=== PATIENT | female | born 1935 | race Caucasian/White ===

== ENCOUNTER 2019-09-08 23:49 | Emergency (ER) | payer MEDICARE, BC ==
[2019-09-09] MEDS ORDERED: cloNIDine HCL 0.1 MG TAB PO STA (00:16)
--- NOTE | 2019-09-09 00:46 | ED ---
Recheck HPI - General Chief Complaint: Recheck/Abnormal Lab/Rx Stated Complaint: HTN Time Seen by Provider: 09/09/19 00:01 Source: patient, family Mode of arrival: ambulatory Limitations: no limitations - History of Present Illness Initial Comments: Kamille is a pleasant 84-year-old female is brought to the emergency department today by her children for evaluation of hypertension. Patient reports she checks her blood pressure regularly and for the past 2 days it's been elevated. Patient reports that yesterday she did have mild headache but it completely resolved. This evening despite taking her home medication which is metoprolol 25 mg nightly in her low certain in the morning she continued to have high blood pressure and at her children's urging decided to come the ER for evaluation. Patient denies any chest pain palpitation shortness of breath. She reported a mild headache that was yesterday but is resolved. She denies any vision changes or focal neurologic weakness. - Related Data Allergies Allergy/AdvReac Type Severity Reaction Status Date / Time Sulfa (Sulfonamide Allergy Rash/Hives Verified 09/08/19 23:58 Antibiotics) Review of Systems ROS Statement: Those systems with pertinent positive or pertinent negative responses have been documented in the HPI. ROS Other: All systems not noted in ROS Statement are negative. Past Medical History Past Medical History: COPD, Hypertension, Pneumonia History of Any Multi-Drug Resistant Organisms: None Reported Past Surgical History: No Surgical Hx Reported Past Psychological History: No Psychological Hx Reported Smoking Status: Current every day smoker Past Alcohol Use History: None Reported Past Drug Use History: None Reported General Exam - General Exam Comments Initial Comments: Physical Exam GENERAL: Patient is well-developed and well-nourished. Patient is nontoxic and well-hydrated and is in no distress. HENT: Normocephalic, Atraumatic. EYES: PERRL, EOMI PULMONARY: Unlabored respirations. CARDIOVASCULAR: RRR Warm and well perfused extremities ABDOMEN: Non-distended SKIN: No rashes or bruising : Deferred NEUROLOGIC: Alert and oriented Normal speech Normal gait MUSCULOSKELETAL: Moving all extremities with no apparent injury PSYCHIATRIC: No SI/HI Limitations: no limitations Course Vital Signs 09/08/19 09/09/19 09/09/19 23:52 00:53 02:37 Temperature 97.8 F 97.9 F Pulse Rate 89 74 75 Respiratory 16 18 18 Rate Blood Pressure 206/104 181/94 161/69 O2 Sat by Pulse 96 97 95 Oximetry Medical Decision Making - Medical Decision Making The patient was seen and evaluated history is obtained from patient Patient presented with asymptomatic hypertension. Patient was treated with by mouth clonidine Patient's blood pressure improved she remained asymptomatic throughout her stay in the emergency department and was comfortable with plan for discharge home and outpatient follow-up with her primary care. Disposition Clinical Impression: Hypertension Disposition: HOME SELF-CARE Condition: Stable Additional Instructions: Continue taking your blood pressure medication as prescribed, contact your primary care physician Dr. Leblanc tomorrow to discuss blood pressure management Return to the ER if you have any headache, vision changes, weakness, chest pain palpitations or shortness of breath with high blood pressure Is patient prescribed a controlled substance at d/c from ED?: No Referrals: Chris Leblanc DO [Primary Care Provider] - 1-2 days
[2019-09-09 00:56] VITALS: RESP 18
[2019-09-09 02:38] VITALS: BP 161/69; PULSE 75; TEMP 97.9
== END 2019-09-09 03:09 | disposition home or self-care (01) ==
LOC: EC 23:49
DX: I10 Essential (primary) hypertension (principal); J44.9 Chronic obstructive pulmonary disease, unspecified; F17.200 Nicotine dependence, unspecified, uncomplicated; Z88.2 Allergy status to sulfonamides
CPT/HCPCS: 93005; 99283

== ENCOUNTER 2020-08-13 04:41 | Emergency (ER) | payer MEDICARE, BC ==
--- NOTE | 2020-08-13 05:05 | ED ---
SOB HPI - General Chief Complaint: Shortness of Breath Stated Complaint: ZAIRA Time Seen by Provider: 08/13/20 04:43 Source: patient, EMS Mode of arrival: EMS Limitations: no limitations - History of Present Illness Initial Comments: This patient is an 85-year-old woman who presents to be evaluated for shortness of breath. The patient states that it had come on probably around 2-3 hours ago while she was sleeping and it woke her up. She denies any other symptoms other than occasional cough. She states she has history of COPD. She states it feels like that's flaring up. No fever or chills. No chest pain. No change in urination or bowel movements. No leg pain or swelling. MD Complaint: shortness of breath, cough Onset/Timin -: hour(s) Severity scale (1-10): 0 Consistency: constant Improves With: nothing Worsens With: nothing Known History Of: COPD Associated Symptoms: denies other symptoms Treatments Prior to Arrival: oxygen - Related Data Home Oxygen Therapy: No Previous Rx's Medication Instructions Recorded Albuterol Nebulized [Ventolin 2.5 mg INHALATION Q4H #50 nebu 08/13/20 Nebulized] Ipratropium Nebulized [Atrovent 0.5 mg INHALATION Q6HR #25 neb 08/13/20 Nebulized 0.2 MG/ML] predniSONE [Deltasone] 20 mg PO BID #8 tab 08/13/20 Allergies Allergy/AdvReac Type Severity Reaction Status Date / Time Sulfa (Sulfonamide Allergy Rash/Hives Verified 09/08/19 23:58 Antibiotics) Review of Systems ROS Statement: Those systems with pertinent positive or pertinent negative responses have been documented in the HPI. ROS Other: All systems not noted in ROS Statement are negative. Constitutional: Denies: fever, chills Respiratory: Reports: as per HPI, cough, dyspnea, wheezes. Denies: hemoptysis Cardiovascular: Denies: chest pain, palpitations, orthopnea, edema, syncope Gastrointestinal: Denies: abdominal pain, nausea, vomiting, melena, hematochezia Genitourinary: Denies: dysuria, hematuria Musculoskeletal: Denies: back pain Skin: Denies: rash Neurological: Denies: headache, weakness, numbness Past Medical History Past Medical History: COPD, Hypertension, Pneumonia History of Any Multi-Drug Resistant Organisms: None Reported Past Surgical History: No Surgical Hx Reported Past Psychological History: No Psychological Hx Reported Smoking Status: Current some day smoker Past Alcohol Use History: None Reported Past Drug Use History: None Reported General Exam Limitations: no limitations General appearance: alert, in no apparent distress, cachectic Head exam: Present: atraumatic, normocephalic Eye exam: Present: normal appearance Neck exam: Present: normal inspection Respiratory exam: Present: wheezes, decreased breath sounds. Absent: respiratory distress, rales, rhonchi, stridor, chest wall tenderness, accessory muscle use, prolonged expiratory Cardiovascular Exam: Present: regular rate, normal rhythm, normal heart sounds. Absent: bradycardia, tachycardia, irregular rhythm, systolic murmur, diastolic murmur, rubs, gallop GI/Abdominal exam: Present: soft. Absent: distended, tenderness, guarding, rebound, rigid Extremities exam: Present: normal inspection, normal capillary refill. Absent: pedal edema, calf tenderness Back exam: Present: normal inspection. Absent: CVA tenderness (R), CVA tenderness (L) Neurological exam: Present: alert Skin exam: Present: warm, dry, intact, normal color. Absent: rash Course Vital Signs 08/13/20 08/13/20 08/13/20 04:41 05:29 05:33 Temperature 97.5 F L Pulse Rate 103 H 89 90 Respiratory 20 18 Rate Blood Pressure 167/85 142/86 O2 Sat by Pulse 94 L 99 Oximetry 08/13/20 08/13/20 05:42 06:58 Temperature Pulse Rate 96 88 Respiratory 16 Rate Blood Pressure 127/68 O2 Sat by Pulse 98 Oximetry Medical Decision Making - Medical Decision Making This patient is an 85-year-old woman presenting for shortness of breath. Physical exam and workup here consistent with COPD exacerbation. The patient is feeling markedly better following treatment. We discussed admission, she is feeling much better and would like to go home at this point. Discussed appropriate further care and follow-up as well as return parameters. - Lab Data Result diagrams: 08/13/20 05:07 08/13/20 05:07 Lab Results 08/13/20 08/13/20 08/13/20 Range/Units 05:07 05:07 05:07 WBC 8.7 (3.8-10.6) k/uL RBC 5.04 (3.80-5.40) m/uL Hgb 15.2 (11.4-16.0) gm/dL Hct 46.3 H (34.0-46.0) % MCV 91.9 (80.0-100.0) fL MCH 30.1 (25.0-35.0) pg MCHC 32.7 (31.0-37.0) g/dL RDW 13.3 (11.5-15.5) % Plt Count 247 (150-450) k/uL MPV 6.6 Neutrophils % 65 % Lymphocytes % 25 % Monocytes % 5 % Eosinophils % 3 % Basophils % 0 % Neutrophils # 5.6 (1.3-7.7) k/uL Lymphocytes # 2.1 (1.0-4.8) k/uL Monocytes # 0.5 (0-1.0) k/uL Eosinophils # 0.2 (0-0.7) k/uL Basophils # 0.0 (0-0.2) k/uL PT 10.1 (9.0-12.0) sec INR 0.9 (<1.2) APTT 23.8 (22.0-30.0) sec D-Dimer 0.59 (<0.60) mg/L FEU Sodium 138 (137-145) mmol/L Potassium 4.0 (3.5-5.1) mmol/L Chloride 101 (98-107) mmol/L Carbon Dioxide 26 (22-30) mmol/L Anion Gap 11 mmol/L BUN 13 (7-17) mg/dL Creatinine 0.70 (0.52-1.04) mg/dL Est GFR (CKD-EPI)AfAm >90 (>60 ml/min/1.73 sqM) Est GFR (CKD-EPI)NonAf 80 (>60 ml/min/1.73 sqM) Glucose 109 H (74-99) mg/dL Plasma Lactic Acid Son (0.7-2.0) mmol/L Calcium 9.4 (8.4-10.2) mg/dL Total Bilirubin 0.4 (0.2-1.3) mg/dL AST 24 (14-36) U/L ALT 13 (4-34) U/L Alkaline Phosphatase 99 (38-126) U/L Troponin I (0.000-0.034) ng/mL NT-Pro-B Natriuret Pep pg/mL Total Protein 7.4 (6.3-8.2) g/dL Albumin 4.4 (3.5-5.0) g/dL Coronavirus (PCR) (Not Detectd) 08/13/20 08/13/20 08/13/20 Range/Units 05:07 05:07 05:07 WBC (3.8-10.6) k/uL RBC (3.80-5.40) m/uL Hgb (11.4-16.0) gm/dL Hct (34.0-46.0) % MCV (80.0-100.0) fL MCH (25.0-35.0) pg MCHC (31.0-37.0) g/dL RDW (11.5-15.5) % Plt Count (150-450) k/uL MPV Neutrophils % % Lymphocytes % % Monocytes % % Eosinophils % % Basophils % % Neutrophils # (1.3-7.7) k/uL Lymphocytes # (1.0-4.8) k/uL Monocytes # (0-1.0) k/uL Eosinophils # (0-0.7) k/uL Basophils # (0-0.2) k/uL PT (9.0-12.0) sec INR (<1.2) APTT (22.0-30.0) sec D-Dimer (<0.60) mg/L FEU Sodium (137-145) mmol/L Potassium (3.5-5.1) mmol/L Chloride (98-107) mmol/L Carbon Dioxide (22-30) mmol/L Anion Gap mmol/L BUN (7-17) mg/dL Creatinine (0.52-1.04) mg/dL Est GFR (CKD-EPI)AfAm (>60 ml/min/1.73 sqM) Est GFR (CKD-EPI)NonAf (>60 ml/min/1.73 sqM) Glucose (74-99) mg/dL Plasma Lactic Acid Son 1.2 (0.7-2.0) mmol/L Calcium (8.4-10.2) mg/dL Total Bilirubin (0.2-1.3) mg/dL AST (14-36) U/L ALT (4-34) U/L Alkaline Phosphatase (38-126) U/L Troponin I <0.012 (0.000-0.034) ng/mL NT-Pro-B Natriuret Pep 273 pg/mL Total Protein (6.3-8.2) g/dL Albumin (3.5-5.0) g/dL Coronavirus (PCR) (Not Detectd) 08/13/20 Range/Units 05:29 WBC (3.8-10.6) k/uL RBC (3.80-5.40) m/uL Hgb (11.4-16.0) gm/dL Hct (34.0-46.0) % MCV (80.0-100.0) fL MCH (25.0-35.0) pg MCHC (31.0-37.0) g/dL RDW (11.5-15.5) % Plt Count (150-450) k/uL MPV Neutrophils % % Lymphocytes % % Monocytes % % Eosinophils % % Basophils % % Neutrophils # (1.3-7.7) k/uL Lymphocytes # (1.0-4.8) k/uL Monocytes # (0-1.0) k/uL Eosinophils # (0-0.7) k/uL Basophils # (0-0.2) k/uL PT (9.0-12.0) sec INR (<1.2) APTT (22.0-30.0) sec D-Dimer (<0.60) mg/L FEU Sodium (137-145) mmol/L Potassium (3.5-5.1) mmol/L Chloride (98-107) mmol/L Carbon Dioxide (22-30) mmol/L Anion Gap mmol/L BUN (7-17) mg/dL Creatinine (0.52-1.04) mg/dL Est GFR (CKD-EPI)AfAm (>60 ml/min/1.73 sqM) Est GFR (CKD-EPI)NonAf (>60 ml/min/1.73 sqM) Glucose (74-99) mg/dL Plasma Lactic Acid Son (0.7-2.0) mmol/L Calcium (8.4-10.2) mg/dL Total Bilirubin (0.2-1.3) mg/dL AST (14-36) U/L ALT (4-34) U/L Alkaline Phosphatase (38-126) U/L Troponin I (0.000-0.034) ng/mL NT-Pro-B Natriuret Pep pg/mL Total Protein (6.3-8.2) g/dL Albumin (3.5-5.0) g/dL Coronavirus (PCR) Not Detected (Not Detectd) - EKG Data -: EKG Interpreted by Me EKG shows normal: sinus rhythm (With PVC, rate 95 bpm), axis (Normal), intervals (Normal), QRS complexes (Normal), ST-T waves (Normal) Rate: normal Disposition Clinical Impression: COPD exacerbation Disposition: HOME SELF-CARE Condition: Good Instructions (If sedation given, give patient instructions): COPD (Chronic Obstructive Pulmonary Disease) (ED) Prescriptions: Ipratropium Nebulized [Atrovent Nebulized 0.2 MG/ML] 0.5 mg INHALATION Q6HR #25 neb predniSONE [Deltasone] 20 mg PO BID #8 tab Albuterol Nebulized [Ventolin Nebulized] 2.5 mg INHALATION Q4H #50 nebu Is patient prescribed a controlled substance at d/c from ED?: No Referrals: Chris Leblanc DO [Primary Care Provider] - 1-2 days
[2020-08-13 05:21] LABS: Basophils % (A) 0 %; Eosinophils # (A) 0.2 k/uL (0-0.7); Eosinophils % (A) 3 %; HCT 46.3 % (34.0-46.0); HGB 15.2 gm/dL (11.4-16.0); Lymphocytes # (A) 2.1 k/uL (1.0-4.8); Lymphocytes % (A) 25 %; MCH 30.1 pg (25.0-35.0); MCHC 32.7 g/dL (31.0-37.0); MCV 91.9 fL (80.0-100.0); Mean Platelet Volume 6.6; Monocytes # (A) 0.5 k/uL (0-1.0); Monocytes % (A) 5 %; Neutrophils # (A) 5.6 k/uL (1.3-7.7); Neutrophils % (A) 65 %; Platelet Count 247 k/uL (150-450); RBC 5.04 m/uL (3.80-5.40); RDW 13.3 % (11.5-15.5); WBC 8.7 k/uL (3.8-10.6)
[2020-08-13] MEDS ORDERED: IPRATROPIUM-ALBUTEROL 3 ML NEB INHALATION STA (05:21)
[2020-08-13] MEDS ORDERED: predniSONE 20 MG TAB PO STA (05:21)
[2020-08-13 05:30] VITALS: TEMP 97.5
[2020-08-13 05:34] LABS: D-Dimer 0.59 mg/L FEU (<0.60); INR 0.9 (<1.2); Partial Thromboplastin Time 23.8 sec (22.0-30.0); Prothrombin Time 10.1 sec (9.0-12.0)
[2020-08-13 05:39] LABS: ALT 13 U/L (4-34); AST 24 U/L (14-36); African American GFR (CKD) >90 (>60 ml/min/1.73 sqM); Albumin 4.4 g/dL (3.5-5.0); Alkaline Phosphatase 99 U/L (38-126); Anion Gap 11 mmol/L; Blood Urea Nitrogen 13 mg/dL (7-17); Calcium 9.4 mg/dL (8.4-10.2); Carbon Dioxide 26 mmol/L (22-30); Chloride 101 mmol/L (98-107); Glucose 109 mg/dL (74-99); Non-African American GFR(CKD) 80 (>60 ml/min/1.73 sqM); Sodium 138 mmol/L (137-145); Total Bilirubin 0.4 mg/dL (0.2-1.3); Total Protein 7.4 g/dL (6.3-8.2)
--- NOTE | 2020-08-13 06:01 | XR ---
EXAM: XR Chest, 2 Views CLINICAL HISTORY: ITS.REASON XR Reason: difficulty breathing TECHNIQUE: Frontal and lateral views of the chest. COMPARISON: No relevant prior studies available. FINDINGS: Lungs: Chronic lung changes. Pleural space: No significant pleural effusion or pneumothorax. Heart: Unremarkable. Mediastinum: Unremarkable. Bones/joints: No acute fracture. Upper abdomen: Rounded radiopacity overlying the medial right upper abdomen. Correlate clinically to exclude foreign body. IMPRESSION: Chronic lung changes. Mild superimposed acute process not excluded in the appropriate clinical setting.
[2020-08-13 07:00] VITALS: BP 127/68; PULSE 88; RESP 16
== END 2020-08-13 07:00 | disposition home or self-care (01) ==
LOC: EC 04:41
DX: J44.1 Chronic obstructive pulmonary disease with (acute) exacerbation (principal); Z20.822 Contact with and (suspected) exposure to COVID-19; Z88.2 Allergy status to sulfonamides
CPT/HCPCS: 94640; 93005; 85379; 83880; 80053; 83605; 84484; 85025; 85610; 85730; 87635; 71046; 99285; J7512

== ENCOUNTER 2022-12-14 16:21 | Inpatient (IN) | payer MEDICARE, BC ==
--- NOTE | 2022-12-14 17:02 | ED ---
General Adult HPI - General Stated complaint: LOWER EXTREMITY PAIN Time Seen by Provider: 12/14/22 16:48 Source: patient, family, RN notes reviewed Limitations: no limitations - History of Present Illness Initial comments: Patient is a pleasant 87-year-old female presenting to the emergency department with concerns with hip pain. Patient states she has somewhat chronic hip pain or lack 6 months. Patient states she has not seen her doctor yet for this. Patient states discomfort is waxing and waning. Discomfort does increase with movement. Discomfort is moderate at this time. Patient did lie herself down to the ground however did not fall. No injury. No other area of pain or concern. No fever. No swelling. - Related Data Previous Rx's Medication Instructions Recorded Albuterol Nebulized [Ventolin 2.5 mg INHALATION Q4H #50 nebu 08/13/20 Nebulized] Ipratropium Nebulized [Atrovent 0.5 mg INHALATION Q6HR #25 neb 08/13/20 Nebulized 0.2 MG/ML] predniSONE [Deltasone] 20 mg PO BID #8 tab 08/13/20 Allergies Allergy/AdvReac Type Severity Reaction Status Date / Time Sulfa (Sulfonamide Allergy Rash/Hives Verified 12/14/22 17:05 Antibiotics) Review of Systems ROS Statement: Those systems with pertinent positive or pertinent negative responses have been documented in the HPI. ROS Other: All systems not noted in ROS Statement are negative. Constitutional: Denies: fever Eyes: Denies: eye pain ENT: Denies: ear pain Respiratory: Denies: cough Cardiovascular: Denies: chest pain Endocrine: Denies: fatigue Gastrointestinal: Denies: abdominal pain Genitourinary: Denies: dysuria Musculoskeletal: Reports: as per HPI. Denies: back pain Skin: Denies: rash Neurological: Denies: weakness Past Medical History Past Medical History: COPD, Hypertension, Pneumonia History of Any Multi-Drug Resistant Organisms: None Reported Past Surgical History: No Surgical Hx Reported Past Psychological History: No Psychological Hx Reported Smoking Status: Current some day smoker Past Alcohol Use History: None Reported Past Drug Use History: None Reported General Exam Limitations: no limitations General appearance: alert, in no apparent distress Head exam: Present: normocephalic Eye exam: Present: normal appearance ENT exam: Present: normal exam Neck exam: Present: normal inspection. Absent: tenderness Respiratory exam: Present: normal lung sounds bilaterally Cardiovascular Exam: Present: regular rate, normal rhythm Expanded Peripheral pulses: 2+: Posterior Tibialis (R), Posterior Tibialis (L), Dorsalis Pedis (R), Dorsalis Pedis (L) GI/Abdominal exam: Present: soft. Absent: tenderness Extremities exam: Present: tenderness (Right lateral hip. Distally the extremity is neurovascular intact. Pain with range of motion right hip) Back exam: Present: normal inspection. Absent: tenderness, vertebral tenderness Neurological exam: Present: alert. Absent: motor sensory deficit Psychiatric exam: Present: normal affect, normal mood Skin exam: Present: normal color Course Vital Signs 12/14/22 17:07 Temperature 98.9 F Pulse Rate 90 Respiratory 16 Rate Blood Pressure 90/59 O2 Sat by Pulse 94 L Oximetry Medical Decision Making - Medical Decision Making Was pt. sent in by a medical professional or institution (, PA, INSPECTOR [employer], urgent care, hospital, or intermediate...) When possible be specific @ -No Did you speak to anyone other than the patient for history (EMS, parent, family, police, friend...)? What history was obtained from this source @ -Family is present and helps by history including history of patient reportedly not having a fall but laying down secondary to pain Did you review nursing and triage notes (agree or disagree)? Why? @ -I reviewed and agree with nursing and triage notes Were old charts reviewed (outside hosp., previous admission, EMS record, old EKG, old radiological studies, urgent care reports/EKG's, intermediate records)? Report findings @ -No old charts were reviewed Differential Diagnosis (chest pain, altered mental status, abdominal pain women, abdominal pain men, vaginal bleeding, weakness, fever, dyspnea, syncope, headache, dizziness, GI bleed, back pain, seizure, CVA, palpatations, mental health)? @ -not applicable EKG interpreted by me (3pts min.). @ -As above X-rays interpreted by me (1pt min.). @ -Right hip and pelvis and right femur x-ray show right IT fracture CT interpreted by me (1pt min.). @ -None done U/S interpreted by me (1pt. min.). @ -None done What testing was considered but not performed or refused? (CT, X-rays, U/S, labs)? Why? @ -None What meds were considered but not given or refused? Why? @ -None Did you discuss the management of the patient with other professionals (professionals i.e. , PA, INSPECT[employer], lab, RT, psych nurse, health care social worker, supervisor plate pasting, teacher, juvenile probation officer, corrections caseworker)? Give summary @ -Case discussed with practitioner neck rash with orthopedics Was smoking cessation discussed for >3mins.? @ -No Was critical care preformed (if so, how long)? @ -No Were there social determinants of health that impacted care today? How? (Homelessness, low income, unemployed, alcoholism, drug addiction, transportation, low edu. Level, literacy, decrease access to med. care, fdc, rehab)? @ -No Was there de-escalation of care discussed even if they declined (Discuss DNR or withdrawal of care, Hospice)? DNR status @ -No What co-morbidities impacted this encounter? (DM, HTN, Smoking, COPD, CAD, Cancer, CVA, ARF, Chemo, Hep., AIDS, mental health diagnosis, sleep apnea, morbid obesity)? @ -None Was patient admitted / discharged? Hospital course, mention meds given and route, prescriptions, significant lab abnormalities, going to OR and other pertinent info. @ -Patient reevaluated. Patient and family updated. Patient will be admitted with probable surgical repair of right IT fracture Undiagnosed new problem with uncertain prognosis? @ -No Drug Therapy requiring intensive monitoring for toxicity (Heparin, Nitro, Insul in, Cardizem)? @ -No Were any procedures done? @ -No Diagnosis/symptom? @ -Intertrochanteric right hip fracture Acute, or Chronic, or Acute on Chronic? @ -Acute Uncomplicated (without systemic symptoms) or Complicated (systemic symptoms)? @ -default Side effects of treatment? @ -No Exacerbation, Progression, or Severe Exacerbation? @ -No Poses a threat to life or bodily function? How? (Chest pain, [place], [place], pneumonia, PE, COPD, DKA, ARF, appy, cholecystitis, CVA, Diverticulitis, Homicidal, Suicidal, threat to staff... and all critical care pts) @ -No Disposition Clinical Impression: Intertrochanteric fracture of right hip Disposition: ADMITTED IP TO THIS HOSP Is patient prescribed a controlled substance at d/c from ED?: No Referrals: Chris Leblanc DO [Primary Care Provider] - 1-2 days Time of Disposition: 18:22
[2022-12-14] MEDS ORDERED: KETOROLAC 15 MG/ML 1 ML VIAL IVP STA (17:06)
--- NOTE | 2022-12-14 17:55 | XR ---
EXAMINATION TYPE: XR chest 1V DATE OF EXAM: 12/14/2022 COMPARISON: 08/13/2020 HISTORY: 87-year-old female with fall TECHNIQUE: Single frontal view of the chest is obtained. FINDINGS: Heart normal size. Atherosclerotic calcifications. Interstitial prominence and hyperinflat ion. No consolidation or pleural effusion. IMPRESSION: COPD. Chronic appearing changes. No acute process seen.
--- NOTE | 2022-12-14 17:58 | XR ---
EXAMINATION TYPE: XR Hip 2 views RT and AP Pelvis, XR femur 2 views RT DATE OF EXAM: 12/14/2022 COMPARISON: NONE HISTORY: 87-year-old female fall and pain FINDINGS: Pelvis and right hip: Prominent leftward tracheal shift versus a levoconvex scoliosis. Marked osteopenia. Mild degenerative change of both hips. Prominent stool within the rectum extending up to 7.7 cm wide. There is a minim ally comminuted, nondisplaced intertrochanteric fracture of the proximal right femur. Right femur: Osteopenia. No additional acute fractures seen of the more mid to distal right femur. Suspect severe degenerative change medial compartment of the knee. IMPRESSION: 1. Pelvis and right hip: Osteopenia. Mild bilateral hip OA. Nondisplaced IT fracture proximal right f emur. 2. Right femur: Osteopenia. Suspect severe medial compartmental OA at the knee.
[2022-12-14] MEDS: MORPHINE SULFATE 4 MG/ML SYRINGE IVP STA ×2 (18:04→20:11)
[2022-12-14] MEDS ORDERED: MORPHINE SULFATE 4 MG/ML SYRINGE IV PRN (18:22)
[2022-12-14] MEDS ORDERED: NALOXONE 0.4 MG/ML 1 ML VIAL IV PRN (18:22)
[2022-12-14] MEDS: SODIUM CHLORIDE 0.9% 1,000 ML IV SCH (19:00)
[2022-12-14] MEDS ORDERED: SODIUM CHLORIDE 0.9% 500 ML 500 ML IV STA (19:05)
[2022-12-14 19:36] LABS: ALT 24 U/L (4-34); AST 36 U/L (14-36); African American GFR (CKD) 57 (>60 ml/min/1.73 sqM); Albumin 4.4 g/dL (3.5-5.0); Alkaline Phosphatase 83 U/L (38-126); Anion Gap 13 mmol/L; Blood Urea Nitrogen 32 mg/dL (7-17); Calcium 9.8 mg/dL (8.4-10.2); Carbon Dioxide 28 mmol/L (22-30); Chloride 96 mmol/L (98-107); Glucose 119 mg/dL (74-99); Non-African American GFR(CKD) 49 (>60 ml/min/1.73 sqM); Potassium 3.7 mmol/L (3.5-5.1); Sodium 137 mmol/L (137-145); Total Bilirubin 0.7 mg/dL (0.2-1.3); Total Protein 7.2 g/dL (6.3-8.2)
[2022-12-14 19:41] LABS: Basophils % (A) 0 %; Eosinophils % (A) 0 %; HCT 21.2 % (34.0-46.0); HGB 7.1 gm/dL (11.4-16.0); Lymphocytes # (A) 0.5 k/uL (1.0-4.8); Lymphocytes % (A) 8 %; MCH 29.9 pg (25.0-35.0); MCHC 33.3 g/dL (31.0-37.0); MCV 89.7 fL (80.0-100.0); Mean Platelet Volume 7.5; Monocytes # (A) 0.3 k/uL (0-1.0); Monocytes % (A) 4 %; Neutrophils # (A) 5.6 k/uL (1.3-7.7); Neutrophils % (A) 87 %; Platelet Count 439 k/uL (150-450); RBC 2.37 m/uL (3.80-5.40); RDW 13.3 % (11.5-15.5); WBC 6.4 k/uL (3.8-10.6)
[2022-12-14 19:45] LABS: INR 1.4 (<1.2); Prothrombin Time 13.8 sec (9.0-12.0)
[2022-12-15] MEDS: ACETAMINOPHEN TAB 325 MG TAB PO PRN ×2 (00:14→06:34)
--- NOTE | 2022-12-15 09:44 | P.HPOR ---
History of Present Illness H&P Date: 12/15/22 Chief Complaint: Right intertrochanteric femur fracture Patient is an 87-year-old female was brought to [facility] in-hospital after being found on the ground at her home. Patient had immediate pain to the right lower extremity and was able to weight-bear. Upon arrival to the hospital, imaging and lab tests were done. Images did demonstrate a minimally displaced right intertrochanteric femur fracture. Patient was a relatively poor historian with regards to the history. I was able to speak with her daughter today that. On examination the emergency room, she is resting comfortably. She denies any pain involving the left lower extremity or bilateral upper extremities. She notices most pain in the hip with range of motion. She denies any cervical, th oracic or lumbar pain. She denies any loss of bowel or bladder function at this time. She denies any paresthesias of the bilateral upper or lower extremities. She denies any previous surgery to the right lower extremity. After discussion with the patient's daughter, she is very stationary at home. She does occasionally walk outside but very limited. She utilizes a walker occasionally for ambulation. Patient currently does not drive. Review of Systems Constitutional: Reports as per HPI Past Medical History Past Medical History: COPD, Hypertension, Pneumonia History of Any Multi-Drug Resistant Organisms: None Reported Past Surgical History: No Surgical Hx Reported Past Psychological History: No Psychological Hx Reported Smoking Status: Current some day smoker Past Alcohol Use History: None Reported Past Drug Use History: None Reported Medications and Allergies Home Medications Medication Instructions Recorded Confirmed Type Aspirin EC [Ecotrin Low Dose] 81 mg PO DAILY 12/14/22 12/14/22 History Fluticasone Propion/Salmeterol 1 puff INHALATION RT-BID 12/14/22 12/14/22 History [Wixela 250-50 Inhub] Losartan Potassium 50 mg PO BID 12/14/22 12/14/22 History Metoprolol Succinate [Toprol XL] 100 mg PO DAILY 12/14/22 12/14/22 History hydroCHLOROthiazide [Hydrodiuril] 25 mg PO DAILY 12/14/22 12/14/22 History Allergies Allergy/AdvReac Type Severity Reaction Status Date / Time Sulfa (Sulfonamide Allergy Rash/Hives Verified 12/14/22 18:28 Antibiotics) Physical Examination Right lower extremity: No obvious open lesions or sores are visualized throughout the extremity, no significant areas of ecchymosis Shortening and external rotation of the extremity is noted compared to the cont ralateral side Tenderness with palpation to the proximal femur, logroll maneuver reproduces groin pain, she is unable to straight leg raise No tenderness with palpation surrounding the knee, lower leg, foot or ankle Plantar flexion, dorsiflexion, EHL, FHL are intact Calf is soft, no tenderness with palpation Cells pedis pulses 2+, sensory exam to light touch is intact throughout the extremity Results - Labs Labs: Abnormal Lab Results - Last 24 Hours (Table) 12/14/22 12/14/22 12/14/22 Range/Units 18:58 18:58 18:58 RBC 2.37 L (3.80-5.40) m/uL Hgb 7.1 L (11.4-16.0) gm/dL Hct 21.2 L (34.0-46.0) % Lymphocytes # 0.5 L (1.0-4.8) k/uL PT 13.8 H (9.0-12.0) sec INR 1.4 H (<1.2) Chloride 96 L (98-107) mmol/L BUN 32 H (7-17) mg/dL Glucose 119 H (74-99) mg/dL Crossmatch 12/15/22 Range/Units 07:03 RBC (3.80-5.40) m/uL Hgb (11.4-16.0) gm/dL Hct (34.0-46.0) % Lymphocytes # (1.0-4.8) k/uL PT (9.0-12.0) sec INR (<1.2) Chloride (98-107) mmol/L BUN (7-17) mg/dL Glucose (74-99) mg/dL Crossmatch See Detail H & H 12/14/22 Range/Units 18:58 Hgb 7.1 L (11.4-16.0) gm/dL Hct 21.2 L (34.0-46.0) % Coagulation 12/14/22 Range/Units 18:58 INR 1.4 H (<1.2) Result Diagrams: 12/14/22 18:58 12/14/22 18:58 - Diagnostic results Hip x-ray: report reviewed, image reviewed (AP films of the pelvis and x-rays of the right hip were reviewed. Images demonstrate a minimally displaced right intertrochanteric femur fracture. No other acute osseous abnormalities appreciated. osteoarthritic changes to the bilateral hips ) Assessment and Plan Assessment: Minimally displaced right intertrochanteric femur fracture Status post fall from standing Bilateral hip osteoarthritis COPD Plan: I was able to discuss the case, this including both physical exam findings and imaging studies of my attending Dr. Hodgson. We would like surgical intervention, more specifically a intramedullary nail of the right intertrochanteric femur fracture. We would like to start her on 12/15/2022. Patient was made nothing by mouth after midnight 12/14/2022 I was able to discuss the case, this risk and benefits with both the patient and the patient's daughter risks to include but not exclusive to infection, blood loss, blood clots, neurovascular injury, and adequately control, need for further surgery, pain and stiffness. Obtain consent prior to procedure Continue nothing by mouth diet Nonweightbearing right lower extremity Urinary catheter placement prior to surgery DVT prophylaxis, will likely utilize subcu medication after surgery Pain control, oral and IV medication as needed PT/OT evaluation after surgery Medical recommendations Further recommendations to follow Time with Patient: Less than 30
--- NOTE | 2022-12-15 10:54 | P.CONS ---
History of Present Illness - Reason for Consult Consult date: 12/15/22 - Chief Complaint Preop, medical management - History of Present Illness 87-year-old woman with medical history of COPD, hypertension, hyperlipidemia presented for hip fracture. Orthopedic surgery service admitted the patient and requested medical consultation for management as well as for preoperative clearance. Patient reports that she does some housework at home, is able to feed herself, bathe herself, ambulating with the help of a walker, groom herself, but she does require help with IADLs such as grocery shopping, laundry, etc. She does have stairs at home, but requires a chair lift to be able to go up and down her stairs. METs estimation by Price activity status indexes 3.63. Patient denies fevers, chills, nausea, vomiting, chest pain, palpitations, syncope, presyncope, cough, dyspnea, abdominal pain, constipation, diarrhea, dysuria, dyschezia, numbness/weakness of extremities. In the emergency room, patient was afebrile, 112/58, heart rate 76, 96% on 2 L nasal cannula. CBC shows anemia to 7.1. Basic metabolic panel shows chloride of 96, BUN of 32, otherwise unremarkable. Magnesium is 1.8. Coags show an INR of 1.4. Liver function tests are unremarkable. Chest x-ray demonstrates hyperinflation with flattening of diaphragms, normal sized heart without acute infiltrates. Pelvis and right hip x-ray shows osteopenia with mild lateral bile hip osteoarthritis and a nondisplaced intertrochanteric fracture of the proximal right femur. Case was discussed with the orthopedic surgery service requested medical consultation for preoperative clearance and medical management. All Systems reviewed and pertinent positives and negatives noted in HPI, all other symptoms are negative Gen: in no apparent distress, resting comfortably in bed Eyes: PERRL, no scleral injection or icterus HENT: normocephalic, atraumatic, good hearing acuity, moist mucous membranes Neck: no tracheal deviation, full range of motion Resp: good air exchange, breathing comfortably with no accessory muscle use, no tactile fremitus, clear to auscultation bilaterally CVS: good distal perfusion x 4, no pitting edema, regular rate and rhythm without murmurs GI: soft, NTTP, ND, no hepatosplenomegaly : no suprapubic tenderness, no CVAT, gonzalez catheter not present MSK: no clubbing, no cyanosis, no noted contractures of extremities Skin: no noted rashes, petechiae; temperature of skin is appropriate Neuro: moving all extremities without signs of weakness, CN II-XII intact Psych: cooperative, euthymic mood, insight and judgment intact Labs and imaging as above Assessment: Preoperative clearance Elevated INR Anemia COPD without exacerbation Hyperlipidemia Hypertension Plan: Vital signs reviewed and noted in the HPI Lab work reviewed and noted in the HPI CXR is personally interpreted and noted in the HPI Case was discussed with the orthopedic surgery service who requested medical consultation preoperative clearance NSQIP estimates a 4.4% risk of MACE for this patient, which is significantly elevated compared to average. Obtain preoperative EKG for baseline. Obtain pre-operative troponin and BNP. I will also place an order to trend the tropon ins. It is not clear whether this patients blood loss anemia is from hip fracture alone or whether a bleed elsewhere predisposed her to falling and breaking her hip or a cardiac event led her to fall and break her hip and this bleeding hip led to anemia. However, due to high risk of MACE and presence of significant anemia beyond her baseline, I would recommend targeting a hgb of 8 or greater in the pavithra-operative setting. Would recommend post-op 1 hour hgb to ensure this target continues to be met. Would recommend pavithra-operative telemetry monitoring. Would recommend dose of FFP prior to or during surgery. I recommend transfusing 2U of PRBCs now. Order reticulocyte count, LDH, haptoglobin, UA Order iron panel, B12, folate Continue home metoprolol, Wixela, Losartan Hold home HCTZ Pt is Fulll Code Past Medical History Past Medical History: COPD, Hypertension, Pneumonia History of Any Multi-Drug Resistant Organisms: None Reported Past Surgical History: No Surgical Hx Reported Past Psychological History: No Psychological Hx Reported Smoking Status: Current some day smoker Past Alcohol Use History: None Reported Past Drug Use History: None Reported Medications and Allergies Home Medications Medication Instructions Recorded Confirmed Type Aspirin EC [Ecotrin Low Dose] 81 mg PO DAILY 12/14/22 12/14/22 History Fluticasone Propion/Salmeterol 1 puff INHALATION RT-BID 12/14/22 12/14/22 History [Wixela 250-50 Inhub] Losartan Potassium 50 mg PO BID 12/14/22 12/14/22 History Metoprolol Succinate [Toprol XL] 100 mg PO DAILY 12/14/22 12/14/22 History hydroCHLOROthiazide [Hydrodiuril] 25 mg PO DAILY 12/14/22 12/14/22 History Allergies Allergy/AdvReac Type Severity Reaction Status Date / Time Sulfa (Sulfonamide Allergy Rash/Hives Verified 12/14/22 18:28 Antibiotics) Physical Exam Osteopathic Statement: *. No significant issues noted on an osteopathic structural exam other than those noted in the History and Physical/Consult. Vitals: Vital Signs Temp Pulse Resp BP Pulse Ox 12/15/22 06:39 76 18 112/58 96 12/15/22 04:26 74 16 96/84 92 L 12/15/22 02:00 74 16 101/50 92 L 12/15/22 00:09 80 18 101/49 94 L 12/14/22 23:00 94/49 94 L 12/14/22 22:45 105/50 95 12/14/22 22:30 101/61 93 L 12/14/22 22:15 103/57 91 L 12/14/22 22:00 96/52 90 L 12/14/22 21:45 95/65 91 L 12/14/22 21:30 65 104/57 92 L 12/14/22 21:15 95/54 90 L 12/14/22 21:00 89 L 12/14/22 20:45 99/49 90 L 12/14/22 20:30 104/52 89 L 12/14/22 20:15 100/56 89 L 12/14/22 20:00 102/53 93 L 12/14/22 19:45 108/55 93 L 12/14/22 19:30 113/67 12/14/22 19:15 87/70 91 L 12/14/22 19:00 88/54 88 L 12/14/22 18:45 90/54 91 L 12/14/22 18:30 89/44 91 L 12/14/22 18:15 102/58 90 L 12/14/22 18:00 97/57 90 L 12/14/22 17:45 88/59 91 L 12/14/22 17:30 88/59 12/14/22 17:15 94/61 12/14/22 17:07 98.9 F 90 16 90/59 94 L 12/14/22 17:00 90/59 12/14/22 16:45 90/59 95 12/14/22 16:35 87 L Intake and Output 12/14/22 12/15/22 12/15/22 22:59 06:59 14:59 Other: Weight 47.174 kg Results CBC & Chem 7: 12/14/22 18:58 12/14/22 18:58 Labs: Abnormal Lab Results - Last 24 Hours (Table) 12/14/22 12/14/22 12/14/22 Range/Units 18:58 18:58 18:58 RBC 2.37 L (3.80-5.40) m/uL Hgb 7.1 L (11.4-16.0) gm/dL Hct 21.2 L (34.0-46.0) % Lymphocytes # 0.5 L (1.0-4.8) k/uL PT 13.8 H (9.0-12.0) sec INR 1.4 H (<1.2) Chloride 96 L (98-107) mmol/L BUN 32 H (7-17) mg/dL Glucose 119 H (74-99) mg/dL Crossmatch 12/15/22 Range/Units 07:03 RBC (3.80-5.40) m/uL Hgb (11.4-16.0) gm/dL Hct (34.0-46.0) % Lymphocytes # (1.0-4.8) k/uL PT (9.0-12.0) sec INR (<1.2) Chloride (98-107) mmol/L BUN (7-17) mg/dL Glucose (74-99) mg/dL Crossmatch See Detail
[2022-12-15 11:19] LABS: Reticulocyte % 2.5 % (0.5-2.0)
[2022-12-15 11:42] LABS: Appearance,Urine Clear (Clear); Bilirubin,Urine Negative (Negative); Blood,Urine Negative (Negative); Color,Urine Yellow; Glucose,Urine (UA) Negative (Negative); Ketones,Urine Negative (Negative); Leukocyte Esterase,Urine Negative (Negative); Nitrite,Urine Negative (Negative); PH, Urine 5.5 (5.0-8.0); Protein,Urine Negative (Negative); Specific Gravity,Urine 1.014 (1.001-1.035); Urobilinogen,Urine <2.0 mg/dL (<2.0)
[2022-12-15 14:19] LABS: Basophils % (A) 0 %; Eosinophils % (A) 0 %; HCT 29.7 % (34.0-46.0); Lymphocytes # (A) 1.4 k/uL (1.0-4.8); Lymphocytes % (A) 14 %; MCH 29.4 pg (25.0-35.0); MCHC 32.6 g/dL (31.0-37.0); MCV 90.3 fL (80.0-100.0); Mean Platelet Volume 7.3; Monocytes # (A) 0.5 k/uL (0-1.0); Monocytes % (A) 5 %; Neutrophils # (A) 7.8 k/uL (1.3-7.7); Neutrophils % (A) 79 %; Platelet Count 244 k/uL (150-450); RBC 3.28 m/uL (3.80-5.40); RDW 13.5 % (11.5-15.5); WBC 9.9 k/uL (3.8-10.6)
[2022-12-15 14:29] LABS: HGB 9.7 gm/dL (11.4-16.0)
[2022-12-15] MEDS ORDERED: IV FLUID CONTINUATION 1,000 ML IV ONE (16:22)
[2022-12-15] MEDS ORDERED: ONDANSETRON 4 MG/2 ML VIAL ONE (16:38)
[2022-12-15] MEDS ORDERED: MIDAZOLAM 2 MG/2 ML VIAL IV ONE (16:47)
--- NOTE | 2022-12-15 16:52 | P.PN ---
Progress Note - Text Progress Note Date: 12/15/22 Orthopedic Surgery Risk Review Kamille Herring is a 87-year-old female presenting for evaluation of sudden onset right hip pain, inability to ambulate after unknown injury likely fall from standing found down unknown time. It was my pleasure to have seen and examined Kamille Herring. In our visit today we have had a chance to go over subjective complaints, physical examination findings and treatments including the natural course history without intervention and various interventional options. her imaging demonstrates right intertrochanteric hip fracture 2 part displaced. On physical exam, Kamille Bushndemonstrates pain with motion of right lower extremity, which is NV intact at this time. I have explained to the patient that this fracture needs stabilization. Based on the patients imaging, physical exam, and the rapid progression and disabling nature of her symptoms, at this time I recommend surgery in the form or a: right hip intramedullary nail fixation I discussed the risk and benefits of this procedure at length with Kamille Herring and family at bedside. Questions were invited and answered, and the patient wishes to proceed as outlined below. Currently, I am recommendin. right hip intramedullary nail fixation 2. Review of surgical risks and benefits as well as an educational packet on the proposed surgical procedure. Risks: All surgical procedures come with inherent risks, including those related to positioning, anesthesia, intraoperative findings, and postoperative complications. It is important to understand that surgery does not come with any guarantee of a successful outcome as complications and adverse events are always possible. The patient was given a handout discussing the surgical procedure and risks associated with the intervention, both of which were discussed with the patient. These risks include but are not limited to the following: - Experiencing same, different or even worse symptoms compared to before surgery. - Requiring further surgery or other forms of treatment presently or at some time in the future . - On an extreme but fortunately relatively rare basis severe complication such as blindness, stroke, heart attack, temporary and/or permanent nerve injury, paralysis, coma, or may occur, sometimes without known explanation. - Surgical complications may include but are not limited to risk of infection, fluid accumulation in the surgical dissection site, including a seroma or hematoma, that requires additional surgery, wound drainage, bleeding, new numbness or weakness, vision changes/loss, spinal fluid leakage, non-healing and/or infected incision, headaches, difficulty or inability to swallow, hoarseness, hemopneumothorax, pneumothorax, injury to nerves, spinal cord, blood vessels, lymphatics or other vital organs (i.e., bowel injury, injury to the great vessels); heterotopic bone formation; complications related to the hardware such as screws, rods, including misplaced hardware, device failure, hardware fracture/breakage, or hardware loosening; retained surgical instrumentations or devices and the need for further surgery. - Medical risks of the planned surgery include but are not limited to generalized Infections to the whole body or local areas outside of the surgical site (sepsis), heart attack, bleeding, anaphylaxis, meningitis, seizure, epilepsy, hearing loss, burn orona, laceration of the head or other areas of the body, bruising, hypersensitivity of the skin, bladder over distension; allergic reaction; shoulder injury related to positioning; fat, blood and air clots to other areas of the body like heart, lungs, brain; failure of internal organs such as lungs, kidneys, liver and excessive bleeding. If blood transfusions are necessary, note that transfusions may cause intolerance reactions such as anaphylaxis or other complex reactions. Despite best efforts, the results of surgery might not heal in terms of bone, soft tissues such as skin, fascia, ligaments, and joints. [facility] has multiple operating rooms with single and overlapping rooms running daily. They currently function under the required guidelines as produced by the Senate Finance Committee with regards to the overlapping rooms and will continue to comply with changes to this policy as they occur. The requirements include and are complied with as follows: (1) the critical portions of the overlapping rooms will not occur at the same time, (2) the attending physician will be physically present during the critical portions of the procedure and immediately available during the entire case, and (3) a back-up attending is designated should the primary attending not be immediately available. The patient has had a chance to review all the listed information, has been given print outs detailing this information, and has had all his/her questions answered to their satisfaction. It was my pleasure to have seen and examined Kamille Herring and family. In our visit today we have had a chance to go over my understanding of our patient's current condition, the natural course history without intervention and various interventional options. Questions were invited and answered, and the patient wishes to proceed as outlined above. I have seen and examined the patient for 25 minutes and we have spent more than 50% of the time in repeat and detailed counseling about the patient's condition, its natural course history with out and as much as can be predicted with surgery and re-review of various surgical treatment options. In conclusion, Kamille Herring and family at bedside requested we proceed with the above suggested surgery and are willing to accept risks and limitations of the suggested surgery as nature of the disease process and our best attempts at treatment for the condition. Thank you again for allowing us to be part of your patient's care. Please don't hesitate to contact me if you have any further questions. Signed and authenticated by: Jamie Perez [facility] [address], [address] [address]
[2022-12-15] MEDS ORDERED: ONDANSETRON 4 MG/2 ML VIAL IVP ONE ×2 (17:02→18:50)
[2022-12-15] MEDS ORDERED: DEXAMETHASONE SOD PHOSPHATE 4 MG/ML 1 ML VIAL ONE (17:07)
[2022-12-15] MEDS ORDERED: ROCURONIUM 10 MG/ML (5 ML VIAL) IV ONE (17:07)
[2022-12-15] MEDS ORDERED: LIDOCAINE 2% INJ 20 MG/ML (2 ML VIAL) ONE (17:07)
[2022-12-15] MEDS ORDERED: fentaNYL (PF) 50 MCG/ML 2 ML AMP ONE (17:07)
[2022-12-15] MEDS ORDERED: ROPIVACAINE 5 MG/ML 30 ML VIAL ONE (17:07)
[2022-12-15] MEDS ORDERED: PHENYLEPHRINE-0.9% NACL SYG 1,000 MCG/10 ML SYRINGE ONE (17:07)
[2022-12-15] MEDS ORDERED: NEOSTIGMINE 1 MG/ML 10 ML VIAL ONE (17:07)
[2022-12-15] MEDS ORDERED: GLYCOPYRROLATE 0.2 MG/ML 2 ML VIAL ONE (17:07)
[2022-12-15] MEDS ORDERED: PROPOFOL 10 MG/ML 20 ML VIAL IV ONE (17:07)
[2022-12-15] MEDS ORDERED: TRANEXAMIC ACID 1,000 MG in SODIUM CHLORIDE 0.9% 100 ML IVPB PRN (17:11)
[2022-12-15] MEDS ORDERED: NALOXONE 0.4 MG/ML 1 ML VIAL IV PRN (17:11)
[2022-12-15] MEDS ORDERED: HYDROmorphone 0.5 MG/0.5 ML SYRINGE IVP PRN (17:11)
[2022-12-15] MEDS ORDERED: MAGNESIUM HYDROXIDE 2,400 MG/10 ML CUP PO PRN (17:11)
[2022-12-15] MEDS ORDERED: SODIUM CHLORIDE 0.9% 50 ML with ceFAZolin 2,000 MG IV ONE ×2 (17:40)
[2022-12-15] MEDS ORDERED: ceFAZolin 1,000 MG in SODIUM CHLORIDE 0.9% 1,000 ML IRRIGATION ONE (17:48)
--- NOTE | 2022-12-15 18:16 | P.OP ---
Date of Procedure: 12/15/22 Preoperative Diagnosis: 1. Right IT fracture 3 part displaced 2. s/p FFS 3. Complex medical patient. Postoperative Diagnosis: 1. Right IT fracture 3 part displaced 2. s/p FFS 3. Complex medical patient. Procedure(s) Performed: 1. Right hip IMN fixation Implants: Londono and nephew intertan, short 125 Anesthesia: GETA Surgeon: Jamie Hodgson Ethnographer #1: Zackary Liang (Was present and assisted with all aspects of the case from positioning to dressing placement) Estimated Blood Loss (ml): 100 IV fluids (ml): 250 Urine output (ml): 150 Pathology: none sent Condition: stable Disposition: PACU Indications for Procedure: Kamille Herring is a 87-year-old female presenting for evaluation of sudden onset right hip pain, inability to ambulate after unknown injury likely fall from standing found down unknown time. It was my pleasure to have seen and examined Kamille Herring. In our visit today we have had a chance to go over subjective complaints, physical examination findings and treatments including the natural course history without intervention and various interventional options. her imaging demonstrates right intertrochanteric hip fracture 2 part displaced. On physical exam, Kamille Bushndemonstrates pain with motion of right lower extremity, which is NV intact at this time. I have explained to the patient that this fracture needs stabilization. Based on the patients imaging, physical exam, and the rapid progression and disabling nature of her symptoms, at this time I recommend surgery in the form or a: right hip intramedullary nail fixation I discussed the risk and benefits of this procedure at length with Kamille Herring and family at bedside. Questions were invited and answered, and the patient wishes to proceed as outlined below. Currently, I am recommendin. right hip intramedullary nail fixation Description of Procedure: Right hip short IMN The patient was seen and examined in the preoperative area. All preoperative protocols were followed. Informed consent was obtained risks and benefits of the procedure were discussed at length. Risks including bleeding infection damage to the surrounding tissue and risk of reoperation were discussed with the patient. Risk of anesthesia up to and including was a discussed with the patient. These are outlined in the risk reviewed. They were willing to accept these risks and all of the risks of surgery. The patient was given a weight- based dose of antibiotics in the form of 2 g Ancef. The patient was seen and evaluated by the anesthesia team who deemed them fit for surgery. The site was marked, the patient was willing to proceed with the procedure. The patient was transferred to the operative suite by the Department of anesthesia. There were then drifted off to sleep by the department of anesthesia andGETA anesthesia was used. Once adequate anesthesia had been obtained the patient was carefully transferred to the operative bed. All bony prominences were padded accordingly. SCDs were placed on the nonoperative lower extremities. Arms were well padded. the patient was transferred to the Angelia table and her right leg was placed in a Angelia boot and secured to the table left leg was placed in a well-leg rivero well padded and secured. The post was placed and she was secured appropriately. arms were placed on arm boards and well-padded Preoperative briefing was done with the operative team and everyone was ready for the procedure to start. Xray used to reduce the fracture with Angelia table. The patients right leg was then prepped and draped in the normal sterile fashion. Timeout was then performed and all parties in agreement with the procedure to be performed. X-ray was then used to amanad 2 cm proximal to the GT. Skin incision made in line with the femur and blunt dissection taken down to the deep facia which was split. Blut dissetion then taken down to the tip of the GT and the sharp awl used. Optimal starting point achieved on AP and Lateral imaging. Awl was then advaced into the proximal femur. Ball tip guidewire was then passed into the femur. It was confirmed on Ap and laterl. Opening reamer then passed followed by 9, 11 and 13 mm reamers. Then the nail was selected and impacted into place over the wire using flouroscopic guidance. Once in position the lateral guide was placed and skin incisoin made in line with the femur over the lateral aspect. Dissection taken down through the tensor facia which was split inline with its fibers. The guide was seated against bone. Pin was placed through guide for the lag screw to be with in 10mm on Ap and lateral of the subchondarl bone. This was then measured. Appropriate sized compression screw then selected and drilled. Then the lag screw drilled. Lag screw placed over the wire followed by the compression screw. About 7 mm of compression was achieved. Good alignment in AP and lateral shown. The nail was then locked proximally. Distal locking screw was then placed through the jig using similar technique. Screw was drilled and measured and placed. AP and lateral confirmed good placement and good fracture reduction as well as stability in ROM. The guid was then removed from the nail. The wound was then copiously irrigated with normal sterile saline final AP and lateral fluoroscopic imaging confirmed good placement of pins as well as reduction of fracture. The deep fascia was then closed with 0 Vicryl superficial closed 2-0 Vicryl and skin closed with skin kortney the wound edges approximated very well. The wound was then cleaned and dressed with an optifoam dressing. The patient was then transferred back to their hospital bed. There were awakened by department of anesthesia having tolerated the procedure very well with no complications. The patient was then transported to the postoperative care unit in stable condition.
[2022-12-15] MEDS ORDERED: SODIUM CHLORIDE 0.9% 1,000 ML IV ONE (18:24)
--- NOTE | 2022-12-15 18:30 | FL ---
Intraoperative/procedural fluoroscopic services were provided. Total fluoroscopy time is 1 minute 24 seconds with a total of 3 submitted images to PACS. Please see the operative/procedural note for furt her details. DAP: 2.9921 Gycm2
[2022-12-15] MEDS ORDERED: LACTATED RINGERS 1,000 ML IV ONE (18:45)
--- NOTE | 2022-12-15 19:00 | P.ANPRN ---
Procedure Note - Anesthesia - Nerve Block Performed Right Fascia Iliaca Single Time Out Performed: Yes Date of Procedure: 12/15/22 Procedure Start Time: 16:56 Procedure Stop Time: 17:04 Location of Patient: PreOp Indication: Acute Post-Operative Pain, Requested by Surgeon Sedation Type: Sedate with meaningful contact maintained Preparation: Sterile Prep, Sterile Dressing Position: Supine Catheter: None Needle Types: Facet Needle Gauge: 20 Ultrasound used to visualize needle placement: Yes Ultrasound used to observe medication spread: Yes Injectate: Other (see comment) (Ropivacaine 0.25% 15 ml + decadron 2 mg) Blood Aspirated: No Pain Paresthesia on Injection Noted: No Resistance on Injection: Normal Image Stored and Saved: Yes Events: Uneventful and Well Tolerated Right Other (see comment) Single Time Out Performed: Yes Date of Procedure: 12/15/22 Procedure Start Time: 16:46 Procedure Stop Time: 16:55 Location of Patient: PreOp Indication: Acute Post-Operative Pain, Requested by Surgeon Sedation Type: Sedate with meaningful contact maintained Preparation: Sterile Prep, Sterile Dressing Position: Supine Catheter: None Needle Types: Facet Needle Gauge: 20 Ultrasound used to visualize needle placement: Yes Ultrasound used to observe medication spread: Yes Injectate: Other (see comment) (Ropivacaine 0.25 15 ml + decadron 2 mg) Blood Aspirated: No Pain Paresthesia on Injection Noted: No Resistance on Injection: Normal Image Stored and Saved: Yes Events: Uneventful and Well Tolerated
[2022-12-15 20:23] LABS: Basophils % (A) 0 %; Eosinophils % (A) 0 %; HCT 24.8 % (34.0-46.0); HGB 8.3 gm/dL (11.4-16.0); Lymphocytes # (A) 0.6 k/uL (1.0-4.8); Lymphocytes % (A) 4 %; MCH 30.2 pg (25.0-35.0); MCHC 33.3 g/dL (31.0-37.0); MCV 90.5 fL (80.0-100.0); Mean Platelet Volume 7.9; Monocytes # (A) 0.5 k/uL (0-1.0); Monocytes % (A) 4 %; Neutrophils # (A) 12.7 k/uL (1.3-7.7); Neutrophils % (A) 91 %; Platelet Count 186 k/uL (150-450); RBC 2.73 m/uL (3.80-5.40); RDW 13.4 % (11.5-15.5); WBC 13.9 k/uL (3.8-10.6)
[2022-12-15] MEDS ORDERED: LOSARTAN 50 MG TAB PO SCH (21:00)
[2022-12-15] MEDS: SYMBICORT 80-4.5 MCG INHALER INHALATION SCH (21:19)
[2022-12-15] MEDS: SODIUM CHLORIDE 0.9% 1,000 ML IV SCH (21:36)
[2022-12-15] MEDS: SENNOSIDES-DOCUSATE SODIUM 1 EACH TAB PO SCH (21:36)
[2022-12-15 23:25] LABS: % Iron Saturation 16.88 (12.00-45.00)
[2022-12-16] MEDS: traMADol 50 MG TAB PO PRN ×2 (03:54→21:23)
[2022-12-16 06:27] LABS: Basophils % (A) 0 %; Eosinophils % (A) 0 %; Lymphocytes # (A) 0.5 k/uL (1.0-4.8); Lymphocytes % (A) 7 %; MCH 30.2 pg (25.0-35.0); MCHC 33.5 g/dL (31.0-37.0); MCV 90.2 fL (80.0-100.0); Mean Platelet Volume 7.9; Monocytes # (A) 0.5 k/uL (0-1.0); Monocytes % (A) 6 %; Neutrophils # (A) 7.2 k/uL (1.3-7.7); Neutrophils % (A) 86 %; Platelet Count 185 k/uL (150-450); RBC 2.22 m/uL (3.80-5.40); RDW 13.6 % (11.5-15.5); WBC 8.4 k/uL (3.8-10.6)
[2022-12-16 06:34] LABS: HGB 6.7 gm/dL (11.4-16.0)
[2022-12-16 06:41] LABS: African American GFR (CKD) 48 (>60 ml/min/1.73 sqM); Anion Gap 5 mmol/L; Blood Urea Nitrogen 39 mg/dL (7-17); Calcium 7.6 mg/dL (8.4-10.2); Carbon Dioxide 25 mmol/L (22-30); Chloride 106 mmol/L (98-107); Glucose 109 mg/dL (74-99); Magnesium 1.9 mg/dL (1.6-2.3); Non-African American GFR(CKD) 41 (>60 ml/min/1.73 sqM); Potassium 3.7 mmol/L (3.5-5.1); Sodium 136 mmol/L (137-145)
--- NOTE | 2022-12-16 08:13 | P.PN ---
Subjective Progress Note Date: 12/16/22 Principal diagnosis: Status post IM nail right intertrochanteric femur fracture, anemia Patient was evaluated today at bedside, she is resting in her hospital bed. She states pain is better surgery yesterday. Urinary cath in place. According to nursing, patient has blood available that was not given yesterday. Her hemoglobin was noted to be significantly decreased from yesterday to today. Her blood pressure slightly low. She denies any headaches, lightheadedness, chest pain or shortness of breath Objective - Vital Signs Vital signs: Vital Signs Temp 98.5 F 12/16/22 07:20 Pulse 80 12/16/22 07:20 Resp 18 12/16/22 07:20 BP 105/59 12/16/22 07:20 Pulse Ox 99 12/16/22 07:20 FiO2 Intake & Output 12/15/22 12/16/22 12/16/22 18:59 06:59 18:59 Intake Total 1565 450 Output Total 200 300 Balance 1365 150 Weight 47.174 kg Intake: IV 1251 Intake, IV Titration 450 Amount Lactated Ringers 1,000 ml 400 @ 0 mls/hr IV .[facility] Rx#:[id number] ceFAZolin 2 gm In Sodium 50 Chloride 0.9% 50 ml @ 100 mls/hr IVPB Q8HR [facility] Rx# :[id number] Blood Product 314 Ffp 24 Cpd Unit 314 [id number] Output: Urine 100 300 Estimated Blood Loss 100 Other: Voiding Method Indwelling Catheter - Exam Right lower extremity: Incision is clean, dry, and intact. The foam dressing is in good condition. There is minimal soft tissue swelling and ecchymosis surrounding the medial and lateral aspects of the incision. Calf is soft, no tenderness with palpation. Plantar flexion, dorsiflexion, EHL, FHL are intact. Sensory exam to light touch throughout the extremity is intact, dorsal pedis pulses 2+. - Labs CBC & Chem 7: 12/16/22 05:27 12/16/22 05:27 Labs: Abnormal Lab Results - Last 24 Hours (Table) 12/15/22 12/15/22 12/15/22 Range/Units 07:03 10:50 10:50 WBC (3.8-10.6) k/uL RBC (3.80-5.40) m/uL Hgb (11.4-16.0) gm/dL Hct (34.0-46.0) % Neutrophils # (1.3-7.7) k/uL Lymphocytes # (1.0-4.8) k/uL Retic Count 2.5 H (0.5-2.0) % Sodium (137-145) mmol/L BUN (7-17) mg/dL Creatinine (0.52-1.04) mg/dL Glucose (74-99) mg/dL Calcium (8.4-10.2) mg/dL Lactate Dehydrogenase 293 H (120-246) U/L Troponin I (0.000-0.034) ng/mL Crossmatch See Detail 12/15/22 12/15/22 12/15/22 Range/Units 11:02 13:54 13:54 WBC (3.8-10.6) k/uL RBC 3.28 L (3.80-5.40) m/uL Hgb 9.7 L D (11.4-16.0) gm/dL Hct 29.7 L (34.0-46.0) % Neutrophils # 7.8 H (1.3-7.7) k/uL Lymphocytes # (1.0-4.8) k/uL Retic Count (0.5-2.0) % Sodium (137-145) mmol/L BUN (7-17) mg/dL Creatinine (0.52-1.04) mg/dL Glucose (74-99) mg/dL Calcium (8.4-10.2) mg/dL Lactate Dehydrogenase (120-246) U/L Troponin I 0.062 H* 0.050 H* (0.000-0.034) ng/mL Crossmatch 12/15/22 12/16/22 12/16/22 Range/Units 20:11 05:27 05:27 WBC 13.9 H (3.8-10.6) k/uL RBC 2.73 L 2.22 L (3.80-5.40) m/uL Hgb 8.3 L 6.7 L* D (11.4-16.0) gm/dL Hct 24.8 L 20.0 L (34.0-46.0) % Neutrophils # 12.7 H (1.3-7.7) k/uL Lymphocytes # 0.6 L 0.5 L (1.0-4.8) k/uL Retic Count (0.5-2.0) % Sodium 136 L (137-145) mmol/L BUN 39 H (7-17) mg/dL Creatinine 1.19 H (0.52-1.04) mg/dL Glucose 109 H (74-99) mg/dL Calcium 7.6 L (8.4-10.2) mg/dL Lactate Dehydrogenase (120-246) U/L Troponin I (0.000-0.034) ng/mL Crossmatch Assessment and Plan Assessment: Postoperative day #1 status post IM nail right intertrochanteric femur fracture Anemia Bilateral hip osteoarthritis COPD Plan: Pain control, continue use of both oral and IV medication as needed, recommending low-dose DVT prophylaxis, continue subcu medication during hospital stay Discussed with nursing to give the 2 units of blood that are available to help with anemia Wound care, monitor surgical dressings, okay to leave in place over the next 35 days PT/OT today, weight-bear as tolerated with walker Discontinue urinary catheters patient becomes more mobile Encourage incentive spirometer Medical recommendations Discharge planning: Recommending subcu rehab, hopeful discharge in the next 2448 hours Time with Patient: Less than 30
[2022-12-16] MEDS: SYMBICORT 80-4.5 MCG INHALER INHALATION SCH ×2 (08:28→21:14)
[2022-12-16] MEDS ORDERED: METOPROLOL SUCCINATE (ER) 100 MG TAB.ER.24H PO SCH (09:00)
[2022-12-16] MEDS: METOPROLOL SUCCINATE (ER) 100 MG TAB.ER.24H PO SCH (09:04)
--- NOTE | 2022-12-16 09:31 | P.PN ---
Subjective Progress Note Date: 12/16/22 Pt has no new complaints today. Pain well controlled. Hgb down to 6.7, pt has SPIKE, pressures are borderline low. Gen: in no apparent distress, resting comfortably in bed Eyes: PERRL, no scleral injection or icterus HENT: normocephalic, atraumatic, good hearing acuity, moist mucous membranes Neck: no tracheal deviation, full range of motion Resp: good air exchange, breathing comfortably with no accessory muscle use, no tactile fremitus, clear to auscultation bilaterally CVS: good distal perfusion x 4, no pitting edema, regular rate and rhythm without murmurs GI: soft, NTTP, ND, no hepatosplenomegaly : no suprapubic tenderness, no CVAT, gonzalez catheter not present MSK: no clubbing, no cyanosis, no noted contractures of extremities Skin: no noted rashes, petechiae; temperature of skin is appropriate Neuro: moving all extremities without signs of weakness, CN II-XII intact Psych: cooperative, euthymic mood, insight and judgment intact Hospital Course: 87-year-old woman with medical history of COPD, hypertension, hyperlipidemia presented for hip fracture. Orthopedic surgery service admitted the patient and requested medical consultation for management as well as for preoperative cleara nce. In the emergency room, patient was afebrile, 112/58, heart rate 76, 96% on 2 L nasal cannula. CBC shows anemia to 7.1. Basic metabolic panel shows chloride of 96, BUN of 32, otherwise unremarkable. Magnesium is 1.8. Coags show an INR of 1.4. Liver function tests are unremarkable. Chest x-ray demonstrates hyperinflation with flattening of diaphragms, normal sized heart without acute infiltrates. Pelvis and right hip x-ray shows osteopenia with mild lateral bile hip osteoarthritis and a nondisplaced intertrochanteric fracture of the proximal right femur. Case was discussed with the orthopedic surgery service requested medical consultation for preoperative clearance and medical management. Assessment: Preoperative clearance Elevated INR Acute Kidney Injury Acute Blood Loss Anemia COPD without exacerbation Hyperlipidemia Hypertension Plan: Today, patient is afebrile, 105/59, HR 80, 99% on 2L NC WBC 8.4, Hgb 6.7 Na 136, BUN 39, Cr 1.19 Troponin 0.03 LDH 293 Iron panel with 16% saturation, 308 TIBC B12 216, Folate 10.2 Pt has had successful hemiarthroplasty of right hip after review of OR note Transfuse 2 U PRBCs for low Hgb Continue home Wixela Metoprolol was reduced from home dose of 100mg XL daily to 50mg XL daily Hold home HCTZ Pt is Fulll Code Objective - Vital Signs Vital signs: Vital Signs Temp 98.5 F 12/16/22 07:20 Pulse 80 12/16/22 07:20 Resp 18 12/16/22 07:20 BP 105/59 12/16/22 07:20 Pulse Ox 99 12/16/22 07:20 FiO2 Intake & Output 12/15/22 12/16/22 12/16/22 18:59 06:59 18:59 Intake Total 1565 450 Output Total 200 300 Balance 1365 150 Weight 47.174 kg Intake: IV 1251 Intake, IV Titration 450 Amount Lactated Ringers 1,000 ml 400 @ 0 mls/hr IV .[facility] Rx#:[id number] ceFAZolin 2 gm In Sodium 50 Chloride 0.9% 50 ml @ 100 mls/hr IVPB Q8HR [facility] Rx# :[id number] Blood Product 314 Ffp 24 Cpd Unit 314 [id number] Output: Urine 100 300 Estimated Blood Loss 100 Other: Voiding Method Indwelling Catheter - Labs CBC & Chem 7: 12/16/22 05:27 12/16/22 05:27 Labs: Abnormal Lab Results - Last 24 Hours (Table) 12/15/22 12/15/22 12/15/22 Range/Units 07:03 10:50 10:50 WBC (3.8-10.6) k/uL RBC (3.80-5.40) m/uL Hgb (11.4-16.0) gm/dL Hct (34.0-46.0) % Neutrophils # (1.3-7.7) k/uL Lymphocytes # (1.0-4.8) k/uL Retic Count 2.5 H (0.5-2.0) % Sodium (137-145) mmol/L BUN (7-17) mg/dL Creatinine (0.52-1.04) mg/dL Glucose (74-99) mg/dL Calcium (8.4-10.2) mg/dL Lactate Dehydrogenase 293 H (120-246) U/L Troponin I (0.000-0.034) ng/mL Crossmatch See Detail 12/15/22 12/15/22 12/15/22 Range/Units 11:02 13:54 13:54 WBC (3.8-10.6) k/uL RBC 3.28 L (3.80-5.40) m/uL Hgb 9.7 L D (11.4-16.0) gm/dL Hct 29.7 L (34.0-46.0) % Neutrophils # 7.8 H (1.3-7.7) k/uL Lymphocytes # (1.0-4.8) k/uL Retic Count (0.5-2.0) % Sodium (137-145) mmol/L BUN (7-17) mg/dL Creatinine (0.52-1.04) mg/dL Glucose (74-99) mg/dL Calcium (8.4-10.2) mg/dL Lactate Dehydrogenase (120-246) U/L Troponin I 0.062 H* 0.050 H* (0.000-0.034) ng/mL Crossmatch 12/15/22 12/16/22 12/16/22 Range/Units 20:11 05:27 05:27 WBC 13.9 H (3.8-10.6) k/uL RBC 2.73 L 2.22 L (3.80-5.40) m/uL Hgb 8.3 L 6.7 L* D (11.4-16.0) gm/dL Hct 24.8 L 20.0 L (34.0-46.0) % Neutrophils # 12.7 H (1.3-7.7) k/uL Lymphocytes # 0.6 L 0.5 L (1.0-4.8) k/uL Retic Count (0.5-2.0) % Sodium 136 L (137-145) mmol/L BUN 39 H (7-17) mg/dL Creatinine 1.19 H (0.52-1.04) mg/dL Glucose 109 H (74-99) mg/dL Calcium 7.6 L (8.4-10.2) mg/dL Lactate Dehydrogenase (120-246) U/L Troponin I (0.000-0.034) ng/mL Crossmatch
[2022-12-16 09:54] LABS: Prothrombin Time 10.6 sec (9.0-12.0)
--- NOTE | 2022-12-16 12:35 | CA ---
Transthoracic Echo Report Name: Kaimlle Herring Age: 87 Gender: F : 1935 Exam Date: 12/16/2022 07:42 Exam Location: [place] [facility] Ht (in): 62 Wt (lb): 104 Ordering Physician: Ryan Wesley MD Attending/Referring Phys: Tempering Kiln Tender Carole Asencio [facility] Procedure CPT: Indications: elevated bnp Cardiac Hx: Technical Quality: Technically difficult study Contrast 1: Total Dose (mL): Contrast 2: Total Dose (mL): MEASUREMENTS (Male / Female) Normal Values 2D ECHO LV Diastolic Diameter PLAX 2.7 cm 4.2 - 5.9 / 3.9 - 5.3 cm LV Systolic Diameter PLAX 2.3 cm IVS Diastolic Thickness 0.7 cm 0.6 - 1.0 / 0.6 - 0.9 cm LVPW Diastolic Thickness 0.8 cm 0.6 - 1.0 / 0.6 - 0.9 cm LV Relative Wall Thickness 0.6 M-MODE Aortic Root Diameter MM 2.8 cm LA Systolic Diameter MM 2.5 cm LA Ao Ratio MM 0.9 AV Cusp Separation MM 1.5 cm DOPPLER AV Peak Velocity 150.7 cm/s AV Peak Gradient 9.1 mmHg AV Mean Velocity 101.7 cm/s AV Mean Gradient 4.8 mmHg AV Velocity Time Integral 31.7 cm AI Peak Velocity 332.5 cm/s AI Peak Gradient 44.2 mmHg AI Pressure Half Time 376.4 ms LVOT Peak Velocity 112.4 cm/s LVOT Peak Gradient 5.1 mmHg LVOT Velocity Time Integral 23.1 cm Mitral E Point Velocity 67.5 cm/s Mitral A Point Velocity 119.8 cm/s Mitral E to A Ratio 0.6 MV Deceleration Time 250.0 ms LV E' Lateral Velocity 5.8 cm/s Mitral E to LV E' Lateral Ratio 11.7 LV E' Septal Velocity 6.6 cm/s Mitral E to LV E' Septal Ratio 10.2 TR Peak Velocity 244.4 cm/s TR Peak Gradient 23.9 mmHg Right Atrial Pressure 3.0 mmHg Pulmonary Artery Systolic Pressu 26.9 mmHg Right Ventricular Systolic Press 33.9 mmHg RVOT Diameter 2.1 cm FINDINGS Left Ventricle Normal left ventricular systolic function with no obvious regional wall motion abnormalities. Left ventricular ejection fraction is estimated at 55-60%. Left ventricular cavity size normal. Right Ventricle Normal right ventricular size and function. Right Atrium Normal right atrial size. Left Atrium Normal left atrial size. Mitral Valve Structurally normal mitral valve. Mild mitral annular calcification. No mitral regurgitation. Aortic Valve Trileaflet aortic valve. No aortic stenosis. Mild aortic regurgitation. Tricuspid Valve Structurally normal tricuspid valve. Mild tricuspid regurgitation. Pulmonic Valve Pulmonic valve not well visualized. Pericardium No pericardial effusion. Aorta Normal size aortic root and proximal ascending aorta. CONCLUSIONS 1. Normal left ventricle size and systolic function 2. Mild aortic and tricuspid regurgitation 3. No pericardial effusion Previewed by: Dr. Wade Ty MD (Electronically Signed) Final Date: 16 December 2022 12:34
[2022-12-16] MEDS: SENNOSIDES-DOCUSATE SODIUM 1 EACH TAB PO SCH (21:23)
[2022-12-16] MEDS: SODIUM CHLORIDE 0.9% 1,000 ML IV SCH (21:24)
[2022-12-17 08:05] LABS: Basophils % (A) 0 %; Eosinophils # (A) 0.1 k/uL (0-0.7); Eosinophils % (A) 2 %; HCT 30.6 % (34.0-46.0); Lymphocytes # (A) 1.3 k/uL (1.0-4.8); Lymphocytes % (A) 19 %; MCH 29.7 pg (25.0-35.0); MCHC 33.8 g/dL (31.0-37.0); MCV 87.9 fL (80.0-100.0); Mean Platelet Volume 7.6; Monocytes # (A) 0.5 k/uL (0-1.0); Monocytes % (A) 8 %; Neutrophils # (A) 4.9 k/uL (1.3-7.7); Neutrophils % (A) 69 %; Platelet Count 147 k/uL (150-450); RBC 3.48 m/uL (3.80-5.40); RDW 13.9 % (11.5-15.5)
[2022-12-17 08:18] LABS: HGB 10.3 gm/dL (11.4-16.0)
[2022-12-17] MEDS: SYMBICORT 80-4.5 MCG INHALER INHALATION SCH ×2 (08:20→22:00)
[2022-12-17] MEDS: METOPROLOL SUCCINATE (ER) 100 MG TAB.ER.24H PO SCH (08:42)
--- NOTE | 2022-12-17 08:57 | P.PN ---
Subjective Progress Note Date: 12/17/22 Pt has no new complaints today. Pain well controlled. Gen: in no apparent distress, resting comfortably in bed Eyes: PERRL, no scleral injection or icterus HENT: normocephalic, atraumatic, good hearing acuity, moist mucous membranes Neck: no tracheal deviation, full range of motion Resp: good air exchange, breathing comfortably with no accessory muscle use, no tactile fremitus, clear to auscultation bilaterally CVS: good distal perfusion x 4, no pitting edema, regular rate and rhythm without murmurs GI: soft, NTTP, ND, no hepatosplenomegaly : no suprapubic tenderness, no CVAT, gonzalez catheter not present MSK: no clubbing, no cyanosis, no noted contractures of extremities Skin: no noted rashes, petechiae; temperature of skin is appropriate Neuro: moving all extremities without signs of weakness, CN II-XII intact Psych: cooperative, euthymic mood, insight and judgment intact Hospital Course: 87-year-old woman with medical history of COPD, hypertension, hyperlipidemia presented for hip fracture. Orthopedic surgery service admitted the patient and requested medical consultation for management as well as for preoperative clearance. In the emergency room, patient was afebrile, 112/58, heart rate 76, 96% on 2 L nasal cannula. CBC shows anemia to 7.1. Basic metabolic panel shows chloride of 96, BUN of 32, otherwise unremarkable. Magnesium is 1.8. Coags show an INR of 1.4. Liver function tests are unremarkable. Chest x-ray demonstrates hyperinflation with flattening of diaphragms, normal sized heart without acute infiltrates. Pelvis and right hip x-ray shows osteopenia with mild lateral bile hip osteoarthritis and a nondisplaced intertrochanteric fracture of the proximal right femur. Case was discussed with the orthopedic surgery service requested medical consultation for preoperative clearance and medical management. Assessment: Preoperative clearance Elevated INR Acute Kidney Injury Acute Blood Loss Anemia COPD without exacerbation Hyperlipidemia Hypertension Plan: Today, patient is afebrile, 107/64, HR 79, 92% on 2L NC WBC 7.0, Hgb 10.3 Pt is medically stable for discharge Continue home Wixela Metoprolol was reduced from home dose of 100mg XL daily to 50mg XL daily Hold home HCTZ Pt is Fulll Code Objective - Vital Signs Vital signs: Vital Signs Temp 98.5 F 06/14/23 07:34 Pulse 79 12/17/22 07:34 Resp 19 12/17/22 07:34 BP 107/64 12/17/22 07:34 Pulse Ox 92 L 12/17/22 07:34 FiO2 21 12/16/22 21:16 Intake & Output 12/16/22 12/17/22 12/17/22 18:59 06:59 18:59 Intake Total 310 550 Output Total 525 400 Balance -215 150 Intake: Intake, IV Titration 240 Amount Sodium Chloride 0.9% 1, 240 000 ml @ 20 mls/hr IV . Q24H [facility] Rx#:[id number] Blood Product 310 310 Rc As-1 Unit 310 [id number] Rc As-1 Unit 0 310 [id number] Output: Urine 525 400 Other: Voiding Method Indwelling Catheter Indwelling Catheter # Voids 1 - Labs CBC & Chem 7: 12/17/22 07:21 12/16/22 05:27 Labs: Abnormal Lab Results - Last 24 Hours (Table) 12/15/22 12/17/22 Range/Units 07:03 07:21 RBC 3.48 L (3.80-5.40) m/uL Hgb 10.3 L D (11.4-16.0) gm/dL Hct 30.6 L (34.0-46.0) % Plt Count 147 L (150-450) k/uL Crossmatch See Detail
[2022-12-17 09:40] LABS: African American GFR (CKD) 56 (>60 ml/min/1.73 sqM); Anion Gap 1 mmol/L; Blood Urea Nitrogen 28 mg/dL (7-17); Calcium 7.9 mg/dL (8.4-10.2); Carbon Dioxide 29 mmol/L (22-30); Chloride 104 mmol/L (98-107); Glucose 90 mg/dL (74-99); Non-African American GFR(CKD) 49 (>60 ml/min/1.73 sqM); Potassium 3.6 mmol/L (3.5-5.1); Sodium 134 mmol/L (137-145)
[2022-12-17] MEDS: traMADol 50 MG TAB PO PRN (10:21)
--- NOTE | 2022-12-17 12:29 | P.PN ---
Subjective Progress Note Date: 12/17/22 Principal diagnosis: Right hip IT fracture Patient was seen at bedside this morning lying semirecumbent position with/catheter in place. Dressings are in place over right hip with some spotting. Patient says she has not yet work with physical therapy. Patient is hoping to work with physical therapy today. Patient says she is hoping to go to rehab upon discharge. Patient says she is currently a moderate amount of pain in the right hip. Patient says she is having difficulty moving the right leg on her own. Patient says she has not had bowel movement yet, however, patient says she has been passing gas. Patient denies chest pain, fever, shortness of breath, nausea, vomiting, change in vision. Objective - Vital Signs Vital signs: Vital Signs Temp 98.5 F 12/17/22 07:34 Pulse 79 12/17/22 07:34 Resp 17 12/17/22 08:42 BP 107/64 12/17/22 07:34 Pulse Ox 92 L 12/17/22 07:34 FiO2 21 12/16/22 21:16 Intake & Output 12/16/22 12/17/22 12/17/22 18:59 06:59 18:59 Intake Total 310 550 118 Output Total 525 400 Balance -215 150 118 Intake: Intake, IV Titration 240 Amount Sodium Chloride 0.9% 1, 240 000 ml @ 20 mls/hr IV . Q24H [facility] Rx#:[id number] Oral 118 Blood Product 310 310 Rc As-1 Unit 310 [id number] Rc As-1 Unit 0 310 [id number] Output: Urine 525 400 Other: Voiding Method Indwelling Catheter Indwelling Catheter Indwelling Catheter # Voids 1 - Exam Right hip: Incision is clean, dry, and intact. The silver foam dressings are in good condition. There is some spine present. Dressings were changed at bedside today. [place] are well aligned and intact. Negative for any active drainage. There is minimal soft tissue swelling and ecchymosis surrounding the medial and lateral aspects of the incision. Calf is soft, no tenderness with palpation. Plantar flexion, dorsiflexion, EHL, FHL are intact. Sensory exam to light touch throughout the extremity is intact, dorsal pedis pulses 2+. - Labs CBC & Chem 7: 12/17/22 07:21 12/17/22 07:21 Labs: Abnormal Lab Results - Last 24 Hours (Table) 12/15/22 12/17/22 12/17/22 Range/Units 07:03 07:21 07:21 RBC 3.48 L (3.80-5.40) m/uL Hgb 10.3 L D (11.4-16.0) gm/dL Hct 30.6 L (34.0-46.0) % Plt Count 147 L (150-450) k/uL Sodium 134 L (137-145) mmol/L BUN 28 H (7-17) mg/dL Calcium 7.9 L (8.4-10.2) mg/dL Crossmatch See Detail Assessment and Plan Assessment: 1. Right hip IT fracture - Postop day #2 status post right hip IM nail Plan: 1. Right hip IT fracture - patient stable at bedside this morning. Right hip IM nail surgery performed 12/15/2022. Patient does need evaluation by physical therapy. Plan for removal of/catheter today. Plan for discharge to rehab tomorrow, , 12/18/2022. 2. Appreciate medical management 3. Pain management - tramadol; Tylenol; Dilaudid and only if necessary 4. DVT prophylaxis - Lovenox 5. GI prophylaxis - senna 6. PT/OT - weightbearing as tolerated with walker and assistance as needed 7. Encourage incentive spirometer use 8. Discharge planning - plan for discharge to rehab tomorrow, , 12/18/2022. Time with Patient: Less than 30
[2022-12-17] MEDS: ENOXAPARIN 40 MG/0.4 ML SYRINGE SQ SCH (14:43)
[2022-12-17] MEDS: ACETAMINOPHEN TAB 325 MG TAB PO PRN (20:49)
[2022-12-17] MEDS: SENNOSIDES-DOCUSATE SODIUM 1 EACH TAB PO SCH (20:49)
[2022-12-17 20:52] VITALS: RESP 16
[2022-12-17] MEDS: SODIUM CHLORIDE 0.9% 1,000 ML IV SCH (22:07)
[2022-12-18] MEDS: traMADol 50 MG TAB PO PRN ×2 (00:20→14:33)
[2022-12-18 07:14] LABS: Basophils % (A) 0 %; Eosinophils # (A) 0.1 k/uL (0-0.7); Eosinophils % (A) 2 %; HCT 29.8 % (34.0-46.0); HGB 10.2 gm/dL (11.4-16.0); Lymphocytes % (A) 16 %; MCH 30.6 pg (25.0-35.0); MCHC 34.2 g/dL (31.0-37.0); MCV 89.4 fL (80.0-100.0); Mean Platelet Volume 7.1; Monocytes # (A) 0.4 k/uL (0-1.0); Monocytes % (A) 6 %; Neutrophils # (A) 4.6 k/uL (1.3-7.7); Neutrophils % (A) 74 %; Platelet Count 160 k/uL (150-450); RBC 3.33 m/uL (3.80-5.40); RDW 13.5 % (11.5-15.5); WBC 6.2 k/uL (3.8-10.6)
[2022-12-18 07:21] LABS: African American GFR (CKD) 77 (>60 ml/min/1.73 sqM); Anion Gap 2 mmol/L; Blood Urea Nitrogen 19 mg/dL (7-17); Calcium 7.7 mg/dL (8.4-10.2); Carbon Dioxide 29 mmol/L (22-30); Chloride 101 mmol/L (98-107); Glucose 92 mg/dL (74-99); Magnesium 1.7 mg/dL (1.6-2.3); Non-African American GFR(CKD) 66 (>60 ml/min/1.73 sqM); Potassium 3.5 mmol/L (3.5-5.1); Sodium 132 mmol/L (137-145)
[2022-12-18] MEDS: SODIUM CHLORIDE 0.9% 1,000 ML IV SCH (07:48)
[2022-12-18] MEDS: METOPROLOL SUCCINATE (ER) 100 MG TAB.ER.24H PO SCH (08:06)
[2022-12-18] MEDS: ENOXAPARIN 40 MG/0.4 ML SYRINGE SQ SCH (08:06)
[2022-12-18] MEDS: SYMBICORT 80-4.5 MCG INHALER INHALATION SCH (09:08)
--- NOTE | 2022-12-18 11:48 | P.PN ---
Subjective Progress Note Date: 12/18/22 Hospital Course: 87-year-old woman with medical history of COPD, hypertension, hyperlipidemia presented for hip fracture. Orthopedic surgery service admitted the patient and requested medical consultation for management as well as for preoperative clearance. In the emergency room, patient was afebrile, 112/58, heart rate 76, 96% on 2 L nasal cannula. CBC shows anemia to 7.1. Basic metabolic panel shows chloride of 96, BUN of 32, otherwise unremarkable. Magnesium is 1.8. Coags show an INR of 1.4. Liver function tests are unremarkable. Chest x-ray demonstrates hyperinflation with flattening of diaphragms, normal sized heart without acute infiltrates. Pelvis and right hip x-ray shows osteopenia with mild lateral bile hip osteoarthritis and a nondisplaced intertrochanteric fracture of the proximal right femur. Case was discussed with the orthopedic surgery service requested medical consultation for preoperative clearance and medical management. Today patient is denying any acute complaints. She is wondering why she is quite so soon to rehab. She is amenable to going to rehab. She understands that she needs to push herself so that she can recover faster. Assessment: Preoperative clearance; patient now status post surgery Elevated INR: Normalized Acute Kidney Injury: Resolved Acute Blood Loss Anemia: Hemoglobin stable COPD without exacerbation Hyperlipidemia Hypertension Plan: Hemoglobin 10.2 which is stable Creatinine is 0.81. Improved INR 1.0 Pt is medically stable for discharge Continue home Wixela Metoprolol was reduced from home dose of 100mg XL daily to 50mg XL daily Okay to resume hydrochlorothiazide Continue to hold losartan Blood pressure controlled this morning Patient medically stable for discharge to retirement facility Pt is Fulll Code Objective - Vital Signs Vital signs: Vital Signs Temp 98.2 F 12/18/22 07:21 Pulse 87 12/18/22 07:21 Resp 16 12/18/22 07:21 BP 123/73 12/18/22 07:21 Pulse Ox 93 L 12/18/22 07:21 FiO2 21 12/16/22 21:16 Intake & Output 12/17/22 12/18/22 12/18/22 18:59 06:59 18:59 Intake Total 118 Output Total 375 0 420 Balance -257 0 -420 Intake: Oral 118 Output: Urine 375 420 Uretheral (Butler) 420 Stool 0 Other: Voiding Method Indwelling Catheter Indwelling Catheter - Labs CBC & Chem 7: 12/18/22 06:28 12/18/22 06:28 Labs: Abnormal Lab Results - Last 24 Hours (Table) 12/18/22 12/18/22 Range/Units 06:28 06:28 RBC 3.33 L (3.80-5.40) m/uL Hgb 10.2 L (11.4-16.0) gm/dL Hct 29.8 L (34.0-46.0) % Sodium 132 L (137-145) mmol/L BUN 19 H (7-17) mg/dL Calcium 7.7 L (8.4-10.2) mg/dL
--- NOTE | 2022-12-18 12:41 | P.DS ---
Providers Date of admission: 12/14/22 18:22 Expected date of discharge: 12/18/22 Attending physician: Jamie Hodgson DO Consults: 12/14/22 18:22 Consult Physician Routine Consulting Provider: Lilia Loza Consult Reason/Comments: medical care Do you want consulting provider notified?: Yes Primary care physician: [facility] Course: Date of admission: 12/14/2022 Date of discharge: 12/18/2022 Admission diagnosis: Right hip IT fracture Discharge diagnosis: Same Attending physician: Dr. Hodgson Surgical procedures: Right hip IM nail Brief history: Patient is a 37-year-old female with a history of right hip IT fracture status post fall. At this point patient has failed conservative treatment measures and has opted to proceed with a elective right hip IM nail. Hospital course: Details of patient's surgery can be found in operative report. Patient tolerated the procedure well and was subsequently transported to orthopedic floor. Patient's orthopeidc and medical care was provided daily. Patient had daily laboratory tests performed for evaluation of overall blood counts. Patient had daily physical therapy to include strengthening range of motion as well as education with walker ambulation. Patient was treated with Lovenox for their postoperative DVT prophylaxis during their inpatient stay. Patient was noted to have a relatively uneventful postoperative course. Patient reported satisfactory pain control with oral pain medications by postoperative day 3. Patient showed satisfactory progress with physical therapy. Patient moved steadily through the program and had no difficulty meeting the goals by postoperative day 3. Given patient's otherwise satisfactory course and having met physical therapy goals, plan is to discharge patient to rehab on postoperative day 3. Discharge condition/disposition: Patient will be discharged to rehab in stable condition. Discharge medications: Instructions are given on resumption of patient's normal daily medications per primary care recommendation, in addition patient will be prescribed tramadol; senna; Lovenox Discharge instructions: 1. Wound care and infection precautions, keep incision dry and covered while showering, no lotions, creams, moisturizers. No soaking, tubs, pools, hottubs. Do not scrub over the incision. 2. Weight-bear as tolerated with walker / cane until follow-up. 3. Ice and elevate when necessary. Do not exceed 20 minutes per hour with ice pack. 4. Utilize compression sleeve until seen at first follow up appointment. 5. Nursing care. 6. Physical therapy including home CPM. 7. Pain meds and anticoagulants per prescription. 8. Pain medication has potential to cause constipation. Increase oral fluid and fiber intake. Contact primary care provider if you have not had a bowel movement within 48 hours after discharge 9. No anti-inflammatory medication until discussed at first post operative visit, this including Motrin, Aleve, Mobic, Diclofenac, Aspirin. 10. Follow up in office at 2 weeks postop with James Chen PA-C / Zackary Liang PA-C 11. Follow up with your primary care doctor 7-10 days after discharge. 12. Contact [facility] with any questions, . Assessment: Right hip IT fracture Procedures: Right hip IM nail Patient Condition at Discharge: Good Plan - Discharge Summary Discharge Rx Participant: No New Discharge Prescriptions: New traMADol HCL 50 mg PO Q6H #24 tab Metoprolol Succinate (ER) [Toprol XL] 50 mg PO DAILY tab Sennosides/Docusate Sodium [Senna Plus 8.6-50 mg Softgel] 1 each PO DAILY #20 capsule Enoxaparin [Lovenox] 30 mg SQ DAILY #28 each Continue Aspirin EC [Ecotrin Low Dose] 81 mg PO DAILY hydroCHLOROthiazide [Hydrodiuril] 25 mg PO DAILY Fluticasone Propion/Salmeterol [Wixela 250-50 Inhub] 1 puff INHALATION RT-BID Discontinued Metoprolol Succinate [Toprol XL] 100 mg PO DAILY Losartan Potassium 50 mg PO BID Discharge Medication List Aspirin EC [Ecotrin Low Dose] 81 mg PO DAILY 12/14/22 [History] Fluticasone Propion/Salmeterol [Wixela 250-50 Inhub] 1 puff INHALATION RT-BID 12/14/22 [History] hydroCHLOROthiazide [Hydrodiuril] 25 mg PO DAILY 12/14/22 [History] Enoxaparin [Lovenox] 30 mg SQ DAILY #28 each 12/18/22 [Rx] Metoprolol Succinate (ER) [Toprol XL] 50 mg PO DAILY tab 12/18/22 [Rx] Sennosides/Docusate Sodium [Senna Plus 8.6-50 mg Softgel] 1 each PO DAILY #20 capsule 12/18/22 [Rx] traMADol HCL 50 mg PO Q6H #24 tab 12/18/22 [Rx] Follow up Appointment(s)/Referral(s): Jamie Hodgson DO [Doctor of Osteopathic Medicine] - 01/01/23 10:00 am Chris Leblanc DO [Primary Care Provider] - 1-2 days Activity/Diet/Wound Care/Special Instructions: Discharge instructions: 1. Wound care and infection precautions, keep incision dry and covered while showering, no lotions, creams, moisturizers. No soaking, tubs, pools, hottubs. Do not scrub over the incision. 2. Weight-bear as tolerated with walker / cane until follow-up. 3. Ice and elevate when necessary. Do not exceed 20 minutes per hour with ice pack. 4. Utilize compression sleeve until seen at first follow up appointment. 5. Nursing care. 6. Physical therapy including home CPM. 7. Pain meds and anticoagulants per prescription. 8. Pain medication has potential to cause constipation. Increase oral fluid and fiber intake. Contact primary care provider if you have not had a bowel movement within 48 hours after discharge 9. No anti-inflammatory medication until discussed at first post operative visit, this including Motrin, Aleve, Mobic, Diclofenac, Aspirin. 10. Follow up in office at 2 weeks postop with James Chen PA-C / Zackary Liang PA-C 11. Follow up with your primary care doctor 7-10 days after discharge. 12. Contact [facility] with any questions, . Discharge Disposition: TRANSFER TO SNF/ECF
[2022-12-18 14:03] VITALS: BP 136/60; PULSE 91; TEMP 99.6
--- NOTE | 2022-12-18 14:08 | P.PN ---
Subjective Progress Note Date: 12/18/22 Principal diagnosis: Right hip IT fracture Patient was seen at bedside this morning lying semirecumbent position. Dressings are in place over right hip with some spotting. Patient says she did stand up there but said yesterday with physical therapy. Butler/catheter was removed yesterday. Patient says she has been able to urinate since Butler was removed. Patient says she is hoping to go to rehab upon discharge. Patient says she is currently a moderate amount of pain in the right hip. Patient says she is having difficulty moving the right leg on her own. Patient says she has not had bowel movement yet, however, patient says she has been passing gas. Patient denies chest pain, fever, shortness of breath, nausea, vomiting, change in vision. Objective - Vital Signs Vital signs: Vital Signs Temp 98.2 F 12/18/22 07:21 Pulse 87 12/18/22 07:21 Resp 16 12/18/22 07:21 BP 123/73 12/18/22 07:21 Pulse Ox 93 L 12/18/22 07:21 FiO2 21 12/16/22 21:16 Intake & Output 12/17/22 12/18/22 12/18/22 18:59 06:59 18:59 Intake Total 118 Output Total 375 0 420 Balance -257 0 -420 Intake: Oral 118 Output: Urine 375 420 Uretheral (Butler) 420 Stool 0 Other: Voiding Method Indwelling Catheter Indwelling Catheter - Exam Right hip: Incision is clean, dry, and intact. The silver foam dressings are in good condition. There is some spotting present. Bryant are well aligned and intact. Negative for any active drainage. There is minimal soft tissue swelling and ecchymosis surrounding the medial and lateral aspects of the incision. Calf is soft, no tenderness with palpation. Plantar flexion, dorsiflexion, EHL, FHL are intact. Sensory exam to light touch throughout the extremity is intact, dorsal pedis pulses 2+. - Labs CBC & Chem 7: 12/18/22 06:28 12/18/22 06:28 Labs: Abnormal Lab Results - Last 24 Hours (Table) 12/18/22 12/18/22 Range/Units 06:28 06:28 RBC 3.33 L (3.80-5.40) m/uL Hgb 10.2 L (11.4-16.0) gm/dL Hct 29.8 L (34.0-46.0) % Sodium 132 L (137-145) mmol/L BUN 19 H (7-17) mg/dL Calcium 7.7 L (8.4-10.2) mg/dL Assessment and Plan Assessment: 1. Right hip IT fracture - Postop day #3 status post right hip IM nail Plan: 1. Right hip IT fracture - patient stable at bedside this morning. Right hip IM nail surgery performed 12/15/2022. PT/OT daily. Discharge to rehab today, , 12/18/2022. 2. Appreciate medical management 3. Pain management - tramadol; Tylenol; Dilaudid and only if necessary 4. DVT prophylaxis - Lovenox 5. GI prophylaxis - senna 6. PT/OT - weightbearing as tolerated with walker and assistance as needed 7. Encourage incentive spirometer use 8. Discharge planning - discharge to rehab today, , 12/18/2022. Time with Patient: Less than 30
== END 2022-12-18 14:56 | DRG 481 ==
LOC: EC 16:21 → 4SSUR 18:22
PROVIDERS: ADMIT Orthopaedic Surgery; ATTEND Orthopaedic Surgery
PROC: 30233K1 Transfusion of Nonautologous Frozen Plasma into Peripheral Vein, Percutaneous Approach (ICD-10-PCS; 2022-12-15)
PROC: 0QS636Z Reposition Right Upper Femur with Intramedullary Internal Fixation Device, Percutaneous Approach (ICD-10-PCS; principal; 2022-12-15 09:45)
PROC: 30233N1 Transfusion of Nonautologous Red Blood Cells into Peripheral Vein, Percutaneous Approach (ICD-10-PCS; 2022-12-16)
DX: S72.144A Nondisplaced intertrochanteric fracture of right femur, initial encounter for closed fracture (principal); D62 Acute posthemorrhagic anemia; N17.9 Acute kidney failure, unspecified; J44.9 Chronic obstructive pulmonary disease, unspecified; E78.5 Hyperlipidemia, unspecified; G89.29 Other chronic pain; I10 Essential (primary) hypertension; M16.0 Bilateral primary osteoarthritis of hip; R79.1 Abnormal coagulation profile; M85.88 Other specified disorders of bone density and structure, other site; F17.200 Nicotine dependence, unspecified, uncomplicated; Z79.82 Long term (current) use of aspirin; Z79.51 Long term (current) use of inhaled steroids; Z79.899 Other long term (current) drug therapy; W18.30XA Fall on same level, unspecified, initial encounter; Z88.2 Allergy status to sulfonamides
CPT/HCPCS: 51702; 64447; 64450; 71045; 73501; 73502; 80048; 80053; 81003; 82607; 82746; 83010; 83540; 83550; 83615; 83735; 83880; 84484; 85025; 85045; 85610; 86850; 86900; 86901; 86920; 93306; 94640; 94760; 96374; 99285

== ENCOUNTER 2023-02-04 21:21 | Emergency (ER) | payer MEDICARE, BC ==
[2023-02-04 21:48] VITALS: TEMP 97.8
[2023-02-05 02:04] LABS: Appearance,Urine Cloudy (Clear); Bacteria,Urine Many /hpf; Bilirubin,Urine Negative (Negative); Blood,Urine Small (Negative); Color,Urine Light Yellow; Glucose,Urine (UA) Negative (Negative); Ketones,Urine Negative (Negative); Leukocyte Esterase,Urine Large (Negative); Mucus,Urine Rare /hpf; Nitrite,Urine Positive (Negative); Protein,Urine Negative (Negative); RBC,Urine 5 /hpf (0-5); Specific Gravity,Urine 1.013 (1.001-1.035); Squamous Epithelial Cell,Urine 1 /hpf (0-4); Urobilinogen,Urine <2.0 mg/dL (<2.0); WBC,Urine 67 /hpf (0-5)
[2023-02-05] MEDS ORDERED: cefTRIAXone 1,000 MG VIAL (IM USE) IM STA (02:26)
--- NOTE | 2023-02-05 02:29 | ED ---
Female Urogenital HPI - General Chief complaint: Urogenital Stated complaint: Catheter malfunction Time Seen by Provider: 02/04/23 22:00 Source: patient, family Mode of arrival: wheelchair Limitations: no limitations - History of Present Illness Initial comments: 87-year-old female presents to the emergency department with a nonfunctioning catheter. Patient sustained a hip fracture. She has been unable to urinate on her own since the fall 6 weeks ago. She has had a catheter in place. Son states that she came home from rehab and today was the first time that the catheter was changed by home care. It was originally changed around 10 AM. The catheter was found to not be draining. A second home nurse came around 4 PM and attempted to place a new catheter however continued to be unable to have any drainage. It is recommended that the patient come to the emergency department for evaluation. Patient has no complaints at this time. No fevers. No suprapubic pain. No other alleviating, precipitating or modifying factors - Related Data Home Medications Medication Instructions Recorded Confirmed Aspirin EC [Ecotrin Low Dose] 81 mg PO DAILY 12/14/22 12/14/22 Fluticasone Propion/Salmeterol 1 puff INHALATION RT-BID 12/14/22 12/14/22 [Wixela 250-50 Inhub] hydroCHLOROthiazide [Hydrodiuril] 25 mg PO DAILY 12/14/22 12/14/22 Previous Rx's Medication Instructions Recorded Enoxaparin [Lovenox] 30 mg SQ DAILY #28 each 12/18/22 Metoprolol Succinate (ER) [Toprol 50 mg PO DAILY tab 12/18/22 XL] Sennosides/Docusate Sodium [Senna 1 each PO DAILY #20 capsule 12/18/22 Plus 8.6-50 mg Softgel] traMADol HCL 50 mg PO Q6H #24 tab 12/18/22 Cephalexin [Keflex] 500 mg PO Q6HR #28 cap 02/05/23 Allergies Allergy/AdvReac Type Severity Reaction Status Date / Time Sulfa (Sulfonamide Allergy Rash/Hives Verified 12/14/22 18:28 Antibiotics) Review of Systems ROS Statement: Those systems with pertinent positive or pertinent negative responses have been documented in the HPI. ROS Other: All systems not noted in ROS Statement are negative. Past Medical History Past Medical History: COPD, Hypertension, Pneumonia History of Any Multi-Drug Resistant Organisms: None Reported Past Surgical History: No Surgical Hx Reported Past Anesthesia/Blood Transfusion Reactions: No Reported Reaction Past Psychological History: No Psychological Hx Reported Smoking Status: Current some day smoker Past Alcohol Use History: None Reported Past Drug Use History: None Reported - Past Family History Father Family Medical History: Cancer Additional Family Medical History / Comment(s): lung cancer Mother Family Medical History: Cancer Additional Family Medical History / Comment(s): pancreatic cancer General Exam Limitations: no limitations General appearance: alert, in no apparent distress Head exam: Present: atraumatic, normocephalic, normal inspection Eye exam: Present: normal appearance, PERRL, EOMI. Absent: scleral icterus, conjunctival injection, periorbital swelling ENT exam: Present: normal exam, mucous membranes moist Neck exam: Present: normal inspection. Absent: tenderness, meningismus, lymphadenopathy Respiratory exam: Present: normal lung sounds bilaterally. Absent: respiratory distress, wheezes, rales, rhonchi, stridor Cardiovascular Exam: Present: regular rate, normal rhythm, normal heart sounds. Absent: systolic murmur, diastolic murmur, rubs, gallop, clicks GI/Abdominal exam: Present: soft, normal bowel sounds. Absent: distended, tenderness, guarding, rebound, rigid Extremities exam: Present: normal inspection, full ROM, normal capillary refill. Absent: tenderness, pedal edema, joint swelling, calf tenderness Back exam: Present: normal inspection Neurological exam: Present: alert, oriented X3, CN II-XII intact Psychiatric exam: Present: normal affect, normal mood Skin exam: Present: warm, dry, intact, normal color. Absent: rash Course Vital Signs 02/04/23 02/05/23 21:43 03:03 Temperature 97.8 F Pulse Rate 78 Respiratory 20 18 Rate Blood Pressure 121/67 132/73 O2 Sat by Pulse 95 98 Oximetry Medical Decision Making - Medical Decision Making Was pt. sent in by a medical professional or institution (, PA, MANUFACTURING TEST TECHNICIAN, urgent care, hospital, or jail...) When possible be specific @ -No Did you speak to anyone other than the patient for history (EMS, parent, family, police, friend...)? What history was obtained from this source @ -I spoke with the patient's son Did you review nursing and triage notes (agree or disagree)? Why? @ -I reviewed and agree with nursing and triage notes Were old charts reviewed (outside hosp., previous admission, EMS record, old EKG, old radiological studies, urgent care reports/EKG's, jail records)? Report findings @ -No old charts were reviewed Differential Diagnosis (chest pain, altered mental status, abdominal pain women, abdominal pain men, vaginal bleeding, weakness, fever, dyspnea, syncope, headache, dizziness, GI bleed, back pain, seizure, CVA, palpatations, mental health, musculoskeletal)? @ -Butler malfunction, hematuria, UTI EKG interpreted by me (3pts min.). @ -Not completed X-rays interpreted by me (1pt min.). @ -None done CT interpreted by me (1pt min.). @ -None done U/S interpreted by me (1pt. min.). @ -None done What testing was considered but not performed or refused? (CT, X-rays, U/S, labs)? Why? @ -None What meds were considered but not given or refused? Why? @ -None Did you discuss the management of the patient with other professionals (professionals i.e. , PA, MANUFACTURING TEST TECHNICIAN, lab, RT, psych nurse, psychiatric social worker, business lawyer, teacher, classifications officer cc/cm, gearcase assembler)? Give summary @ -No Was smoking cessation discussed for >3mins.? @ -No Was critical care preformed (if so, how long)? @ -No Were there social determinants of health that impacted care today? How? (Homelessness, low income, unemployed, alcoholism, drug addiction, transportation, low edu. Level, literacy, decrease access to med. care, [facility], rehab)? @ -No Was there de-escalation of care discussed even if they declined (Discuss DNR or withdrawal of care, Hospice)? DNR status @ -No What co-morbidities impacted this encounter? (DM, HTN, Smoking, COPD, CAD, Cancer, CVA, ARF, Chemo, Hep., AIDS, mental health diagnosis, sleep apnea, morbid obesity)? @ -Urinary retention Was patient admitted / discharged? Hospital course, mention meds given and route, prescriptions, significant lab abnormalities, going to OR and other pertinent info. @ -Upon arrival patient was placed into room 29. Thorough history and physical exam was performed. We did replace the patient's Butler catheter with an 18- [place]. Sample is sent for testing which does demonstrate UTI. She is initiated on antibiotics. She is to follow-up with the urologist for further management return for any new or worsening symptoms. Son was agreeable the patient was discharged in stable condition Undiagnosed new problem with uncertain prognosis? @ -No Drug Therapy requiring intensive monitoring for toxicity (Heparin, Nitro, Insulin, Cardizem)? @ -No Were any procedures done? @ -No Diagnosis/symptom? @ -Acute blocked Butler catheter, acute UTI, urinary retention Acute, or Chronic, or Acute on Chronic? @ -Acute Uncomplicated (without systemic symptoms) or Complicated (systemic symptoms)? @ -Complicated Side effects of treatment? @ -No Exacerbation, Progression, or Severe Exacerbation? @ -No Poses a threat to life or bodily function? How? (Chest pain, USA, PA, pneumonia, PE, COPD, DKA, ARF, appy, cholecystitis, CVA, Diverticulitis, Homicidal, Suicidal, threat to staff... and all critical care pts) @ -No - Lab Data Lab Results 02/05/23 Range/Units 01:47 Urine Color Light Yellow Urine Appearance Cloudy H (Clear) Urine pH 6.0 (5.0-8.0) Ur Specific [place] 1.013 (1.001-1.035) Urine Protein Negative (Negative) Urine Glucose (UA) Negative (Negative) Urine Ketones Negative (Negative) Urine Blood Small H (Negative) Urine Nitrite Positive H (Negative) Urine Bilirubin Negative (Negative) Urine Urobilinogen <2.0 (<2.0) mg/dL Ur Leukocyte Esterase Large H (Negative) Urine RBC 5 (0-5) /hpf Urine WBC 67 H (0-5) /hpf Ur Squamous Epith Cells 1 (0-4) /hpf Urine Bacteria Many H (None) /hpf Urine Mucus Rare H (None) /hpf Disposition Clinical Impression: Urinary retention, Malfunction of Butler catheter, UTI (urinary tract infection) Disposition: HOME SELF-CARE Condition: Stable Instructions (If sedation given, give patient instructions): Urinary Tract Infection in Women (ED) Additional Instructions: Please take the antibiotics as directed. Follow up with the urologist. Return for any new or worsening symptoms Prescriptions: Cephalexin [Keflex] 500 mg PO Q6HR #28 cap Is patient prescribed a controlled substance at d/c from ED?: No Referrals: Chris Leblanc DO [Primary Care Provider] - 1-2 days Robin Infante MD [STAFF PHYSICIAN] - 1-2 days Time of Disposition: 02:29
[2023-02-05 03:05] VITALS: BP 132/73; PULSE 78; RESP 18
== END 2023-02-05 03:03 | disposition home or self-care (01) ==
LOC: EC 21:21
DX: T83.091A Other mechanical complication of indwelling urethral catheter, initial encounter (principal); N39.0 Urinary tract infection, site not specified; R33.9 Retention of urine, unspecified; I10 Essential (primary) hypertension; J44.9 Chronic obstructive pulmonary disease, unspecified; F17.200 Nicotine dependence, unspecified, uncomplicated; Z79.82 Long term (current) use of aspirin; Z79.51 Long term (current) use of inhaled steroids; Z79.899 Other long term (current) drug therapy; Z88.2 Allergy status to sulfonamides
CPT/HCPCS: 81001; 99283; 96372; J0696

== ENCOUNTER 2023-12-31 20:28 | Inpatient (IN) | payer MEDICARE, BC ==
--- NOTE | 2023-12-31 21:11 | ED ---
General Adult HPI - General Chief complaint: Urogenital Stated complaint: Back Pain Time Seen by Provider: 12/31/23 20:31 Source: patient, EMS Mode of arrival: EMS - History of Present Illness Initial comments: Patient is an 88-year-old woman brought by ambulance to have evaluation for weakness. Per EMS was reported that her son who lives next-door had gone to check on her. He found her sitting in a chair slumped to the side and that she had been incontinent of urine. This is reportedly not normal for her. When he woke her she was too weak to stand so EMS was called and they brought her here. When I interviewed the patient, she does not have any complaints and she does not know why she is here. She states that her son called EMS. She is denying pain anywhere. She denies dyspnea, cough, vomiting or diarrhea. -: unknown Severity scale (1-10): 0 Consistency: constant Improves with: none Worsens with: none Associated Symptoms: weakness Treatments Prior to Arrival: none - Related Data Home Medications Medication Instructions Recorded Confirmed Aspirin EC [Ecotrin Low Dose] 81 mg PO DAILY 12/14/22 01/01/24 Albuterol Sulfate [Albuterol 2 puff PO RT-Q4H PRN 01/01/24 01/01/24 Sulfate Hfa] B12 500mcg/Folic Acid 400mcg 1 tab PO DAILY 01/01/24 01/01/24 Cholecalciferol (Vitamin D3) 50 mcg PO DAILY 01/01/24 01/01/24 [Vitamin D3 (50 Mcg = 2000 Iu)] Ferrous Sulfate [Iron (65 MG 325 mg PO DAILY 01/01/24 01/01/24 Elemental)] Folic Acid 0.4 mg PO DAILY 01/01/24 01/01/24 Metoprolol Succinate (ER) [Toprol 100 mg PO DAILY 01/01/24 01/01/24 XL] busPIRone HCl [Buspar] 5 mg PO BID 01/01/24 01/01/24 Previous Rx's Medication Instructions Recorded Atorvastatin [Lipitor] 40 mg PO DAILY #90 tab 01/05/24 Losartan [Cozaar] 75 mg PO DAILY #90 tab 01/05/24 amLODIPine [Norvasc] 5 mg PO DAILY #90 tab 01/05/24 Allergies Allergy/AdvReac Type Severity Reaction Status Date / Time Sulfa (Sulfonamide Allergy Rash/Hives Verified 01/01/24 08:41 Antibiotics) Review of Systems ROS Statement: Those systems with pertinent positive or pertinent negative responses have been documented in the HPI. ROS Other: All systems not noted in ROS Statement are negative. Constitutional: Reports: weakness. Denies: fever Respiratory: Denies: cough, dyspnea Cardiovascular: Denies: chest pain, edema Gastrointestinal: Denies: abdominal pain, vomiting, diarrhea Genitourinary: Reports: other (Continence) Musculoskeletal: Reports: back pain (Chronic) Skin: Denies: rash Neurological: Denies: headache, weakness Past Medical History Past Medical History: COPD, Hypertension, Pneumonia History of Any Multi-Drug Resistant Organisms: None Reported Past Surgical History: No Surgical Hx Reported Past Anesthesia/Blood Transfusion Reactions: No Reported Reaction Past Psychological History: No Psychological Hx Reported Smoking Status: Current some day smoker Past Alcohol Use History: None Reported Past Drug Use History: None Reported - Past Family History Father Family Medical History: Cancer Additional Family Medical History / Comment(s): lung cancer Mother Family Medical History: Cancer Additional Family Medical History / Comment(s): pancreatic cancer General Exam General appearance: alert, in no apparent distress Head exam: Present: atraumatic, normocephalic Eye exam: Present: normal appearance. Absent: scleral icterus, conjunctival injection Neck exam: Present: normal inspection Respiratory exam: Present: rales. Absent: respiratory distress, wheezes, rhonchi, stridor, accessory muscle use Cardiovascular Exam: Present: regular rate, normal rhythm, normal heart sounds. Absent: systolic murmur, diastolic murmur, rubs, gallop GI/Abdominal exam: Present: soft. Absent: distended, tenderness, guarding, rebound, rigid Extremities exam: Present: normal inspection, normal capillary refill. Absent: pedal edema, calf tenderness Back exam: Present: normal inspection. Absent: CVA tenderness (R), CVA tenderness (L) Neurological exam: Present: alert, CN II-XII intact. Absent: oriented X3 (Patient is oriented to person and recognizes she is at the hospital, but did not know the date), motor sensory deficit Skin exam: Present: warm, dry, intact, normal color. Absent: rash Course Vital Signs 06/27/24 06/27/24 06/27/24 20:34 21:00 22:00 Temperature 98.3 F Pulse Rate 76 67 Respiratory 18 18 18 Rate Blood Pressure 138/79 138/79 154/68 O2 Sat by Pulse 94 L 96 95 Oximetry 01/01/24 01/01/24 01/01/24 00:00 02:00 04:00 Temperature Pulse Rate 67 72 64 Respiratory 18 18 18 Rate Blood Pressure 128/64 160/78 147/61 O2 Sat by Pulse 95 96 97 Oximetry 01/01/24 01/01/24 01/01/24 05:23 06:33 08:40 Temperature Pulse Rate 94 83 Respiratory 16 16 Rate Blood Pressure 179/75 165/74 O2 Sat by Pulse 96 95 96 Oximetry 01/01/24 01/01/24 01/01/24 08:46 10:00 11:00 Temperature Pulse Rate 84 59 L 70 Respiratory 22 20 18 Rate Blood Pressure 183/65 148/89 147/102 O2 Sat by Pulse 96 96 95 Oximetry 01/01/24 01/01/24 01/01/24 12:13 13:22 14:39 Temperature 97.7 F Pulse Rate 64 68 69 Respiratory 18 18 20 Rate Blood Pressure 172/93 150/82 143/77 O2 Sat by Pulse 98 91 L 95 Oximetry EKG Findings - EKG Results: EKG: interpreted by ERMD, sinus rhythm (With occasional PVC, rate 75 bpm), normal axis, normal QRS - Blocks, [place], Hypertrophy, ST Abn: Repolarization changes or abnormalities: nonspecific abnormality, ST segment, and/or T wave Medical Decision Making - Medical Decision Making The patient had chest x-ray that I interpreted as negative for acute infiltrate, pneumothorax, congestive heart failure Was pt. sent in by a medical professional or institution ([facility], [employer], urgent care, hospital, or alf...) When possible be specific @ -[No] Did you speak to anyone other than the patient for history (EMS, parent, family, police, friend...)? What history was obtained from this source @ -[EMS did give some history Did you review nursing and triage notes (agree or disagree)? Why? @ -[I reviewed and agree with nursing and triage notes] Were old charts reviewed (outside hosp., previous admission, EMS record, old EKG, old radiological studies, urgent care reports/EKG's, alf records)? Report findings @ -[No old charts were reviewed] Differential Diagnosis (chest pain, altered mental status, abdominal pain women, abdominal pain men, vaginal bleeding, weakness, fever, dyspnea, syncope, headache, dizziness, GI bleed, back pain, seizure, CVA, palpatations, mental health, musculoskeletal)? @ -[Differential Weakness: Hypoglycemia, shock, sepsis, hyponatremia, anemia, infection, CT, ETOH, adverse medicine reaction, overdose, stroke, this is not meant to be an all-inclusive list. EKG interpreted by me (3pts min.). @ -[I interpreted as above] X-rays interpreted by me (1pt min.). @ -[I interpreted as above CT interpreted by me (1pt min.). @ -[None done] U/S interpreted by me (1pt. min.). @ -[None done] What testing was considered but not performed or refused? (CT, X-rays, U/S, labs)? Why? @ -[None] What meds were considered but not given or refused? Why? @ -[None] Did you discuss the management of the patient with other professionals (professionals i.e. , PA, [employer], lab, RT, psych nurse, community mental health social worker, amusement park worker, teacher, surface to air weapons officer, skilled nursing case manager)? Give summary @ -[Discussed with admitting physician and with cardiology and they are recommendations are incorporated Was smoking cessation discussed for >3mins.? @ -[No] Was critical care preformed (if so, how long)? @ -[No] Were there social determinants of health that impacted care today? How? (Homel essness, low income, unemployed, alcoholism, drug addiction, transportation, low edu. Level, literacy, decrease access to med. care, nursing home, rehab)? @ -[No] Was there de-escalation of care discussed even if they declined (Discuss DNR or withdrawal of care, Hospice)? DNR status @ -[No] What co-morbidities impacted this encounter? (DM, HTN, Smoking, COPD, CAD, Cancer, CVA, ARF, Chemo, Hep., AIDS, mental health diagnosis, sleep apnea, morbid obesity)? @ -[None] Was patient admitted / discharged? Hospital course, mention meds given and route, prescriptions, significant lab abnormalities, going to OR and other pertinent info. @ -[Patient is an 88-year-old woman brought to have evaluation for altered mental status she is found to have probable NSTEMI and urinary tract infection, patient admitted to have cardiology consultation and further treatment. Undiagnosed new problem with uncertain prognosis? @ -[No] Drug Therapy requiring intensive monitoring for toxicity (Heparin, Nitro, Insulin, Cardizem)? @ -[No] Were any procedures done? @ -[No] Diagnosis/symptom? @ -[Urinary tract infection NSTEMI Acute, or Chronic, or Acute on Chronic? @ -[Acute Uncomplicated (without systemic symptoms) or Complicated (systemic symptoms)? @ -[Uncomplicated Side effects of treatment? @ -[No] Exacerbation, Progression, or Severe Exacerbation? @ -[No] Poses a threat to life or bodily function? How? (Chest pain, USA, CT, pneumonia, PE, COPD, DKA, ARF, appy, cholecystitis, CVA, Diverticulitis, Homicidal, Suicidal, threat to staff... and all critical care pts) @ -[Yes - Lab Data Result diagrams: 01/05/24 09:40 01/05/24 09:40 Lab Results 12/31/23 12/31/23 12/31/23 Range/Units 20:59 20:59 20:59 WBC 13.2 H (3.8-10.6) k/uL RBC 4.44 (3.80-5.40) m/uL Hgb 13.6 (11.4-16.0) gm/dL Hct 40.4 (34.0-46.0) % MCV 91.0 (80.0-100.0) fL MCH 30.6 (25.0-35.0) pg MCHC 33.6 (31.0-37.0) g/dL RDW 13.2 (11.5-15.5) % Plt Count 370 (150-450) k/uL MPV 7.7 Neutrophils % 88 % Lymphocytes % 7 % Monocytes % 4 % Eosinophils % 0 % Basophils % 0 % Neutrophils # 11.6 H (1.3-7.7) k/uL Lymphocytes # 0.9 L (1.0-4.8) k/uL Monocytes # 0.5 (0-1.0) k/uL Eosinophils # 0.0 (0-0.7) k/uL Basophils # 0.0 (0-0.2) k/uL PT 11.8 (10.0-12.5) sec INR 1.1 (<1.2) APTT 23.9 (22.0-30.0) sec Sodium 137 (137-145) mmol/L Potassium 3.4 L (3.5-5.1) mmol/L Chloride 103 (98-107) mmol/L Carbon Dioxide 26 (22-30) mmol/L Anion Gap 8 mmol/L BUN 18 H (7-17) mg/dL Creatinine 0.80 (0.52-1.04) mg/dL Est GFR (CKD-EPI)AfAm 77 (>60 ml/min/1.73 sqM) Est GFR (CKD-EPI)NonAf 67 (>60 ml/min/1.73 sqM) Glucose 94 (74-99) mg/dL Plasma Lactic Acid Son (0.7-2.0) mmol/L Calcium 9.8 (8.4-10.2) mg/dL Magnesium 1.8 (1.6-2.3) mg/dL Total Bilirubin 1.1 (0.2-1.3) mg/dL AST 39 H (14-36) U/L ALT 15 (4-34) U/L Alkaline Phosphatase 100 (38-126) U/L Troponin I (0.000-0.034) ng/mL Total Protein 6.5 (6.3-8.2) g/dL Albumin 3.8 (3.5-5.0) g/dL 12/31/23 12/31/23 Range/Units 20:59 20:59 WBC (3.8-10.6) k/uL RBC (3.80-5.40) m/uL Hgb (11.4-16.0) gm/dL Hct (34.0-46.0) % MCV (80.0-100.0) fL MCH (25.0-35.0) pg MCHC (31.0-37.0) g/dL RDW (11.5-15.5) % Plt Count (150-450) k/uL MPV Neutrophils % % Lymphocytes % % Monocytes % % Eosinophils % % Basophils % % Neutrophils # (1.3-7.7) k/uL Lymphocytes # (1.0-4.8) k/uL Monocytes # (0-1.0) k/uL Eosinophils # (0-0.7) k/uL Basophils # (0-0.2) k/uL PT (10.0-12.5) sec INR (<1.2) APTT (22.0-30.0) sec Sodium (137-145) mmol/L Potassium (3.5-5.1) mmol/L Chloride (98-107) mmol/L Carbon Dioxide (22-30) mmol/L Anion Gap mmol/L BUN (7-17) mg/dL Creatinine (0.52-1.04) mg/dL Est GFR (CKD-EPI)AfAm (>60 ml/min/1.73 sqM) Est GFR (CKD-EPI)NonAf (>60 ml/min/1.73 sqM) Glucose (74-99) mg/dL Plasma Lactic Acid Son 1.8 (0.7-2.0) mmol/L Calcium (8.4-10.2) mg/dL Magnesium (1.6-2.3) mg/dL Total Bilirubin (0.2-1.3) mg/dL AST (14-36) U/L ALT (4-34) U/L Alkaline Phosphatase (38-126) U/L Troponin I 1.070 H* (0.000-0.034) ng/mL Total Protein (6.3-8.2) g/dL Albumin (3.5-5.0) g/dL Disposition Clinical Impression: NSTEMI (non-ST elevated myocardial infarction) Disposition: ADMITTED IP TO THIS HOSP Condition: Stable Is patient prescribed a controlled substance at d/c from ED?: No
--- NOTE | 2023-12-31 21:25 | XR ---
EXAMINATION TYPE: XR chest 1V portable DATE OF EXAM: 12/31/2023 COMPARISON: Chest x-ray December 14, 2022 HISTORY: Dyspnea TECHNIQUE: Single frontal view of the chest is obtained. FINDINGS: There is chronic parenchymal changes bilaterally without suspicious focal air space opacit y, pleural effusion, or pneumothorax seen. The cardiac silhouette size remains within normal limits. The osseous structures are demineralized. Underlying scoliosis is present. IMPRESSION: Chronic parenchymal changes without acute pulmonary process.
[2023-12-31 21:34] LABS: INR 1.1 (<1.2); Partial Thromboplastin Time 23.9 sec (22.0-30.0); Prothrombin Time 11.8 sec (10.0-12.5)
[2023-12-31 21:40] LABS: Basophils % (A) 0 %; Eosinophils % (A) 0 %; HCT 40.4 % (34.0-46.0); HGB 13.6 gm/dL (11.4-16.0); Lymphocytes # (A) 0.9 k/uL (1.0-4.8); Lymphocytes % (A) 7 %; MCH 30.6 pg (25.0-35.0); MCHC 33.6 g/dL (31.0-37.0); Mean Platelet Volume 7.7; Monocytes # (A) 0.5 k/uL (0-1.0); Monocytes % (A) 4 %; Neutrophils # (A) 11.6 k/uL (1.3-7.7); Neutrophils % (A) 88 %; Platelet Count 370 k/uL (150-450); RBC 4.44 m/uL (3.80-5.40); RDW 13.2 % (11.5-15.5); WBC 13.2 k/uL (3.8-10.6)
[2023-12-31 22:03] LABS: ALT 15 U/L (4-34); AST 39 U/L (14-36); African American GFR (CKD) 77 (>60 ml/min/1.73 sqM); Albumin 3.8 g/dL (3.5-5.0); Alkaline Phosphatase 100 U/L (38-126); Anion Gap 8 mmol/L; Blood Urea Nitrogen 18 mg/dL (7-17); Calcium 9.8 mg/dL (8.4-10.2); Carbon Dioxide 26 mmol/L (22-30); Chloride 103 mmol/L (98-107); Glucose 94 mg/dL (74-99); Magnesium 1.8 mg/dL (1.6-2.3); Non-African American GFR(CKD) 67 (>60 ml/min/1.73 sqM); Potassium 3.4 mmol/L (3.5-5.1); Sodium 137 mmol/L (137-145); Total Bilirubin 1.1 mg/dL (0.2-1.3); Total Protein 6.5 g/dL (6.3-8.2)
[2023-12-31] MEDS ORDERED: NITROGLYCERIN SL TABS 0.4 MG TAB SUBLINGUAL PRN (23:06)
[2023-12-31] MEDS: SODIUM CHLORIDE 0.9% 1,000 ML IV SCH (23:21)
[2024-01-01 05:58] LABS: Amorphous Sediment,Urine Many /hpf; Appearance,Urine Turbid (Clear); Bacteria,Urine Many /hpf; Bilirubin,Urine Negative (Negative); Blood,Urine Trace (Negative); Color,Urine Yellow; Glucose,Urine (UA) Negative (Negative); Ketones,Urine Negative (Negative); Leukocyte Esterase,Urine Moderate (Negative); Nitrite,Urine Negative (Negative); PH, Urine 7.5 (5.0-8.0); Protein,Urine 1+ (Negative); RBC,Urine 2 /hpf (0-5); Specific Gravity,Urine 1.014 (1.001-1.035); Squamous Epithelial Cell,Urine 8 /hpf (0-4); Urobilinogen,Urine <2.0 mg/dL (<2.0); WBC,Urine 28 /hpf (0-5)
--- NOTE | 2024-01-01 06:15 | P.HPIM ---
History of Present Illness H&P Date: 01/01/24 Chief Complaint: Altered mental status 88-year-old female with COPD hypertension Patient lives alone, she has been weak. Today her son who lives next-door was checking on her and found her slumped into her chair minimally responsive incontinent to urine when he tried to help her stand up she was too weak to stand up he found this all a typical of her and was very concerned about her wellbeing called EMS and brought her to the hospital for evaluation When patient asked she is very pleasant oriented to place and person she has no complaints except for urinary frequency and dysuria. Patient denies any fevers chills or headache denies any chest pain or trouble breathing denies any nausea vomiting or abdominal pain denies any GI bleeding. However during the whole interview she kept saying that she finds it strange that she keeps urinating however she remained dry since presentation and we have been waiting for urine sample to rule out UTI review of systems Pertinent positives as noted in HPI. All other systems were reviewed and are negative on exam Constitutional: No acute distress, conversant, pleasant Eyes: Anicteric sclerae, moist conjunctiva, Pupils equal round reactive to light ENMT: NC/AT Oropharynx clear, no erythema, or exudates Neck: Supple, no masses, or JVD No carotid bruits No thyromegaly Lungs: Clear to auscultation Clear to percussion Normal respiratory effort, no accessory muscle use Cardiovascular: Heart regular in rate and rhythm, No murmurs, gallops, or rubs No peripheral edema Abdominal: Soft Nontender, no guarding, rebound or rigidity Abdomen moving with respiration Normoactive bowel sounds Extremities: No digital cyanosis Pedal pulses intact and symmetrical Radial pulses intact and symmetrical No calf tenderness Psychiatric: Alert and oriented to person, place Neuro Muscles Strength 3/5 in bilateral lower extremities 4 out of 5 in bilateral upper extremities Sensation to light touch grossly present throughout Past Medical History Past Medical History: COPD, Hypertension, Pneumonia History of Any Multi-Drug Resistant Organisms: None Reported Past Surgical History: No Surgical Hx Reported Past Anesthesia/Blood Transfusion Reactions: No Reported Reaction Past Psychological History: No Psychological Hx Reported Smoking Status: Current some day smoker Past Alcohol Use History: None Reported Past Drug Use History: None Reported - Past Family History Father Family Medical History: Cancer Additional Family Medical History / Comment(s): lung cancer Mother Family Medical History: Cancer Additional Family Medical History / Comment(s): pancreatic cancer Medications and Allergies Home Medications Medication Instructions Recorded Confirmed Type Aspirin EC [Ecotrin Low Dose] 81 mg PO DAILY 12/14/22 12/14/22 History Fluticasone Propion/Salmeterol 1 puff INHALATION RT-BID 12/14/22 12/14/22 History [[place] 250-50 Inhub] hydroCHLOROthiazide [Hydrodiuril] 25 mg PO DAILY 12/14/22 12/14/22 History Enoxaparin [Lovenox] 30 mg SQ DAILY #28 each 12/18/22 Rx Metoprolol Succinate (ER) [Toprol 50 mg PO DAILY tab 12/18/22 Rx XL] Sennosides/Docusate Sodium [Senna 1 each PO DAILY #20 capsule 12/18/22 Rx Plus 8.6-50 mg Softgel] traMADol HCL 50 mg PO Q6H #24 tab 12/18/22 Rx Cephalexin [Keflex] 500 mg PO Q6HR #28 cap 02/05/23 Rx Allergies Allergy/AdvReac Type Severity Reaction Status Date / Time Sulfa (Sulfonamide Allergy Rash/Hives Verified 12/31/23 20:36 Antibiotics) Physical Exam Vitals: Vital Signs Temp Pulse Resp BP Pulse Ox 01/01/24 02:00 72 18 160/78 96 01/01/24 00:00 67 18 128/64 95 12/31/23 22:00 67 18 154/68 95 12/31/23 21:00 18 138/79 96 12/31/23 20:34 98.3 F 76 18 138/79 94 L Intake and Output 12/31/23 12/31/23 01/01/24 14:59 22:59 06:59 Other: Weight 45.359 kg Results CBC & Chem 7: 12/31/23 20:59 12/31/23 20:59 Labs: Abnormal Lab Results - Last 24 Hours (Table) 12/31/23 12/31/23 12/31/23 Range/Units 20:59 20:59 20:59 WBC 13.2 H (3.8-10.6) k/uL Neutrophils # 11.6 H (1.3-7.7) k/uL Lymphocytes # 0.9 L (1.0-4.8) k/uL Potassium 3.4 L (3.5-5.1) mmol/L BUN 18 H (7-17) mg/dL AST 39 H (14-36) U/L Troponin I 1.070 H* (0.000-0.034) ng/mL 01/01/24 Range/Units 01:26 WBC (3.8-10.6) k/uL Neutrophils # (1.3-7.7) k/uL Lymphocytes # (1.0-4.8) k/uL Potassium (3.5-5.1) mmol/L BUN (7-17) mg/dL AST (14-36) U/L Troponin I 0.920 H* (0.000-0.034) ng/mL Assessment and Plan Assessment: 88-year-old female with hypertension COPD coming in for increased weakness and altered mental status and urinary incontinence I discussed case with ED doctor and accepted the admission for suspected UTI with anticipated length of stay more than 2 midnights Acute metabolic encephalopathy Urinary tract infection Leukocytosis with white count of 13.2 Patient was finally able to provide a urine sample which resulted around 6 in the morning Check urine culture Patient will be started on Rocephin 1 g IV piggyback daily Tylenol 650 mg 1 tab p.o. as needed every 6 hours for fever Gentle IV fluid hydration 75 cc/h with normal saline Elevated troponins trending down EKG no acute ST changes Patient denies any chest pain or trouble breathing Cardiology evaluation pending Hypertension Controlled Continue with metoprolol COPD compensated Continue with Symbicort Supplemental oxygen as needed DuoNebs as needed Renal function overall unremarkable sodium 137 potassium 3.4 BUN 18 creatinine 0.8 Hemoglobin 13.6 unremarkable CODE STATUS patient unable to make decision will presume full code for now DVT prophylaxis Lovenox subcu 30 mg daily
[2024-01-01] MEDS: SYMBICORT 80-4.5 MCG INHALER INHALATION SCH (08:38)
[2024-01-01 08:40] LABS: Chol/HDL Ratio 3.61 Ratio; LDL Cholesterol,Calculated 91.4 mg/dL (0.0-131.0)
[2024-01-01] MEDS: METOPROLOL SUCCINATE (ER) 50 MG TAB.ER.24H PO SCH (08:42)
[2024-01-01] MEDS: ASPIRIN 81 MG PO SCH (08:43)
[2024-01-01] MEDS: ENOXAPARIN 30 MG/0.3 ML SYRINGE SQ SCH (08:49)
[2024-01-01] MEDS: METOPROLOL SUCCINATE (ER) 50 MG TAB.ER.24H PO ONE (08:52)
[2024-01-01] MEDS ORDERED: ASPIRIN 325 MG TAB PO SCH (09:00)
[2024-01-01] MEDS ORDERED: HEPARIN SODIUM 1,000 UN/ML (10ML VL) IV PRN (10:39)
--- NOTE | 2024-01-01 10:42 | P.CRDCN ---
History of Present Illness History of present illness: HISTORY OF PRESENTING ILLNESS This is a pleasant 88-year-old with past medical history significant for hypertension, hyperlipidemia, tobacco abuse, [id number]-peyvbugd aortic regurgitation. She previously followed in the office with Dr Bowens in 2016. She cannot describe much of her medical problems however per chart patient was found to be confused, slumped over in her chair and reported incontinence of urine with weakness and inability to stand up on her own. Apparently she lives at home by herself. She denies any chest pain or pressure. She does not recall why she came to the hospital. EKG shows normal sinus rhythm, normal axis, LVH with nonspecific minimal ST depressions V3 through V6. She denies any cardiac history such as stents and believes her last stress test was 15 years ago. Blood work shows troponin 1.0, 0.9, 0.97. White blood cell count 13.2, creatinine 0.8, potassium 3.4. Urinalysis concerning for UTI REVIEW OF SYSTEMS At the time of my exam: CONSTITUTIONAL: Denies fever or chills. CARDIOVASCULAR: Denies chest pain, shortness of breath, orthopnea, PND or palpitations. RESPIRATORY: Denies cough. GASTROINTESTINAL: Denies abdominal pain, diarrhea, constipation, nausea or vomiting. MUSCULOSKELETAL: Denies myalgias. NEUROLOGIC: Denies numbness, tingling or weakness. ENDOCRINE: Denies fatigue, weight change, polydipsia or polyurina. GENITOURINARY: Denies burning, hematuria or urgency with micturation. HEMATOLOGIC: Denies history of anemia or bleeding. PHYSICAL EXAMINATION Vital signs reviewed. CONSTITUTIONAL: No apparent distress, confused HEENT: Head is normocephalic. Pupils are equal, round. Sclerae anicteric. Mucous membranes of the mouth are moist. No JVD. No carotid bruit. CHEST EXAMINATION: Lungs are clear to auscultation. No chest wall tenderness is noted on palpation or with deep breathing. HEART EXAMINATION: Regular rate and rhythm. S1, S2 heard. No murmurs, gallops or rub. ABDOMEN: Soft, nontender. Positive bowel sounds. EXTREMITIES: 2+ peripheral pulses, no lower extremity edema and no calf tenderness. NEUROLOGIC EXAMINATION: Patient is awake, alert ASSESSMENT Altered mental status likely related to UTI Sepsis Non-STEMI, possible type II mechanism, possible Takotsubo's vs less likely Type 1 with no anginal type symptoms Hypertension Aortic regurgitation by history Tobacco abuse PLAN Patient with altered mental status and being found down. Check CT brain and if normal start patient on heparin drip for non-STEMI. Continue with aspirin as well as beta quincy. Check 2-D echo. Unclear if patient is a good interventional candidate. Apparently this is a change in mental status and most likely related related to UTI. Continue with current supportive care and monitor symptomatically. Past Medical History Past Medical History: COPD, Hypertension, Pneumonia History of Any Multi-Drug Resistant Organisms: None Reported Past Surgical History: No Surgical Hx Reported Past Anesthesia/Blood Transfusion Reactions: No Reported Reaction Past Psychological History: No Psychological Hx Reported Smoking Status: Current some day smoker Past Alcohol Use History: None Reported Past Drug Use History: None Reported - Past Family History Father Family Medical History: Cancer Additional Family Medical History / Comment(s): lung cancer Mother Family Medical History: Cancer Additional Family Medical History / Comment(s): pancreatic cancer Medications and Allergies Home Medications Medication Instructions Recorded Confirmed Type Aspirin EC [Ecotrin Low Dose] 81 mg PO DAILY 12/14/22 01/01/24 History Albuterol Sulfate [Albuterol 2 puff PO RT-Q4H PRN 01/01/24 01/01/24 History Sulfate Hfa] B12 500mcg/Folic Acid 400mcg 1 tab PO DAILY 01/01/24 01/01/24 History Cholecalciferol (Vitamin D3) 50 mcg PO DAILY 01/01/24 01/01/24 History [Vitamin D3 (50 Mcg = 2000 Iu)] Ferrous Sulfate [Feosol] 325 mg PO DAILY 01/01/24 01/01/24 History Folic Acid 0.4 mg PO DAILY 01/01/24 01/01/24 History Losartan [Cozaar] 50 mg PO DAILY 01/01/24 01/01/24 History Metoprolol Succinate (ER) [Toprol 100 mg PO DAILY 01/01/24 01/01/24 History Xl] busPIRone HCl [Buspar] 5 mg PO BID 01/01/24 01/01/24 History Allergies Allergy/AdvReac Type Severity Reaction Status Date / Time Sulfa (Sulfonamide Allergy Rash/Hives Verified 01/01/24 08:41 Antibiotics) Physical Exam Vitals: Vital Signs Temp Pulse Resp BP Pulse Ox 01/01/24 10:00 59 L 20 148/89 96 01/01/24 08:46 84 22 183/65 96 01/01/24 08:40 96 01/01/24 06:33 83 16 165/74 95 01/01/24 05:23 94 16 179/75 96 01/01/24 04:00 64 18 147/61 97 01/01/24 02:00 72 18 160/78 96 01/01/24 00:00 67 18 128/64 95 12/31/23 22:00 67 18 154/68 95 12/31/23 21:00 18 138/79 96 12/31/23 20:34 98.3 F 76 18 138/79 94 L Intake and Output 12/31/23 01/01/24 01/01/24 22:59 06:59 14:59 Other: Weight 45.359 kg Results 12/31/23 20:59 12/31/23 20:59 Cardiac Enzymes 12/31/23 12/31/23 01/01/24 Range/Units 20:59 20:59 01:26 AST 39 H (14-36) U/L Troponin I 1.070 H* 0.920 H* (0.000-0.034) ng/mL 01/01/24 Range/Units 05:34 AST (14-36) U/L Troponin I 0.970 H* (0.000-0.034) ng/mL Coagulation 12/31/23 Range/Units 20:59 PT 11.8 (10.0-12.5) sec APTT 23.9 (22.0-30.0) sec Lipids 01/01/24 Range/Units 05:34 Triglycerides 114.00 (0.00-149.00) mg/dL Cholesterol 158.00 (0.00-200.00) mg/dL HDL Cholesterol 43.80 (40.00-60.00) mg/dL Cholesterol/HDL Ratio 3.61 Ratio CBC 12/31/23 Range/Units 20:59 WBC 13.2 H (3.8-10.6) k/uL RBC 4.44 (3.80-5.40) m/uL Hgb 13.6 (11.4-16.0) gm/dL Hct 40.4 (34.0-46.0) % Plt Count 370 (150-450) k/uL Comprehensive Metabolic Panel 12/31/23 Range/Units 20:59 Sodium 137 (137-145) mmol/L Potassium 3.4 L (3.5-5.1) mmol/L Chloride 103 (98-107) mmol/L Carbon Dioxide 26 (22-30) mmol/L BUN 18 H (7-17) mg/dL Creatinine 0.80 (0.52-1.04) mg/dL Glucose 94 (74-99) mg/dL Calcium 9.8 (8.4-10.2) mg/dL AST 39 H (14-36) U/L ALT 15 (4-34) U/L Alkaline Phosphatase 100 (38-126) U/L Total Protein 6.5 (6.3-8.2) g/dL Albumin 3.8 (3.5-5.0) g/dL Current Medications Generic Name Dose Route Start Last Admin Trade Name Freq PRN Reason Stop Dose Admin Aspirin 81 mg 01/01/24 09:00 01/01/24 08:43 Aspirin 81 Mg PO 81 mg DAILY EVERARDO Administration Sodium Chloride 1,000 mls @ 75 mls/hr 12/31/23 23:15 12/31/23 23:21 Saline 0.9% IV 75 mls/hr .[id number] EVERARDO Administration Ceftriaxone Sodium 1 gm/ 50 mls @ 100 mls/hr 01/01/24 07:00 01/01/24 06:33 Sodium Chloride IVPB 100 mls/hr Q24HR EVERARDO Administration Protocol Metoprolol Succinate 100 mg 01/01/24 09:00 Metoprolol Succinate (Er) 100 Mg Tab.Er.24h PO DAILY EVERARDO Nitroglycerin 0.4 mg 12/31/23 23:06 Nitroglycerin Sl Tabs 0.4 Mg Tab SUBLINGUAL Q5M PRN Chest Pain Intake and Output 12/31/23 01/01/24 01/01/24 22:59 06:59 14:59 Other: Weight 45.359 kg 12/31/23 20:59 12/31/23 20:59
[2024-01-01 10:53] LABS: Basophils % (A) 0 %; Eosinophils # (A) 0.1 k/uL (0-0.7); Eosinophils % (A) 1 %; HCT 34.7 % (34.0-46.0); HGB 11.8 gm/dL (11.4-16.0); Lymphocytes # (A) 0.9 k/uL (1.0-4.8); Lymphocytes % (A) 9 %; MCH 30.7 pg (25.0-35.0); MCV 90.4 fL (80.0-100.0); Mean Platelet Volume 7.9; Monocytes # (A) 0.4 k/uL (0-1.0); Monocytes % (A) 5 %; Neutrophils # (A) 7.7 k/uL (1.3-7.7); Neutrophils % (A) 84 %; Platelet Count 345 k/uL (150-450); RBC 3.84 m/uL (3.80-5.40); RDW 13.1 % (11.5-15.5); WBC 9.2 k/uL (3.8-10.6)
[2024-01-01 11:03] LABS: INR 1.1 (<1.2); Partial Thromboplastin Time 24.8 sec (22.0-30.0); Prothrombin Time 11.8 sec (10.0-12.5)
[2024-01-01] MEDS: METOPROLOL SUCCINATE (ER) 100 MG TAB.ER.24H PO SCH (11:06)
[2024-01-01] MEDS: HEPARIN SODIUM 1,000 UN/ML (10ML VL) IV ONE (11:06)
[2024-01-01] MEDS: HEPARIN SOD,PORK IN 0.45% NACL 25,000 UNIT in 0.45% NACL 1 250ML.BAG IV SCH (11:11)
--- NOTE | 2024-01-01 11:12 | CDI ---
Documentation Clarification Form Date: 01/01/2024 From: Mis Lemons Phone: [phone] Admit Date: 12/31/2023 11:06:00 PM Patient Name: Kamille Herring Visit Number: [id number] Discharge Date: ATTENTION: The Clinical Documentation Specialists (CDI) and [facility] Coding Staff appreciate your assistance in clarifying documentation. Please respond to the clarification below the line at the bottom and electronically sign. The CDI & [facility] Coding staff will review the response and follow-up if needed. Please note: Queries are made part of the Legal Health Record. If you have any questions, please contact the author of this message via ITS. Dr. Melissa Forde: Sepsis is documented in the Cardiology consult 12/31 which may lack sufficient clinical evidence/support in the medical record. Additional clarification is requested. History/Risk Factors: 88-year-old female with a history of COPD, HTN and PNA who presents with Weakness, minimally responsive and incontinent of urine Clinical Indicators: 12/30 Triage VS: 138/79, 98.3, 76, 18, 94% room air 12/31 Cardiology Consult: "Altered mental status likely related to UTI, Sepsis" 12/30 WBC: 13.2 Lactic Acid: 1.8 12/30 Urinalysis: Appearance: Turbid, Protein: 1+, Blood: Trace, Leukocyte Esterase: Moderate, WBC: 28, Squamous Epith Cells: 8, Amorphous Sediment: Many, Bacteria: Many Treatment: Normal Saline 75cc/hour 12/30 Ceftriaxone 1gram IV [id number] start 12/31 Please clarify if Sepsis is a valid diagnosis? [X ] No, Sepsis is ruled out [ ] Yes, Sepsis is present as evidence by (additional clinical support): [ ] Other (please specify diagnosis) [ ] Unable to determine SIRS Criteria: 2 or more of the following may indicate SIRS Temperature < 96.8F (36C) or > 101.0F (38.3C) Heart Rate > 90 bpm Respiratory Rate > 20 breaths/min or PaCO2 < 32 mmHg White Blood Cell Count > 12,000 or < 4,000 cells/mm3 or > 10% bands MTDD
--- NOTE | 2024-01-01 12:20 | P.PN ---
Subjective Progress Note Date: 01/01/24 Hospital course Patient is a 88-year-old female with a past medical history of COPD and hypertension who was brought in by her son who lives next-door. Son went to check up on her and found her slumped into the chair minimally responsive and incontinent to urine. He was unable to make her stand. In the ED patient's UA was consistent with UTI. Patient also found to have elevated troponins. Patient started IV Rocephin and referred for admission. Patient seen by cardiology who started the patient on heparin drip for non-ST elevation [place]. Subjective Patient seen this morning. Son was at bedside. Per son patient is very close to her baseline. 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 Will check pelvic x-ray to rule out hip fracture. PT OT consult COPD Compensated Continue with Symbicort DuoNeb as needed Full code for now DVT prophylaxis: Subcu Lovenox Objective - Vital Signs Vital signs: Vital Signs Temp 98.3 F 12/31/23 20:34 Pulse 64 01/01/24 12:13 Resp 18 01/01/24 12:13 BP 172/93 01/01/24 12:13 Pulse Ox 98 01/01/24 12:13 FiO2 Intake & Output 12/31/23 01/01/24 01/01/24 18:59 06:59 18:59 Weight 45.359 kg - Labs CBC & Chem 7: 01/01/24 10:43 12/31/23 20:59 Labs: Abnormal Lab Results - Last 24 Hours (Table) 12/31/23 12/31/23 12/31/23 Range/Units 20:59 20:59 20:59 WBC 13.2 H (3.8-10.6) k/uL Neutrophils # 11.6 H (1.3-7.7) k/uL Lymphocytes # 0.9 L (1.0-4.8) k/uL Potassium 3.4 L (3.5-5.1) mmol/L BUN 18 H (7-17) mg/dL AST 39 H (14-36) U/L Troponin I 1.070 H* (0.000-0.034) ng/mL Urine Appearance (Clear) Urine Protein (Negative) Urine Blood (Negative) Ur Leukocyte Esterase (Negative) Urine WBC (0-5) /hpf Ur Squamous Epith Cells (0-4) /hpf Amorphous Sediment (None) /hpf Urine Bacteria (None) /hpf 01/01/24 01/01/24 01/01/24 Range/Units 01:26 05:21 05:34 WBC (3.8-10.6) k/uL Neutrophils # (1.3-7.7) k/uL Lymphocytes # (1.0-4.8) k/uL Potassium (3.5-5.1) mmol/L BUN (7-17) mg/dL AST (14-36) U/L Troponin I 0.920 H* 0.970 H* (0.000-0.034) ng/mL Urine Appearance Turbid H (Clear) Urine Protein 1+ H (Negative) Urine Blood Trace H (Negative) Ur Leukocyte Esterase Moderate H (Negative) Urine WBC 28 H (0-5) /hpf Ur Squamous Epith Cells 8 H (0-4) /hpf Amorphous Sediment Many H (None) /hpf Urine Bacteria Many H (None) /hpf 01/01/24 Range/Units 10:43 WBC (3.8-10.6) k/uL Neutrophils # (1.3-7.7) k/uL Lymphocytes # 0.9 L (1.0-4.8) k/uL Potassium (3.5-5.1) mmol/L BUN (7-17) mg/dL AST (14-36) U/L Troponin I (0.000-0.034) ng/mL Urine Appearance (Clear) Urine Protein (Negative) Urine Blood (Negative) Ur Leukocyte Esterase (Negative) Urine WBC (0-5) /hpf Ur Squamous Epith Cells (0-4) /hpf Amorphous Sediment (None) /hpf Urine Bacteria (None) /hpf
--- NOTE | 2024-01-01 12:21 | CT ---
EXAMINATION TYPE: CT brain wo con DATE OF EXAM: 01/01/2024 COMPARISON: HISTORY: AMS CT DLP: 1095.[address] of the brain was performed. The ventricles, basal cisterns and sulci overlying the cerebral convexities demonstrate mild enlargem ent. There is no evidence for intracranial hemorrhage or sulcal effacement. There is decreased attenuation about the periventricular white matter and deep white matter of both c erebral hemispheres, compatible with chronic small vessel ischemia. Differential diagnosis does inclu de demyelination. No mass effects are seen.No midline shift. Osseous calvarium is intact. If symptoms persist consider MRI. IMPRESSION: 1. Age related atrophic and chronic small vessel ischemic change without acute intracranial process s een at this time.
--- NOTE | 2024-01-01 13:10 | XR ---
EXAMINATION TYPE: XR pelvis AP view DATE OF EXAM: 01/01/2024 12:26 PM CLINICAL INDICATION:Female, 88 years old with history of fall; COMPARISON: 12/15/2023 TECHNIQUE: XR pelvis AP view, examined in a single projection. FINDINGS: There is no evidence of fracture or dislocation. There is no soft tissue abnormality. No a bnormal calcifications are present. The spine appears intact. The hips appear intact. Osteophyte form ation of the superior acetabulum bilaterally with mild joint space narrowing. IMPRESSION: 1. Right hip fixation hardware appears intact. 2. Moderate left hip osteoarthrosis.
--- NOTE | 2024-01-01 18:06 | CA ---
Transthoracic Echo Report Name: Kamille Herring Age: 88 Gender: F : 1935 Exam Date: 01/01/2024 16:00 Exam Location: [facility] Ht (in): 49 Wt (lb): 100 Ordering Physician: Richie Parr DO ([email or web address]) Attending/Referring Phys: Cheese Sprayer Amelie Cisse RDCS Procedure CPT: Indications: re: LV function Cardiac Hx: Technical Quality: Fair Contrast 1: Total Dose (mL): Contrast 2: Total Dose (mL): MEASUREMENTS (Male / Female) Normal Values 2D ECHO LV Diastolic Diameter PLAX 3.1 cm 4.2 - 5.9 / 3.9 - 5.3 cm LV Systolic Diameter PLAX 1.7 cm IVS Diastolic Thickness 1.0 cm 0.6 - 1.0 / 0.6 - 0.9 cm LVPW Diastolic Thickness 1.2 cm 0.6 - 1.0 / 0.6 - 0.9 cm LV Relative Wall Thickness 0.7 LA Volume 28.7 cm??? 18 - 58 / 22 - 52 cm??? LA Volume Index 22.4 cm???/m??? 16 - 28 cm???/m??? M-MODE Aortic Root Diameter MM 3.4 cm LA Systolic Diameter MM 3.3 cm LA Ao Ratio MM 1.0 AV Cusp Separation MM 1.6 cm DOPPLER AV Peak Velocity 148.5 cm/s AV Peak Gradient 8.8 mmHg AV Mean Velocity 94.2 cm/s AV Mean Gradient 4.1 mmHg AV Velocity Time Integral 29.1 cm AI Peak Velocity 462.2 cm/s AI Peak Gradient 85.5 mmHg AI Pressure Half Time 451.4 ms LVOT Peak Velocity 85.8 cm/s LVOT Peak Gradient 2.9 mmHg LVOT Velocity Time Integral 18.7 cm MV Area PHT 1.7 cm??? Mitral E Point Velocity 69.6 cm/s Mitral A Point Velocity 131.8 cm/s Mitral E to A Ratio 0.5 MV Deceleration Time 434.8 ms MV E' Velocity 2.9 cm/s Mitral E to MV E' Ratio 24.4 TR Peak Velocity 367.6 cm/s TR Peak Gradient 54.0 mmHg Right Ventricular Systolic Press 56.2 mmHg FINDINGS Left Ventricle Mildly increased left ventricular wall thickness. Left ventricular cavity size normal. Normal left ventricular systolic function with no obvious regional wall motion abnormalities. Left ventricular ejection fraction is estimated at 55-60 %. Grade 1 diastolic dysfunction. Right Ventricle Normal right ventricular size and function. Moderate to severe pulmonary hypertension. Right ventricular systolic pressure estimated at 56 mm hg. Right Atrium Right atrial dilatation. Mobile right atrial mass. Left Atrium Mild left atrial dilatation. Mitral Valve Structurally normal mitral valve. Mitral valve thickened. Moderate mitral annular calcification. Mild mitral regurgitation. Aortic Valve Trileaflet aortic valve. No aortic stenosis. Yins-tr-dfiinrdn aortic regurgitation. Tricuspid Valve Structurally normal tricuspid valve. Moderate tricuspid regurgitation. Pulmonic Valve Structurally normal pulmonic valve. Trace pulmonic regurgitation. Pericardium No pericardial effusion. Aorta Normal size aortic root and proximal ascending aorta. CONCLUSIONS Left ventricular ejection fraction is estimated at 55-60 %. Grade 1 diastolic dysfunction. No obvious regional wall motion abnormality. Normal LV cavity size and wall thickness Pulmonary hypertension with RVSP estimated at 56 mmHg Mild MR. Moderate aortic regurgitation Previewed by: Dr Gagandeep Salmeron (Electronically Signed) Final Date: 01 January 2024 18:05
[2024-01-02 06:16] LABS: Basophils % (A) 0 %; Eosinophils # (A) 0.3 k/uL (0-0.7); Eosinophils % (A) 4 %; HCT 34.3 % (34.0-46.0); HGB 11.3 gm/dL (11.4-16.0); Lymphocytes # (A) 1.3 k/uL (1.0-4.8); Lymphocytes % (A) 17 %; MCH 30.4 pg (25.0-35.0); MCHC 32.9 g/dL (31.0-37.0); MCV 92.4 fL (80.0-100.0); Mean Platelet Volume 7.6; Monocytes # (A) 0.4 k/uL (0-1.0); Monocytes % (A) 5 %; Neutrophils # (A) 5.6 k/uL (1.3-7.7); Neutrophils % (A) 72 %; Platelet Count 323 k/uL (150-450); RBC 3.71 m/uL (3.80-5.40); RDW 13.5 % (11.5-15.5); WBC 7.8 k/uL (3.8-10.6)
[2024-01-02 06:31] LABS: INR 1.1 (<1.2); Prothrombin Time 11.8 sec (10.0-12.5)
--- NOTE | 2024-01-02 11:21 | P.PN ---
Subjective Progress Note Date: 01/02/24 Hospital course Patient is a 88-year-old female with a past medical history of COPD and hypertension who was brought in by her son who lives next-door. Son went to check up on her and found her slumped into the chair minimally responsive and incontinent to urine. He was unable to make her stand. In the ED patient's UA was consistent with UTI. Patient also found to have elevated troponins. Patient started IV Rocephin and referred for admission. Patient seen by cardiology who started the patient on heparin drip for non-ST elevation [place]. Patient's echocardiogram showed normal LV and no regional wall motion abnormality. Subjective Patient seen this morning. She is still complaining of weakness in her bilateral lower extremities. She is otherwise AAO x 3 and is answering questions appropriately. 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 I told the nurse this morning to obtain a urine culture as soon as possible Continue with normal saline at 75 cc an hour WBC has normalized Mental status has normalized Non-ST elevation [place] Cardiology started the patient heparin drip Echocardiogram shows normal LV with no regional wall motion abnormality URI symptoms Influenza PCR negative. COVID-19 PCR negative Symptomatic care Generalized weakness Pelvic x-ray negative for fracture CT head negative for acute process PT OT consult COPD Compensated Continue with Symbicort DuoNeb as needed Full code for now DVT prophylaxis: Subcu Lovenox Anticipated discharge: Depending on when urine culture is finalized and PT OT recommendations Anticipated discharge place: Depending on PT OT recommendations Objective - Vital Signs Vital signs: Vital Signs Temp 97.8 F 01/02/24 08:00 Pulse 70 01/02/24 08:00 Resp 16 01/02/24 08:00 BP 165/74 01/02/24 08:00 Pulse Ox 96 01/02/24 08:00 FiO2 Intake & Output 01/01/24 01/02/24 01/02/24 18:59 06:59 18:59 Intake Total 273.202 323.715 Output Total 700 173 Balance 273.202 -376.285 -173 Weight 45.359 kg Intake: Intake, IV Titration . 83.715 Amount Heparin Sod,Pork in 0.45% 83.715 NaCl 25,000 unit In 0.45 % NaCl 1 250ml.bag @ 12 UNITS/KG/HR 5.443 mls/hr IV .Q24H [facility] Rx#: [id number] Oral 240 240 Output: Urine 700 Straight 700 Post Void Residual 173 Other: Voiding Method External Catheter External Catheter - Labs CBC & Chem 7: 01/02/24 05:35 12/31/23 20:59 Labs: Abnormal Lab Results - Last 24 Hours (Table) 01/01/24 01/01/24 01/02/24 Range/Units 16:37 22:11 05:35 RBC 3.71 L (3.80-5.40) m/uL Hgb 11.3 L (11.4-16.0) gm/dL APTT 40.8 H 48.5 H (22.0-30.0) sec 01/02/24 Range/Units 05:35 RBC (3.80-5.40) m/uL Hgb (11.4-16.0) gm/dL APTT 52.2 H (22.0-30.0) sec
--- NOTE | 2024-01-02 14:33 | P.PN ---
Subjective Progress Note Date: 01/02/24 HISTORY OF PRESENTING ILLNESS This is a pleasant 88-year-old with past medical history significant for hype rtension, hyperlipidemia, tobacco abuse, [id number]-[id number] aortic regurgitation. She previously followed in the office with Dr Bowens in 2016. She cannot describe much of her medical problems however per chart patient was found to be confused, slumped over in her chair and reported incontinence of urine with weakness and inability to stand up on her own. Apparently she lives at home by herself. She denies any chest pain or pressure. She does not recall why she came to the hospital. EKG shows normal sinus rhythm, normal axis, LVH with nonspecific minimal ST depressions V3 through V6. She denies any cardiac history such as stents and believes her last stress test was 15 years ago. Blood work shows troponin 1.0, 0.9, 0.97. White blood cell count 13.2, creatinine 0.8, potassium 3.4. Urinalysis concerning for UTI 01/01 Daughter at bedside reports patient is normally confused. She does use a wheelchair at home. Patient has been complaining more of back pain and has been unable to get up out of bed and that is why she came to the emergency department. Head CT was negative. Echocardiogram shows EF 55-60%, grade 1 diastolic dysfunction, RVSP 56, moderate aortic regurgitation. She denies any chest pain or pressure. No shortness of breath. It does hurt when she coughs. PHYSICAL EXAMINATION Vital signs reviewed. CONSTITUTIONAL: No apparent distress, confused HEENT: Head is normocephalic. Pupils are equal, round. Sclerae anicteric. Mucous membranes of the mouth are moist. No JVD. No carotid bruit. CHEST EXAMINATION: Lungs are clear to auscultation. No chest wall tenderness is noted on palpation or with deep breathing. HEART EXAMINATION: Regular rate and rhythm. S1, S2 heard. No murmurs, gallops or rub. ABDOMEN: Soft, nontender. Positive bowel sounds. EXTREMITIES: 2+ peripheral pulses, no lower extremity edema and no calf tenderness. NEUROLOGIC EXAMINATION: Patient is awake, alert, hard of hearing ASSESSMENT Altered mental status likely related to UTI Sepsis Non-STEMI, possible type II mechanism, possible Takotsubo's vs less likely Type 1 with no anginal type symptoms Hypertension Aortic regurgitation by history Tobacco abuse PLAN She is still somewhat confused. Complains of lower back pains. No typical anginal symptoms. Continue with aspirin as well as beta quincy. Discussed possible heart cath for a definitive diagnosis. ECHO with preserved EF. Heparin drip for 24 hours.We will continue with medical management. Possible discharge home from cardiology tomorrow. We will follow. Seen and examined in rounds with Dr. Parr, plan of care agreed upon. Objective - Vital Signs Vital signs: Vital Signs Temp 97.8 F 01/02/24 08:00 Pulse 70 01/02/24 08:00 Resp 16 01/02/24 08:00 BP 165/74 01/02/24 08:00 Pulse Ox 96 01/02/24 08:00 FiO2 Intake & Output 01/01/24 01/02/24 01/02/24 18:59 06:59 18:59 Intake Total 273.202 323.715 Output Total 700 173 Balance 273.202 -376.285 -173 Weight 45.359 kg Intake: Intake, IV Titration 33.202 83.715 Amount Heparin Sod,Pork in 0.45% 33.202 83.715 NaCl 25,000 unit In 0.45 % NaCl 1 250ml.bag @ 12 UNITS/KG/HR 5.443 mls/hr IV .Q24H [facility] Rx#: [id number] Oral 240 240 Output: Urine 700 Straight 700 Post Void Residual 173 Other: Voiding Method External Catheter External Catheter - Labs CBC & Chem 7: 01/02/24 05:35 12/31/23 20:59 Labs: Abnormal Lab Results - Last 24 Hours (Table) 01/01/24 01/01/24 01/02/24 Range/Units 16:37 22:11 05:35 RBC 3.71 L (3.80-5.40) m/uL Hgb 11.3 L (11.4-16.0) gm/dL APTT 40.8 H 48.5 H (22.0-30.0) sec 01/02/24 Range/Units 05:35 RBC (3.80-5.40) m/uL Hgb (11.4-16.0) gm/dL APTT 52.2 H (22.0-30.0) sec
[2024-01-02] MEDS: hydrALAZINE HCL 25 MG TAB PO STA (20:45)
[2024-01-03] MEDS ORDERED: LOSARTAN 50 MG TAB PO SCH (00:15)
[2024-01-03 10:59] LABS: HCT 28.4 % (34.0-46.0); HGB 9.9 gm/dL (11.4-16.0); MCHC 34.8 g/dL (31.0-37.0); MCV 92.1 fL (80.0-100.0); Mean Platelet Volume 8.5; Platelet Count 279 k/uL (150-450); RBC 3.08 m/uL (3.80-5.40); RDW 13.3 % (11.5-15.5); WBC 5.4 k/uL (3.8-10.6)
[2024-01-03 11:28] VITALS: RESP 16
--- NOTE | 2024-01-03 11:32 | P.PN ---
Subjective Progress Note Date: 01/03/24 Hospital course Patient is a 88-year-old female with a past medical history of COPD and hypertension who was brought in by her son who lives next-door. Son went to check up on her and found her slumped into the chair minimally responsive and incontinent to urine. He was unable to make her stand. In the ED patient's UA indicated possible UTI. Patient also found to have elevated troponins and patient also complained of URI symptoms. She tested negative for COVID and influenza. Her trauma workup was negative. Patient started on IV Rocephin and referred for admission. Patient seen by cardiology who started the patient on heparin drip for non-ST elevation MD. Patient's echocardiogram showed normal LV and no regional wall motion abnormality. Patient also did have a complicated hospital course due to urinary retention. Butler catheter had to be inserted. Subjective Patient seen this morning. She is denying any acute complaints. Patient family members were at bedside and all questions were answered to their satisfaction. Physical exam General examination - Alert and Oriented 3 in NAD, appears chronically de bilitated Heart - + S1S2 no murmurs Lungs - Clear to auscultation Abdomen soft NT ND +ve BS Extremities - No edema [employer] - Moving all 4 extremities spontaneously Psych - Calm and cooperative. Mildly confused which is expected with her age Assessment and plan Acute metabolic encephalopathy Urinary tract infection? Patient does not meet sepsis criteria Resume IV Rocephin 1 g daily Urine culture was never sent in the ED. urine culture was sent the following day and is pending If urine culture is negative we will discontinue the antibiotics Patient is eating and drinking so we will discontinue fluids WBC has normalized. This morning WBC is 5.4. Mental status has normalized Non-ST elevation MD Cardiology started the patient heparin drip This morning PTT was greater than 200. Heparin drip is on hold Hemoglobin did drop down to 9.9 Cardiology following. Per cardiology note may want to do a heart catheterization. Anemia Patient did have an elevated PTT Heparin drip is now on hold No overt signs of bleeding Check stool occult Trend CBC daily URI symptoms Influenza PCR negative. COVID-19 PCR negative Symptomatic care Urinary retention Likely due to being nonambulatory while in the hospital Butler catheter placed on 01/02/2024 Will do voiding trial once patient is more ambulatory Urology consult Generalized weakness I suspect this is mainly due to her URI symptoms PT OT consult I anticipate patient will be needing rehab COPD Compensated Continue with Symbicort DuoNeb as needed Patient is on low oxygen support with 2 L nasal cannula If patient goes home she will need home O2 eval. Patient is a heavy tobacco user. Full code for now DVT prophylaxis: Heparin drip on hold due to elevated PTT Anticipated discharge: Depending on when urine culture is finalized and PT OT recommendations. Also waiting for cardiology clearance Anticipated discharge place: Depending on PT OT recommendations Objective - Vital Signs Vital signs: Vital Signs Temp 98.2 F 01/03/24 03:26 Pulse 64 01/03/24 03:26 Resp 17 01/03/24 03:26 BP 153/82 01/03/24 03:26 Pulse Ox 96 01/03/24 03:26 FiO2 Intake & Output 01/02/24 01/03/24 01/03/24 18:59 06:59 18:59 Intake Total 133.083 140.163 Output Total 973 500 Balance -973 -366.917 140.163 Weight 45.359 kg Intake: Intake, IV Titration 133.083 30.163 Amount Heparin Sod,Pork in 0.45% 133.083 30.163 NaCl 25,000 unit In 0.45 % NaCl 1 250ml.bag @ 12 UNITS/KG/HR 5.443 mls/hr IV .[facility]H [facility] Rx#: [id number] Oral 110 Output: Urine 425 500 Post Void Residual 548 Other: Voiding Method External Catheter Indwelling Catheter Indwelling Catheter - Labs CBC & Chem 7: 01/03/24 07:11 12/31/23 20:59 Labs: Abnormal Lab Results - Last 24 Hours (Table) 01/03/24 01/03/24 Range/Units 07:11 07:11 RBC 3.08 L (3.80-5.40) m/uL Hgb 9.9 L (11.4-16.0) gm/dL Hct 28.4 L (34.0-46.0) % APTT >200.0 H* (22.0-30.0) sec
--- NOTE | 2024-01-03 13:53 | P.PN ---
Subjective Progress Note Date: 01/03/24 HISTORY OF PRESENTING ILLNESS This is a pleasant 88-year-old with past medical history significant for hype rtension, hyperlipidemia, tobacco abuse, [id number] aortic regurgitation. She previously followed in the office with Dr Bowens in 2016. She cannot describe much of her medical problems however per chart patient was found to be confused, slumped over in her chair and reported incontinence of urine with weakness and inability to stand up on her own. Apparently she lives at home by herself. She denies any chest pain or pressure. She does not recall why she came to the hospital. EKG shows normal sinus rhythm, normal axis, LVH with nonspecific minimal ST depressions V3 through V6. She denies any cardiac history such as stents and believes her last stress test was 15 years ago. Blood work shows troponin 1.0, 0.9, 0.97. White blood cell count 13.2, creatinine 0.8, potassium 3.4. Urinalysis concerning for UTI 01/01 Daughter at bedside reports patient is normally confused. She does use a wheelchair at home. Patient has been complaining more of back pain and has been unable to get up out of bed and that is why she came to the emergency department. Head CT was negative. Echocardiogram shows EF 55-60%, grade 1 diastolic dysfunction, RVSP 56, moderate aortic regurgitation. She denies any chest pain or pressure. No shortness of breath. It does hurt when she coughs. 01/02 She reports that she is feeling okay. She denies any chest pain or pressure. No shortness of breath. Denies any back pain presently. She has not been out of bed. She did have a urinary retention overnight and a Butler catheter was placed. Hemoglobin 9.9. Heparin drip is currently paused due to PTT greater than 200. PHYSICAL EXAMINATION Vital signs reviewed. CONSTITUTIONAL: No apparent distress, confused HEENT: Head is normocephalic. Pupils are equal, round. Sclerae anicteric. Mucous membranes of the mouth are moist. No JVD. No carotid bruit. CHEST EXAMINATION: Lungs are clear to auscultation. No chest wall tenderness is noted on palpation or with deep breathing. HEART EXAMINATION: Regular rate and rhythm. S1, S2 heard. No murmurs, gallops or rub. ABDOMEN: Soft, nontender. Positive bowel sounds. EXTREMITIES: 2+ peripheral pulses, no lower extremity edema and no calf tendern ess. NEUROLOGIC EXAMINATION: Patient is awake, alert, hard of hearing ASSESSMENT Altered mental status likely related to UTI Sepsis Non-STEMI, possible type II mechanism, possible Takotsubo's vs less likely Type 1 with no anginal type symptoms Hypertension Aortic regurgitation by history Tobacco abuse PLAN She is still somewhat confused. Complains of lower back pains. No typical anginal symptoms. Continue with aspirin as well as beta quincy. ECHO with preserved EF. OK to stop Heparin drip.We will continue with medical management. Possible discharge home from cardiology tomorrow. We will follow. Seen and examined in rounds with Dr. Parr, plan of care agreed upon. Objective - Vital Signs Vital signs: Vital Signs Temp 98.3 F 01/03/24 08:00 Pulse 78 01/03/24 08:00 Resp 16 01/03/24 08:00 BP 122/76 01/03/24 08:00 Pulse Ox 89 L 01/03/24 08:00 FiO2 Intake & Output 01/02/24 01/03/24 01/03/24 18:59 06:59 18:59 Intake Total 133.083 140.163 Output Total 973 500 Balance -973 -366.917 140.163 Weight 45.359 kg Intake: Intake, IV Titration 133.083 30.163 Amount Heparin Sod,Pork in 0.45% 133.083 30.163 NaCl 25,000 unit In 0.45 % NaCl 1 250ml.bag @ 12 UNITS/KG/HR 5.443 mls/hr IV .Q24H [facility] Rx#: [id number] Oral 110 Output: Urine 425 500 Post Void Residual 548 Other: Voiding Method External Catheter Indwelling Catheter Indwelling Catheter - Labs CBC & Chem 7: 01/03/24 07:11 12/31/23 20:59 Labs: Abnormal Lab Results - Last 24 Hours (Table) 01/03/24 01/03/24 Range/Units 07:11 07:11 RBC 3.08 L (3.80-5.40) m/uL Hgb 9.9 L (11.4-16.0) gm/dL Hct 28.4 L (34.0-46.0) % APTT >200.0 H* (22.0-30.0) sec
--- NOTE | 2024-01-03 21:34 | P.GSCN ---
History of Present Illness Consult date: 01/03/24 Reason for Consult: Urinary retention Requesting physician: Eliseo Gonzalez History of present illness: The patient is an 88-year-old white female admitted January 01, 2024 after her son found her minimally responsive and incontinent of urine. She reported dysuria and urinary frequency. Urinalysis is suggestive of a UTI, and a urine culture was sent. She is receiving ceftriaxone. A Butler catheter was placed yesterday for urinary retention. The patient is a vague historian. She denies any prior history of urolithiasis, but believes she may have been treated for UTIs in the past. Review of Systems - Constitutional Denies chills, Denies fever - Cardiovascular Reports high blood pressure - Genitourinary Genitourinary: Reports as per HPI Past Medical History Past Medical History: Cancer, COPD, Hypertension, Pneumonia Additional Past Medical History / Comment(s): basel cell skin cancer History of Any Multi-Drug Resistant Organisms: None Reported Past Surgical History: Joint Replacement Additional Past Surgical History / Comment(s): Right hip Past Anesthesia/Blood Transfusion Reactions: No Reported Reaction Past Psychological History: No Psychological Hx Reported Smoking Status: Current some day smoker Past Alcohol Use History: None Reported Past Drug Use History: None Reported - Past Family History Father Family Medical History: Cancer Additional Family Medical History / Comment(s): lung cancer Mother Family Medical History: Cancer Additional Family Medical History / Comment(s): pancreatic cancer Medications and Allergies Home Medications Medication Instructions Recorded Confirmed Type Aspirin EC [Ecotrin Low Dose] 81 mg PO DAILY 12/14/22 01/01/24 History Albuterol Sulfate [Albuterol 2 puff PO RT-Q4H PRN 01/01/24 01/01/24 History Sulfate Hfa] B12 500mcg/Folic Acid 400mcg 1 tab PO DAILY 01/01/24 01/01/24 History Cholecalciferol (Vitamin D3) 50 mcg PO DAILY 01/01/24 01/01/24 History [Vitamin D3 (50 Mcg = 2000 Iu)] Ferrous Sulfate [Feosol] 325 mg PO DAILY 01/01/24 01/01/24 History Folic Acid 0.4 mg PO DAILY 01/01/24 01/01/24 History Losartan [Cozaar] 50 mg PO DAILY 01/01/24 01/01/24 History Metoprolol Succinate (ER) [Toprol 100 mg PO DAILY 01/01/24 01/01/24 History Xl] busPIRone HCl [Buspar] 5 mg PO BID 01/01/24 01/01/24 History Allergies Allergy/AdvReac Type Severity Reaction Status Date / Time Sulfa (Sulfonamide Allergy Rash/Hives Verified 01/01/24 08:41 Antibiotics) Surgical - Exam Vital Signs Temp Pulse Resp BP Pulse Ox 98.3 F 76 18 138/79 94 L 12/31/23 20:34 12/31/23 20:34 12/31/23 20:34 12/31/23 20:34 12/31/23 20:34 - General well developed, well nourished, no distress - Respiratory normal respiratory effort - Abdomen Soft, non-distended, no mass. Mild suprapubic tenderness, no guarding or rebound. - Psychiatric oriented to time, oriented to person, oriented to place, speech is normal, memory intact Results - Labs 01/03/24 07:11 12/31/23 20:59 Abnormal Lab Results - Last 24 Hours (Table) 01/03/24 01/03/24 Range/Units 07:11 07:11 RBC 3.08 L (3.80-5.40) m/uL Hgb 9.9 L (11.4-16.0) gm/dL Hct 28.4 L (34.0-46.0) % APTT >200.0 H* (22.0-30.0) sec Assessment and Plan (1) UTI (urinary tract infection) Current Visit: Yes Status: Acute Code(s): N39.0 - URINARY TRACT INFECTION, SITE NOT SPECIFIED SNOMED Code(s): 50598611 (2) Retention of urine, unspecified Current Visit: Yes Status: Acute Code(s): R33.9 - RETENTION OF URINE, UNSPECIFIED SNOMED Code(s): 911369137 Plan: Continue ceftriaxone. Remove Butler catheter prior to discharge for a voiding trial. Bladder scan should be utilized to assess bladder emptying. As long as the patient is voiding without difficulty and not retaining excessive amounts, she is better off without a catheter than with one. Time with Patient: Greater than 30
[2024-01-04] MEDS: LOSARTAN 50 MG TAB PO SCH (00:52)
[2024-01-04 07:27] LABS: Basophils % (A) 0 %; Eosinophils # (A) 0.3 k/uL (0-0.7); Eosinophils % (A) 4 %; HCT 34.8 % (34.0-46.0); HGB 11.5 gm/dL (11.4-16.0); Lymphocytes # (A) 1.2 k/uL (1.0-4.8); Lymphocytes % (A) 20 %; MCH 30.3 pg (25.0-35.0); MCHC 32.9 g/dL (31.0-37.0); MCV 92.1 fL (80.0-100.0); Mean Platelet Volume 7.1; Monocytes # (A) 0.3 k/uL (0-1.0); Monocytes % (A) 5 %; Neutrophils # (A) 4.2 k/uL (1.3-7.7); Neutrophils % (A) 69 %; Platelet Count 317 k/uL (150-450); RBC 3.78 m/uL (3.80-5.40); RDW 13.2 % (11.5-15.5)
[2024-01-04 07:30] LABS: African American GFR (CKD) >90 (>60 ml/min/1.73 sqM); Anion Gap 2 mmol/L; Blood Urea Nitrogen 13 mg/dL (7-17); Calcium 8.6 mg/dL (8.4-10.2); Carbon Dioxide 29 mmol/L (22-30); Chloride 104 mmol/L (98-107); Glucose 91 mg/dL (74-99); Non-African American GFR(CKD) 79 (>60 ml/min/1.73 sqM); Sodium 135 mmol/L (137-145)
[2024-01-04] MEDS: POTASSIUM CHLORIDE ER 20 MEQ TAB.ER PO SCH (08:28)
[2024-01-04] MEDS: amLODIPine 2.5 MG TAB PO SCH (12:11)
[2024-01-04] MEDS: ATORVASTATIN 40 MG TAB PO SCH (12:11)
--- NOTE | 2024-01-04 12:25 | P.PN ---
Subjective Progress Note Date: 01/04/24 HISTORY OF PRESENTING ILLNESS This is a pleasant 88-year-old with past medical history significant for hyp ertension, hyperlipidemia, tobacco abuse, [id number] aortic regurgitation. She previously followed in the office with Dr Bowens in 2016. She cannot describe much of her medical problems however per chart patient was found to be confused, slumped over in her chair and reported incontinence of urine with weakness and inability to stand up on her own. Apparently she lives at home by herself. She denies any chest pain or pressure. She does not recall why she came to the hospital. EKG shows normal sinus rhythm, normal axis, LVH with nonspecific minimal ST depressions V3 through V6. She denies any cardiac history such as stents and believes her last stress test was 15 years ago. Blood work shows troponin 1.0, 0.9, 0.97. White blood cell count 13.2, creatinine 0.8, potassium 3.4. Urinalysis concerning for UTI 01/01 Daughter at bedside reports patient is normally confused. She does use a wheelchair at home. Patient has been complaining more of back pain and has been unable to get up out of bed and that is why she came to the emergency department. Head CT was negative. Echocardiogram shows EF 55-60%, grade 1 diastolic dysfunction, RVSP 56, moderate aortic regurgitation. She denies any chest pain or pressure. No shortness of breath. It does hurt when she coughs. 01/02 She reports that she is feeling okay. She denies any chest pain or pressure. No shortness of breath. Denies any back pain presently. She has not been out of bed. She did have a urinary retention overnight and a Butler catheter was placed. Hemoglobin 9.9. Heparin drip is currently paused due to PTT greater than 200. 01/03 Patient denies having any chest pain or chest pressure today. Blood pressure running between 130/63-179/78, heart rate is in the 60s and 70s, pulse ox 92% on room air. Patient is in a sinus rhythm. Heparin drip was discontinued yesterday. PHYSICAL EXAMINATION Vital signs reviewed. CONSTITUTIONAL: No apparent distress, confused HEENT: Head is normocephalic. Pupils are equal, round. Sclerae anicteric. Mucous membranes of the mouth are moist. No JVD. No carotid bruit. CHEST EXAMINATION: Lungs are clear to auscultation. No chest wall tenderness is noted on palpation or with deep breathing. HEART EXAMINATION: Regular rate and rhythm. S1, S2 heard. No murmurs, gallops or rub. ABDOMEN: Soft, nontender. Positive bowel sounds. EXTREMITIES: 2+ peripheral pulses, no lower extremity edema and no calf tenderness. NEUROLOGIC EXAMINATION: Patient is awake, alert, hard of hearing ASSESSMENT Altered mental status likely related to UTI Sepsis Non-STEMI, possible type II mechanism, possible Takotsubo's vs less likely Type 1 with no anginal type symptoms Hypertension Aortic regurgitation by history Tobacco abuse PLAN Plan is to continue patient on medical management Add amlodipine 2.5 mg daily for blood pressure control and for pulmonary hypertension Cardiology will sign off this case and follow on an as-needed basis. Please reconsult for any new concerns. Patient may follow-up in the office in one to [address] Parr. Nurse practitioner note has been reviewed, I agree with documented findings and plan of care. Patient was seen and examined. Objective - Vital Signs Vital signs: Vital Signs Temp 98.1 F 01/04/24 08:09 Pulse 73 01/04/24 08:09 Resp 16 01/04/24 08:09 BP 130/63 01/04/24 08:09 Pulse Ox 92 L 01/04/24 08:54 FiO2 21 01/04/24 08:54 Intake & Output 01/03/24 01/04/24 01/04/24 18:59 06:59 18:59 Intake Total 190.163 Output Total 225 350 Balance -34.837 -350 Intake: Intake, IV Titration 30.163 Amount Heparin Sod,Pork in 0.45% 30.163 NaCl 25,000 unit In 0.45 % NaCl 1 250ml.bag @ 12 UNITS/KG/HR 5.443 mls/hr IV .Q24H [facility] Rx#: [id number] Oral 160 Output: Urine 225 350 Other: Voiding Method Indwelling Catheter Indwelling Catheter - Labs CBC & Chem 7: 01/04/24 06:50 01/04/24 06:50 Labs: Abnormal Lab Results - Last 24 Hours (Table) 01/03/24 01/04/24 01/04/24 Range/Units 07:11 06:50 06:50 RBC 3.08 L 3.78 L (3.80-5.40) m/uL Hgb 9.9 L (11.4-16.0) gm/dL Hct 28.4 L (34.0-46.0) % Sodium 135 L (137-145) mmol/L Potassium 3.0 L (3.5-5.1) mmol/L Microbiology - Last 24 Hours (Table) 01/02/24 16:30 Urine Culture - Preliminary Urine,Catheterized Gram Neg Bacilli
[2024-01-04 14:51] VITALS: BMI 18.8
--- NOTE | 2024-01-04 17:03 | P.PN ---
Subjective Progress Note Date: 01/04/24 Subjective: Patient seen and examined at bedside. No acute events occurred overnight. Patient was placed on losartan due to hypertension. Was unable to get a hold of family member to establish baseline mental status. Pertinent positives and negatives as discussed above, a complete review of systems was performed and all other systems are negative. Vitals: Signs Reviewed Physical Exam: General: nontoxic, no distress Derm: warm, dry Head: atraumatic, normocephalic, symmetric Eyes: EOMI, no lid lag, aninteric sclera Cardiovascular: RRR, no murmurs, or gallops, appreciated Lungs: clear to auscultation bilaterally Abdominal: nontender, nondistended, no rigidity, soft Extremities: no edema Neuro: crainal nerves II-XII intact Psych: patient was not alert or oriented to time, place, and location. appears to be confused. Data Received Today: Pertinent Labs: Hemoglobin 11.5, sodium 135, potassium 3.0 (L) Imaging: echocardiogram (01/01/24): EF 55-60% grade 1 diastolic dysfunction, moderate aortic regurgitation Assessment and Plan: Acute encephalopathy of unknown etiology, possibly metabolic versus secondary to urinary tract infection Hypokalemia Suspected urinary tract infection History of anxiety disorder Unclear baseline, attempted to speak with family today to establish baseline, son not available Correct low potassium, 80 mEq oral potassium given today Order TSH, B12 level Buspar 5 mg PO BID ordered today Initial urinalysis showed high amount of squamous epithelial cells, patient was started on ceftriaxone 1 g IV every 24 hours, order repeat urinalysis to rul e in UTI if still elevated leukocyte esterase, urine cultures pending Repeat BMP and magnesium tomorrow Acute N-STEMI: possible type 2 [place] Hypertension Continue aspirin 81mg, started Lipitor 40mg PO daily, nitroglycerin 0.4mg sublingual as needed. No active chest pain Cardiology note reviewed, signed off, added amlodipine 2.5 mg daily, outpatient follow-up in 1 to 2 weeks Continue losartan 50 mg PO daily, metoprolol 100 mg PO daily. Acute urinary retention Status post Butler catheter placement Was evaluated by urology Voiding trial prior to discharge Chronic: COPD F: n/a E: oral potassium for hypokalemia N: Heart healthy diet A: needs assistance to get up and walk DVT ppx: lovenox sq Code status: pt is unable to give code confirmation. presume with full code Anticipated discharge place: [facility]acute rehab ANticipated discharge time: 24 to 48 hours Objective - Vital Signs Vital signs: Vital Signs Temp 98.1 F 01/04/24 08:09 Pulse 68 01/04/24 11:13 Resp 16 01/04/24 11:13 BP 137/62 01/04/24 11:13 Pulse Ox 91 L 01/04/24 11:13 FiO2 21 01/04/24 08:54 Intake & Output 01/03/24 01/04/24 01/04/24 18:59 06:59 18:59 Intake Total 190.163 Output Total 225 350 Balance -34.837 -350 Intake: Intake, IV Titration 30.163 Amount Heparin Sod,Pork in 0.45% 30.163 NaCl 25,000 unit In 0.45 % NaCl 1 250ml.bag @ 12 UNITS/KG/HR 5.443 mls/hr IV .Q24H [facility] Rx#: [id number] Oral 160 Output: Urine 225 350 Other: Voiding Method Indwelling Catheter Indwelling Catheter Indwelling Catheter - Labs CBC & Chem 7: 01/04/24 06:50 01/04/24 06:50 Labs: Abnormal Lab Results - Last 24 Hours (Table) 01/04/24 01/04/24 Range/Units 06:50 06:50 RBC 3.78 L (3.80-5.40) m/uL Sodium 135 L (137-145) mmol/L Potassium 3.0 L (3.5-5.1) mmol/L Microbiology - Last 24 Hours (Table) 01/02/24 16:30 Urine Culture - Preliminary Urine,Catheterized Gram Neg Bacilli
[2024-01-04] MEDS ORDERED: ALBUTEROL NEBULIZED 2.5 MG/3 ML INHALATION PRN (17:23)
[2024-01-04 17:36] LABS: Appearance,Urine Cloudy (Clear); Bacteria,Urine Many /hpf; Bilirubin,Urine Negative (Negative); Blood,Urine Small (Negative); Color,Urine Yellow; Glucose,Urine (UA) Negative (Negative); Ketones,Urine 1+ (Negative); Leukocyte Esterase,Urine Large (Negative); Mucus,Urine Many /hpf; Nitrite,Urine Positive (Negative); PH, Urine 5.5 (5.0-8.0); Protein,Urine 1+ (Negative); RBC,Urine 30 /hpf (0-5); Specific Gravity,Urine 1.022 (1.001-1.035); Squamous Epithelial Cell,Urine 10 /hpf (0-4); Urobilinogen,Urine <2.0 mg/dL (<2.0); WBC,Urine 116 /hpf (0-5)
[2024-01-04] MEDS: busPIRone HCl 5 MG TAB PO SCH (20:39)
[2024-01-05] MEDS: hydrALAZINE HCL 25 MG TAB PO STA (04:45)
[2024-01-05] MEDS: ENOXAPARIN 40 MG/0.4 ML SYRINGE SQ SCH (09:15)
[2024-01-05 10:03] LABS: Basophils % (A) 0 %; Eosinophils # (A) 0.2 k/uL (0-0.7); Eosinophils % (A) 2 %; HCT 40.3 % (34.0-46.0); HGB 12.7 gm/dL (11.4-16.0); Lymphocytes # (A) 0.9 k/uL (1.0-4.8); Lymphocytes % (A) 12 %; MCH 29.6 pg (25.0-35.0); MCHC 31.5 g/dL (31.0-37.0); MCV 93.9 fL (80.0-100.0); Mean Platelet Volume 7.3; Monocytes # (A) 0.4 k/uL (0-1.0); Monocytes % (A) 5 %; Neutrophils # (A) 5.9 k/uL (1.3-7.7); Neutrophils % (A) 79 %; Platelet Count 317 k/uL (150-450); RDW 13.3 % (11.5-15.5); WBC 7.4 k/uL (3.8-10.6)
[2024-01-05 10:19] LABS: African American GFR (CKD) 89 (>60 ml/min/1.73 sqM); Anion Gap 4 mmol/L; Blood Urea Nitrogen 15 mg/dL (7-17); Calcium 8.8 mg/dL (8.4-10.2); Carbon Dioxide 28 mmol/L (22-30); Chloride 102 mmol/L (98-107); Glucose 94 mg/dL (74-99); Magnesium 1.5 mg/dL (1.6-2.3); Non-African American GFR(CKD) 77 (>60 ml/min/1.73 sqM); Potassium 4.3 mmol/L (3.5-5.1); Sodium 134 mmol/L (137-145)
[2024-01-05] MEDS: amLODIPine 2.5 MG TAB PO STA (10:40)
[2024-01-05] MEDS: LOSARTAN 25 MG TAB PO STA (10:40)
[2024-01-05] MEDS: MAGNESIUM SULFATE-D5W PMX 1 GM in DEXTROSE/WATER 1 100ML.BAG IVPB SCH (11:57)
--- NOTE | 2024-01-05 13:01 | P.DS ---
Providers Date of admission: 12/31/23 23:06 Expected date of discharge: 01/05/24 Attending physician: Melissa Forde MD Consults: 12/31/23 23:06 Consult Physician Routine Consulting Provider: Richie Parr Consult Reason/Comments: NSTEMI Do you want consulting provider notified?: Yes 01/03/24 10:42 Consult Physician Routine Consulting Provider: Robin Infante Consult Reason/Comments: urinary retention Do you want consulting provider notified?: Yes Primary care physician: [facility] Course: Discharge Diagnosis: Acute metabolic encephalopathy History of mild cognitive impairment Urinary tract infection History of anxiety disorder Acute NSTEMI likely type II Acute urinary retention Hypokalemia Hypomagnesemia Hospital Course: Patient is a 88-year-old female with a past medical history of COPD and chronic hypertension was brought to the ED after being found by her son slumped in the chair and minimally responsive. In the ED the patient was stable. Upon evaluation patient was confused and not oriented to person place and time. Initial urinalysis showed high amount of squamous epithelial cells, patient was started on ceftriaxone empirically. Patient finished course of ceftriaxone during stay. Mental status improved, at baseline per son. Upon further evaluation, patient had elevated troponin levels with no significant uptrend, and no ischemic changes on EKG suggesting a possible acute NSTEMI type II. Patient was seen by cardiology. Was briefly on heparin drip, now discontinued. Was placed on Butler catheter for acute urinary retention. Urology was consulted, voiding trial at the time of discharge. Patient being discharged with blood pressure medications for chronic hypertension. Patient to go to subacute rehab. Vital signs reviewed and stable. Physical Exam: General non-toxic, no distress, appears appropriate age Derm warm, dry Head atruamatic, normocephalic, symmetric Eyes: EMOI, no lid lag Mouth: no lip lesion, mucus membranes moist Cardiovascular: S1S2 reg, no murmur Lungs: CTA bilateral, no rhonchi, no rales, no accessory muscle use Abdominal: soft, nontender to palpation, no guarding, no appreciable organomegaly Ext: no gross muscle atrophy, no edema, no contractures Neuro: CN II-XI grossly intact, no focal neuro deficits Psych: alert, oriented x 2, appropriate affect A total of 33 minutes of time were spent preparing this complex discharge summary. Patient was discharge on 01/05/2024 at 1158 Patient Condition at Discharge: Stable Plan - Discharge Summary New Discharge Prescriptions: New Losartan [Cozaar] 75 mg PO DAILY #90 tab Atorvastatin [Lipitor] 40 mg PO DAILY #90 tab amLODIPine [Norvasc] 5 mg PO DAILY #90 tab Continue Aspirin EC [Ecotrin Low Dose] 81 mg PO DAILY Folic Acid 0.4 mg PO DAILY Ferrous Sulfate [Iron (65 MG Elemental)] 325 mg PO DAILY B12 500mcg/Folic Acid 400mcg 1 tab PO DAILY Cholecalciferol (Vitamin D3) [Vitamin D3 (50 Mcg = 2000 Iu)] 50 mcg PO DAILY Metoprolol Succinate (ER) [Toprol XL] 100 mg PO DAILY Albuterol Sulfate [Albuterol Sulfate Hfa] 2 puff PO RT-Q4H PRN PRN Reason: Shortness Of Breath busPIRone HCl [Buspar] 5 mg PO BID Discontinued Losartan [Cozaar] 50 mg PO DAILY Discharge Medication List Aspirin EC [Ecotrin Low Dose] 81 mg PO DAILY 12/14/22 [History] Albuterol Sulfate [Albuterol Sulfate Hfa] 2 puff PO RT-Q4H PRN 01/01/24 [History] B12 500mcg/Folic Acid 400mcg 1 tab PO DAILY 01/01/24 [History] Cholecalciferol (Vitamin D3) [Vitamin D3 (50 Mcg = 2000 Iu)] 50 mcg PO DAILY 01/01/24 [History] Ferrous Sulfate [Iron (65 MG Elemental)] 325 mg PO DAILY 01/01/24 [History] Folic Acid 0.4 mg PO DAILY 01/01/24 [History] Metoprolol Succinate (ER) [Toprol XL] 100 mg PO DAILY 01/01/24 [History] busPIRone HCl [Buspar] 5 mg PO BID 01/01/24 [History] Atorvastatin [Lipitor] 40 mg PO DAILY #90 tab 01/05/24 [Rx] Losartan [Cozaar] 75 mg PO DAILY #90 tab 01/05/24 [Rx] amLODIPine [Norvasc] 5 mg PO DAILY #90 tab 01/05/24 [Rx] Follow up Appointment(s)/Referral(s): Richie Parr DO [STAFF PHYSICIAN] - 2 Weeks Chris Leblanc DO [Primary Care Provider] - 1-2 days Patient Instructions/Handouts: Chronic Hypertension (DC), Encephalopathy (DC) Activity/Diet/Wound Care/Special Instructions: follow up with PCP and cardiology. Discharge Disposition: TRANSFER TO SNF/ECF
[2024-01-05 15:43] VITALS: BP 144/60; PULSE 69; TEMP 97.9
[2024-01-06] MEDS ORDERED: amLODIPine 5 MG TAB PO SCH (09:00)
[2024-01-06] MEDS ORDERED: LOSARTAN 25 MG TAB PO SCH (09:00)
== END 2024-01-05 18:56 | DRG 689 ==
LOC: EC 20:28 → 3SCARD 23:06
PROVIDERS: ADMIT Internal Medicine; ATTEND Internal Medicine
DX: N39.0 Urinary tract infection, site not specified (principal); G93.41 Metabolic encephalopathy; I21.A1 Myocardial infarction type 2; E83.42 Hypomagnesemia; E87.6 Hypokalemia; D64.9 Anemia, unspecified; E78.5 Hyperlipidemia, unspecified; F17.210 Nicotine dependence, cigarettes, uncomplicated; I10 Essential (primary) hypertension; J44.9 Chronic obstructive pulmonary disease, unspecified; R32 Unspecified urinary incontinence; I35.1 Nonrheumatic aortic (valve) insufficiency; R79.1 Abnormal coagulation profile; Z79.82 Long term (current) use of aspirin; Z79.899 Other long term (current) drug therapy; Z85.828 Personal history of other malignant neoplasm of skin; Z87.440 Personal history of urinary (tract) infections; Z87.01 Personal history of pneumonia (recurrent); Z88.2 Allergy status to sulfonamides
CPT/HCPCS: 36415; 70450; 71045; 72170; 80048; 80053; 80061; 81001; 82607; 83605; 83735; 84443; 84484; 85025; 85027; 85610; 85730; 87077; 87086; 87186; 87502; 87635; 93005; 93306; 94640; 94760; 96361; 96365; 96366; 96367; 99285

== ENCOUNTER 2024-06-29 22:51 | Inpatient (IN) | payer MEDICARE, BC ==
[2024-06-29] MEDS: DILTIAZEM 125 MG in SODIUM CHLORIDE 0.9% 100 ML IV SCH (23:11)
[2024-06-29] MEDS: DILTIAZEM DRIP BOLUS FROM BAG 1 MG SOLN IV ONE (23:12)
[2024-06-29 23:23] LABS: Basophils # (A) 0.1 k/uL (0-0.2); Basophils % (A) 0 %; Eosinophils # (A) 0.1 k/uL (0-0.7); Eosinophils % (A) 0 %; HCT 32.9 % (34.0-46.0); HGB 10.7 gm/dL (11.4-16.0); Lymphocytes # (A) 0.5 k/uL (1.0-4.8); Lymphocytes % (A) 2 %; MCH 29.5 pg (25.0-35.0); MCHC 32.4 g/dL (31.0-37.0); Mean Platelet Volume 7.6; Monocytes # (A) 0.6 k/uL (0-1.0); Monocytes % (A) 2 %; Neutrophils # (A) 23.5 k/uL (1.3-7.7); Neutrophils % (A) 94 %; Platelet Count 372 k/uL (150-450); RBC 3.62 m/uL (3.80-5.40); RDW 14.4 % (11.5-15.5); WBC 24.9 k/uL (3.8-10.6)
[2024-06-29] MEDS: SODIUM CHLORIDE 0.9% 500 ML 500 ML IV STA ×2 (23:26→23:57)
[2024-06-29 23:39] LABS: ALT 32 U/L (4-34); AST 43 U/L (14-36); African American GFR (CKD) 79 (>60 ml/min/1.73 sqM); Albumin 2.9 g/dL (3.5-5.0); Alkaline Phosphatase 170 U/L (38-126); Anion Gap 7 mmol/L; Blood Urea Nitrogen 40 mg/dL (7-17); Calcium 9.3 mg/dL (8.4-10.2); Carbon Dioxide 28 mmol/L (22-30); Chloride 100 mmol/L (98-107); Glucose 128 mg/dL (74-99); Magnesium 1.7 mg/dL (1.6-2.3); Non-African American GFR(CKD) 68 (>60 ml/min/1.73 sqM); Potassium 2.8 mmol/L (3.5-5.1); Sodium 135 mmol/L (137-145); Total Bilirubin 0.4 mg/dL (0.2-1.3); Total Protein 5.5 g/dL (6.3-8.2)
[2024-06-29 23:41] LABS: Partial Thromboplastin Time 22.2 sec (22.0-30.0); Prothrombin Time 10.8 sec (10.0-12.5)
[2024-06-30] MEDS ORDERED: NITROGLYCERIN SL TABS 0.4 MG TAB SUBLINGUAL PRN (00:25)
[2024-06-30] MEDS: DILTIAZEM DRIP BOLUS FROM BAG 1 MG SOLN IV ONE (00:32)
--- NOTE | 2024-06-30 01:21 | XR ---
EXAM: XR Chest, 1 View CLINICAL HISTORY: dysrhythmia TECHNIQUE: Frontal view of the chest. COMPARISON: Portable chest single view 12/31/2023 FINDINGS: Lungs: Similar advanced diffuse chronic coarse interstitial markings somewhat compromise evaluation for subtle airspace consolidation. No lobar consolidation identified. The pulmonary vasculature demonstrates no significant radiographic abnormality. Pleural space: Unremarkable. No pneumothorax. No large pleural effusion. Heart: The cardiac silhouette is within normal limits. Mediastinum: The mediastinal contours are stable and unremarkable. No tracheal deviation. Bones/joints: Osteopenia. Degenerative changes of the shoulders, stable. No acute fracture. IMPRESSION: Similar advanced diffuse chronic coarse interstitial markings somewhat compromise evaluation for subtle airspace consolidation. No lobar consolidation identified. The pulmonary vasculature demonstrates no significant radiographic abnormality. No pleural effusion or pneumothorax.
[2024-06-30] MEDS: POTASSIUM BICARBONATE/CIT AC 20 MEQ TABLET.EFF PO ONE (05:16)
[2024-06-30] MEDS: LORazepam 2 MG/ML INJ IV STA ×2 (05:16→18:42)
[2024-06-30] MEDS: HEPARIN SODIUM 1,000 UN/ML (10ML VL) IV ONE (06:20)
[2024-06-30] MEDS: HEPARIN SOD,PORK IN 0.45% NACL 25,000 UNIT in 0.45% NACL 1 250ML.BAG IV SCH (06:20)
--- NOTE | 2024-06-30 06:26 | ED ---
Arrhythmia/Palpitations HPI - General Chief Complaint: Shortness of Breath Stated Complaint: ZAIRA Time Seen by Provider: 06/29/24 22:55 Source: EMS Mode of arrival: EMS Limitations: altered mental status (There appears to be some dementia versus delirium) - History of Present Illness Initial Comments: Patient is an 89-year-old woman sent in from her long-term care facility after they noted that her heart rate was very high. Patient herself complains of shortness of breath. Patient denies chest pain. MD Complaint: rapid heart beat -: hour(s) Context: occurred during rest Arrhythmia History: atrial fibrillation Associated Symptoms: shortness of breath - Related Data Home Medications Medication Instructions Recorded Confirmed Aspirin EC [Ecotrin Low Dose] 81 mg PO DAILY 12/14/22 06/30/24 Albuterol Sulfate [Albuterol 2 puff PO RT-Q4H PRN 01/01/24 06/30/24 Sulfate Hfa] Cholecalciferol (Vitamin D3) 50 mcg PO DAILY 01/01/24 06/30/24 [Vitamin D3 (50 Mcg = 2000 Iu)] Ferrous Sulfate [Iron (65 MG 325 mg PO DAILY 01/01/24 06/30/24 Elemental)] Metoprolol Succinate (ER) [Toprol 100 mg PO DAILY 01/01/24 06/30/24 XL] busPIRone HCl [Buspar] 5 mg PO BID 01/01/24 06/30/24 Acetaminophen [Tylenol] 650 mg PO Q8H PRN 06/30/24 06/30/24 Albuterol Nebulized [Ventolin 2.5 mg INHALATION RT-Q6H PRN 06/30/24 06/30/24 Nebulized] Atorvastatin [Lipitor] 40 mg PO HS 06/30/24 06/30/24 Cyanocobalamin [Vitamin B-12] 500 mcg PO DAILY 06/30/24 06/30/24 Folic Acid 1 mg PO DAILY 06/30/24 06/30/24 Ipratropium-Albuterol Nebulize 3 ml INHALATION RT-Q4H PRN 06/30/24 06/30/24 [Duoneb 0.5 mg-3 mg/3 ml Soln] Losartan [Cozaar] 100 mg PO DAILY 06/30/24 06/30/24 Mirtazapine [Remeron] 15 mg PO HS 06/30/24 06/30/24 Sennosides-Docusate Sodium 1 tab PO Q12H PRN 06/30/24 06/30/24 [Senokot-S] polyethylene glycoL 3350 [Miralax] 17 gm PO DAILY PRN 06/30/24 06/30/24 Previous Rx's Medication Instructions Recorded amLODIPine [Norvasc] 5 mg PO DAILY #90 tab 01/05/24 Allergies Allergy/AdvReac Type Severity Reaction Status Date / Time Sulfa (Sulfonamide Allergy Rash/Hives Verified 06/30/24 06:47 Antibiotics) Review of Systems ROS Statement: Those systems with pertinent positive or pertinent negative responses have been documented in the HPI. ROS Other: All systems not noted in ROS Statement are negative. Limitations: ROS unobtainable due to patients medical condition Respiratory: Reports: dyspnea. Denies: cough Cardiovascular: Reports: as per HPI, palpitations. Denies: chest pain Gastrointestinal: Denies: abdominal pain, vomiting Musculoskeletal: Denies: back pain Neurological: Denies: headache Past Medical History Past Medical History: COPD, Hyperlipidemia, Hypertension, Osteoarthritis (OA), Pneumonia Additional Past Medical History / Comment(s): hypokalemia, NSTEMI, [place] CHIN, Encephalopathy History of Any Multi-Drug Resistant Organisms: ESBL Date of last positivie culture/infection: 01/02/24 MDRO Source:: URINE Past Surgical History: No Surgical Hx Reported Additional Past Surgical History / Comment(s): Right hip Past Anesthesia/Blood Transfusion Reactions: No Reported Reaction Past Psychological History: No Psychological Hx Reported, Anxiety, Depression Smoking Status: Current every day smoker Past Alcohol Use History: None Reported Past Drug Use History: None Reported - Past Family History Father Family Medical History: Cancer Additional Family Medical History / Comment(s): lung cancer Mother Family Medical History: Cancer Additional Family Medical History / Comment(s): pancreatic cancer General Exam Limitations: no limitations General appearance: alert, in distress Head exam: Present: atraumatic, normocephalic Eye exam: Present: normal appearance. Absent: scleral icterus, conjunctival injection ENT exam: Present: mucous membranes dry Neck exam: Present: normal inspection, full ROM. Absent: meningismus Respiratory exam: Present: respiratory distress. Absent: wheezes, rales, rhonchi, stridor, accessory muscle use Cardiovascular Exam: Present: tachycardia, irregular rhythm. Absent: systolic murmur, diastolic murmur, rubs, gallop GI/Abdominal exam: Present: soft. Absent: distended, tenderness, guarding, rebound, rigid, mass Extremities exam: Present: normal inspection, normal capillary refill. Absent: pedal edema, calf tenderness Back exam: Present: normal inspection. Absent: CVA tenderness (R), CVA tenderness (L) Neurological exam: Present: alert. Absent: oriented X3, motor sensory deficit Skin exam: Present: warm, dry, intact, normal color. Absent: rash Course Vital Signs 06/29/24 06/29/24 06/29/24 22:55 23:22 23:37 Temperature 98.7 F Pulse Rate 194 H 151 H 168 H Respiratory 30 H 20 23 Rate Blood Pressure 116/72 83/60 O2 Sat by Pulse 78 L 95 100 Oximetry 06/29/24 06/30/24 06/30/24 23:58 00:34 01:30 Temperature Pulse Rate 118 H 100 Respiratory 33 H 28 H 30 H Rate Blood Pressure 85/67 97/50 O2 Sat by Pulse 100 99 Oximetry 06/30/24 06/30/24 06/30/24 05:00 06:23 07:30 Temperature Pulse Rate 90 64 90 Respiratory 18 20 18 Rate Blood Pressure 101/90 95/56 97/50 O2 Sat by Pulse 96 96 96 Oximetry 06/30/24 06/30/24 06/30/24 08:18 14:09 15:50 Temperature Pulse Rate 84 76 Respiratory 18 18 Rate Blood Pressure 109/57 108/72 O2 Sat by Pulse 97 96 95 Oximetry 06/30/24 06/30/24 17:05 18:46 Temperature Pulse Rate 85 85 Respiratory 18 20 Rate Blood Pressure 107/56 110/68 O2 Sat by Pulse 97 98 Oximetry EKG Findings - EKG Results: EKG: interpreted by ERMD, normal axis EKG shows: tachycardia, atrial fibrillation - Blocks, Gaz[place], Hypertrophy, ST Abn: Repolarization changes or abnormalities: ST suggestive of injury - LA, Pacemaker, Normal: Myocardial infarction: septal LA (old age or indeterminate) Medical Decision Making - Medical Decision Making This patient is an 89-year-old woman sent from long-term care facility for tachycardia and dyspnea. The patient is in atrial fibrillation with rate up to 210. Patient is started on Cardizem and the rate did begin to improve. The patient does have mild elevation of troponin that appears to be due to demand ischemia. There does not STEMI on ECG. Patient admitted for further rate control. The patient is given empiric antibiotics pending results of cultures. The patient had chest x-ray that I interpreted as negative for acute infiltrate, pneumothorax, congestive heart failure Was pt. sent in by a medical professional or institution (, [facility], DATABASE OPERATOR, urgent care, hospital, or longterm...) When possible be specific @ -[Yes patient is sent from her long-term care facility to have evaluation for tachycardia Did you speak to anyone other than the patient for history (EMS, parent, family, police, friend...)? What history was obtained from this source @ -[No] Did you review nursing and triage notes (agree or disagree)? Why? @ -[I reviewed and agree with nursing and triage notes] Were old charts reviewed (outside hosp., previous admission, EMS record, old EKG, old radiological studies, urgent care reports/EKG's, longterm records)? Report findings @ -[No old charts were reviewed] Differential Diagnosis (chest pain, altered mental status, abdominal pain women, abdominal pain men, vaginal bleeding, weakness, fever, dyspnea, syncope, headache, dizziness, GI bleed, back pain, seizure, CVA, palpatations, mental health, musculoskeletal)? @ -[Differential Palpitations Ventricular arrhythmias, atrial arrhythmias, myocardial infarction, anemia, thyrotoxicosis, electrolyte imbalance, hypokalemia, pulmonary embolism, pulmo nary disease, drugs, alcohol, anxiety, stress.... This is not meant to be an all-inclusive list. EKG interpreted by me (3pts min.). @ -[I interpreted as above] X-rays interpreted by me (1pt min.). @ -[I interpreted as above CT interpreted by me (1pt min.). @ -[None done] U/S interpreted by me (1pt. min.). @ -[None done] What testing was considered but not performed or refused? (CT, X-rays, U/S, labs)? Why? @ -[None] What meds were considered but not given or refused? Why? @ -[None] Did you discuss the management of the patient with other professionals (professionals i.e. , PA, DATABASE OPERATOR, lab, RT, psych nurse, social media strategist, pediatric associate, teacher, banking services officer, case supervisor)? Give summary @ -[Case discussed with admitting physician and treatment recommendations are incorporated Was smoking cessation discussed for >3mins.? @ -[No] Was critical care preformed (if so, how long)? @ -[Yes, 30 minutes Were there social determinants of health that impacted care today? How? (Homelessness, low income, unemployed, alcoholism, drug addiction, transportation, low edu. Level, literacy, decrease access to med. care, m[facility], rehab)? @ -[No] Was there de-escalation of care discussed even if they declined (Discuss DNR or withdrawal of care, Hospice)? DNR status @ -[No] What co-morbidities impacted this encounter? (DM, HTN, Smoking, COPD, CAD, Cancer, CVA, ARF, Chemo, Hep., AIDS, mental health diagnosis, sleep apnea, morbid obesity)? @ -[COPD, history of atrial fibrillation Was patient admitted / discharged? Hospital course, mention meds given and route, prescriptions, significant lab abnormalities, going to OR and other pertinent info. @ -[Patient is an 89-year-old woman here to have evaluation of elevated heart rate and found to have atrial fibrillation with rapid ventricular rate. The patient given Cardizem bolus and drip. Patient also has empiric treatment for possible sepsis as underlying cause of A-fib with RVR. She received fluid bolus and antibiotics. Patient will be admitted with cardiology consultation. Undiagnosed new problem with uncertain prognosis? @ -[No] Drug Therapy requiring intensive monitoring for toxicity (Heparin, Nitro, Insulin, Cardizem)? @ -[No] Were any procedures done? @ -[No] Diagnosis/symptom? @ -[Atrial fibrillation with rapid ventricular rate Possible sepsis NSTEMI Hypokalemia Lactic acidosis Acute, or Chronic, or Acute on Chronic? @ -[Acute Uncomplicated (without systemic symptoms) or Complicated (systemic symptoms)? @ -[default] Side effects of treatment? @ -[No] Exacerbation, Progression, or Severe Exacerbation? @ -[No] Poses a threat to life or bodily function? How? (Chest pain, USA, LA, pneumonia, PE, COPD, DKA, ARF, appy, cholecystitis, CVA, Diverticulitis, Homicidal, Suicidal, threat to staff... and all critical care pts) @ -[Yes All treatments are based on ideal body weight as in ED triage - Lab Data Result diagrams: 07/05/24 06:45 07/05/24 06:45 Lab Results 06/29/24 06/29/24 06/29/24 Range/Units 23:08 23:08 23:08 WBC 24.9 H (3.8-10.6) k/uL RBC 3.62 L (3.80-5.40) m/uL Hgb 10.7 L (11.4-16.0) gm/dL Hct 32.9 L (34.0-46.0) % MCV 91.0 (80.0-100.0) fL MCH 29.5 (25.0-35.0) pg MCHC 32.4 (31.0-37.0) g/dL RDW 14.4 (11.5-15.5) % Plt Count 372 (150-450) k/uL MPV 7.6 Neutrophils % 94 % Lymphocytes % 2 % Monocytes % 2 % Eosinophils % 0 % Basophils % 0 % Neutrophils # 23.5 H (1.3-7.7) k/uL Lymphocytes # 0.5 L (1.0-4.8) k/uL Monocytes # 0.6 (0-1.0) k/uL Eosinophils # 0.1 (0-0.7) k/uL Basophils # 0.1 (0-0.2) k/uL PT 10.8 (10.0-12.5) sec INR 1.0 (<1.2) APTT 22.2 (22.0-30.0) sec Sodium 135 L (137-145) mmol/L Potassium 2.8 L (3.5-5.1) mmol/L Chloride 100 (98-107) mmol/L Carbon Dioxide 28 (22-30) mmol/L Anion Gap 7 mmol/L BUN 40 H (7-17) mg/dL Creatinine 0.79 (0.52-1.04) mg/dL Est GFR (CKD-EPI)AfAm 79 (>60 ml/min/1.73 sqM) Est GFR (CKD-EPI)NonAf 68 (>60 ml/min/1.73 sqM) Glucose 128 H (74-99) mg/dL Lactic Ac Sepsis Rflx Plasma Lactic Acid Son (0.7-2.0) mmol/L Calcium 9.3 (8.4-10.2) mg/dL Magnesium 1.7 (1.6-2.3) mg/dL Total Bilirubin 0.4 (0.2-1.3) mg/dL AST 43 H (14-36) U/L ALT 32 (4-34) U/L Alkaline Phosphatase 170 H (38-126) U/L Troponin I (0.000-0.034) ng/mL Total Protein 5.5 L (6.3-8.2) g/dL Albumin 2.9 L (3.5-5.0) g/dL 06/29/24 06/29/24 06/29/24 Range/Units 23:08 23:08 23:45 WBC (3.8-10.6) k/uL RBC (3.80-5.40) m/uL Hgb (11.4-16.0) gm/dL Hct (34.0-46.0) % MCV (80.0-100.0) fL MCH (25.0-35.0) pg MCHC (31.0-37.0) g/dL RDW (11.5-15.5) % Plt Count (150-450) k/uL MPV Neutrophils % % Lymphocytes % % Monocytes % % Eosinophils % % Basophils % % Neutrophils # (1.3-7.7) k/uL Lymphocytes # (1.0-4.8) k/uL Monocytes # (0-1.0) k/uL Eosinophils # (0-0.7) k/uL Basophils # (0-0.2) k/uL PT (10.0-12.5) sec INR (<1.2) APTT (22.0-30.0) sec Sodium (137-145) mmol/L Potassium (3.5-5.1) mmol/L Chloride (98-107) mmol/L Carbon Dioxide (22-30) mmol/L Anion Gap mmol/L BUN (7-17) mg/dL Creatinine (0.52-1.04) mg/dL Est GFR (CKD-EPI)AfAm (>60 ml/min/1.73 sqM) Est GFR (CKD-EPI)NonAf (>60 ml/min/1.73 sqM) Glucose (74-99) mg/dL Lactic Ac Sepsis Rflx Y Plasma Lactic Acid Son 2.6 H* (0.7-2.0) mmol/L Calcium (8.4-10.2) mg/dL Magnesium (1.6-2.3) mg/dL Total Bilirubin (0.2-1.3) mg/dL AST (14-36) U/L ALT (4-34) U/L Alkaline Phosphatase (38-126) U/L Troponin I 0.087 H* (0.000-0.034) ng/mL Total Protein (6.3-8.2) g/dL Albumin (3.5-5.0) g/dL Disposition Clinical Impression: Atrial fibrillation with rapid ventricular response, NSTEMI (non-ST elevated myocardial infarction), Hypokalemia Narrative: Possible sepsis Disposition: ADMITTED IP TO THIS HOSP Condition: Serious Is patient prescribed a controlled substance at d/c from ED?: No
[2024-06-30] MEDS: FERROUS SULFATE 325 MG TAB PO SCH (08:07)
[2024-06-30] MEDS: busPIRone HCl 5 MG TAB PO SCH (08:08)
[2024-06-30] MEDS: FOLIC ACID 1 MG TAB PO SCH (08:08)
[2024-06-30] MEDS: CHOLECALCIFEROL 25 MCG (1000 IU) TABLET PO SCH (08:10)
[2024-06-30] MEDS: ASPIRIN 81 MG PO SCH (08:10)
[2024-06-30] MEDS: METOPROLOL SUCCINATE (ER) 100 MG TAB.ER.24H PO SCH (08:10)
[2024-06-30] MEDS: LOSARTAN 25 MG TAB PO SCH (08:11)
[2024-06-30] MEDS: amLODIPine 5 MG TAB PO SCH (08:11)
[2024-06-30] MEDS ORDERED: polyethylene glycoL 3350 17 GM POWD.PACK PO PRN (08:20)
[2024-06-30] MEDS ORDERED: Potassium Replacement Protocol 1 EACH MISC MISCELLANE PRN (09:21)
[2024-06-30] MEDS ORDERED: SENNOSIDES-DOCUSATE SODIUM 1 EACH TAB PO PRN (09:43)
[2024-06-30] MEDS ORDERED: ALBUTEROL HFA INHALER INHALATION PRN (09:43)
[2024-06-30] MEDS ORDERED: ALBUTEROL NEBULIZED 2.5 MG/3 ML INHALATION PRN (09:43)
[2024-06-30 09:47] LABS: Basophils % (A) 0 %; Eosinophils % (A) 0 %; HGB 10.3 gm/dL (11.4-16.0); Hypochromasia Slight; Lymphocytes # (A) 0.7 k/uL (1.0-4.8); Lymphocytes % (A) 4 %; MCH 29.8 pg (25.0-35.0); MCHC 32.2 g/dL (31.0-37.0); MCV 92.3 fL (80.0-100.0); Mean Platelet Volume 7.3; Monocytes # (A) 0.4 k/uL (0-1.0); Monocytes % (A) 2 %; Neutrophils % (A) 92 %; Platelet Count 332 k/uL (150-450); RBC 3.47 m/uL (3.80-5.40); RDW 14.4 % (11.5-15.5); WBC 17.3 k/uL (3.8-10.6)
[2024-06-30 10:13] LABS: ALT 31 U/L (4-34); AST 36 U/L (14-36); African American GFR (CKD) 82 (>60 ml/min/1.73 sqM); Albumin 2.5 g/dL (3.5-5.0); Alkaline Phosphatase 130 U/L (38-126); Anion Gap 4 mmol/L; Blood Urea Nitrogen 36 mg/dL (7-17); Calcium 8.7 mg/dL (8.4-10.2); Carbon Dioxide 30 mmol/L (22-30); Chloride 102 mmol/L (98-107); Glucose 93 mg/dL (74-99); Non-African American GFR(CKD) 71 (>60 ml/min/1.73 sqM); Potassium 3.5 mmol/L (3.5-5.1); Sodium 136 mmol/L (137-145); Total Bilirubin 0.3 mg/dL (0.2-1.3); Total Protein 4.9 g/dL (6.3-8.2)
--- NOTE | 2024-06-30 11:27 | P.CRDCN ---
History of Present Illness Consult date: 06/30/24 History of present illness: HISTORY OF PRESENTING ILLNESS Patient is a resident of [facility]. She was noticed to have low oxygen saturation, increased confusion, increased cough with sputum production along with increased work of breathing with tachycardia and tachypnea. For this she was presented to the ER. As per the family patient was a active heavy smoker and still smokes few cigarettes here and there. For last 1 week she has been gradually worsening. On admission her labs showed WBC 24.9, hemoglobin 14.7, platelets 372, BUN 40, creatinine 0.79, lactate elevated at 2.6, Trope elevated 0.08, follow-up 0.2, follow-up 0.69. Her viral panel with flu RSV and COVID was negative. Chest x- ray shows signs of pulmonary infiltrate concerning of pneumonia. Social Hx: Family Hx: non contributary to current clinical scenario REVIEW OF SYSTEMS Unable to obtain because patient is confused at baseline. PHYSICAL EXAMINATION Neck: Brisk carotid upstroke, no jugular venous distention. Lungs: Wheezing and rhonchi audible Heart: Regular rate and rhythm, mild systolic murmur audible Abdomen: Soft nontender, positive bowel sounds. Extremities: No edema, intact distal pulses. Neuro: Alert, not oriented to time place and person. Detailed neuro exam was not performed. ASSESSMENT Elevated troponin, likely type II NSTEMI Complication Pneumonia Severe Sepsis likely due to above with leukocytosis and lactic acidosis Moderate COPD exacerbation Acute hypoxic respiratory failure due to above Metabolic encephalopathy due to above DNR/DNI Cardiac testing Troponin 0.08, 0.2, 0.69 CXR shows interstitial infiltrates concerning of pneumonia. Question of A-fib on admission with heart rate of 210. Not picked up on telemetry or EKG however. Unable to review it. Admission ECG shows sinus rhythm with PACs and PVCs. On review of telemetry I am not picked up any atrial fibrillation. PLAN Continue IV heparin drip for 48 hours. Continue aspirin and Lipitor Concerns of black tarry stools, obtain stool occult blood. Monitor hemoglobin, if there is hemoglobin drop, discontinue IV heparin drip Obtain updated echocardiogram Continue to monitor telemetry I had a detailed discussion with patient's family present at bedside. They understand that patient is DNR and they understand the risk factors for cardiac catheterization procedure and the indication. They would not like to proceed with cardiac catheterization procedure at this time to rule out obstructive coronary artery disease and would like to treat patient medically. Gagandeep Salmeron MD, FACC, RPVI Thank you for allowing [facility] to participate in thi s patient's care. Feel free to reach out in case of any followup questions. Past Medical History Past Medical History: COPD, Hyperlipidemia, Hypertension, Osteoarthritis (OA), Pneumonia Additional Past Medical History / Comment(s): hypokalemia, NSTEMI, [place], Encephalopathy History of Any Multi-Drug Resistant Organisms: ESBL Date of last positivie culture/infection: 01/02/24 MDRO Source:: URINE Past Surgical History: No Surgical Hx Reported Additional Past Surgical History / Comment(s): Right hip Past Anesthesia/Blood Transfusion Reactions: No Reported Reaction Past Psychological History: No Psychological Hx Reported, Anxiety, Depression Smoking Status: Current every day smoker Past Alcohol Use History: None Reported Past Drug Use History: None Reported - Past Family History Father Family Medical History: Cancer Additional Family Medical History / Comment(s): lung cancer Mother Family Medical History: Cancer Additional Family Medical History / Comment(s): pancreatic cancer Medications and Allergies Home Medications Medication Instructions Recorded Confirmed Type Aspirin EC [Ecotrin Low Dose] 81 mg PO DAILY 12/14/22 06/30/24 History Albuterol Sulfate [Albuterol 2 puff PO RT-Q4H PRN 01/01/24 06/30/24 History Sulfate Hfa] Cholecalciferol (Vitamin D3) 50 mcg PO DAILY 01/01/24 06/30/24 History [Vitamin D3 (50 Mcg = 2000 Iu)] Ferrous Sulfate [Iron (65 MG 325 mg PO DAILY 01/01/24 06/30/24 History Elemental)] Metoprolol Succinate (ER) [Toprol 100 mg PO DAILY 01/01/24 06/30/24 History XL] busPIRone HCl [Buspar] 5 mg PO BID 01/01/24 06/30/24 History amLODIPine [Norvasc] 5 mg PO DAILY #90 tab 01/05/24 06/30/24 Rx Acetaminophen [Tylenol] 650 mg PO Q8H PRN 06/30/24 06/30/24 History Albuterol Nebulized [Ventolin 2.5 mg INHALATION RT-Q6H PRN 06/30/24 06/30/24 History Nebulized] Atorvastatin [Lipitor] 40 mg PO HS 06/30/24 06/30/24 History Cyanocobalamin [Vitamin B-12] 500 mcg PO DAILY 06/30/24 06/30/24 History Folic Acid 1 mg PO DAILY 06/30/24 06/30/24 History Ipratropium-Albuterol Nebulize 3 ml INHALATION RT-Q4H PRN 06/30/24 06/30/24 History [Duoneb 0.5 mg-3 mg/3 ml Soln] Losartan [Cozaar] 100 mg PO DAILY 06/30/24 06/30/24 History Mirtazapine [Remeron] 15 mg PO HS 06/30/24 06/30/24 History Sennosides-Docusate Sodium 1 tab PO Q12H PRN 06/30/24 06/30/24 History [Senokot-S] polyethylene glycoL 3350 [Miralax] 17 gm PO DAILY PRN 06/30/24 06/30/24 History Allergies Allergy/AdvReac Type Severity Reaction Status Date / Time Sulfa (Sulfonamide Allergy Rash/Hives Verified 06/30/24 06:47 Antibiotics) Physical Exam Vitals: Vital Signs Temp Pulse Resp BP Pulse Ox 06/30/24 08:18 84 18 109/57 97 06/30/24 07:30 90 18 97/50 96 06/30/24 06:23 64 20 95/56 96 06/30/24 05:00 90 18 101/90 96 06/30/24 01:30 100 30 H 97/50 99 06/30/24 00:34 118 H 28 H 85/67 100 06/29/24 23:58 33 H 06/29/24 23:37 168 H 23 83/60 100 06/29/24 23:22 151 H 20 95 06/29/24 22:55 98.7 F 194 H 30 H 116/72 78 L Intake and Output 06/29/24 06/30/24 06/30/24 22:59 06:59 14:59 Other: Weight 34.473 kg Results 06/30/24 09:34 06/30/24 09:34 Cardiac Enzymes 06/29/24 06/29/24 06/30/24 Range/Units 23:08 23:08 01:44 AST 43 H (14-36) U/L Troponin I 0.087 H* 0.292 H* (0.000-0.034) ng/mL 06/30/24 06/30/24 Range/Units 04:19 09:34 AST 36 (14-36) U/L Troponin I 0.691 H* (0.000-0.034) ng/mL Coagulation 06/29/24 Range/Units 23:08 PT 10.8 (10.0-12.5) sec APTT 22.2 (22.0-30.0) sec CBC 06/29/24 06/30/24 Range/Units 23:08 09:34 WBC 24.9 H 17.3 H (3.8-10.6) k/uL RBC 3.62 L 3.47 L (3.80-5.40) m/uL Hgb 10.7 L 10.3 L (11.4-16.0) gm/dL Hct 32.9 L 32.0 L (34.0-46.0) % Plt Count 372 332 (150-450) k/uL Comprehensive Metabolic Panel 06/29/24 06/30/24 Range/Units 23:08 09:34 Sodium 135 L 136 L (137-145) mmol/L Potassium 2.8 L 3.5 (3.5-5.1) mmol/L Chloride 100 102 (98-107) mmol/L Carbon Dioxide 28 30 (22-30) mmol/L BUN 40 H 36 H (7-17) mg/dL Creatinine 0.79 0.76 (0.52-1.04) mg/dL Glucose 128 H 93 (74-99) mg/dL Calcium 9.3 8.7 (8.4-10.2) mg/dL AST 43 H 36 (14-36) U/L ALT 32 31 (4-34) U/L Alkaline Phosphatase 170 H 130 H (38-126) U/L Total Protein 5.5 L 4.9 L (6.3-8.2) g/dL Albumin 2.9 L 2.5 L (3.5-5.0) g/dL Current Medications Generic Name Dose Route Start Last Admin Trade Name Freq PRN Reason Stop Dose Admin Acetaminophen 650 mg 06/30/24 09:43 Acetaminophen Tab 325 Mg Tab PO Q8H PRN Pain Albuterol Sulfate 2.5 mg 12/26/24 09:43 Albuterol Nebulized 2.5 Mg/3 Ml INHALATION RT-Q6H PRN Shortness Of Breath Albuterol/Ipratropium 3 ml 06/30/24 09:43 Ipratropium-Albuterol 3 Ml Neb INHALATION RT-Q4H PRN Shortness Of Breath/Wheezing Aspirin 81 mg 06/30/24 09:00 06/30/24 08:10 Aspirin 81 Mg PO 81 mg DAILY EVERARDO Administration Atorvastatin Calcium 40 mg 06/30/24 21:00 Atorvastatin 40 Mg Tab PO HS EVERARDO Buspirone HCl 5 mg 06/30/24 09:00 06/30/24 08:08 Buspirone Hcl 5 Mg Tab PO 5 mg BID EVERARDO Administration Cholecalciferol 50 mcg 06/30/24 09:00 06/30/24 08:10 Cholecalciferol 25 Mcg (1000 Iu) Tablet PO 50 mcg DAILY EVERARDO Administration Cyanocobalamin 500 mcg 07/01/24 09:00 Cyanocobalamin 500 Mcg Tab PO DAILY EVERARDO Ferrous Sulfate 325 mg 06/30/24 09:00 06/30/24 08:07 Ferrous Sulfate 325 Mg Tab PO 325 mg DAILY EVERARDO Administration Folic Acid 1 mg 06/30/24 09:00 06/30/24 08:08 Folic Acid 1 Mg Tab PO 1 mg DAILY EVERARDO Administration Heparin Sodium (Porcine) 0 unit 06/30/24 06:06 Heparin Sodium 1,000 Un/Ml (10ml Vl) IV PER PROTOCOL PRN Low PTT Protocol Heparin Sodium/Sodium Chloride 250 mls @ 4.137 mls/hr 06/30/24 06:15 06/30/24 06:20 25,000 unit/ Sodium Chloride IV 12 units/kg/hr .Q24H EVERARDO 4.137 mls/hr Administration Protocol 12 UNITS/KG/HR Ceftriaxone Sodium 2 gm/ 50 mls @ 100 mls/hr 06/30/24 21:00 Sodium Chloride IVPB Q24H [facility] Protocol Azithromycin 500 mg/ Sodium 250 mls @ 250 mls/hr 06/30/24 11:15 Chloride IVPB 07/02/24 09:59 DAILY [facility] Protocol Losartan Potassium 75 mg 06/30/24 09:00 06/30/24 08:11 Losartan 25 Mg Tab PO Not Given DAILY [facility] Metoprolol Succinate 100 mg 06/30/24 09:00 06/30/24 08:10 Metoprolol Succinate (Er) 100 Mg Tab.Er.24h PO 100 mg DAILY EVERARDO Administration Mirtazapine 15 mg 06/30/24 21:00 Mirtazapine 15 Mg Tab PO HS EVERARDO Miscellaneous Information 1 each 06/30/24 09:21 Potassium Replacement Protocol 1 Each Misc MISCELLANE DAILY PRN Per Protocol Protocol Nitroglycerin 0.4 mg 06/30/24 00:25 Nitroglycerin Sl Tabs 0.4 Mg Tab SUBLINGUAL Q5M PRN Chest Pain Polyethylene Glycol 17 gm 06/30/24 08:20 Polyethylene Glycol 3350 17 Gm Powd.Pack PO DAILY PRN Constipation Senna/Docusate Sodium 1 each 06/30/24 09:43 Sennosides-Docusate Sodium 1 Each Tab PO Q12H PRN Constipation Intake and Output 06/29/24 06/30/24 06/30/24 22:59 06:59 14:59 Other: Weight 34.473 kg 06/30/24 09:34 06/30/24 09:34
[2024-06-30] MEDS: AZITHROMYCIN 500 MG in SODIUM CHLORIDE 0.9% 250 ML IVPB SCH (11:31)
--- NOTE | 2024-06-30 11:45 | XR ---
EXAMINATION TYPE: XR chest 1V portable DATE OF EXAM: 06/30/2024 COMPARISON: 06/29/2024 CLINICAL INDICATION: Female, 89 years old with history of Dyspnea; TECHNIQUE: Single frontal view of the chest is obtained. FINDINGS The diffuse interstitial opacity is essentially unchanged and most likely reflects chronic interstiti al changes. There is developing partial consolidated opacity in the right lung base and there is a ne w small right pleural effusion. The heart size is normal. There is no pneumothorax. Heart size is normal. The osseous structures are osteopenic but grossly intact. IMPRESSION: 1. Acute cardiopulmonary disease involving the right lung base described above. The findings are susp icious for acute pneumonia. 2. Diffuse chronic interstitial changes. [facility], Workstation: [email or web address] 06/30/2024 11:43 AM
[2024-06-30 12:48] LABS: Basophils % (A) 0 %; Eosinophils % (A) 0 %; HCT 34.2 % (34.0-46.0); HGB 10.8 gm/dL (11.4-16.0); Lymphocytes # (A) 0.7 k/uL (1.0-4.8); Lymphocytes % (A) 4 %; MCH 29.5 pg (25.0-35.0); MCHC 31.6 g/dL (31.0-37.0); MCV 93.3 fL (80.0-100.0); Mean Platelet Volume 8.5; Monocytes # (A) 0.5 k/uL (0-1.0); Monocytes % (A) 3 %; Neutrophils # (A) 17.9 k/uL (1.3-7.7); Neutrophils % (A) 92 %; Platelet Count 343 k/uL (150-450); RBC 3.67 m/uL (3.80-5.40); RDW 14.4 % (11.5-15.5); WBC 19.4 k/uL (3.8-10.6)
[2024-06-30 13:11] LABS: Partial Thromboplastin Time 22.8 sec (22.0-30.0)
[2024-06-30] MEDS: PANTOPRAZOLE 40 MG/10 ML VIAL IVP SCH (14:22)
--- NOTE | 2024-06-30 14:30 | P.GSCN ---
History of Present Illness Consult date: 06/30/24 History of present illness: CHIEF COMPLAINT: Elevated heart rate and shortness of breath HISTORY OF PRESENT ILLNESS: This is a 89-year-old female who presents to the [facility] due to an elevated heart rate and shortness of breath. She lives at a extended care facility. Patient was found to have A-fib RVR started on Cardizem and IV heparin and has been evaluated by cardiology service. She is short of breath requiring 15 L nonrebreather. Chest x-ray showing possible pneumonia. Patient did have 1 black tarry stool per nursing staff. Hemoglobin has remained stable at 10.8. Occult blood was positive. Patient does take iron supplement at home. Patient is confused and history was obtained from chart as well as daughter at bedside. Patient denies any abdominal pain. Denies any nausea or vomiting. The daughter reports that patient has not had an EGD or colonoscopy in the past. Patient is being followed by cardiology due to the A-fib RVR. PAST MEDICAL HISTORY: See below PAST SURGICAL HISTORY: See below MEDICATIONS: See below ALLERGIES: See below SOCIAL HISTORY: No illicit drug use. REVIEW OF SYSTEMS: CONSTITUTIONAL: Denies fever or chills. HEENT: Denies blurred vision, vision changes, or eye pain. Denies hemoptysis CARDIOVASCULAR: Denies chest pain or pressure. RESPIRATORY: No shortness of breath. GASTROINTESTINAL: See HPI for pertinent findings HEMATOLOGIC: Denies bleeding disorders. GENITOURINARY: Denies any blood in urine or increased urinary frequency. SKIN: Denies pruitis. Denies rash. PHYSICAL EXAM: VITAL SIGNS: Reviewed GENERAL: Well-developed in no acute distress. HEENT: No sclera icterus. Extraocular movements grossly intact. Moist buccal mucosa. Head is atraumatic, normocephalic. No nasal drainage. ABDOMEN: Soft. Nondistended. Nontender NEUROLOGIC: Awake and alert. Confused LABORATORY DATA: WBC 24.9 down to 19.4 Hgb 10.7-10.8 platelets 343 INR 1.0 D-dimer 4.17 Sodium 136 potassium 2.8 up to 3.5 creatinine 0.76 Lactic acid 2.6-1.7 troponins elevated Gastric occult blood positive but this may have been an error and should have been fecal occult blood Influenza, RSV and COVID not detected IMAGING: Chest x-ray possible pneumonia right lung base ASSESSMENT: 1. Anemia. Occult blood positive. 1 melanotic stool may be due to iron supplement 2. A-fib with RVR 3. Pneumonia PLAN: -Continue to monitor hemoglobin -Continue to monitor for any signs or symptoms of bleeding -Protonix added -Okay to continue IV heparin for now -Recommend a full liquid diet for now Physician Director Insurance note has been reviewed by physician. Signing provider agrees with the documented findings, assessment, and plan of care. I have personally seen and examined the patient, reviewed the USABILITY SPECIALIST /PAs history, exam and MDM and agree with the assessment and plan as written. Based on total visit time, I have performed more than 50% of the visit. As above: Patient had a dark-colored stool. Stool was positive for occult blood however. Patient is still actively short of breath when weaning off nonrebreather. Continue pulmonary optimization. No definite plans for endoscopy currently. Continue antiacid therapy. Will follow. Past Medical History Past Medical History: COPD, Hyperlipidemia, Hypertension, Osteoarthritis (OA), Pneumonia Additional Past Medical History / Comment(s): hypokalemia, NSTEMI, [place], Encephalopathy History of Any Multi-Drug Resistant Organisms: ESBL Year Discovered:: 01/02/24 MDRO Source:: URINE Past Surgical History: No Surgical Hx Reported Additional Past Surgical History / Comment(s): Right hip Past Anesthesia/Blood Transfusion Reactions: No Reported Reaction Past Psychological History: No Psychological Hx Reported, Anxiety, Depression Smoking Status: Current every day smoker Past Alcohol Use History: None Reported Past Drug Use History: None Reported - Past Family History Father Family Medical History: Cancer Additional Family Medical History / Comment(s): lung cancer Mother Family Medical History: Cancer Additional Family Medical History / Comment(s): pancreatic cancer Medications and Allergies Home Medications Medication Instructions Recorded Confirmed Type Aspirin EC [Ecotrin Low Dose] 81 mg PO DAILY 12/14/22 06/30/24 History Albuterol Sulfate [Albuterol 2 puff PO RT-Q4H PRN 01/01/24 06/30/24 History Sulfate Hfa] Cholecalciferol (Vitamin D3) 50 mcg PO DAILY 01/01/24 06/30/24 History [Vitamin D3 (50 Mcg = 2000 Iu)] Ferrous Sulfate [Iron (65 MG 325 mg PO DAILY 01/01/24 06/30/24 History Elemental)] Metoprolol Succinate (ER) [Toprol 100 mg PO DAILY 01/01/24 06/30/24 History XL] busPIRone HCl [Buspar] 5 mg PO BID 01/01/24 06/30/24 History amLODIPine [Norvasc] 5 mg PO DAILY #90 tab 01/05/24 06/30/24 Rx Acetaminophen [Tylenol] 650 mg PO Q8H PRN 06/30/24 06/30/24 History Albuterol Nebulized [Ventolin 2.5 mg INHALATION RT-Q6H PRN 06/30/24 06/30/24 History Nebulized] Atorvastatin [Lipitor] 40 mg PO HS 06/30/24 06/30/24 History Cyanocobalamin [Vitamin B-12] 500 mcg PO DAILY 06/30/24 06/30/24 History Folic Acid 1 mg PO DAILY 06/30/24 06/30/24 History Ipratropium-Albuterol Nebulize 3 ml INHALATION RT-Q4H PRN 06/30/24 06/30/24 History [Duoneb 0.5 mg-3 mg/3 ml Soln] Losartan [Cozaar] 100 mg PO DAILY 06/30/24 06/30/24 History Mirtazapine [Remeron] 15 mg PO HS 06/30/24 06/30/24 History Sennosides-Docusate Sodium 1 tab PO Q12H PRN 06/30/24 06/30/24 History [Senokot-S] polyethylene glycoL 3350 [Miralax] 17 gm PO DAILY PRN 06/30/24 06/30/24 History Allergies Allergy/AdvReac Type Severity Reaction Status Date / Time Sulfa (Sulfonamide Allergy Rash/Hives Verified 06/30/24 06:47 Antibiotics) Surgical - Exam Vital Signs Temp Pulse Resp BP Pulse Ox 98.7 F 194 H 30 H 116/72 78 L 06/29/24 22:55 06/29/24 22:55 06/29/24 22:55 06/29/24 22:55 06/29/24 22:55 Results - Labs 06/30/24 12:05 06/30/24 09:34 Abnormal Lab Results - Last 24 Hours (Table) 06/29/24 06/29/24 06/29/24 Range/Units 23:08 23:08 23:08 WBC 24.9 H (3.8-10.6) k/uL RBC 3.62 L (3.80-5.40) m/uL Hgb 10.7 L (11.4-16.0) gm/dL Hct 32.9 L (34.0-46.0) % Neutrophils # 23.5 H (1.3-7.7) k/uL Lymphocytes # 0.5 L (1.0-4.8) k/uL D-Dimer (<0.60) mg/L FEU Sodium 135 L (137-145) mmol/L Potassium 2.8 L (3.5-5.1) mmol/L BUN 40 H (7-17) mg/dL Glucose 128 H (74-99) mg/dL Plasma Lactic Acid Son (0.7-2.0) mmol/L AST 43 H (14-36) U/L Alkaline Phosphatase 170 H (38-126) U/L Troponin I 0.087 H* (0.000-0.034) ng/mL Total Protein 5.5 L (6.3-8.2) g/dL Albumin 2.9 L (3.5-5.0) g/dL 06/29/24 06/30/24 06/30/24 Range/Units 23:08 01:44 04:19 WBC (3.8-10.6) k/uL RBC (3.80-5.40) m/uL Hgb (11.4-16.0) gm/dL Hct (34.0-46.0) % Neutrophils # (1.3-7.7) k/uL Lymphocytes # (1.0-4.8) k/uL D-Dimer (<0.60) mg/L FEU Sodium (137-145) mmol/L Potassium (3.5-5.1) mmol/L BUN (7-17) mg/dL Glucose (74-99) mg/dL Plasma Lactic Acid Son 2.6 H* (0.7-2.0) mmol/L AST (14-36) U/L Alkaline Phosphatase (38-126) U/L Troponin I 0.292 H* 0.691 H* (0.000-0.034) ng/mL Total Protein (6.3-8.2) g/dL Albumin (3.5-5.0) g/dL 06/30/24 06/30/24 06/30/24 Range/Units 09:34 09:34 12:05 WBC 17.3 H (3.8-10.6) k/uL RBC 3.47 L (3.80-5.40) m/uL Hgb 10.3 L (11.4-16.0) gm/dL Hct 32.0 L (34.0-46.0) % Neutrophils # 16.0 H (1.3-7.7) k/uL Lymphocytes # 0.7 L (1.0-4.8) k/uL D-Dimer 4.17 H (<0.60) mg/L FEU Sodium 136 L (137-145) mmol/L Potassium (3.5-5.1) mmol/L BUN 36 H (7-17) mg/dL Glucose (74-99) mg/dL Plasma Lactic Acid Son (0.7-2.0) mmol/L AST (14-36) U/L Alkaline Phosphatase 130 H (38-126) U/L Troponin I (0.000-0.034) ng/mL Total Protein 4.9 L (6.3-8.2) g/dL Albumin 2.5 L (3.5-5.0) g/dL 06/30/24 Range/Units 12:05 WBC 19.4 H (3.8-10.6) k/uL RBC 3.67 L (3.80-5.40) m/uL Hgb 10.8 L (11.4-16.0) gm/dL Hct (34.0-46.0) % Neutrophils # 17.9 H (1.3-7.7) k/uL Lymphocytes # 0.7 L (1.0-4.8) k/uL D-Dimer (<0.60) mg/L FEU Sodium (137-145) mmol/L Potassium (3.5-5.1) mmol/L BUN (7-17) mg/dL Glucose (74-99) mg/dL Plasma Lactic Acid Son (0.7-2.0) mmol/L AST (14-36) U/L Alkaline Phosphatase (38-126) U/L Troponin I (0.000-0.034) ng/mL Total Protein (6.3-8.2) g/dL Albumin (3.5-5.0) g/dL Diabetes panel 06/29/24 06/30/24 Range/Units 23:08 09:34 Sodium 135 L 136 L (137-145) mmol/L Potassium 2.8 L 3.5 (3.5-5.1) mmol/L Chloride 100 102 (98-107) mmol/L Carbon Dioxide 28 30 (22-30) mmol/L BUN 40 H 36 H (7-17) mg/dL Creatinine 0.79 0.76 (0.52-1.04) mg/dL Glucose 128 H 93 (74-99) mg/dL Calcium 9.3 8.7 (8.4-10.2) mg/dL AST 43 H 36 (14-36) U/L ALT 32 31 (4-34) U/L Alkaline Phosphatase 170 H 130 H (38-126) U/L Total Protein 5.5 L 4.9 L (6.3-8.2) g/dL Albumin 2.9 L 2.5 L (3.5-5.0) g/dL Calcium panel 06/29/24 06/30/24 Range/Units 23:08 09:34 Calcium 9.3 8.7 (8.4-10.2) mg/dL Albumin 2.9 L 2.5 L (3.5-5.0) g/dL Pituitary panel 06/29/24 06/30/24 Range/Units 23:08 09:34 Sodium 135 L 136 L (137-145) mmol/L Potassium 2.8 L 3.5 (3.5-5.1) mmol/L Chloride 100 102 (98-107) mmol/L Carbon Dioxide 28 30 (22-30) mmol/L BUN 40 H 36 H (7-17) mg/dL Creatinine 0.79 0.76 (0.52-1.04) mg/dL Glucose 128 H 93 (74-99) mg/dL Calcium 9.3 8.7 (8.4-10.2) mg/dL Adrenal panel 06/29/24 06/30/24 Range/Units 23:08 09:34 Sodium 135 L 136 L (137-145) mmol/L Potassium 2.8 L 3.5 (3.5-5.1) mmol/L Chloride 100 102 (98-107) mmol/L Carbon Dioxide 28 30 (22-30) mmol/L BUN 40 H 36 H (7-17) mg/dL Creatinine 0.79 0.76 (0.52-1.04) mg/dL Glucose 128 H 93 (74-99) mg/dL Calcium 9.3 8.7 (8.4-10.2) mg/dL Total Bilirubin 0.4 0.3 (0.2-1.3) mg/dL AST 43 H 36 (14-36) U/L ALT 32 31 (4-34) U/L Alkaline Phosphatase 170 H 130 H (38-126) U/L Total Protein 5.5 L 4.9 L (6.3-8.2) g/dL Albumin 2.9 L 2.5 L (3.5-5.0) g/dL
--- NOTE | 2024-06-30 15:21 | P.HPIM ---
History of Present Illness H&P Date: 06/30/24 History of present illness; Patient is 89-year-old female with COPD presenting with shortness of breath and tachycardia. Patient states she has 4 days of coughing at her long-term care facility with stated oxygen saturation in 80s to 90s percent. She states she is now on oxygen was on nonrebreather 15 L O2 before admission and baseline does not wear her supplemental O2. No stated sputum production. While she is coughing she is having some generalized chest pain worse centrally. She also was found to have black stool in ER. Patient reports absence of diaphoresis, nausea, vomiting, constipation, diarrhea, abdominal pain, dizziness, and dysuria. Labs completed in ER significant for WBC 24.9, hemoglobin 10.7, sodium 135, potassium 2.8, BUN 40, glucose 128, lactic acid 2.6 => 1.7, AST 43, alkaline phosphatase 170, troponin 0.087 => 0.292 => 0.691. Fecal occult blood positive. EKG done in the ER independently interpreted showed sinus rhythm with occasional supraventricular premature complexes heart rate of 95, no ST segment elevation or depression seen, no T-wave inversions seen. Chest x-ray done independently interpreted in the ER showed right lung base consolidation, advanced diffuse chronic course interstitial markings Spoke with the ER physician, patient admission was accepted by internal medicine service for treatment. REVIEW OF SYSTEMS: Pertinent positives and negatives noted in HPI. PHYSICAL EXAMINATION: Vitals reviewed GENERAL: Moderate distress. Thin appearing HEENT: Pupils are round and equally reacting to light. EOMI. No scleral icterus. Normocephalic, atraumatic. CARDIOVASCULAR: S1 and S2 present. No murmurs, rubs, or gallops. PULMONARY: Mild rhonchi and wheezing ABDOMEN: Soft, nontender, nondistended, normoactive bowel sounds. No palpable organomegaly. MUSCULOSKELETAL: No apparent joint swelling and deformities. EXTREMITIES: No apparent cyanosis, clubbing, or pedal edema. NEUROLOGICAL: The patient is alert and oriented x3, Gross neurological examination did not reveal any focal deficits. SKIN: No apparent rashes. 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 # Severe Sepsis likely due to pneumonia #Acute on chronic hypoxic respiratory failure # Acute COPD exacerbation #Tobacco addiction Initial pulse 194, respiratory rate 30, WBC 24.9 -Begin bronchodilators -Begin Solu-medrol 40 mg IVq8hr - Continue ceftriaxone 2 g daily and azithromycin 500 mg daily, begin , day #1 Procalcitonin pending - continue o2 supplementation ad needed, consider bipap immediately if mod to se dale dyspnea - Pulmonology following # Elevated troponin in setting of demand ischemia from A-fib with RVR and above A-fib with RVR -EKG with no ST elevation or depression Given Cardizem bolus, continue Cardizem drip 5 mg/h Continue heparin drip - Continue Lipitor Echo pending Cardiology following #Elevated D-dimer, rule out PE Initial D-dimer 4.17 CT chest angiogram pending Lower extremity duplex ultrasound pending Continue heparin as above # Blood in stool Initial hemoglobin 10.7 => 10.3 => 10.8 Occult blood positive On iron supplementation Monitor CBC Surgery consulted for possible GI bleed #Hypokalemia - Initial potassium 2.8, magnesium 1.7 Continue potassium replacement protocol Monitor CMP #Failure to thrive, BMI 14.4 Patient resides at [facility] Resume home medication F: P.o. E: Potassium replacement protocol N: Liquid diet DVT ppx: Heparin drip Code status: No code Anticipated discharge place: [facility] Anticipated discharge time: Pending clinical course Dictation was produced using Universal Ad dictation software. Please excuse any grammatical, word or spelling errors. Past Medical History Past Medical History: COPD, Hyperlipidemia, Hypertension, Osteoarthritis (OA), Pneumonia Additional Past Medical History / Comment(s): hypokalemia, NSTEMI, [place], Encephalopathy History of Any Multi-Drug Resistant Organisms: ESBL Date of last positivie culture/infection: 01/02/24 MDRO Source:: URINE Past Surgical History: No Surgical Hx Reported Additional Past Surgical History / Comment(s): Right hip Past Anesthesia/Blood Transfusion Reactions: No Reported Reaction Past Psychological History: No Psychological Hx Reported, Anxiety, Depression Smoking Status: Current every day smoker Past Alcohol Use History: None Reported Past Drug Use History: None Reported - Past Family History Father Family Medical History: Cancer Additional Family Medical History / Comment(s): lung cancer Mother Family Medical History: Cancer Additional Family Medical History / Comment(s): pancreatic cancer Medications and Allergies Home Medications Medication Instructions Recorded Confirmed Type Aspirin EC [Ecotrin Low Dose] 81 mg PO DAILY 12/14/22 06/30/24 History Albuterol Sulfate [Albuterol 2 puff PO RT-Q4H PRN 01/01/24 06/30/24 History Sulfate Hfa] Cholecalciferol (Vitamin D3) 50 mcg PO DAILY 01/01/24 06/30/24 History [Vitamin D3 (50 Mcg = 2000 Iu)] Ferrous Sulfate [Iron (65 MG 325 mg PO DAILY 01/01/24 06/30/24 History Elemental)] Metoprolol Succinate (ER) [Toprol 100 mg PO DAILY 01/01/24 06/30/24 History XL] busPIRone HCl [Buspar] 5 mg PO BID 01/01/24 06/30/24 History amLODIPine [Norvasc] 5 mg PO DAILY #90 tab 01/05/24 06/30/24 Rx Acetaminophen [Tylenol] 650 mg PO Q8H PRN 06/30/24 06/30/24 History Albuterol Nebulized [Ventolin 2.5 mg INHALATION RT-Q6H PRN 06/30/24 06/30/24 H istory Nebulized] Atorvastatin [Lipitor] 40 mg PO HS 06/30/24 06/30/24 History Cyanocobalamin [Vitamin B-12] 500 mcg PO DAILY 06/30/24 06/30/24 History Folic Acid 1 mg PO DAILY 06/30/24 06/30/24 History Ipratropium-Albuterol Nebulize 3 ml INHALATION RT-Q4H PRN 06/30/24 06/30/24 History [Duoneb 0.5 mg-3 mg/3 ml Soln] Losartan [Cozaar] 100 mg PO DAILY 06/30/24 06/30/24 History Mirtazapine [Remeron] 15 mg PO HS 06/30/24 06/30/24 History Sennosides-Docusate Sodium 1 tab PO Q12H PRN 06/30/24 06/30/24 History [Senokot-S] polyethylene glycoL 3350 [Miralax] 17 gm PO DAILY PRN 06/30/24 06/30/24 History Allergies Allergy/AdvReac Type Severity Reaction Status Date / Time Sulfa (Sulfonamide Allergy Rash/Hives Verified 06/30/24 06:47 Antibiotics) Physical Exam Vitals: Vital Signs Temp Pulse Resp BP Pulse Ox 06/30/24 08:18 84 18 109/57 97 06/30/24 07:30 90 18 97/50 96 06/30/24 06:23 64 20 95/56 96 06/30/24 05:00 90 18 101/90 96 06/30/24 01:30 100 30 H 97/50 99 06/30/24 00:34 118 H 28 H 85/67 100 06/29/24 23:58 33 H 06/29/24 23:37 168 H 23 83/60 100 06/29/24 23:22 151 H 20 95 06/29/24 22:55 98.7 F 194 H 30 H 116/72 78 L Intake and Output 06/29/24 06/30/24 06/30/24 22:59 06:59 14:59 Other: Weight 34.473 kg Results CBC & Chem 7: 07/01/24 04:52 07/01/24 04:52 Labs: Abnormal Lab Results - Last 24 Hours (Table) 06/29/24 06/29/24 06/29/24 Range/Units 23:08 23:08 23:08 WBC 24.9 H (3.8-10.6) k/uL RBC 3.62 L (3.80-5.40) m/uL Hgb 10.7 L (11.4-16.0) gm/dL Hct 32.9 L (34.0-46.0) % Neutrophils # 23.5 H (1.3-7.7) k/uL Lymphocytes # 0.5 L (1.0-4.8) k/uL Sodium 135 L (137-145) mmol/L Potassium 2.8 L (3.5-5.1) mmol/L BUN 40 H (7-17) mg/dL Glucose 128 H (74-99) mg/dL Plasma Lactic Acid Son (0.7-2.0) mmol/L AST 43 H (14-36) U/L Alkaline Phosphatase 170 H (38-126) U/L Troponin I 0.087 H* (0.000-0.034) ng/mL Total Protein 5.5 L (6.3-8.2) g/dL Albumin 2.9 L (3.5-5.0) g/dL 06/29/24 06/30/24 06/30/24 Range/Units 23:08 01:44 04:19 WBC (3.8-10.6) k/uL RBC (3.80-5.40) m/uL Hgb (11.4-16.0) gm/dL Hct (34.0-46.0) % Neutrophils # (1.3-7.7) k/uL Lymphocytes # (1.0-4.8) k/uL Sodium (137-145) mmol/L Potassium (3.5-5.1) mmol/L BUN (7-17) mg/dL Glucose (74-99) mg/dL Plasma Lactic Acid Son 2.6 H* (0.7-2.0) mmol/L AST (14-36) U/L Alkaline Phosphatase (38-126) U/L Troponin I 0.292 H* 0.691 H* (0.000-0.034) ng/mL Total Protein (6.3-8.2) g/dL Albumin (3.5-5.0) g/dL
[2024-06-30] MEDS: methylPREDNISolone SOD SUCCI 40 MG/ML 1 ML VIAL IV SCH (15:24)
--- NOTE | 2024-06-30 15:31 | P.CNPUL ---
History of Present Illness Consult date: 06/30/24 Requesting physician: Selvin Mccoy Reason for consult: pneumonia Chief complaint: Low oxygen level and rapid heartbeat History of present illness: This is an 89-year-old female, resident of alf, patient was brought in to the ER with 4 days history of cough, noted to have low oxygen level in the 80s and low 90s at the alf, she was also noted to have significant tachycardia. Patient does not normally wear oxygen. She had previous history of COPD, but not seen on a regular basis by pulmonary. In addition to this the patient was noted to have increased confusion with increased cough and sputum production while at the alf. Brought into ER, patient was found to have leukocytosis, abnormal chest x-ray suggestive of right lower lobe pneumonia and she was in atrial fibrillation with RVR which is being addressed by cardiology. Patient herself is a poor historian, she had negative testing for COVID-19 RSV and influenza. D-dimer was noted to be elevated at 4.17, patient is presently on heparin. This was ordered by cardiology for her A-fib/RVR. Echocardiogram is pending. Troponin level was elevated at 0.691 patient is now on antibiotics in the form of Zithromax and Rocephin she is also on diltiazem, she is also on updrafts in the form of DuoNeb. And methylprednisolone 40 mg IV push every 8 hours. Review of Systems ROS unobtainable: due to mental status (Patient has underlying dementia, she is not a great historian lives in a alf.) Past Medical History Past Medical History: COPD, Hyperlipidemia, Hypertension, Osteoarthritis (OA), Pneumonia Additional Past Medical History / Comment(s): hypokalemia, NSTEMI, [place], Encephalopathy History of Any Multi-Drug Resistant Organisms: ESBL Date of last positivie culture/infection: 01/02/24 MDRO Source:: URINE Past Surgical History: No Surgical Hx Reported Additional Past Surgical History / Comment(s): Right hip Past Anesthesia/Blood Transfusion Reactions: No Reported Reaction Past Psychological History: No Psychological Hx Reported, Anxiety, Depression Smoking Status: Current every day smoker Past Alcohol Use History: None Reported Past Drug Use History: None Reported - Past Family History Father Family Medical History: Cancer Additional Family Medical History / Comment(s): lung cancer Mother Family Medical History: Cancer Additional Family Medical History / Comment(s): pancreatic cancer Medications and Allergies Home Medications Medication Instructions Recorded Confirmed Type Aspirin EC [Ecotrin Low Dose] 81 mg PO DAILY 12/14/22 06/30/24 History Albuterol Sulfate [Albuterol 2 puff PO RT-Q4H PRN 01/01/24 06/30/24 History Sulfate Hfa] Cholecalciferol (Vitamin D3) 50 mcg PO DAILY 01/01/24 06/30/24 History [Vitamin D3 (50 Mcg = 2000 Iu)] Ferrous Sulfate [Iron (65 MG 325 mg PO DAILY 01/01/24 06/30/24 History Elemental)] Metoprolol Succinate (ER) [Toprol 100 mg PO DAILY 01/01/24 06/30/24 History XL] busPIRone HCl [Buspar] 5 mg PO BID 01/01/24 06/30/24 History amLODIPine [Norvasc] 5 mg PO DAILY #90 tab 01/05/24 06/30/24 Rx Acetaminophen [Tylenol] 650 mg PO Q8H PRN 06/30/24 06/30/24 History Albuterol Nebulized [Ventolin 2.5 mg INHALATION RT-Q6H PRN 06/30/24 06/30/24 History Nebulized] Atorvastatin [Lipitor] 40 mg PO HS 06/30/24 06/30/24 History Cyanocobalamin [Vitamin B-12] 500 mcg PO DAILY 06/30/24 06/30/24 History Folic Acid 1 mg PO DAILY 06/30/24 06/30/24 History Ipratropium-Albuterol Nebulize 3 ml INHALATION RT-Q4H PRN 06/30/24 06/30/24 History [Duoneb 0.5 mg-3 mg/3 ml Soln] Losartan [Cozaar] 100 mg PO DAILY 06/30/24 06/30/24 History Mirtazapine [Remeron] 15 mg PO HS 06/30/24 06/30/24 History Sennosides-Docusate Sodium 1 tab PO Q12H PRN 06/30/24 06/30/24 History [Senokot-S] polyethylene glycoL 3350 [Miralax] 17 gm PO DAILY PRN 06/30/24 06/30/24 History Allergies Allergy/AdvReac Type Severity Reaction Status Date / Time Sulfa (Sulfonamide Allergy Rash/Hives Verified 06/30/24 06:47 Antibiotics) Physical Exam Vitals: Vital Signs Temp Pulse Resp BP Pulse Ox 06/30/24 14:09 76 18 108/72 96 06/30/24 08:18 84 18 109/57 97 06/30/24 07:30 90 18 97/50 96 06/30/24 06:23 64 20 95/56 96 06/30/24 05:00 90 18 101/90 96 06/30/24 01:30 100 30 H 97/50 99 06/30/24 00:34 118 H 28 H 85/67 100 06/29/24 23:58 33 H 06/29/24 23:37 168 H 23 83/60 100 06/29/24 23:22 151 H 20 95 06/29/24 22:55 98.7 F 194 H 30 H 116/72 78 L Intake and Output 06/30/24 06/30/24 06/30/24 06:59 14:59 22:59 Other: Weight 34.473 kg Vitals reviewed GENERAL: Revealed 89-year-old female in no distress however patient is on a nonrebreather mask and O2 saturation 96% HEENT: Pupils are round and equally reacting to light. EOMI. No scleral icterus. Normocephalic, atraumatic. CARDIOVASCULAR: Irregular irregular rhythm S1 and S2 present. No murmurs, rubs, or gallops. PULMONARY: Diminished breath sounds at the bases, no crackles rhonchi or wheezes ABDOMEN: Soft, nontender, nondistended, normoactive bowel sounds. No palpable organomegaly. MUSCULOSKELETAL: No apparent joint swelling and deformities. EXTREMITIES: No apparent cyanosis, clubbing, or pedal edema. NEUROLOGICAL: patient is confused otherwise no gross focal neurologic deficit SKIN: No apparent rashes. Results - Laboratory Findings CBC and BMP: 06/30/24 12:05 06/30/24 09:34 PT/INR, D-dimer PT 10.8 sec (10.0-12.5) 06/29/24 23:08 INR 1.0 (<1.2) 06/29/24 23:08 D-Dimer 4.17 mg/L FEU (<0.60) H 06/30/24 12:05 Abnormal lab findings: Abnormal Labs 06/29/24 06/29/24 06/29/24 23:08 23:08 23:08 WBC 24.9 H RBC 3.62 L Hgb 10.7 L Hct 32.9 L Neutrophils # 23.5 H Lymphocytes # 0.5 L D-Dimer Sodium 135 L Potassium 2.8 L BUN 40 H Glucose 128 H Plasma Lactic Acid Son AST 43 H Alkaline Phosphatase 170 H Troponin I 0.087 H* Total Protein 5.5 L Albumin 2.9 L 06/29/24 06/30/24 06/30/24 23:08 01:44 04:19 WBC RBC Hgb Hct Neutrophils # Lymphocytes # D-Dimer Sodium Potassium BUN Glucose Plasma Lactic Acid Son 2.6 H* AST Alkaline Phosphatase Troponin I 0.292 H* 0.691 H* Total Protein Albumin 06/30/24 06/30/24 06/30/24 09:34 09:34 12:05 WBC 17.3 H RBC 3.47 L Hgb 10.3 L Hct 32.0 L Neutrophils # 16.0 H Lymphocytes # 0.7 L D-Dimer 4.17 H Sodium 136 L Potassium BUN 36 H Glucose Plasma Lactic Acid Son AST Alkaline Phosphatase 130 H Troponin I Total Protein 4.9 L Albumin 2.5 L 06/30/24 12:05 WBC 19.4 H RBC 3.67 L Hgb 10.8 L Hct Neutrophils # 17.9 H Lymphocytes # 0.7 L D-Dimer Sodium Potassium BUN Glucose Plasma Lactic Acid Son AST Alkaline Phosphatase Troponin I Total Protein Albumin - Diagnostic Findings Chest x-ray: image reviewed (Patient had 2 [id number] x-rays of the chest, the most recent chest x-ray is suggestive of right lower lobe pneumonia and some chronic interstitial changes/possible underlying interstitial lung disease) Assessment and Plan Assessment: Impression: Acute Right lower lobe pneumonia, healthcare acquired pneumonia, patient lives in a alf. Acute on chronic hypoxic respiratory failure secondary to above, according to the daughter patient had oxygen before but she was not very compliant with it and she used it as needed. Underlying moderate severe COPD Tobacco dependence syndrome Atrial fibrillation with RVR on admission History of underlying dementia Recommendation: Continue present course of antibiotics patient is on Rocephin and Zithromax Check procalcitonin level and decide on the antibiotics Continue diltiazem for her atrial fibrillation Continue heparin and watch for any signs of bleeding Echocardiogram is pending Continue supplemental O2 and titrate accordingly Discussed her condition with family at bedside/son, patient is DNR CODE STATUS Will continue to follow Time with Patient: Greater than 30
--- NOTE | 2024-06-30 15:51 | US ---
EXAMINATION TYPE: US venous doppler duplex LE BI DATE OF EXAM: 06/30/2024 3:17 PM COMPARISON: NONE CLINICAL INDICATION: Female, 89 years old with history of elevated d-dimer; Pain; Patient AMS TECHNIQUE: The lower extremity deep venous system is examined utilizing real time linear array sonog haylee with graded compression, color doppler sonography, and spectral doppler. SIDE PERFORMED: Bilateral FINDINGS: VESSELS IMAGED: Common Femoral Vein Deep Femoral Vein Greater Saphenous Vein * Femoral Vein Popliteal Vein Small Saphenous Vein * Proximal Calf Veins (* superficial vessels) Right Leg: Negative for DVT, Color Doppler imaging shows patency of the vessels. Spectral waveforms are within normal limits. Left Leg: Negative for DVT, Color Doppler imaging shows patency of the vessels. Spectral waveforms a re within normal limits. IMPRESSION: No ultrasound evidence for deep venous thrombosis. [facility], , 06/30/2024 3:49 PM
--- NOTE | 2024-06-30 16:28 | CT ---
EXAMINATION TYPE: CT chest angio for PE DATE OF EXAM: 06/30/2024 4:17 PM COMPARISON: 06/30/2024 CLINICAL INDICATION: Female, 89 years old with history of Dyspnea; ZAIRA TECHNIQUE/CONTRAST: CTA scan of the thorax is performed with IV Contrast, patient injected with 65ML mL of Isovue 370, MA P images are created and reviewed these are created on a separate workstation.. CT DLP: 179.6 mGycm, Automated exposure control for dose reduction was used. FINDINGS: Lungs/Pleura: Consolidation changes of the posterior aspect of the bilateral lower lobes as well as t he middle lobe and the right lung. Airways are not well visualized. Moderate to severe emphysema suero ges most proximal apices. Apical scarring bilaterally. Scattered nodular like opacities are seen thro ughout the lungs including series 411 image 55 near the areas of atelectasis/consolidation. Mild intr alobular septal thickening. Airway: Large airways are patent. Heart: Heart is within normal limits for size. Vasculature: There is no evidence for a filling defect within the pulmonary vasculature to suggest ac debbie pulmonary embolism. The pulmonary artery is of normal size. Atherosclerosis of the arterial vasc ulature. Mediastinum: No gross evidence of adenopathy. Musculoskeletal: Moderate degenerative disc disease changes are present throughout the thoracolumbar spine. Soft Tissues/lymph nodes: Unremarkable. Lower neck: No significant findings. Upper Abdomen: No significant findings. IMPRESSION: 1. No evidence of pulmonary embolism. 2. Consolidation changes of the bilateral lower lobes right greater than left as well as the right mi ddle lobe. Findings appear to be more airspace consolidation in the lower lobes and atelectasis in th e right middle lobe. Correlate for retained secretions of post obstructive atelectasis and/or airspac e disease.. Alternatively mass could be considered. Bronchoscopy is recommended. 3. Apical scarring and parenchymal abnormalities throughout the lungs short-term follow-up CT recomme nded in 3-6 months for evaluation without acute processes. 4. Moderate to severe emphysema changes with pulmonary vascular congestion suggested. Correlate with serum BNP. The heart is not significantly enlarged for size. [facility], , 06/30/2024 4:26 PM
--- NOTE | 2024-06-30 16:53 | CA ---
Transthoracic Echo Report Name: Kamille Herring Age: 89 Gender: F : 1935 Exam Date: 06/30/2024 14:46 Exam Location: [facility] Ht (in): 61 Wt (lb): 76 Ordering Physician: Gagandeep Salmeron MD ([id number]) Attending/Referring Phys: Adjunct Teacher Whitney Bowden RDCS Procedure CPT: Indications: nstemi Cardiac Hx: Technical Quality: Good Contrast 1: Total Dose (mL): Contrast 2: Total Dose (mL): MEASUREMENTS (Male / Female) Normal Values 2D ECHO LV Diastolic Diameter PLAX 3.7 cm 4.2 - 5.9 / 3.9 - 5.3 cm LV Systolic Diameter PLAX 2.6 cm IVS Diastolic Thickness 1.1 cm 0.6 - 1.0 / 0.6 - 0.9 cm LVPW Diastolic Thickness 0.8 cm 0.6 - 1.0 / 0.6 - 0.9 cm LV Relative Wall Thickness 0.5 LVOT Diameter 2.1 cm LV Diastolic Volume MOD BP 56.1 cm??? 67 - 155 / 56 - 104 cm??? LV Systolic Volume MOD BP 21.6 cm??? 22 - 58 / 19 - 49 cm??? LV Ejection Fraction MOD BP 61.5 % >= 55 % LV Cardiac Index MOD BP 2241.5 cm???/min???m??? LV Diastolic Volume MOD 4C 58.0 cm??? LV Systolic Volume MOD 4C 19.9 cm??? LV Ejection Fraction MOD 4C 65.7 % LV Cardiac Index MOD 4C 2471.0 cm???/min???m??? LV Diastolic Length 4C 7.0 cm LV Systolic Length 4C 5.5 cm LV Diastolic Volume MOD 2C 50.7 cm??? LV Systolic Volume MOD 2C 23.2 cm??? LV Ejection Fraction MOD 2C 54.2 % LV Cardiac Index MOD 2C 1784.4 cm???/min???m??? LV Diastolic Length 2C 6.5 cm LV Systolic Length 2C 5.4 cm LA Volume 32.7 cm??? 18 - 58 / 22 - 52 cm??? LA Volume Index 27.2 cm???/m??? 16 - 28 cm???/m??? DOPPLER AV Peak Velocity 154.7 cm/s AV Peak Gradient 9.6 mmHg AV Mean Velocity 105.8 cm/s AV Mean Gradient 5.0 mmHg AV Velocity Time Integral 29.8 cm AI Peak Velocity 339.2 cm/s AI Peak Gradient 46.0 mmHg AI Pressure Half Time 358.1 ms LVOT Peak Velocity 95.4 cm/s LVOT Peak Gradient 3.6 mmHg LVOT Velocity Time Integral 17.8 cm LVOT Stroke Volume 59.4 cm??? LVOT Stroke Volume Index 47.4 ml/m??? LVOT Cardiac Index 3853.5 cm???/min???m??? AV Area Cont Eq vti 2.0 cm??? AV Area Cont Eq pk 2.1 cm??? MV Area PHT 3.8 cm??? Mitral E Point Velocity 71.0 cm/s Mitral A Point Velocity 97.8 cm/s Mitral E to A Ratio 0.7 MV Deceleration Time 198.2 ms TR Peak Velocity 261.2 cm/s TR Peak Gradient 27.3 mmHg Right Atrial Pressure 10.0 mmHg Pulmonary Artery Systolic Pressu 37.3 mmHg Right Ventricular Systolic Press 37.3 mmHg PV Peak Velocity 76.6 cm/s PV Peak Gradient 2.3 mmHg FINDINGS Left Ventricle Left ventricular ejection fraction is estimated at 55-60 %. Mildly increased septal wall thickness. Left ventricular cavity size normal. No obvious regional wall motion abnormalities. Right Ventricle Right ventricular dilatation with normal function. Mild pulmonary hypertension. Right Atrium Normal right atrial size. Possible thickened cor triatriatum vs right atrial thrombus. Left Atrium Left atrial size at the upper limits of normal. Mitral Valve Mitral valve thickened. No evidence for mitral valve prolapse. No mitral stenosis. Trace mitral regurgitation. Aortic Valve Trileaflet aortic valve. No aortic stenosis. Mild aortic regurgitation. Tricuspid Valve Structurally normal tricuspid valve. No tricuspid stenosis. Moderate tricuspid regurgitation. Pulmonic Valve Pulmonic valve not well visualized. No pulmonic stenosis. Trace pulmonic regurgitation. Pericardium Small anterior pericardial effusion. Aorta Aortic annulus normal. CONCLUSIONS Normal LV function Mild aortic regurgitation Moderate tricuspid regurgitation Previewed by: Dr. Kelton Perez MD (Electronically Signed) Final Date: 30 June 2024 16:52
[2024-06-30 18:25] LABS: Basophils % (A) 0 %; Eosinophils % (A) 0 %; HCT 33.2 % (34.0-46.0); HGB 10.7 gm/dL (11.4-16.0); Hypochromasia Slight; Lymphocytes # (A) 0.2 k/uL (1.0-4.8); Lymphocytes % (A) 1 %; MCH 29.7 pg (25.0-35.0); MCHC 32.2 g/dL (31.0-37.0); MCV 92.4 fL (80.0-100.0); Mean Platelet Volume 7.9; Monocytes # (A) 0.3 k/uL (0-1.0); Monocytes % (A) 2 %; Neutrophils # (A) 16.8 k/uL (1.3-7.7); Neutrophils % (A) 96 %; Platelet Count 333 k/uL (150-450); RDW 14.1 % (11.5-15.5); WBC 17.5 k/uL (3.8-10.6)
[2024-06-30] MEDS: MIRTAZAPINE 15 MG TAB PO SCH (21:37)
[2024-06-30] MEDS: ATORVASTATIN 40 MG TAB PO SCH (21:37)
[2024-06-30] MEDS: QUEtiapine 25 MG TAB PO SCH (21:37)
[2024-06-30] MEDS: HEPARIN SODIUM 1,000 UN/ML (10ML VL) IV PRN (22:02)
[2024-07-01 05:23] LABS: Basophils % (A) 0 %; Eosinophils % (A) 0 %; HCT 33.4 % (34.0-46.0); HGB 10.6 gm/dL (11.4-16.0); Lymphocytes # (A) 0.4 k/uL (1.0-4.8); Lymphocytes % (A) 3 %; MCH 29.3 pg (25.0-35.0); MCHC 31.7 g/dL (31.0-37.0); MCV 92.2 fL (80.0-100.0); Mean Platelet Volume 7.6; Monocytes # (A) 0.3 k/uL (0-1.0); Monocytes % (A) 2 %; Neutrophils # (A) 12.1 k/uL (1.3-7.7); Neutrophils % (A) 94 %; Platelet Count 312 k/uL (150-450); RBC 3.63 m/uL (3.80-5.40); RDW 14.2 % (11.5-15.5)
[2024-07-01 05:32] LABS: ALT 38 U/L (4-34); AST 41 U/L (14-36); African American GFR (CKD) 85 (>60 ml/min/1.73 sqM); Albumin 2.7 g/dL (3.5-5.0); Alkaline Phosphatase 165 U/L (38-126); Anion Gap 7 mmol/L; Blood Urea Nitrogen 35 mg/dL (7-17); Carbon Dioxide 30 mmol/L (22-30); Chloride 102 mmol/L (98-107); Glucose 114 mg/dL (74-99); Non-African American GFR(CKD) 74 (>60 ml/min/1.73 sqM); Potassium 4.2 mmol/L (3.5-5.1); Sodium 139 mmol/L (137-145); Total Bilirubin 0.3 mg/dL (0.2-1.3); Total Protein 5.3 g/dL (6.3-8.2)
[2024-07-01 05:40] LABS: INR 1.1 (<1.2)
[2024-07-01 08:30] LABS: Chol/HDL Ratio 2.92 Ratio; LDL Cholesterol,Calculated 29.9 mg/dL (0.0-131.0)
[2024-07-01] MEDS ORDERED: FOLIC ACID 1 MG TAB PO SCH (09:00)
[2024-07-01] MEDS ORDERED: ASPIRIN 325 MG TAB PO SCH (09:00)
[2024-07-01] MEDS: IPRATROPIUM-ALBUTEROL 3 ML NEB INHALATION PRN (09:36)
[2024-07-01] MEDS: CYANOCOBALAMIN 500 MCG TAB PO SCH (10:29)
--- NOTE | 2024-07-01 11:30 | P.PN ---
Subjective Progress Note Date: 07/01/24 SURGICAL PROGRESS NOTE CHIEF COMPLAINT: Elevated heart rate HISTORY OF PRESENT ILLNESS: Surgical service following in regards to possible GI bleed. Patient did have 1 black stool in the ER yesterday but does take iron at home. Per nursing staff patient has had no further bleeding. Hemoglobin stable at 10.6. She is still require requiring a lot of oxygen and is on 10 L high flow. WBC is down from 17.5-13 hemoglobin stable at 10.6 PHYSICAL EXAM: VITAL SIGNS: Reviewed. GENERAL: no acute distress. ABDOMEN: Soft. Nondistended. Nontender. ASSESSMENT: 1. Anemia. Occult blood positive. 1 melanotic stool may be due to iron supplement. Hemoglobin stable 2. A-fib with RVR 3. Pneumonia PLAN: -No plans for endoscopy -Continue antiacid therapy -Continue pulmonary optimization Physician Clinical Appeals Specialist note has been reviewed by physician. Signing provider agrees with the documented findings, assessment, and plan of care. I have personally seen and examined the patient, reviewed the CANAL LOCK TENDER CHIEF OPERATOR /PAs history, exam and MDM and agree with the assessment and plan as written. Based on total visit time, I have performed more than 50% of the visit. As above: Patient's pulmonary status seems to be slightly improved. Hemoglobin is stable. No further bleeding witnessed by nursing staff. Family at the bedside. They agree that they are not interested in any intervention unless significant reason identified. Continue antiacid therapy. Monitor for repeat bleeding. Will sign off. Please reconsult if further bleeding seen or suspected. Objective - Vital Signs Vital signs: Vital Signs Temp 97.4 F L 07/01/24 04:00 Pulse 94 07/01/24 09:48 Resp 19 07/01/24 04:00 BP 98/60 07/01/24 04:00 Pulse Ox 94 L 07/01/24 09:41 FiO2 Intake & Output 06/30/24 07/01/24 07/01/24 18:59 06:59 18:59 Intake Total 108.284 Balance 108.284 Weight 34.473 kg 36.5 kg Intake: Intake, IV Titration 108.284 Amount Heparin Sod,Pork in 0.45% 108.284 NaCl 25,000 unit In 0.45 % NaCl 1 250ml.bag @ 12 UNITS/KG/HR 4.137 mls/hr IV .Q24H [facility] Rx#: [id number] Other: Voiding Method Bedside Commode # Voids 2 # Bowel Movements 1 - Labs CBC & Chem 7: 07/01/24 04:52 07/01/24 04:52 Labs: Abnormal Lab Results - Last 24 Hours (Table) 06/30/24 06/30/24 06/30/24 Range/Units 09:34 11:02 12:05 WBC (3.8-10.6) k/uL RBC (3.80-5.40) m/uL Hgb (11.4-16.0) gm/dL Hct (34.0-46.0) % Neutrophils # (1.3-7.7) k/uL Lymphocytes # (1.0-4.8) k/uL ESR 40 H (0-30) mm/Hr D-Dimer 4.17 H (<0.60) mg/L FEU BUN (7-17) mg/dL Glucose (74-99) mg/dL AST (14-36) U/L ALT (4-34) U/L Alkaline Phosphatase (38-126) U/L C-Reactive Protein (<1.0) mg/dL Total Protein (6.3-8.2) g/dL Albumin (3.5-5.0) g/dL HDL Cholesterol (40.00-60.00) mg/dL Procalcitonin 2.70 H (0.02-0.50) ng/mL 06/30/24 06/30/24 06/30/24 Range/Units 12:05 14:37 17:50 WBC 19.4 H 17.5 H (3.8-10.6) k/uL RBC 3.67 L 3.60 L (3.80-5.40) m/uL Hgb 10.8 L 10.7 L (11.4-16.0) gm/dL Hct 33.2 L (34.0-46.0) % Neutrophils # 17.9 H 16.8 H (1.3-7.7) k/uL Lymphocytes # 0.7 L 0.2 L (1.0-4.8) k/uL ESR (0-30) mm/Hr D-Dimer (<0.60) mg/L FEU BUN (7-17) mg/dL Glucose (74-99) mg/dL AST (14-36) U/L ALT (4-34) U/L Alkaline Phosphatase (38-126) U/L C-Reactive Protein 25.9 H (<1.0) mg/dL Total Protein (6.3-8.2) g/dL Albumin (3.5-5.0) g/dL HDL Cholesterol (40.00-60.00) mg/dL Procalcitonin (0.02-0.50) ng/mL 07/01/24 07/01/24 Range/Units 04:52 04:52 WBC 13.0 H (3.8-10.6) k/uL RBC 3.63 L (3.80-5.40) m/uL Hgb 10.6 L (11.4-16.0) gm/dL Hct 33.4 L (34.0-46.0) % Neutrophils # 12.1 H (1.3-7.7) k/uL Lymphocytes # 0.4 L (1.0-4.8) k/uL ESR (0-30) mm/Hr D-Dimer (<0.60) mg/L FEU BUN 35 H (7-17) mg/dL Glucose 114 H (74-99) mg/dL AST 41 H (14-36) U/L ALT 38 H (4-34) U/L Alkaline Phosphatase 165 H (38-126) U/L C-Reactive Protein (<1.0) mg/dL Total Protein 5.3 L (6.3-8.2) g/dL Albumin 2.7 L (3.5-5.0) g/dL HDL Cholesterol 27.10 L (40.00-60.00) mg/dL Procalcitonin (0.02-0.50) ng/mL
--- NOTE | 2024-07-01 12:44 | P.PN ---
Subjective Progress Note Date: 07/01/24 Principal diagnosis: Acute right lower lobe pneumonia This is an 89-year-old female, resident of care home, patient was brought in to the ER with 4 days history of cough, noted to have low oxygen level in the 80s and low 90s at the care home, she was also noted to have significant tachycardia. Patient does not normally wear oxygen. She had previous history of COPD, but not seen on a regular basis by pulmonary. In addition to this the patient was noted to have increased confusion with increased cough and sputum production while at the care home. Brought into ER, patient was found to have leukocytosis, abnormal chest x-ray suggestive of right lower lobe pneumonia and she was in atrial fibrillation with RVR which is being addressed by cardiology. Patient herself is a poor historian, she had negative testing for COVID-19 RSV and influenza. D-dimer was noted to be elevated at 4.17, patient is presently on heparin. This was ordered by cardiology for her A-fib/RVR. Echocardiogram is pending. Troponin level was elevated at 0.691 patient is now on antibiotics in the form of Zithromax and Rocephin she is also on diltiazem, she is also on updrafts in the form of DuoNeb. And methylprednisolone 40 mg IV push every 8 hours. Patient was seen today on 07/01/2024, patient is feeling a bit better compared to yesterday, on nasal cannula, does not seem to be in distress. For some reason patient had a CT angiogram of the chest yesterday although my clinical index of suspicion for pulmonary embolism is rather low, the CT of the chest showed consolidative changes lower lobes, right more so than left, as well as right middle lobe. Findings are more or less consistent with pneumonia, possible aspiration with atelectasis. Patient is not a great candidate for bronchoscopy, and the patient was made aware that I would not recommend bronchoscopy at this point I would recommend mostly medical therapy.WBC count is 13.0 hemoglobin 10.6 electrolytes are normal renal profile is normal Objective - Vital Signs Vital signs: Vital Signs Temp 97.4 F L 07/01/24 12:00 Pulse 101 H 07/01/24 12:00 Resp 18 07/01/24 12:00 BP 100/63 07/01/24 12:00 Pulse Ox 94 L 07/01/24 12:00 FiO2 Intake & Output 06/30/24 07/01/24 07/01/24 18:59 06:59 18:59 Intake Total 108.284 Balance 108.284 Weight 34.473 kg 36.5 kg Intake: Intake, IV Titration 108.284 Amount Heparin Sod,Pork in 0.45% 108.284 NaCl 25,000 unit In 0.45 % NaCl 1 250ml.bag @ 12 UNITS/KG/HR 4.137 mls/hr IV .Q24H [facility] Rx#: [id number] Other: Voiding Method Bedside Commode Bedside Commode Incontinent # Voids 2 # Bowel Movements 1 - Exam GENERAL: Revealed 89-year-old female in no distress however patient is on 10 L high flow nasal cannula HEENT: Pupils are round and equally reacting to light. EOMI. No scleral icterus. Normocephalic, atraumatic. CARDIOVASCULAR: Irregular irregular rhythm S1 and S2 present. No murmurs, rubs, or gallops. PULMONARY: Continues to have diminished breath sounds at the bases no rhonchi no wheezes ABDOMEN: Soft, nontender, nondistended, normoactive bowel sounds. No palpable organomegaly. MUSCULOSKELETAL: No apparent joint swelling and deformities. EXTREMITIES: No apparent cyanosis, clubbing, or pedal edema. NEUROLOGICAL: Patient is more alert today, not confused anymore, no gross focal neurologic deficit SKIN: No rashes - Labs CBC & Chem 7: 07/01/24 04:52 07/01/24 04:52 Labs: Abnormal Lab Results - Last 24 Hours (Table) 06/30/24 06/30/24 06/30/24 Range/Units 09:34 11:02 12:05 WBC (3.8-10.6) k/uL RBC (3.80-5.40) m/uL Hgb (11.4-16.0) gm/dL Hct (34.0-46.0) % Neutrophils # (1.3-7.7) k/uL Lymphocytes # (1.0-4.8) k/uL ESR 40 H (0-30) mm/Hr D-Dimer 4.17 H (<0.60) mg/L FEU BUN (7-17) mg/dL Glucose (74-99) mg/dL AST (14-36) U/L ALT (4-34) U/L Alkaline Phosphatase (38-126) U/L C-Reactive Protein (<1.0) mg/dL Total Protein (6.3-8.2) g/dL Albumin (3.5-5.0) g/dL HDL Cholesterol (40.00-60.00) mg/dL Procalcitonin 2.70 H (0.02-0.50) ng/mL 06/30/24 06/30/24 06/30/24 Range/Units 12:05 14:37 17:50 WBC 19.4 H 17.5 H (3.8-10.6) k/uL RBC 3.67 L 3.60 L (3.80-5.40) m/uL Hgb 10.8 L 10.7 L (11.4-16.0) gm/dL Hct 33.2 L (34.0-46.0) % Neutrophils # 17.9 H 16.8 H (1.3-7.7) k/uL Lymphocytes # 0.7 L 0.2 L (1.0-4.8) k/uL ESR (0-30) mm/Hr D-Dimer (<0.60) mg/L FEU BUN (7-17) mg/dL Glucose (74-99) mg/dL AST (14-36) U/L ALT (4-34) U/L Alkaline Phosphatase (38-126) U/L C-Reactive Protein 25.9 H (<1.0) mg/dL Total Protein (6.3-8.2) g/dL Albumin (3.5-5.0) g/dL HDL Cholesterol (40.00-60.00) mg/dL Procalcitonin (0.02-0.50) ng/mL 07/01/24 07/01/24 Range/Units 04:52 04:52 WBC 13.0 H (3.8-10.6) k/uL RBC 3.63 L (3.80-5.40) m/uL Hgb 10.6 L (11.4-16.0) gm/dL Hct 33.4 L (34.0-46.0) % Neutrophils # 12.1 H (1.3-7.7) k/uL Lymphocytes # 0.4 L (1.0-4.8) k/uL ESR (0-30) mm/Hr D-Dimer (<0.60) mg/L FEU BUN 35 H (7-17) mg/dL Glucose 114 H (74-99) mg/dL AST 41 H (14-36) U/L ALT 38 H (4-34) U/L Alkaline Phosphatase 165 H (38-126) U/L C-Reactive Protein (<1.0) mg/dL Total Protein 5.3 L (6.3-8.2) g/dL Albumin 2.7 L (3.5-5.0) g/dL HDL Cholesterol 27.10 L (40.00-60.00) mg/dL Procalcitonin (0.02-0.50) ng/mL Assessment and Plan Assessment: Impression: Acute Bibasilar pneumonia possibly healthcare acquired pneumonia although the possibility of aspiration pneumonia is not entirely ruled out. Acute on chronic hypoxic respiratory failure secondary to above, according to the daughter patient had oxygen before but she was not very compliant with it and she used it as needed. Underlying moderate severe COPD Tobacco dependence syndrome Atrial fibrillation with RVR on admission History of underlying dementia Recommendation: Continue present course of antibiotics patient is on Rocephin and Zithromax Procalcitonin level is elevated 2.70 consistent with bacterial pneumonia Cardiology is addressing her cardiac arrhythmia Echocardiogram is pending Continue supplemental O2 and titrate accordingly Patient is not a candidate for bronchoscopy Continue DNR CODE STATUS Will continue to follow Time with Patient: Less than 30
[2024-07-01] MEDS ORDERED: DEXTROSE 50% SYRINGE 50 ML IVP PRN ×2 (13:04)
--- NOTE | 2024-07-01 13:54 | P.PN ---
Subjective Progress Note Date: 07/01/24 History of present illness; Patient is 89-year-old female with COPD presenting with shortness of breath and tachycardia. Patient states she has 4 days of coughing at her long-term care facility with stated oxygen saturation in 80s to 90s percent. She states she is now on oxygen was on nonrebreather 15 L O2 before admission and baseline does not wear her supplemental O2. No stated sputum production. While she is coughing she is having some generalized chest pain worse centrally. She also was found to have black stool in ER. Patient reports absence of diaphoresis, nausea, vomiting, constipation, d iarrhea, abdominal pain, dizziness, and dysuria. Labs completed in ER significant for WBC 24.9, hemoglobin 10.7, sodium 135, potassium 2.8, BUN 40, glucose 128, lactic acid 2.6 => 1.7, AST 43, alkaline phosphatase 170, troponin 0.087 => 0.292 => 0.691. Fecal occult blood positive. EKG done in the ER independently interpreted showed sinus rhythm with occasional supraventricular premature complexes heart rate of 95, no ST segment elevation or depression seen, no T-wave inversions seen. Chest x-ray done independently interpreted in the ER showed right lung base consolidation, advanced diffuse chronic course interstitial markings 07/01/2024 Patient seen and examined at bedside. No acute events overnight. She is being seen by pulmonology and is not a great candidate for bronchoscopy which was discussed with family. She continues on high flow nasal cannula 10 L satting at 95%. She does continue to endorse cough. She continues on azithromycin and ceftriaxone. Continues on heparin for now. Discontinued continue Cardizem. Significant labs for today WBC 13, hemoglobin 10.6, BUN 35, glucose 114, AST 41 ALT 38, alkaline phosphatase 165, procalcitonin 2.7. CT angiogram chest with no pulmonary embolism with scattered nodular-like opacities throughout the lungs, duplex ultrasound of lower extremities with no DVT. REVIEW OF SYSTEMS: Pertinent positives and negatives noted in HPI. PHYSICAL EXAMINATION: Vitals reviewed GENERAL: Mild distress. Thin appearing HEENT: Pupils are round and equally reacting to light. EOMI. No scleral icterus. Normocephalic, atraumatic. CARDIOVASCULAR: S1 and S2 present. No murmurs, rubs, or gallops. PULMONARY: Mild rhonchi and wheezing ABDOMEN: Soft, nontender, nondistended, normoactive bowel sounds. No palpable organomegaly. MUSCULOSKELETAL: No apparent joint swelling and deformities. EXTREMITIES: No apparent cyanosis, clubbing, or pedal edema. NEUROLOGICAL: The patient is alert and oriented x3, Gross neurological examination did not reveal any focal deficits. SKIN: No apparent rashes. Assessment and plan Patient is 89-year-old female with COPD presenting with shortness of breath and tachycardia. # Severe Sepsis due to pneumonia #Acute on chronic hypoxic respiratory failure # Mild to moderate COPD exacerbation #Tobacco addiction Initial pulse 194, respiratory rate 30, WBC 24.9 -Continue bronchodilators -Continue Solu-medrol 40 mg IVq8hr - Continue ceftriaxone 2 g daily and azithromycin 500 mg daily, begin , day #2 Procalcitonin 2.7 - continue o2 supplementation as needed, consider bipap immediately if mod to severe dyspnea CT angiogram with no PE, however scattered nodular-like opacities throughout lungs, no bronchoscopy at this time - Pulmonology following # Elevated troponin in setting of demand ischemia from A-fib with RVR and above -EKG with no ST elevation or depression Discontinued Cardizem Continue heparin drip - Continue Lipitor Echo normal LV function Cardiology following #Melena Initial hemoglobin 10.7 => 10.3 => 10.8 Occult blood positive On iron supplementation Monitor CBC Surgery following #Hypokalemia - Initial potassium 2.8, magnesium 1.7 Continue potassium replacement protocol Monitor CMP #Failure to thrive, BMI 14.4 Patient resides at [facility] Resum home medication F: P.o. E: Potassium replacement protocol N: Liquid diet DVT ppx: Heparin drip Code status: No code Anticipated discharge place: [facility] Anticipated discharge time: Pending clinical course Dictation was produced using [email or web address] dictation software. Please excuse any grammatical, word or spelling errors. Attestation I have seen and examined this patient with my resident , discussed the same with the resident/RAQUEL, and agree with the dictator's assessment and plan as written Dr. Sherif ortiz Objective - Vital Signs Vital signs: Vital Signs Temp 97.4 F L 07/01/24 04:00 Pulse 97 07/01/24 04:00 Resp 19 07/01/24 04:00 BP 98/60 07/01/24 04:00 Pulse Ox 95 07/01/24 04:00 FiO2 Intake & Output 06/30/24 07/01/24 07/01/24 18:59 06:59 18:59 Intake Total 108.284 Balance 108.284 Weight 34.473 kg 36.5 kg Intake: Intake, IV Titration 108.284 Amount Heparin Sod,Pork in 0.45% 108.284 NaCl 25,000 unit In 0.45 % NaCl 1 250ml.bag @ 12 UNITS/KG/HR 4.137 mls/hr IV .Q24H [facility] Rx#: [id number] Other: Voiding Method Bedside Commode # Voids 2 # Bowel Movements 1 - Labs CBC & Chem 7: 07/02/24 07:39 07/02/24 07:39 Labs: Abnormal Lab Results - Last 24 Hours (Table) 06/30/24 06/30/24 06/30/24 Range/Units 09:34 09:34 09:34 WBC 17.3 H (3.8-10.6) k/uL RBC 3.47 L (3.80-5.40) m/uL Hgb 10.3 L (11.4-16.0) gm/dL Hct 32.0 L (34.0-46.0) % Neutrophils # 16.0 H (1.3-7.7) k/uL Lymphocytes # 0.7 L (1.0-4.8) k/uL ESR (0-30) mm/Hr D-Dimer (<0.60) mg/L FEU Sodium 136 L (137-145) mmol/L BUN 36 H (7-17) mg/dL Glucose (74-99) mg/dL AST (14-36) U/L ALT (4-34) U/L Alkaline Phosphatase 130 H (38-126) U/L C-Reactive Protein (<1.0) mg/dL Total Protein 4.9 L (6.3-8.2) g/dL Albumin 2.5 L (3.5-5.0) g/dL HDL Cholesterol (40.00-60.00) mg/dL Procalcitonin 2.70 H (0.02-0.50) ng/mL 06/30/24 06/30/24 06/30/24 Range/Units 11:02 12:05 12:05 WBC 19.4 H (3.8-10.6) k/uL RBC 3.67 L (3.80-5.40) m/uL Hgb 10.8 L (11.4-16.0) gm/dL Hct (34.0-46.0) % Neutrophils # 17.9 H (1.3-7.7) k/uL Lymphocytes # 0.7 L (1.0-4.8) k/uL ESR 40 H (0-30) mm/Hr D-Dimer 4.17 H (<0.60) mg/L FEU Sodium (137-145) mmol/L BUN (7-17) mg/dL Glucose (74-99) mg/dL AST (14-36) U/L ALT (4-34) U/L Alkaline Phosphatase (38-126) U/L C-Reactive Protein (<1.0) mg/dL Total Protein (6.3-8.2) g/dL Albumin (3.5-5.0) g/dL HDL Cholesterol (40.00-60.00) mg/dL Procalcitonin (0.02-0.50) ng/mL 06/30/24 06/30/24 07/01/24 Range/Units 14:37 17:50 04:52 WBC 17.5 H (3.8-10.6) k/uL RBC 3.60 L (3.80-5.40) m/uL Hgb 10.7 L (11.4-16.0) gm/dL Hct 33.2 L (34.0-46.0) % Neutrophils # 16.8 H (1.3-7.7) k/uL Lymphocytes # 0.2 L (1.0-4.8) k/uL ESR (0-30) mm/Hr D-Dimer (<0.60) mg/L FEU Sodium (137-145) mmol/L BUN 35 H (7-17) mg/dL Glucose 114 H (74-99) mg/dL AST 41 H (14-36) U/L ALT 38 H (4-34) U/L Alkaline Phosphatase 165 H (38-126) U/L C-Reactive Protein 25.9 H (<1.0) mg/dL Total Protein 5.3 L (6.3-8.2) g/dL Albumin 2.7 L (3.5-5.0) g/dL HDL Cholesterol 27.10 L (40.00-60.00) mg/dL Procalcitonin (0.02-0.50) ng/mL 07/01/24 Range/Units 04:52 WBC 13.0 H (3.8-10.6) k/uL RBC 3.63 L (3.80-5.40) m/uL Hgb 10.6 L (11.4-16.0) gm/dL Hct 33.4 L (34.0-46.0) % Neutrophils # 12.1 H (1.3-7.7) k/uL Lymphocytes # 0.4 L (1.0-4.8) k/uL ESR (0-30) mm/Hr D-Dimer (<0.60) mg/L FEU Sodium (137-145) mmol/L BUN (7-17) mg/dL Glucose (74-99) mg/dL AST (14-36) U/L ALT (4-34) U/L Alkaline Phosphatase (38-126) U/L C-Reactive Protein (<1.0) mg/dL Total Protein (6.3-8.2) g/dL Albumin (3.5-5.0) g/dL HDL Cholesterol (40.00-60.00) mg/dL Procalcitonin (0.02-0.50) ng/mL
--- NOTE | 2024-07-01 14:33 | P.PN ---
Subjective HISTORY OF PRESENT ILLNESS: Patient is a resident of [facility] at [facility]. She was noticed to have low oxygen saturation, increased confusion, increased cough with sputum production along with increased work of breathing with tachycardia and tachypnea. For this she was presented to the ER. As per the family patient was a active heavy smoker and still smokes few cigarettes here and there. For last 1 week she has been gradually worsening. On admission her labs showed WBC 24.9, hemoglobin 14.7, platelets 372, BUN 40, creatinine 0.79, lactate elevated at 2.6, Trope elevated 0.08, follow-up 0.2, follow-up 0.69. Her viral panel with flu RSV and COVID was negative. Chest x- ray shows signs of pulmonary infiltrate concerning of pneumonia. 07/01/24 Patient seen and examined this morning at the bedside. Patient currently denies chest pain or pressure. She denies shortness of breath. She remains on IV heparin. Patient also remains on 10 L high flow nasal cannula. Telemetry revealing sinus mechanism with heart rate around 100. No atrial fibrillation noted. Echocardiogram completed revealing ejection fraction 55 to 60%, mild pulmonary pretension, moderate TR, mild AI, trace MR PHYSICAL EXAM: VITAL SIGNS: Reviewed. GENERAL: Well-developed in no acute distress. NECK: Supple. No JVD or thyromegaly LUNGS: Respirations even and unlabored. Lungs essentially clear to auscultation bilaterally. HEART: Regular rate and rhythm. S1 and S2 heard. EXTREMITIES: Normal range of motion. No clubbing or cyanosis. Peripheral pul ses intact. No lower extremity edema ASSESSMENT: Elevated troponin, type II OR secondary to oxygen supply/demand mismatch Pneumonia Severe Sepsis likely due to above with leukocytosis and lactic acidosis Moderate COPD exacerbation Acute hypoxic respiratory failure due to above Metabolic encephalopathy due to above DNR/DNI Atrial fibrillation, ruled out, telemetry revealing sinus mechanism PLAN: 2D echo obtained and reviewed Discontinue IV heparin Continue current cardiac medications No further inpatient recommendations from a cardiac standpoint Recommend outpatient event monitor at patient's follow-up appointment to rule out atrial fibrillation No further inpatient recommendations from a cardiac standpoint We will sign off. Please reconsult if needed. Nurse practitioner note has been reviewed by physician. Signing provider agrees with the documented findings, assessment, and plan of care documented by [facility] as a scribe. Objective - Vital Signs Vital signs: Vital Signs Temp 97.4 F L 12/27/24 12:00 Pulse 101 H 07/01/24 12:00 Resp 18 07/01/24 12:00 BP 100/63 07/01/24 12:00 Pulse Ox 94 L 07/01/24 12:00 FiO2 Intake & Output 06/30/24 07/01/24 07/01/24 18:59 06:59 18:59 Intake Total 108.284 180 Balance 108.284 180 Weight 34.473 kg 36.5 kg Intake: Intake, IV Titration 108.284 Amount Heparin Sod,Pork in 0.45% 108.284 NaCl 25,000 unit In 0.45 % NaCl 1 250ml.bag @ 12 UNITS/KG/HR 4.137 mls/hr IV .Q24H [facility] Rx#: [id number] Oral 180 Other: Voiding Method Bedside Commode Bedside Commode Incontinent # Voids 2 1 # Bowel Movements 1 1 - Labs CBC & Chem 7: 07/01/24 04:52 07/01/24 04:52 Labs: Abnormal Lab Results - Last 24 Hours (Table) 06/30/24 06/30/24 06/30/24 Range/Units 09:34 11:02 14:37 WBC (3.8-10.6) k/uL RBC (3.80-5.40) m/uL Hgb (11.4-16.0) gm/dL Hct (34.0-46.0) % Neutrophils # (1.3-7.7) k/uL Lymphocytes # (1.0-4.8) k/uL ESR 40 H (0-30) mm/Hr BUN (7-17) mg/dL Glucose (74-99) mg/dL AST (14-36) U/L ALT (4-34) U/L Alkaline Phosphatase (38-126) U/L C-Reactive Protein 25.9 H (<1.0) mg/dL Total Protein (6.3-8.2) g/dL Albumin (3.5-5.0) g/dL HDL Cholesterol (40.00-60.00) mg/dL Procalcitonin 2.70 H (0.02-0.50) ng/mL 06/30/24 07/01/24 07/01/24 Range/Units 17:50 04:52 04:52 WBC 17.5 H 13.0 H (3.8-10.6) k/uL RBC 3.60 L 3.63 L (3.80-5.40) m/uL Hgb 10.7 L 10.6 L (11.4-16.0) gm/dL Hct 33.2 L 33.4 L (34.0-46.0) % Neutrophils # 16.8 H 12.1 H (1.3-7.7) k/uL Lymphocytes # 0.2 L 0.4 L (1.0-4.8) k/uL ESR (0-30) mm/Hr BUN 35 H (7-17) mg/dL Glucose 114 H (74-99) mg/dL AST 41 H (14-36) U/L ALT 38 H (4-34) U/L Alkaline Phosphatase 165 H (38-126) U/L C-Reactive Protein (<1.0) mg/dL Total Protein 5.3 L (6.3-8.2) g/dL Albumin 2.7 L (3.5-5.0) g/dL HDL Cholesterol 27.10 L (40.00-60.00) mg/dL Procalcitonin (0.02-0.50) ng/mL
[2024-07-01 16:16] LABS: Appearance,Urine Cloudy (Clear); Bilirubin,Urine Negative (Negative); Blood,Urine Small (Negative); Color,Urine Yellow; Glucose,Urine (UA) Negative (Negative); Ketones,Urine Negative (Negative); Leukocyte Esterase,Urine Large (Negative); Mucus,Urine Rare /hpf; Nitrite,Urine Negative (Negative); PH, Urine 6.5 (5.0-8.0); Protein,Urine 2+ (Negative); RBC,Urine 11 /hpf (0-5); Squamous Epithelial Cell,Urine 2 /hpf (0-4); Urobilinogen,Urine <2.0 mg/dL (<2.0); WBC,Urine >182 /hpf (0-5)
[2024-07-01 17:03] LABS: Glucose,Whole Blood 158 mg/dL (70-110)
[2024-07-01] MEDS: INSULIN ASPART (NovoLOG) 100 UNIT/ML VIAL SQ SCH (17:17)
[2024-07-01 19:57] LABS: Glucose,Whole Blood 215 mg/dL (70-110)
[2024-07-02 04:24] LABS: Glucose,Whole Blood 135 mg/dL (70-110)
[2024-07-02 06:03] LABS: Glucose,Whole Blood 130 mg/dL (70-110)
[2024-07-02 08:32] LABS: Basophils % (A) 0 %; Eosinophils % (A) 0 %; HCT 32.3 % (34.0-46.0); HGB 10.4 gm/dL (11.4-16.0); Lymphocytes # (A) 0.5 k/uL (1.0-4.8); Lymphocytes % (A) 4 %; MCH 29.8 pg (25.0-35.0); MCHC 32.2 g/dL (31.0-37.0); MCV 92.5 fL (80.0-100.0); Mean Platelet Volume 7.6; Monocytes # (A) 0.2 k/uL (0-1.0); Monocytes % (A) 2 %; Neutrophils # (A) 11.4 k/uL (1.3-7.7); Neutrophils % (A) 93 %; Platelet Count 342 k/uL (150-450); RBC 3.49 m/uL (3.80-5.40); RDW 14.4 % (11.5-15.5); WBC 12.2 k/uL (3.8-10.6)
[2024-07-02 08:35] LABS: ALT 43 U/L (4-34); AST 36 U/L (14-36); African American GFR (CKD) 80 (>60 ml/min/1.73 sqM); Albumin 2.7 g/dL (3.5-5.0); Alkaline Phosphatase 128 U/L (38-126); Anion Gap 6 mmol/L; Blood Urea Nitrogen 37 mg/dL (7-17); Calcium 9.1 mg/dL (8.4-10.2); Carbon Dioxide 30 mmol/L (22-30); Chloride 103 mmol/L (98-107); Glucose 115 mg/dL (74-99); Non-African American GFR(CKD) 69 (>60 ml/min/1.73 sqM); Potassium 4.2 mmol/L (3.5-5.1); Sodium 139 mmol/L (137-145); Total Bilirubin 0.1 mg/dL (0.2-1.3); Total Protein 5.4 g/dL (6.3-8.2)
[2024-07-02 11:49] LABS: Glucose,Whole Blood 119 mg/dL (70-110)
--- NOTE | 2024-07-02 12:37 | XR ---
EXAMINATION TYPE: XR chest 1V portable DATE OF EXAM: 07/02/2024 12:29 PM COMPARISON: Chest radiographs from 06/24/2024. CLINICAL INDICATION: Female, 89 years old with history of pna; TECHNIQUE: XR chest 1V portable Frontal view of the chest. FINDINGS: Lungs/Pleura: Prominent interstitial lung markings are seen scattered throughout the lungs. No eviden ce of focal consolidation, pneumothorax or pleural effusion. Pulmonary vascularity: Unremarkable. Heart/mediastinum: Cardiomediastinal silhouette is unremarkable. Musculoskeletal: No acute osseous pathology. IMPRESSION: Increased interstitial lung markings throughout the chest. Findings on similar from 2 days prior. [facility], , 07/02/2024 12:35 PM
--- NOTE | 2024-07-02 15:31 | P.PN ---
Subjective Progress Note Date: 07/02/24 Principal diagnosis: Acute right lower lobe pneumonia This is an 89-year-old female, resident of residential, patient was brought in to the ER with 4 days history of cough, noted to have low oxygen level in the 80s and low 90s at the residential, she was also noted to have significant tachycardia. Patient does not normally wear oxygen. She had previous history of COPD, but not seen on a regular basis by pulmonary. In addition to this the patient was noted to have increased confusion with increased cough and sputum production while at the residential. Brought into ER, patient was found to have leukocytosis, abnormal chest x-ray suggestive of right lower lobe pneumonia and she was in atrial fibrillation with RVR which is being addressed by cardiology. Patient herself is a poor historian, she had negative testing for COVID-19 RSV and influenza. D-dimer was noted to be elevated at 4.17, patient is presently on heparin. This was ordered by cardiology for her A-fib/RVR. Echocardiogram is pending. Troponin level was elevated at 0.691 patient is now on antibiotics in the form of Zithromax and Rocephin she is also on diltiazem, she is also on updrafts in the form of DuoNeb. And methylprednisolone 40 mg IV push every 8 hours. Patient was seen today on 07/01/2024, patient is feeling a bit better compared to yesterday, on nasal cannula, does not seem to be in distress. For some reason patient had a CT angiogram of the chest yesterday although my clinical index of suspicion for pulmonary embolism is rather low, the CT of the chest showed consolidative changes lower lobes, right more so than left, as well as right middle lobe. Findings are more or less consistent with pneumonia, possible aspiration with atelectasis. Patient is not a great candidate for bronchoscopy, and the patient was made aware that I would not recommend bronchoscopy at this point I would recommend mostly medical therapy.WBC count is 13.0 hemoglobin 10.6 electrolytes are normal renal profile is normal Seen and examined today on 07/02/2024,. Is doing well, feeling much better, breathing easier less cough less shortness of breath. WBC count is a bit elevated at 12.2 hemoglobin 10.4 electrolytes are normal renal profile is normal, procalcitonin level is 2.70, elevated. Objective - Vital Signs Vital signs: Vital Signs Temp 98.3 F 07/02/24 12:05 Pulse 85 07/02/24 12:05 Resp 16 07/02/24 12:05 BP 97/57 07/02/24 12:05 Pulse Ox 93 L 07/02/24 12:05 FiO2 Intake & Output 07/01/24 07/02/24 07/02/24 18:59 06:59 18:59 Intake Total 180 250 Output Total 300 Balance 180 -300 250 Weight 35.2 kg Intake: Intake, IV Titration 250 Amount Azithromycin 500 mg In 250 Sodium Chloride 0.9% 250 ml @ 250 mls/hr IVPB DAILY [facility] Rx#:[id number] Oral 180 Output: Urine 300 Other: Voiding Method Bedside Commode Bedside Commode Bedside Commode Incontinent Incontinent Incontinent # Voids 0 1 # Bowel Movements 1 1 - Exam GENERAL: Revealed 89-year-old female in no distress however patient is on 8 L high flow nasal cannula with O2 saturation ranging between 93 up to 98% HEENT: Pupils are round and equally reacting to light. EOMI. No scleral icterus. Normocephalic, atraumatic. CARDIOVASCULAR: Irregular irregular rhythm S1 and S2 present. No murmurs, rubs, or gallops. PULMONARY: Continues to have diminished breath sounds at the bases, especially at the right base ABDOMEN: Soft, nontender, nondistended, normoactive bowel sounds. No palpable organomegaly. MUSCULOSKELETAL: No apparent joint swelling and deformities. EXTREMITIES: No apparent cyanosis, clubbing, or pedal edema. NEUROLOGICAL: Patient is more alert today, not confused anymore, no gross focal neurologic deficit SKIN: No rashes - Labs CBC & Chem 7: 07/02/24 07:39 07/02/24 07:39 Labs: Abnormal Lab Results - Last 24 Hours (Table) 07/01/24 07/01/24 07/01/24 Range/Units 16:02 16:54 19:56 WBC (3.8-10.6) k/uL RBC (3.80-5.40) m/uL Hgb (11.4-16.0) gm/dL Hct (34.0-46.0) % Neutrophils # (1.3-7.7) k/uL Lymphocytes # (1.0-4.8) k/uL BUN (7-17) mg/dL Glucose (74-99) mg/dL POC Glucose (mg/dL) 158 H 215 H (70-110) mg/dL Total Bilirubin (0.2-1.3) mg/dL ALT (4-34) U/L Alkaline Phosphatase (38-126) U/L Total Protein (6.3-8.2) g/dL Albumin (3.5-5.0) g/dL Urine Appearance Cloudy H (Clear) Urine Protein 2+ H (Negative) Urine Blood Small H (Negative) Ur Leukocyte Esterase Large H (Negative) Urine RBC 11 H (0-5) /hpf Urine WBC >182 H (0-5) /hpf Urine WBC Clumps Occasional H (None) /hpf Urine Mucus Rare H (None) /hpf 07/02/24 07/02/24 07/02/24 Range/Units 04:22 06:00 07:39 WBC 12.2 H (3.8-10.6) k/uL RBC 3.49 L (3.80-5.40) m/uL Hgb 10.4 L (11.4-16.0) gm/dL Hct 32.3 L (34.0-46.0) % Neutrophils # 11.4 H (1.3-7.7) k/uL Lymphocytes # 0.5 L (1.0-4.8) k/uL BUN (7-17) mg/dL Glucose (74-99) mg/dL POC Glucose (mg/dL) 135 H 130 H (70-110) mg/dL Total Bilirubin (0.2-1.3) mg/dL ALT (4-34) U/L Alkaline Phosphatase (38-126) U/L Total Protein (6.3-8.2) g/dL Albumin (3.5-5.0) g/dL Urine Appearance (Clear) Urine Protein (Negative) Urine Blood (Negative) Ur Leukocyte Esterase (Negative) Urine RBC (0-5) /hpf Urine WBC (0-5) /hpf Urine WBC Clumps (None) /hpf Urine Mucus (None) /hpf 07/02/24 07/02/24 Range/Units 07:39 11:48 WBC (3.8-10.6) k/uL RBC (3.80-5.40) m/uL Hgb (11.4-16.0) gm/dL Hct (34.0-46.0) % Neutrophils # (1.3-7.7) k/uL Lymphocytes # (1.0-4.8) k/uL BUN 37 H (7-17) mg/dL Glucose 115 H (74-99) mg/dL POC Glucose (mg/dL) 119 H (70-110) mg/dL Total Bilirubin 0.1 L (0.2-1.3) mg/dL ALT 43 H (4-34) U/L Alkaline Phosphatase 128 H (38-126) U/L Total Protein 5.4 L (6.3-8.2) g/dL Albumin 2.7 L (3.5-5.0) g/dL Urine Appearance (Clear) Urine Protein (Negative) Urine Blood (Negative) Ur Leukocyte Esterase (Negative) Urine RBC (0-5) /hpf Urine WBC (0-5) /hpf Urine WBC Clumps (None) /hpf Urine Mucus (None) /hpf Assessment and Plan Assessment: Impression: Acute Bibasilar pneumonia possibly healthcare acquired pneumonia although the possibility of aspiration pneumonia is not entirely ruled out. Acute on chronic hypoxic respiratory failure secondary to above, according to the daughter patient had oxygen before but she was not very compliant with it and she used it as needed. Underlying moderate severe COPD Tobacco dependence syndrome Atrial fibrillation with RVR on admission History of underlying dementia Recommendation: Continue present course of antibiotics patient is on Rocephin and Zithromax Procalcitonin level is elevated 2.70 consistent with bacterial pneumonia Continue supplemental O2 and titrate accordingly Patient is not a candidate for bronchoscopy Continue DNR CODE STATUS Will continue to follow Time with Patient: Less than 30
--- NOTE | 2024-07-02 15:51 | P.PN ---
Subjective Progress Note Date: 07/02/24 History of present illness; Patient is 89-year-old female with COPD presenting with shortness of breath and tachycardia. Patient states she has 4 days of coughing at her long-term care facility with stated oxygen saturation in 80s to 90s percent. She states she is now on oxygen was on nonrebreather 15 L O2 before admission and baseline does not wear her supplemental O2. No stated sputum production. While she is coughing she is having some generalized chest pain worse centrally. She also was found to have black stool in ER. Patient reports absence of diaphoresis, nausea, vomiting, constipation, d iarrhea, abdominal pain, dizziness, and dysuria. Labs completed in ER significant for WBC 24.9, hemoglobin 10.7, sodium 135, potassium 2.8, BUN 40, glucose 128, lactic acid 2.6 => 1.7, AST 43, alkaline phosphatase 170, troponin 0.087 => 0.292 => 0.691. Fecal occult blood positive. EKG done in the ER independently interpreted showed sinus rhythm with occasional supraventricular premature complexes heart rate of 95, no ST segment elevation or depression seen, no T-wave inversions seen. Chest x-ray done independently interpreted in the ER showed right lung base consolidation, advanced diffuse chronic course interstitial markings 07/01/2024 Patient seen and examined at bedside. No acute events overnight. She is being seen by pulmonology and is not a great candidate for bronchoscopy which was discussed with family. She continues on high flow nasal cannula 10 L satting at 95%. She does continue to endorse cough. She continues on azithromycin and ceftriaxone. Continues on heparin for now. Discontinued continue Cardizem. Significant labs for today WBC 13, hemoglobin 10.6, BUN 35, glucose 114, AST 41 ALT 38, alkaline phosphatase 165, procalcitonin 2.7. CT angiogram chest with no pulmonary embolism with scattered nodular-like opacities throughout the lungs, duplex ultrasound of lower extremities with no DVT. 07/02/2024 Patient seen and examined at bedside. No acute events overnight. Patient continues on high flow nasal cannula 8 L of oxygen. She continues on ceftriaxone 2 g daily. Heparin discontinued. Today's chest x-ray with similar findings as previous x-ray showing increased interstitial lung markings throughout her chest. Labs today significant for WBC 12.2, hemoglobin 10.4, sodium 139, potassium 4.2, BUN 37, creatinine 0.77. REVIEW OF SYSTEMS: Pertinent positives and negatives noted in HPI. PHYSICAL EXAMINATION: Vitals reviewed GENERAL: Mild distress. Thin appearing HEENT: Pupils are round and equally reacting to light. EOMI. No scleral icterus. Normocephalic, atraumatic. CARDIOVASCULAR: S1 and S2 present. No murmurs, rubs, or gallops. PULMONARY: Mild rhonchi and wheezing ABDOMEN: Soft, nontender, nondistended, normoactive bowel sounds. No palpable organomegaly. MUSCULOSKELETAL: No apparent joint swelling and deformities. EXTREMITIES: No apparent cyanosis, clubbing, or pedal edema. NEUROLOGICAL: The patient is alert and oriented x3, Gross neurological examination did not reveal any focal deficits. SKIN: No apparent rashes. Assessment and plan Patient is 89-year-old female with COPD presenting with shortness of breath and tachycardia. # Severe Sepsis due to pneumonia #Acute on chronic hypoxic respiratory failure # Mild to moderate COPD exacerbation #Tobacco addiction Initial pulse 194, respiratory rate 30, WBC 24.9 -Continue bronchodilators -Continue Solu-medrol 40 mg IVq8hr - Continue ceftriaxone 2 g daily day #3 Procalcitonin 2.7 - continue o2 supplementation as needed, consider bipap immediately if mod to severe dyspnea CT angiogram with no PE, however scattered nodular-like opacities throughout lungs, no bronchoscopy at this time - Pulmonology following # Elevated troponin in setting of demand ischemia from A-fib with RVR and above -EKG with no ST elevation or depression Discontinued Cardizem Discontinue heparin drip - Continue Lipitor Echo normal LV function Cardiology notes reviewed #Melena Initial hemoglobin 10.7 => 10.3 => 10.8 Occult blood positive On iron supplementation Monitor CBC Surgery following #Hypokalemia - Initial potassium 2.8, magnesium 1.7 Continue potassium replacement protocol Monitor CMP #Failure to thrive, BMI 14.4 Patient resides at [facility] Resume home medication F: P.o. E: Potassium replacement protocol N: Liquid diet DVT ppx: Heparin drip Code status: No code Anticipated discharge place: [facility] Anticipated discharge time: Pending clinical course Dictation was produced using [employer] dictation software. Please excuse any grammatical, word or spelling errors. Attestation I have seen and examined this patient with my resident , discussed the same with the resident/RAQUEL, and agree with the dictator's assessment and plan as written Dr. Sherif ortiz Objective - Vital Signs Vital signs: Vital Signs Temp 98.3 F 07/02/24 12:05 Pulse 85 07/02/24 12:05 Resp 16 07/02/24 12:05 BP 97/57 07/02/24 12:05 Pulse Ox 93 L 07/02/24 12:05 FiO2 Intake & Output 07/01/24 07/02/24 07/02/24 18:59 06:59 18:59 Intake Total 180 250 Output Total 300 Balance 180 -300 250 Weight 35.2 kg Intake: Intake, IV Titration 250 Amount Azithromycin 500 mg In 250 Sodium Chloride 0.9% 250 ml @ 250 mls/hr IVPB DAILY [facility] Rx#:[id number] Oral 180 Output: Urine 300 Other: Voiding Method Bedside Commode Bedside Commode Bedside Commode Incontinent Incontinent Incontinent # Voids 0 1 # Bowel Movements 1 1 - Labs CBC & Chem 7: 07/03/24 07:06 07/03/24 07:06 Labs: Abnormal Lab Results - Last 24 Hours (Table) 07/01/24 07/01/24 07/01/24 Range/Units 16:02 16:54 19:56 WBC (3.8-10.6) k/uL RBC (3.80-5.40) m/uL Hgb (11.4-16.0) gm/dL Hct (34.0-46.0) % Neutrophils # (1.3-7.7) k/uL Lymphocytes # (1.0-4.8) k/uL BUN (7-17) mg/dL Glucose (74-99) mg/dL POC Glucose (mg/dL) 158 H 215 H (70-110) mg/dL Total Bilirubin (0.2-1.3) mg/dL ALT (4-34) U/L Alkaline Phosphatase (38-126) U/L Total Protein (6.3-8.2) g/dL Albumin (3.5-5.0) g/dL Urine Appearance Cloudy H (Clear) Urine Protein 2+ H (Negative) Urine Blood Small H (Negative) Ur Leukocyte Esterase Large H (Negative) Urine RBC 11 H (0-5) /hpf Urine WBC >182 H (0-5) /hpf Urine WBC Clumps Occasional H (None) /hpf Urine Mucus Rare H (None) /hpf 07/02/24 07/02/24 07/02/24 Range/Units 04:22 06:00 07:39 WBC 12.2 H (3.8-10.6) k/uL RBC 3.49 L (3.80-5.40) m/uL Hgb 10.4 L (11.4-16.0) gm/dL Hct 32.3 L (34.0-46.0) % Neutrophils # 11.4 H (1.3-7.7) k/uL Lymphocytes # 0.5 L (1.0-4.8) k/uL BUN (7-17) mg/dL Glucose (74-99) mg/dL POC Glucose (mg/dL) 135 H 130 H (70-110) mg/dL Total Bilirubin (0.2-1.3) mg/dL ALT (4-34) U/L Alkaline Phosphatase (38-126) U/L Total Protein (6.3-8.2) g/dL Albumin (3.5-5.0) g/dL Urine Appearance (Clear) Urine Protein (Negative) Urine Blood (Negative) Ur Leukocyte Esterase (Negative) Urine RBC (0-5) /hpf Urine WBC (0-5) /hpf Urine WBC Clumps (None) /hpf Urine Mucus (None) /hpf 07/02/24 07/02/24 Range/Units 07:39 11:48 WBC (3.8-10.6) k/uL RBC (3.80-5.40) m/uL Hgb (11.4-16.0) gm/dL Hct (34.0-46.0) % Neutrophils # (1.3-7.7) k/uL Lymphocytes # (1.0-4.8) k/uL BUN 37 H (7-17) mg/dL Glucose 115 H (74-99) mg/dL POC Glucose (mg/dL) 119 H (70-110) mg/dL Total Bilirubin 0.1 L (0.2-1.3) mg/dL ALT 43 H (4-34) U/L Alkaline Phosphatase 128 H (38-126) U/L Total Protein 5.4 L (6.3-8.2) g/dL Albumin 2.7 L (3.5-5.0) g/dL Urine Appearance (Clear) Urine Protein (Negative) Urine Blood (Negative) Ur Leukocyte Esterase (Negative) Urine RBC (0-5) /hpf Urine WBC (0-5) /hpf Urine WBC Clumps (None) /hpf Urine Mucus (None) /hpf
[2024-07-02 16:17] LABS: Glucose,Whole Blood 168 mg/dL (70-110)
[2024-07-02 20:33] LABS: Glucose,Whole Blood 137 mg/dL (70-110)
[2024-07-03 06:29] LABS: Glucose,Whole Blood 124 mg/dL (70-110)
[2024-07-03 08:31] LABS: Basophils % (A) 0 %; Eosinophils % (A) 0 %; HCT 34.5 % (34.0-46.0); HGB 10.8 gm/dL (11.4-16.0); Hypochromasia Slight; Lymphocytes # (A) 0.5 k/uL (1.0-4.8); Lymphocytes % (A) 5 %; MCH 29.2 pg (25.0-35.0); MCHC 31.2 g/dL (31.0-37.0); MCV 93.5 fL (80.0-100.0); Mean Platelet Volume 7.7; Monocytes # (A) 0.3 k/uL (0-1.0); Monocytes % (A) 3 %; Neutrophils # (A) 9.9 k/uL (1.3-7.7); Neutrophils % (A) 92 %; Platelet Count 318 k/uL (150-450); RBC 3.69 m/uL (3.80-5.40); RDW 14.1 % (11.5-15.5); WBC 10.7 k/uL (3.8-10.6)
[2024-07-03 08:46] LABS: ALT 40 U/L (4-34); AST 29 U/L (14-36); African American GFR (CKD) 78 (>60 ml/min/1.73 sqM); Albumin 2.7 g/dL (3.5-5.0); Alkaline Phosphatase 116 U/L (38-126); Anion Gap 7 mmol/L; Blood Urea Nitrogen 36 mg/dL (7-17); Carbon Dioxide 31 mmol/L (22-30); Chloride 101 mmol/L (98-107); Glucose 96 mg/dL (74-99); Non-African American GFR(CKD) 68 (>60 ml/min/1.73 sqM); Potassium 4.4 mmol/L (3.5-5.1); Sodium 139 mmol/L (137-145); Total Bilirubin 0.1 mg/dL (0.2-1.3); Total Protein 5.4 g/dL (6.3-8.2)
[2024-07-03 11:29] LABS: Glucose,Whole Blood 164 mg/dL (70-110)
--- NOTE | 2024-07-03 14:06 | P.PN ---
Subjective Progress Note Date: 07/03/24 Principal diagnosis: Acute right lower lobe pneumonia This is an 89-year-old female, resident of long-term, patient was brought in to the ER with 4 days history of cough, noted to have low oxygen level in the 80s and low 90s at the long-term, she was also noted to have significant tachycardia. Patient does not normally wear oxygen. She had previous history of COPD, but not seen on a regular basis by pulmonary. In addition to this the patient was noted to have increased confusion with increased cough and sputum production while at the long-term. Brought into ER, patient was found to have leukocytosis, abnormal chest x-ray suggestive of right lower lobe pneumonia and she was in atrial fibrillation with RVR which is being addressed by cardiology. Patient herself is a poor historian, she had negative testing for COVID-19 RSV and influenza. D-dimer was noted to be elevated at 4.17, patient is presently on heparin. This was ordered by cardiology for her A-fib/RVR. Echocardiogram is pending. Troponin level was elevated at 0.691 patient is now on antibiotics in the form of Zithromax and Rocephin she is also on diltiazem, she is also on updrafts in the form of DuoNeb. And methylprednisolone 40 mg IV push every 8 hours. Patient was seen today on 07/01/2024, patient is feeling a bit better compared to yesterday, on nasal cannula, does not seem to be in distress. For some reason patient had a CT angiogram of the chest yesterday although my clinical index of suspicion for pulmonary embolism is rather low, the CT of the chest showed consolidative changes lower lobes, right more so than left, as well as right middle lobe. Findings are more or less consistent with pneumonia, possible aspiration with atelectasis. Patient is not a great candidate for bronchoscopy, and the patient was made aware that I would not recommend bronchoscopy at this point I would recommend mostly medical therapy.WBC count is 13.0 hemoglobin 10.6 electrolytes are normal renal profile is normal Seen and examined today on 07/02/2024,. Is doing well, feeling much better, breathing easier less cough less shortness of breath. WBC count is a bit elevated at 12.2 hemoglobin 10.4 electrolytes are normal renal profile is normal, procalcitonin level is 2.70, elevated. Seen today on 07/03/2024, patient is feeling much better, breathing a lot easier, hardly any pulmonary symptoms. Chest x-ray is showing significant improvement in her right lower lobe pneumonia, patient has chronic prominence of interstitial markings, this has been noted on previous x-rays on this patient, but the pneumonia picture seems to be improving WBC count is 10.7 hemoglobin 10.8 basic metabolic profile is normal renal profile is normal patient had no fever on this admission, she is hemodynamically stable however she is still on 8 L high flow nasal cannula. CT angiogram of the chest on this patient showed consolidation changes of bilateral lower lobes right greater than left, but I believe the findings are improving based on chest x-ray today procalcitonin level on this admission was 2.7 consistent with pneumonia, remains on antibiotics/Rocephin. Objective - Vital Signs Vital signs: Vital Signs Temp 97.7 F 07/03/24 08:25 Pulse 72 07/03/24 12:00 Resp 18 07/03/24 12:00 BP 119/68 07/03/24 12:00 Pulse Ox 90 L 07/03/24 12:00 FiO2 Intake & Output 07/02/24 07/03/24 07/03/24 18:59 06:59 18:59 Intake Total 250 540 Balance 250 540 Weight 35.3 kg Intake: Intake, IV Titration 250 540 Amount Azithromycin 500 mg In 250 540 Sodium Chloride 0.9% 250 ml @ 250 mls/hr IVPB DAILY [facility] Rx#:[id number] Other: Voiding Method Bedside Commode Bedside Commode Bedside Commode Incontinent Incontinent Incontinent # Voids 1 # Bowel Movements 1 - Exam GENERAL: Revealed 89-year-old female in no distress on 8 L high flow nasal cannula HEENT: Pupils are round and equally reacting to light. EOMI. No scleral icterus. Normocephalic, atraumatic. CARDIOVASCULAR: Irregular irregular rhythm S1 and S2 present. No murmurs, rubs, or gallops. PULMONARY: Continues to have diminished breath sounds at the bases, no rhonchi no wheezes ABDOMEN: Soft, nontender, nondistended, normoactive bowel sounds. No palpable organomegaly. MUSCULOSKELETAL: No apparent joint swelling and deformities. EXTREMITIES: No apparent cyanosis, clubbing, or pedal edema. NEUROLOGICAL: Patient is more alert today, not confused anymore, no gross focal neurologic deficit SKIN: No rashes - Labs CBC & Chem 7: 07/03/24 07:06 07/03/24 07:06 Labs: Abnormal Lab Results - Last 24 Hours (Table) 07/02/24 07/02/24 07/03/24 Range/Units 16:16 20:31 06:27 WBC (3.8-10.6) k/uL RBC (3.80-5.40) m/uL Hgb (11.4-16.0) gm/dL Neutrophils # (1.3-7.7) k/uL Lymphocytes # (1.0-4.8) k/uL Carbon Dioxide (22-30) mmol/L BUN (7-17) mg/dL POC Glucose (mg/dL) 168 H 137 H 124 H (70-110) mg/dL Total Bilirubin (0.2-1.3) mg/dL ALT (4-34) U/L Total Protein (6.3-8.2) g/dL Albumin (3.5-5.0) g/dL 07/03/24 07/03/24 07/03/24 Range/Units 07:06 07:06 11:27 WBC 10.7 H (3.8-10.6) k/uL RBC 3.69 L (3.80-5.40) m/uL Hgb 10.8 L (11.4-16.0) gm/dL Neutrophils # 9.9 H (1.3-7.7) k/uL Lymphocytes # 0.5 L (1.0-4.8) k/uL Carbon Dioxide 31 H (22-30) mmol/L BUN 36 H (7-17) mg/dL POC Glucose (mg/dL) 164 H (70-110) mg/dL Total Bilirubin 0.1 L (0.2-1.3) mg/dL ALT 40 H (4-34) U/L Total Protein 5.4 L (6.3-8.2) g/dL Albumin 2.7 L (3.5-5.0) g/dL Assessment and Plan Assessment: Impression: Acute Bibasilar pneumonia possibly healthcare acquired pneumonia although the possibility of aspiration pneumonia is not entirely ruled out. Acute on chronic hypoxic respiratory failure secondary to above, according to the daughter patient had oxygen before but she was not very compliant with it and she used it as needed. Underlying moderate severe COPD Tobacco dependence syndrome Atrial fibrillation with RVR on admission History of underlying dementia Recommendation: Continue antibiotics, chest x-ray is showing improvement Procalcitonin level is elevated 2.70 consistent with bacterial pneumonia Continue supplemental O2 and titrate accordingly Continue DNR CODE STATUS Will continue to follow Time with Patient: Less than 30
--- NOTE | 2024-07-03 14:20 | P.PN ---
Subjective Progress Note Date: 07/03/24 History of present illness; Patient is 89-year-old female with COPD presenting with shortness of breath and tachycardia. Patient states she has 4 days of coughing at her long-term care facility with stated oxygen saturation in 80s to 90s percent. She states she is now on oxygen was on nonrebreather 15 L O2 before admission and baseline does not wear her supplemental O2. No stated sputum production. While she is coughing she is having some generalized chest pain worse centrally. She also was found to have black stool in ER. Patient reports absence of diaphoresis, nausea, vomiting, constipation, d iarrhea, abdominal pain, dizziness, and dysuria. Labs completed in ER significant for WBC 24.9, hemoglobin 10.7, sodium 135, potassium 2.8, BUN 40, glucose 128, lactic acid 2.6 => 1.7, AST 43, alkaline phosphatase 170, troponin 0.087 => 0.292 => 0.691. Fecal occult blood positive. EKG done in the ER independently interpreted showed sinus rhythm with occasional supraventricular premature complexes heart rate of 95, no ST segment elevation or depression seen, no T-wave inversions seen. Chest x-ray done independently interpreted in the ER showed right lung base consolidation, advanced diffuse chronic course interstitial markings 07/01/2024 Patient seen and examined at bedside. No acute events overnight. She is being seen by pulmonology and is not a great candidate for bronchoscopy which was discussed with family. She continues on high flow nasal cannula 10 L satting at 95%. She does continue to endorse cough. She continues on azithromycin and ceftriaxone. Continues on heparin for now. Discontinued continue Cardizem. Significant labs for today WBC 13, hemoglobin 10.6, BUN 35, glucose 114, AST 41 ALT 38, alkaline phosphatase 165, procalcitonin 2.7. CT angiogram chest with no pulmonary embolism with scattered nodular-like opacities throughout the lungs, duplex ultrasound of lower extremities with no DVT. 07/02/2024 Patient seen and examined at bedside. No acute events overnight. Patient continues on high flow nasal cannula 8 L of oxygen. She continues on ceftriaxone 2 g daily. Heparin discontinued. Today's chest x-ray with similar findings as previous x-ray showing increased interstitial lung markings throughout her chest. Labs today significant for WBC 12.2, hemoglobin 10.4, sodium 139, potassium 4.2, BUN 37, creatinine 0.77. 07/03. Patient seen and examined. Continues to require 8 L of oxygen. Patient has poor memory. Denies any chest pain or shortness of breath. REVIEW OF SYSTEMS: Pertinent positives and negatives noted in HPI. PHYSICAL EXAMINATION: Vitals reviewed GENERAL: Frail looking HEENT: Pupils are round and equally reacting to light. EOMI. No scleral icterus. Normocephalic, atraumatic. CARDIOVASCULAR: S1 and S2 present. No murmurs, rubs, or gallops. PULMONARY: Coarse breath sounds bilaterally, no wheeze, no rhonchi ABDOMEN: Soft, nontender, nondistended, normoactive bowel sounds. No palpable organomegaly. MUSCULOSKELETAL: No apparent joint swelling and deformities. EXTREMITIES: No apparent cyanosis, clubbing, or pedal edema. NEUROLOGICAL: The patient is alert and oriented x3, Gross neurological examination did not reveal any focal deficits. SKIN: No apparent rashes. Assessment and plan Patient is 89-year-old female with COPD presenting with shortness of breath and tachycardia. # Severe Sepsis due to pneumonia #Acute on chronic hypoxic respiratory failure # Mild to moderate COPD exacerbation #Tobacco addiction Monitor vital sign Monitor CBC Monitor CMP Continue ox supplementation Continue IV Rocephin Aggressive bronchopulmonary hygiene Breathing treatments Pulmonology following # Elevated troponin in setting of demand ischemia from A-fib with RVR and above -EKG with no ST elevation or depression Cardiology evaluated, recommend no ischemic workup at this time #Melena Monitor CBC Surgery following #Hypokalemia Monitor BMP #Failure to thrive, BMI 14.4 Patient resides at [facility] Objective - Vital Signs Vital signs: Vital Signs Temp 97.7 F 07/03/24 08:25 Pulse 72 07/03/24 12:00 Resp 18 07/03/24 12:00 BP 119/68 07/03/24 12:00 Pulse Ox 90 L 07/03/24 12:00 FiO2 Intake & Output 07/02/24 07/03/24 07/03/24 18:59 06:59 18:59 Intake Total 250 540 Balance 250 540 Weight 35.3 kg Intake: Intake, IV Titration 250 540 Amount Azithromycin 500 mg In 250 540 Sodium Chloride 0.9% 250 ml @ 250 mls/hr IVPB DAILY [facility] Rx#:[id number] Other: Voiding Method Bedside Commode Bedside Commode Bedside Commode Incontinent Incontinent Incontinent # Voids 1 # Bowel Movements 1 - Labs CBC & Chem 7: 07/03/24 07:06 07/03/24 07:06 Labs: Abnormal Lab Results - Last 24 Hours (Table) 07/02/24 07/02/24 07/03/24 Range/Units 16:16 20:31 06:27 WBC (3.8-10.6) k/uL RBC (3.80-5.40) m/uL Hgb (11.4-16.0) gm/dL Neutrophils # (1.3-7.7) k/uL Lymphocytes # (1.0-4.8) k/uL Carbon Dioxide (22-30) mmol/L BUN (7-17) mg/dL POC Glucose (mg/dL) 168 H 137 H 124 H (70-110) mg/dL Total Bilirubin (0.2-1.3) mg/dL ALT (4-34) U/L Total Protein (6.3-8.2) g/dL Albumin (3.5-5.0) g/dL 07/03/24 07/03/24 07/03/24 Range/Units 07:06 07:06 11:27 WBC 10.7 H (3.8-10.6) k/uL RBC 3.69 L (3.80-5.40) m/uL Hgb 10.8 L (11.4-16.0) gm/dL Neutrophils # 9.9 H (1.3-7.7) k/uL Lymphocytes # 0.5 L (1.0-4.8) k/uL Carbon Dioxide 31 H (22-30) mmol/L BUN 36 H (7-17) mg/dL POC Glucose (mg/dL) 164 H (70-110) mg/dL Total Bilirubin 0.1 L (0.2-1.3) mg/dL ALT 40 H (4-34) U/L Total Protein 5.4 L (6.3-8.2) g/dL Albumin 2.7 L (3.5-5.0) g/dL
[2024-07-03 16:57] LABS: Glucose,Whole Blood 163 mg/dL (70-110)
[2024-07-03 19:59] LABS: Glucose,Whole Blood 132 mg/dL (70-110)
[2024-07-04 06:18] LABS: Glucose,Whole Blood 118 mg/dL (70-110)
[2024-07-04 08:15] LABS: Basophils % (A) 0 %; Eosinophils % (A) 0 %; HCT 34.5 % (34.0-46.0); Lymphocytes # (A) 0.5 k/uL (1.0-4.8); Lymphocytes % (A) 6 %; MCH 29.8 pg (25.0-35.0); MCV 93.1 fL (80.0-100.0); Mean Platelet Volume 7.9; Monocytes # (A) 0.2 k/uL (0-1.0); Monocytes % (A) 2 %; Neutrophils # (A) 8.3 k/uL (1.3-7.7); Neutrophils % (A) 92 %; Platelet Count 306 k/uL (150-450); RDW 14.1 % (11.5-15.5); WBC 9.1 k/uL (3.8-10.6)
[2024-07-04] MEDS: ACETAMINOPHEN TAB 325 MG TAB PO PRN (08:30)
[2024-07-04 08:35] LABS: ALT 41 U/L (4-34); AST 27 U/L (14-36); African American GFR (CKD) 87 (>60 ml/min/1.73 sqM); Albumin 2.6 g/dL (3.5-5.0); Alkaline Phosphatase 98 U/L (38-126); Anion Gap 4 mmol/L; Blood Urea Nitrogen 34 mg/dL (7-17); Calcium 8.9 mg/dL (8.4-10.2); Carbon Dioxide 32 mmol/L (22-30); Chloride 101 mmol/L (98-107); Glucose 99 mg/dL (74-99); Non-African American GFR(CKD) 76 (>60 ml/min/1.73 sqM); Potassium 4.5 mmol/L (3.5-5.1); Sodium 137 mmol/L (137-145); Total Bilirubin 0.1 mg/dL (0.2-1.3); Total Protein 5.1 g/dL (6.3-8.2)
[2024-07-04 10:35] VITALS: BMI 14.6
[2024-07-04 11:47] LABS: Glucose,Whole Blood 121 mg/dL (70-110)
--- NOTE | 2024-07-04 14:01 | P.PN ---
Subjective Progress Note Date: 07/04/24 Principal diagnosis: Atrial fibrillation with RVR. This is an 89-year-old female, [facility], patient was brought in to the ER with 4 days history of cough, noted to have low oxygen level in the 80s and low 90s at the penit[facility]iary, she was also noted to have significant tachycardia. Patient does not normally wear oxygen. She had previous history of COPD, but not seen on a regular basis by pulmonary. In addition to this the patient was noted to have increased confusion with increased cough and sputum production [facility] the [facility]. Brought into ER, patient was found to have leukocytosis, abnormal chest x-ray suggestive of right lower lobe pneumonia and she was in atrial fibrillation with RVR which is being addressed by cardiology. Patient herself is a poor historian, she had negative testing for COVID-19 RSV and influenza. D-dimer was noted to be elevated at 4.17, patient is presently on heparin. This was ordered by cardiology for her A-fib/RVR. Echocardiogram is pending. Troponin level was elevated at 0.691 patient is now on antibiotics in the form of Zithromax and Rocephin she is also on diltiazem, she is also on updrafts in the form of DuoNeb. And methylprednisolone 40 mg IV push every 8 hours. Patient was seen today on 07/01/2024, patient is feeling a bit better compared to yesterday, on nasal cannula, does not seem to be in distress. For some reason patient had a CT angiogram of the chest yesterday although my clinical index of suspicion for pulmonary embolism is rather low, the CT of the chest showed consolidative changes lower lobes, right more so than left, as well as right middle lobe. Findings are more or less consistent with pneumonia, possible aspiration with atelectasis. Patient is not a great candidate for bronchoscopy, and the patient was made aware that I would not recommend bronchoscopy at this point I would recommend mostly medical therapy.WBC count is 13.0 hemoglobin 10.6 electrolytes are normal renal profile is normal Seen and examined today on 07/02/2024,. Is doing well, feeling much better, breathing easier less cough less shortness of breath. WBC count is a bit elevated at 12.2 hemoglobin 10.4 electrolytes are normal renal profile is normal, procalcitonin level is 2.70, elevated. Seen today on 07/03/2024, patient is feeling much better, breathing a lot easier, hardly any pulmonary symptoms. Chest x-ray is showing significant improvement in her right lower lobe pneumonia, patient has chronic prominence of interstitial markings, this has been noted on previous x-rays on this patient, but the pneumonia picture seems to be improving WBC count is 10.7 hemoglobin 10.8 basic metabolic profile is normal renal profile is normal patient had no fever on this admission, she is hemodynamically stable however she is still on 8 L high flow nasal cannula. CT angiogram of the chest on this patient showed consolidation changes of bilateral lower lobes right greater than left, but I believe the findings are improving based on chest x-ray today procalcitonin level on this admission was 2.7 consistent with pneumonia, remains on antibiotics/Rocephin. Progress note dated July 04, 2024. This is a 89-year-old female who is seen today in room 355. The patient is a DO NOT RESUSCITATE patient. The patient is really not having any major complaints today. Currently, she is on 6 L nasal cannula, laying flat in bed, comfortable, without any respiratory distress or difficulty. She is not receiving any IV fluids. Current labs include a white count 9.1, hemoglobin 11, hematocrit 34.5, and a normal platelet count. Sodium 137, potassium 4.5, chlorides 101, CO2 32, BUN 34, creatinine 0.72. Glucose is 121. Calcium is 8.9. Albumin is 2.6. Objective - Vital Signs Vital signs: Vital Signs Temp 97.3 F L 07/04/24 12:02 Pulse 67 07/04/24 12:02 Resp 16 07/04/24 12:02 BP 116/63 07/04/24 12:02 Pulse Ox 90 L 07/04/24 12:02 FiO2 Intake & Output 07/03/24 07/04/24 07/04/24 18:59 06:59 18:59 Intake Total 780 Balance 780 Weight 35 kg 35 kg Intake: Oral 780 Other: Voiding Method Bedside Commode Bedside Commode Bedside Commode Incontinent Incontinent Incontinent # Voids 3 1 # Bowel Movements 1 1 - Exam No acute distress, oriented 3. Currently on 6 L. HEENT examination is grossly unremarkable. Mucous membranes are moist. No oral lesions. Neck supple. Full range of motion. No adenopathy thyromegaly or neck vein distention. Cardiovascular examination reveals an irregular rhythm and rate. S1-S2 normal. No S3 or S4. No discernible murmur noted. Lungs reveal diminished breath sounds at the bases. No wheezes, rhonchi, or crackles. Abdomen soft bowel sounds are heard. No masses or tenderness. Extremities are intact. No cyanosis clubbing or edema. Skin is without rash or lesion. Neurologic examination is brief but nonfocal. - Labs CBC & Chem 7: 07/04/24 07:09 07/04/24 07:09 Labs: Abnormal Lab Results - Last 24 Hours (Table) 07/03/24 07/03/24 07/04/24 Range/Units 16:53 19:58 06:17 RBC (3.80-5.40) m/uL Hgb (11.4-16.0) gm/dL Neutrophils # (1.3-7.7) k/uL Lymphocytes # (1.0-4.8) k/uL Carbon Dioxide (22-30) mmol/L BUN (7-17) mg/dL POC Glucose (mg/dL) 163 H 132 H 118 H (70-110) mg/dL Total Bilirubin (0.2-1.3) mg/dL ALT (4-34) U/L Total Protein (6.3-8.2) g/dL Albumin (3.5-5.0) g/dL 07/04/24 07/04/24 07/04/24 Range/Units 07:09 07:09 11:45 RBC 3.70 L (3.80-5.40) m/uL Hgb 11.0 L (11.4-16.0) gm/dL Neutrophils # 8.3 H (1.3-7.7) k/uL Lymphocytes # 0.5 L (1.0-4.8) k/uL Carbon Dioxide 32 H (22-30) mmol/L BUN 34 H (7-17) mg/dL POC Glucose (mg/dL) 121 H (70-110) mg/dL Total Bilirubin 0.1 L (0.2-1.3) mg/dL ALT 41 H (4-34) U/L Total Protein 5.1 L (6.3-8.2) g/dL Albumin 2.6 L (3.5-5.0) g/dL Assessment and Plan Assessment: Bibasilar pneumonia, possibly related to underlying aspiration. Acute on chronic hypoxemic respiratory failure. Moderately severe COPD. Tobacco dependence syndrome. Atrial fibrillation with RVR. History of dementia. Plan: Plan dated July 04, 2024. The patient is seen today in room 355. Her nasal O2 has been reduced down to 6 L from 8 yesterday. She is not receiving any IV fluids. She is awake and alert in no distress. She is laying flat in bed. Labs, x-rays, and all medications are reviewed. The patient continues on Rocephin. Additional recommendations and suggestions are forthcoming. She also continues on updrafts, and Solu- Medrol. Prognosis is poor. Time with Patient: Less than 30
--- NOTE | 2024-07-04 14:33 | P.PN ---
Subjective Progress Note Date: 07/04/24 Principal diagnosis: Hospital course: Patient is 89-year-old female with COPD presenting with shortness of breath and tachycardia. Patient states she has 4 days of coughing at her long-term care facility with stated oxygen saturation in 80s to 90s percent. She states she is now on oxygen was on nonrebreather 15 L O2 before admission and baseline does not wear her supplemental O2. No stated sputum production. While she is coughing she is having some generalized chest pain worse centrally. She also was found to have black stool in ER. Patient reports absence of diaphoresis, nausea, vomiting, constipation, diarrhea, abdominal pain, dizziness, and dysuria. Labs completed in ER significant for WBC 24.9, hemoglobin 10.7, sodium 135, potassium 2.8, BUN 40, glucose 128, lactic acid 2.6 => 1.7, AST 43, alkaline phosphatase 170, troponin 0.087 => 0.292 => 0.691. Fecal occult blood positive. EKG done in the ER independently interpreted showed sinus rhythm with occasion al supraventricular premature complexes heart rate of 95, no ST segment elevation or depression seen, no T-wave inversions seen. Chest x-ray done independently interpreted in the ER showed right lung base consolidation, advanced diffuse chronic course interstitial markings 07/01/2024 Patient seen and examined at bedside. No acute events overnight. She is being seen by pulmonology and is not a great candidate for bronchoscopy which was discussed with family. She continues on high flow nasal cannula 10 L satting at 95%. She does continue to endorse cough. She continues on azithromycin and ceftriaxone. Continues on heparin for now. Discontinued continue Cardizem. Significant labs for today WBC 13, hemoglobin 10.6, BUN 35, glucose 114, AST 41 ALT 38, alkaline phosphatase 165, procalcitonin 2.7. CT angiogram chest with no pulmonary embolism with scattered nodular-like opacities throughout the lungs, duplex ultrasound of lower extremities with no DVT. 07/02/2024 Patient seen and examined at bedside. No acute events overnight. Patient continues on high flow nasal cannula 8 L of oxygen. She continues on ceftriaxone 2 g daily. Heparin discontinued. Today's chest x-ray with similar findings as previous x-ray showing increased interstitial lung markings throughout her chest. Labs today significant for WBC 12.2, hemoglobin 10.4, sodium 139, potassium 4.2, BUN 37, creatinine 0.77. 07/03. Patient seen and examined. Continues to require 8 L of oxygen. Patient has poor memory. Denies any chest pain or shortness of breath. 07/04/24: Patient evaluated at bedside today. No acute events overnight. Patient is doing better today and is on 6 L of high flow nasal cannula and saturating at 93%. Labs today show WBC 9.1, hemoglobin 11, bicarb 32, BUN 34. Review of systems: Pertinent positives and negatives as discussed in HPI, a complete review of systems was performed and all other systems are negative. Vitals: Signs Reviewed Physical examination: Vital signs reviewed General: Frail looking, appears at stated age Derm: warm, dry, intact Head: atraumatic, normocephalic, symmetric Eyes: EOMI, anicteric sclera Mouth: no lip lesion, mucus membranes moist Cardiovascular: S1 S2 reg, no murmur Lungs: Coarse breath sounds bilaterally, no wheeze, no rhonchi Abdominal: soft, non-tender to palpataion Extremities: No cyanosis, clubbing, or pedal edema. Neuro: Alert, Oriented, Gross neurological examination did not reveal any focal deficits. Psych: well appearing, appropriate affect Assessment/Plan: Patient is 89-year-old female with COPD presenting with shortness of breath and tachycardia. She has been admitted for severe sepsis due to pneumonia and acute on chronic hypoxic respiratory failure. Patient continues to be on Rocephin and supplemental oxygen via high flow nasal cannula. #Severe Sepsis due to pneumonia #Acute on chronic hypoxic respiratory failure #Mild to moderate COPD exacerbation #Tobacco addiction Monitor vital sign Monitor CBC Monitor CMP Continue ox supplementation Continue IV Rocephin Aggressive bronchopulmonary hygiene Breathing treatments Pulmonology following #Elevated troponin in setting of demand ischemia from A-fib with RVR and above EKG with no ST elevation or depression Cardiology evaluated, recommend no ischemic workup at this time #Melena Monitor CBC Surgery following #Hypokalemia Monitor BMP #Failure to thrive, BMI 14.4 Patient resides at [facility] Resume home medications F: None E: Potassium replacement protocol N: Liquid diet GI prophylaxis: Pantoprazole 40 mg IVP daily Attestation I have seen and examined this patient with my resident , discussed the same with the resident/RAQUEL, and agree with the dictator's assessment and plan as written Dr. Sherif ortiz Objective - Vital Signs Vital signs: Vital Signs Temp 97.8 F 07/04/24 04:00 Pulse 65 07/04/24 04:00 Resp 18 07/04/24 04:00 BP 112/62 07/04/24 04:00 Pulse Ox 93 L 07/04/24 04:00 FiO2 Intake & Output 07/03/24 07/04/24 07/04/24 18:59 06:59 18:59 Intake Total 780 Balance 780 Weight 35 kg Intake: Oral 780 Other: Voiding Method Bedside Commode Bedside Commode Incontinent Incontinent # Voids 3 1 # Bowel Movements 1 1 - Labs CBC & Chem 7: 07/05/24 06:45 07/05/24 06:45 Labs: Abnormal Lab Results - Last 24 Hours (Table) 07/03/24 07/03/24 07/03/24 Range/Units 07:06 07:06 11:27 WBC 10.7 H (3.8-10.6) k/uL RBC 3.69 L (3.80-5.40) m/uL Hgb 10.8 L (11.4-16.0) gm/dL Neutrophils # 9.9 H (1.3-7.7) k/uL Lymphocytes # 0.5 L (1.0-4.8) k/uL Carbon Dioxide 31 H (22-30) mmol/L BUN 36 H (7-17) mg/dL POC Glucose (mg/dL) 164 H (70-110) mg/dL Total Bilirubin 0.1 L (0.2-1.3) mg/dL ALT 40 H (4-34) U/L Total Protein 5.4 L (6.3-8.2) g/dL Albumin 2.7 L (3.5-5.0) g/dL 07/03/24 07/03/24 07/04/24 Range/Units 16:53 19:58 06:17 WBC (3.8-10.6) k/uL RBC (3.80-5.40) m/uL Hgb (11.4-16.0) gm/dL Neutrophils # (1.3-7.7) k/uL Lymphocytes # (1.0-4.8) k/uL Carbon Dioxide (22-30) mmol/L BUN (7-17) mg/dL POC Glucose (mg/dL) 163 H 132 H 118 H (70-110) mg/dL Total Bilirubin (0.2-1.3) mg/dL ALT (4-34) U/L Total Protein (6.3-8.2) g/dL Albumin (3.5-5.0) g/dL
[2024-07-04 16:39] LABS: Glucose,Whole Blood 173 mg/dL (70-110)
[2024-07-05 06:23] LABS: Glucose,Whole Blood 100 mg/dL (70-110)
[2024-07-05 08:35] LABS: HCT 34.6 % (34.0-46.0); Hypochromasia Slight; MCH 29.5 pg (25.0-35.0); MCHC 31.8 g/dL (31.0-37.0); MCV 92.6 fL (80.0-100.0); Mean Platelet Volume 7.8; Platelet Count 322 k/uL (150-450); RBC 3.73 m/uL (3.80-5.40); WBC 11.1 k/uL (3.8-10.6)
[2024-07-05 08:39] LABS: African American GFR (CKD) >90 (>60 ml/min/1.73 sqM); Anion Gap 2 mmol/L; Blood Urea Nitrogen 32 mg/dL (7-17); Calcium 8.6 mg/dL (8.4-10.2); Carbon Dioxide 31 mmol/L (22-30); Chloride 102 mmol/L (98-107); Glucose 98 mg/dL (74-99); Non-African American GFR(CKD) 80 (>60 ml/min/1.73 sqM); Potassium 4.6 mmol/L (3.5-5.1); Sodium 135 mmol/L (137-145)
[2024-07-05 11:40] LABS: Glucose,Whole Blood 141 mg/dL (70-110)
--- NOTE | 2024-07-05 12:24 | P.PN ---
Subjective Progress Note Date: 07/05/24 Principal diagnosis: Hospital course: Patient is 89-year-old female with COPD presenting with shortness of breath and tachycardia. Patient states she has 4 days of coughing at her long-term care facility with stated oxygen saturation in 80s to 90s percent. She states she is now on oxygen was on nonrebreather 15 L O2 before admission and baseline does not wear her supplemental O2. No stated sputum production. While she is coughing she is having some generalized chest pain worse centrally. She also was found to have black stool in ER. Patient reports absence of diaphoresis, nausea, vomiting, constipation, diarrhea, abdominal pain, dizziness, and dysuria. Labs completed in ER significant for WBC 24.9, hemoglobin 10.7, sodium 135, potassium 2.8, BUN 40, glucose 128, lactic acid 2.6 => 1.7, AST 43, alkaline phosphatase 170, troponin 0.087 => 0.292 => 0.691. Fecal occult blood positive. EKG done in the ER independently interpreted showed sinus rhythm with occasional supraventricular premature complexes heart rate of 95, no ST segment elevation or depression seen, no T-wave inversions seen. Chest x-ray done independently interpreted in the ER showed right lung base consolidation, advanced diffuse chronic course interstitial markings 07/01/2024 Patient seen and examined at bedside. No acute events overnight. She is being seen by pulmonology and is not a great candidate for bronchoscopy which was discussed with family. She continues on high flow nasal cannula 10 L satting at 95%. She does continue to endorse cough. She continues on azithromycin and ceftriaxone. Continues on heparin for now. Discontinued continue Cardizem. Significant labs for today WBC 13, hemoglobin 10.6, BUN 35, glucose 114, AST 41 ALT 38, alkaline phosphatase 165, procalcitonin 2.7. CT angiogram chest with no pulmonary embolism with scattered nodular-like opacities throughout the lungs, duplex ultrasound of lower extremities with no DVT. 07/02/2024 Patient seen and examined at bedside. No acute events overnight. Patient continues on high flow nasal cannula 8 L of oxygen. She continues on ceftriaxone 2 g daily. Heparin discontinued. Today's chest x-ray with similar findings as previous x-ray showing increased interstitial lung markings throughout her chest. Labs today significant for WBC 12.2, hemoglobin 10.4, sodium 139, potassium 4.2, BUN 37, creatinine 0.77. 07/03. Patient seen and examined. Continues to require 8 L of oxygen. Patient has poor memory. Denies any chest pain or shortness of breath. 07/04/24: Patient evaluated at bedside today. No acute events overnight. Patient is doing better today and is on 6 L of oxygen via high flow nasal cannula and saturating at 93%. Labs today show WBC 9.1, hemoglobin 11, bicarb 32, BUN 34. 07/05/24: Patient examined today. No new complaints. Patient continues to be on 6L of oxygen via high flow nasal cannula and saturating at 97%. Labs today show WBC 11.1, hemoglobin 11, sodium 135, bicarb 31, BUN 32. Review of systems: Pertinent positives and negatives as discussed in HPI, a complete review of systems was performed and all other systems are negative. Labs today show Vitals: Signs Reviewed Physical examination: General: Frail looking, appears at stated age Derm: warm, dry, intact Head: atraumatic, normocephalic, symmetric Eyes: EOMI, anicteric sclera Mouth: no lip lesion, mucus membranes moist Cardiovascular: S1 S2 reg, no murmur Lungs: Coarse breath sounds bilaterally, no wheeze, no rhonchi Abdominal: soft, non-tender to palpataion Extremities: No cyanosis, clubbing, or pedal edema. Neuro: Alert, Oriented, Gross neurological examination did not reveal any focal deficits. Psych: well appearing, appropriate affect Assessment/Plan: Patient is 89-year-old female with COPD presenting with shortness of breath and tachycardia. She has been admitted for severe sepsis due to pneumonia and acute on chronic hypoxic respiratory failure. Patient continues to be on Rocephin and supplemental oxygen via high flow nasal cannula. #Severe Sepsis due to pneumonia #Acute on chronic hypoxic respiratory failure #Mild to moderate COPD exacerbation #Tobacco addiction Monitor vital sign Monitor CBC Monitor CMP Continue ox supplementation Continue IV Rocephin Aggressive bronchopulmonary hygiene Breathing treatments Pulmonology following #Elevated troponin in setting of demand ischemia from A-fib with RVR and above EKG with no ST elevation or depression Cardiology evaluated, recommend no ischemic workup at this time #Melena Monitor CBC Surgery following #Hypokalemia, resolved #Failure to thrive, BMI 14.4 Patient resides at [facility] Resume home medications F: None E: Replete as required N: Liquid diet GI prophylaxis: Pantoprazole 40 mg IVP daily Attestation I have seen and examined this patient with my resident , discussed the same with the resident/RAQUEL, and agree with the dictator's assessment and plan as written Dr. Sherif ortiz Objective - Vital Signs Vital signs: Vital Signs Temp 97.6 F 07/05/24 04:00 Pulse 63 07/05/24 04:00 Resp 17 07/05/24 04:00 BP 129/65 07/05/24 04:00 Pulse Ox 97 07/05/24 04:00 FiO2 Intake & Output 07/04/24 07/05/24 07/05/24 18:59 06:59 18:59 Intake Total 240 Balance 240 Weight 35 kg 35.5 kg Intake: Oral 240 Other: Voiding Method Bedside Commode Bedside Commode Incontinent Incontinent # Voids 2 1 # Bowel Movements 1 - Labs CBC & Chem 7: 07/06/24 06:43 07/06/24 06:43 Labs: Abnormal Lab Results - Last 24 Hours (Table) 07/04/24 07/04/24 07/04/24 Range/Units 07:09 07:09 11:45 RBC 3.70 L (3.80-5.40) m/uL Hgb 11.0 L (11.4-16.0) gm/dL Neutrophils # 8.3 H (1.3-7.7) k/uL Lymphocytes # 0.5 L (1.0-4.8) k/uL Carbon Dioxide 32 H (22-30) mmol/L BUN 34 H (7-17) mg/dL POC Glucose (mg/dL) 121 H (70-110) mg/dL Total Bilirubin 0.1 L (0.2-1.3) mg/dL ALT 41 H (4-34) U/L Total Protein 5.1 L (6.3-8.2) g/dL Albumin 2.6 L (3.5-5.0) g/dL 07/04/24 Range/Units 16:34 RBC (3.80-5.40) m/uL Hgb (11.4-16.0) gm/dL Neutrophils # (1.3-7.7) k/uL Lymphocytes # (1.0-4.8) k/uL Carbon Dioxide (22-30) mmol/L BUN (7-17) mg/dL POC Glucose (mg/dL) 173 H (70-110) mg/dL Total Bilirubin (0.2-1.3) mg/dL ALT (4-34) U/L Total Protein (6.3-8.2) g/dL Albumin (3.5-5.0) g/dL
--- NOTE | 2024-07-05 14:22 | P.PN ---
Subjective Progress Note Date: 07/05/24 Principal diagnosis: Atrial fibrillation with RVR. This is an 89-year-old female, resident of [facility], patient was brought in to the ER with 4 days history of cough, noted to have low oxygen level in the 80s and low 90s at the [facility], she was also noted to have significant tachycardia. Patient does not normally wear oxygen. She had previous history of COPD, but not seen on a regular basis by pulmonary. In addition to this the patient was noted to have increased confusion with increased cough and sputum production while at the [facility]. Brought into ER, patient was found to have leukocytosis, abnormal chest x-ray suggestive of right lower lobe pneumonia and she was in atrial fibrillation with RVR which is being addressed by cardiology. Patient herself is a poor historian, she had negative testing for COVID-19 RSV and influenza. D-dimer was noted to be elevated at 4.17, patient is presently on heparin. This was ordered by cardiology for her A-fib/RVR. Echocardiogram is pending. Troponin level was elevated at 0.691 patient is now on antibiotics in the form of Zithromax and Rocephin she is also on diltiazem, she is also on updrafts in the form of DuoNeb. And methylprednisolone 40 mg IV push every 8 hours. Patient was seen today on 07/01/2024, patient is feeling a bit better compared to yesterday, on nasal cannula, does not seem to be in distress. For some reason patient had a CT angiogram of the chest yesterday although my clinical index of suspicion for pulmonary embolism is rather low, the CT of the chest showed consolidative changes lower lobes, right more so than left, as well as right middle lobe. Findings are more or less consistent with pneumonia, possible aspiration with atelectasis. Patient is not a great candidate for bronchoscopy, and the patient was made aware that I would not recommend bronchoscopy at this point I would recommend mostly medical therapy.WBC count is 13.0 hemoglobin 10.6 electrolytes are normal renal profile is normal Seen and examined today on 07/02/2024,. Is doing well, feeling much better, breathing easier less cough less shortness of breath. WBC count is a bit elevated at 12.2 hemoglobin 10.4 electrolytes are normal renal profile is normal, procalcitonin level is 2.70, elevated. Seen today on 07/03/2024, patient is feeling much better, breathing a lot easier, hardly any pulmonary symptoms. Chest x-ray is showing significant improvement in her right lower lobe pneumonia, patient has chronic prominence of interstitial markings, this has been noted on previous x-rays on this patient, but the pneumonia picture seems to be improving WBC count is 10.7 hemoglobin 10.8 basic metabolic profile is normal renal profile is normal patient had no fever on this admission, she is hemodynamically stable however she is still on 8 L high flow nasal cannula. CT angiogram of the chest on this patient showed consolidation changes of bilateral lower lobes right greater than left, but I believe the findings are improving based on chest x-ray today procalcitonin level on this admission was 2.7 consistent with pneumonia, remains on antibiotics/Rocephin. Progress note dated July 04, 2024. This is a 89-year-old female who is seen today in room 355. The patient is a DO NOT RESUSCITATE patient. The patient is really not having any major complaints today. Currently, she is on 6 L nasal cannula, laying flat in bed, comfortable, without any respiratory distress or difficulty. She is not receiving any IV fluids. Current labs include a white count 9.1, hemoglobin 11, hematocrit 34.5, and a normal platelet count. Sodium 137, potassium 4.5, chlorides 101, CO2 32, BUN 34, creatinine 0.72. Glucose is 121. Calcium is 8.9. Albumin is 2.6. Progress note dated July 05, 2024. 89-year-old female seen today in room 355. The patient is a DO NOT RESUSCITATE patient. Currently, she remains on nasal O2 at 6 L. No IV fluids. She appears in no acute distress. Current laboratory data includes a white count 11.1, hemoglobin 11, hematocrit 34.6, and a normal platelet count of 322,000. Sodium 135, potassium 4.6, chlorides 102, CO2 31, anion gap 2, BUN 32, creatinine 0.65. Glucose is 141. Calcium is 8.6. Objective - Vital Signs Vital signs: Vital Signs Temp 98.0 F 07/05/24 09:49 Pulse 70 07/05/24 11:39 Resp 18 07/05/24 11:39 BP 145/59 07/05/24 11:39 Pulse Ox 91 L 07/05/24 11:39 FiO2 Intake & Output 07/04/24 07/05/24 07/05/24 18:59 06:59 18:59 Intake Total 240 360 Balance 240 360 Weight 35 kg 35.5 kg Intake: Oral 240 360 Other: Voiding Method Bedside Commode Bedside Commode Bedside Commode Incontinent Incontinent Incontinent # Voids 2 1 1 # Bowel Movements 1 - Exam No acute distress, oriented 3. Currently on 6 L. HEENT examination is grossly unremarkable. Mucous membranes are moist. No oral lesions. Neck supple. Full range of motion. No adenopathy thyromegaly or neck vein distention. Cardiovascular examination reveals an irregular rhythm and rate. S1-S2 normal. No S3 or S4. No discernible murmur noted. Lungs reveal diminished breath sounds at the bases. No wheezes, rhonchi, or crackles. Abdomen soft bowel sounds are heard. No masses or tenderness. Extremities are intact. No cyanosis clubbing or edema. Skin is without rash or lesion. Neurologic examination is brief but nonfocal. - Labs CBC & Chem 7: 07/05/24 06:45 07/05/24 06:45 Labs: Abnormal Lab Results - Last 24 Hours (Table) 07/04/24 07/05/24 07/05/24 Range/Units 16:34 06:45 06:45 WBC 11.1 H (3.8-10.6) k/uL RBC 3.73 L (3.80-5.40) m/uL Hgb 11.0 L (11.4-16.0) gm/dL Sodium 135 L (137-145) mmol/L Carbon Dioxide 31 H (22-30) mmol/L BUN 32 H (7-17) mg/dL POC Glucose (mg/dL) 173 H (70-110) mg/dL 07/05/24 Range/Units 11:38 WBC (3.8-10.6) k/uL RBC (3.80-5.40) m/uL Hgb (11.4-16.0) gm/dL Sodium (137-145) mmol/L Carbon Dioxide (22-30) mmol/L BUN (7-17) mg/dL POC Glucose (mg/dL) 141 H (70-110) mg/dL Assessment and Plan Assessment: Bibasilar pneumonia, possibly related to underlying aspiration. Acute on chronic hypoxemic respiratory failure. Moderately severe COPD. Tobacco dependence syndrome. Atrial fibrillation with RVR. History of dementia. Plan: Plan dated July 04, 2024. The patient is seen today in room 355. Her nasal O2 has been reduced down to 6 L from 8 yesterday. She is not receiving any IV fluids. She is awake and alert in no distress. She is laying flat in bed. Labs, x-rays, and all medications are reviewed. The patient continues on Rocephin. Additional recommendations and suggestions are forthcoming. She also continues on updrafts, and Solu- Medrol. Prognosis is poor. Plan dated July 05, 2024. The patient is seen today in room 355. Her oxygen is set at 6 L by nasal cannula, high flow. The patient is not receiving any IV fluids. She continues on Rocephin. I have ordered a procalcitonin level. Other labs and medications are reviewed. We will continue to follow the patient, make recommendations along the way. Prognosis is certainly guarded. Time with Patient: Less than 30
[2024-07-05 16:15] LABS: Glucose,Whole Blood 165 mg/dL (70-110)
[2024-07-05 20:00] LABS: Glucose,Whole Blood 123 mg/dL (70-110)
[2024-07-05] MEDS: HALOPERIDOL LACTATE 5 MG/ML 1 ML VIAL IM STA (22:36)
[2024-07-06 06:20] LABS: Glucose,Whole Blood 103 mg/dL (70-110)
[2024-07-06 08:01] LABS: African American GFR (CKD) 82 (>60 ml/min/1.73 sqM); Anion Gap 3 mmol/L; Blood Urea Nitrogen 28 mg/dL (7-17); Calcium 8.8 mg/dL (8.4-10.2); Carbon Dioxide 31 mmol/L (22-30); Chloride 100 mmol/L (98-107); Glucose 93 mg/dL (74-99); Non-African American GFR(CKD) 72 (>60 ml/min/1.73 sqM); Potassium 5.3 mmol/L (3.5-5.1); Sodium 134 mmol/L (137-145)
[2024-07-06 08:26] LABS: HCT 35.6 % (34.0-46.0); HGB 11.3 gm/dL (11.4-16.0); Hypochromasia Slight; MCH 29.4 pg (25.0-35.0); MCHC 31.7 g/dL (31.0-37.0); MCV 92.7 fL (80.0-100.0); Mean Platelet Volume 8.2; Platelet Count 324 k/uL (150-450); RBC 3.84 m/uL (3.80-5.40); RDW 13.9 % (11.5-15.5); WBC 11.2 k/uL (3.8-10.6)
--- NOTE | 2024-07-06 11:21 | P.PN ---
Subjective Progress Note Date: 07/06/24 Principal diagnosis: Hospital course: Patient is 89-year-old female with COPD presenting with shortness of breath and tachycardia. Patient states she has 4 days of coughing at her long-term care facility with stated oxygen saturation in 80s to 90s percent. She states she is now on oxygen was on nonrebreather 15 L O2 before admission and baseline does not wear her supplemental O2. No stated sputum production. While she is coughing she is having some generalized chest pain worse centrally. She also was found to have black stool in ER. Patient reports absence of diaphoresis, nausea, vomiting, constipation, diarrhea, abdominal pain, dizziness, and dysuria. Labs completed in ER significant for WBC 24.9, hemoglobin 10.7, sodium 135, potassium 2.8, BUN 40, glucose 128, lactic acid 2.6 => 1.7, AST 43, alkaline phosphatase 170, troponin 0.087 => 0.292 => 0.691. Fecal occult blood positive. EKG done in the ER independently interpreted showed sinus rhythm with occasional supraventricular premature complexes heart rate of 95, no ST segment elevation or depression seen, no T-wave inversions seen. Chest x-ray done independently interpreted in the ER showed right lung base consolidation, advanced diffuse chronic course interstitial markings 07/01/2024 Patient seen and examined at bedside. No acute events overnight. She is being seen by pulmonology and is not a great candidate for bronchoscopy which was discussed with family. She continues on high flow nasal cannula 10 L satting at 95%. She does continue to endorse cough. She continues on azithromycin and ceftriaxone. Continues on heparin for now. Discontinued continue Cardizem. Significant labs for today WBC 13, hemoglobin 10.6, BUN 35, glucose 114, AST 41 ALT 38, alkaline phosphatase 165, procalcitonin 2.7. CT angiogram chest with no pulmonary embolism with scattered nodular-like opacities throughout the lungs, duplex ultrasound of lower extremities with no DVT. 07/02/2024 Patient seen and examined at bedside. No acute events overnight. Patient continues on high flow nasal cannula 8 L of oxygen. She continues on ceftriaxone 2 g daily. Heparin discontinued. Today's chest x-ray with similar findings as previous x-ray showing increased interstitial lung markings throughout her chest. Labs today significant for WBC 12.2, hemoglobin 10.4, sodium 139, potassium 4.2, BUN 37, creatinine 0.77. 07/03. Patient seen and examined. Continues to require 8 L of oxygen. Patient has poor memory. Denies any chest pain or shortness of breath. 07/04/24: Patient evaluated at bedside today. No acute events overnight. Patient is doing better today and is on 6 L of oxygen via high flow nasal cannula and saturating at 93%. Labs today show WBC 9.1, hemoglobin 11, bicarb 32, BUN 34. 07/05/24: Patient examined today. No new complaints. Patient continues to be on 6L of oxygen via high flow nasal cannula and saturating at 97%. Labs today show WBC 11.1, hemoglobin 11, sodium 135, bicarb 31, BUN 32. 07/06/24: Patient is evaluated at bedside. He continues to be on 6L oxygen via high flow nasal cannula and is saturating at 96%. She complains of burning and irritation around the nostrils because of the nasal cannula. Labs today show hemoglobin 11.3, WBC 11.2, sodium 134, potassium 5.3, bicarb 31, BUN 20. Review of systems: Pertinent positives and negatives as discussed in HPI, a complete review of systems was performed and all other systems are negative. Vitals: Signs Reviewed Physical examination: General: Frail looking, appears at stated age Derm: warm, dry, intact Head: atraumatic, normocephalic, symmetric Eyes: EOMI, anicteric sclera Mouth: no lip lesion, mucus membranes moist Cardiovascular: S1 S2 reg, no murmur Lungs: Coarse breath sounds bilaterally, no wheeze, no rhonchi Abdominal: soft, non-tender to palpataion Extremities: No cyanosis, clubbing, or pedal edema. Neuro: Alert, Oriented, Gross neurological examination did not reveal any focal deficits. Psych: well appearing, appropriate affect Assessment/Plan: Patient is 89-year-old female with COPD presenting with shortness of breath and tachycardia. She has been admitted for severe sepsis due to pneumonia and acute on chronic hypoxic respiratory failure. Patient continues to be on Rocephin and supplemental oxygen via high flow nasal cannula. #Severe Sepsis due to pneumonia #Acute on chronic hypoxic respiratory failure #Mild to moderate COPD exacerbation #Tobacco addiction Monitor vital sign Monitor CBC Monitor CMP Continue ox supplementation Continue IV Rocephin Aggressive bronchopulmonary hygiene Breathing treatments Pulmonology following Repeat chest xray Obtain proBNP #Elevated troponin in setting of demand ischemia from A-fib with RVR and above EKG with no ST elevation or depression Cardiology evaluated, recommend no ischemic workup at this time #Melena Monitor CBC Surgery following #Hypokalemia, resolved #Failure to thrive, BMI 14.4 Patient resides at [facility] Resume home medications F: None E: Replete as required N: Liquid diet GI prophylaxis: Pantoprazole 40 mg IVP daily Attestation I have seen and examined this patient with my resident , discussed the same with the resident/RAQUEL, and agree with the dictator's assessment and plan as written Dr. Sherif ortiz Objective - Vital Signs Vital signs: Vital Signs Temp 97.8 F 07/06/24 03:25 Pulse 58 L 07/06/24 03:25 Resp 20 07/06/24 03:25 BP 121/67 07/06/24 03:25 Pulse Ox 96 07/06/24 03:25 FiO2 Intake & Output 07/05/24 07/06/24 07/06/24 18:59 06:59 18:59 Intake Total 540 Balance 540 Weight 39 kg Intake: Oral 540 Other: Voiding Method Bedside Commode Bedside Commode Incontinent Incontinent # Voids 1 1 # Bowel Movements 1 1 - Labs CBC & Chem 7: 07/07/24 05:33 07/07/24 05:33 Labs: Abnormal Lab Results - Last 24 Hours (Table) 07/05/24 07/05/24 07/05/24 Range/Units 06:45 06:45 11:38 WBC 11.1 H (3.8-10.6) k/uL RBC 3.73 L (3.80-5.40) m/uL Hgb 11.0 L (11.4-16.0) gm/dL Sodium 135 L (137-145) mmol/L Carbon Dioxide 31 H (22-30) mmol/L BUN 32 H (7-17) mg/dL POC Glucose (mg/dL) 141 H (70-110) mg/dL 07/05/24 07/05/24 Range/Units 16:13 19:58 WBC (3.8-10.6) k/uL RBC (3.80-5.40) m/uL Hgb (11.4-16.0) gm/dL Sodium (137-145) mmol/L Carbon Dioxide (22-30) mmol/L BUN (7-17) mg/dL POC Glucose (mg/dL) 165 H 123 H (70-110) mg/dL
[2024-07-06 11:28] LABS: Glucose,Whole Blood 123 mg/dL (70-110)
--- NOTE | 2024-07-06 13:14 | P.PN ---
Subjective Progress Note Date: 07/06/24 Principal diagnosis: Atrial fibrillation with RVR. This is an 89-year-old female, [facility], patient was brought in to the ER with 4 days history of cough, noted to have low oxygen level in the 80s and low 90s at the penitentiary, she was also noted to have significant tachycardia. Patient does not normally wear oxygen. She had previous history of COPD, but not seen on a regular basis by pulmonary. In addition to this the patient was noted to have increased confusion with increased cough and sputum production while at the [facility]. Brought into ER, patient was found to have leukocytosis, abnormal chest x-ray suggestive of right lower lobe pneumonia and she was in atrial fibrillation with RVR which is being addressed by cardiology. Patient herself is a poor historian, she had negative testing for COVID-19 RSV and influenza. D-dimer was noted to be elevated at 4.17, patient is presently on heparin. This was ordered by cardiology for her A-fib/RVR. Echocardiogram is pending. Troponin level was elevated at 0.691 patient is now on antibiotics in the form of Zithromax and Rocephin she is also on diltiazem, she is also on updrafts in the form of DuoNeb. And methylprednisolone 40 mg IV push every 8 hours. Patient was seen today on 07/01/2024, patient is feeling a bit better compared to yesterday, on nasal cannula, does not seem to be in distress. For some reason patient had a CT angiogram of the chest yesterday although my clinical index of suspicion for pulmonary embolism is rather low, the CT of the chest showed consolidative changes lower lobes, right more so than left, as well as right middle lobe. Findings are more or less consistent with pneumonia, possible aspiration with atelectasis. Patient is not a great candidate for bronchoscopy, and the patient was made aware that I would not recommend bronchoscopy at this point I would recommend mostly medical therapy.WBC count is 13.0 hemoglobin 10.6 electrolytes are normal renal profile is normal Seen and examined today on 07/02/2024,. Is doing well, feeling much better, breathing easier less cough less shortness of breath. WBC count is a bit elevated at 12.2 hemoglobin 10.4 electrolytes are normal renal profile is normal, procalcitonin level is 2.70, elevated. Seen today on 07/03/2024, patient is feeling much better, breathing a lot easier, hardly any pulmonary symptoms. Chest x-ray is showing significant improvement in her right lower lobe pneumonia, patient has chronic prominence of interstitial markings, this has been noted on previous x-rays on this patient, but the pneumonia picture seems to be improving WBC count is 10.7 hemoglobin 10.8 basic metabolic profile is normal renal profile is normal patient had no fever on this admission, she is hemodynamically stable however she is still on 8 L high flow nasal cannula. CT angiogram of the chest on this patient showed consolidation changes of bilateral lower lobes right greater than left, but I believe the findings are improving based on chest x-ray today procalcitonin level on this admission was 2.7 consistent with pneumonia, remains on antibiotics/Rocephin. Progress note dated July 04, 2024. This is a 89-year-old female who is seen today in room 355. The patient is a DO NOT RESUSCITATE patient. The patient is really not having any major complaints today. Currently, she is on 6 L nasal cannula, laying flat in bed, comfortable, without any respiratory distress or difficulty. She is not receiving any IV fluids. Current labs include a white count 9.1, hemoglobin 11, hematocrit 34.5, and a normal platelet count. Sodium 137, potassium 4.5, chlorides 101, CO2 32, BUN 34, creatinine 0.72. Glucose is 121. Calcium is 8.9. Albumin is 2.6. Progress note dated July 05, 2024. 89-year-old female seen today in room 355. The patient is a DO NOT RESUSCITATE patient. Currently, she remains on nasal O2 at 6 L. No IV fluids. She appears in no acute distress. Current laboratory data includes a white count 11.1, hemoglobin 11, hematocrit 34.6, and a normal platelet count of 322,000. Sodium 135, potassium 4.6, chlorides 102, CO2 31, anion gap 2, BUN 32, creatinine 0.65. Glucose is 141. Calcium is 8.6. Progress note dated July 06, 2024. 89-year-old female seen today in room 355. The patient is currently on 6 L nasal cannula. She is a DO NOT RESUSCITATE patient. She does continue on Rocephin. She denies any respiratory issues such as shortness of breath, cough, wheezing, chest tightness, or phlegm production. Her only complaint is at the oxygen cannula, or drying out her nasal membranes, causing her to have epistaxis. Current labs include a white count 1.2, hemoglobin 0.3, hematocrit 35.6, and a normal platelet count. Sodium 134, potassium 5.3, chlorides 100, CO2 31, BUN 28, creatinine 0.75. Glucose 123. Calcium 8.8. N-terminal proBNP is 2230. Objective - Vital Signs Vital signs: Vital Signs Temp 98.2 F 07/06/24 08:20 Pulse 68 07/06/24 08:20 Resp 17 07/06/24 08:20 BP 116/55 07/06/24 08:20 Pulse Ox 93 L 07/06/24 08:20 FiO2 Intake & Output 07/05/24 07/06/24 07/06/24 18:59 06:59 18:59 Intake Total 540 240 Balance 540 240 Weight 39 kg Intake: Oral 540 240 Other: Voiding Method Bedside Commode Bedside Commode Incontinent Incontinent # Voids 1 1 # Bowel Movements 1 1 - Exam No acute distress, oriented 3. Currently on 6 L. HEENT examination is grossly unremarkable. Mucous membranes are moist. No oral lesions. Neck supple. Full range of motion. No adenopathy thyromegaly or neck vein distention. Cardiovascular examination reveals an irregular rhythm and rate. S1-S2 normal. No S3 or S4. No discernible murmur noted. Lungs reveal diminished breath sounds at the bases. No wheezes, rhonchi, or crackles. Abdomen soft bowel sounds are heard. No masses or tenderness. Extremities are intact. No cyanosis clubbing or edema. Skin is without rash or lesion. Neurologic examination is brief but nonfocal. - Labs CBC & Chem 7: 07/06/24 06:43 07/06/24 06:43 Labs: Abnormal Lab Results - Last 24 Hours (Table) 07/05/24 07/05/24 07/06/24 Range/Units 16:13 19:58 06:43 WBC 11.2 H (3.8-10.6) k/uL Hgb 11.3 L (11.4-16.0) gm/dL Sodium (137-145) mmol/L Potassium (3.5-5.1) mmol/L Carbon Dioxide (22-30) mmol/L BUN (7-17) mg/dL POC Glucose (mg/dL) 165 H 123 H (70-110) mg/dL 07/06/24 07/06/24 Range/Units 06:43 11:26 WBC (3.8-10.6) k/uL Hgb (11.4-16.0) gm/dL Sodium 134 L (137-145) mmol/L Potassium 5.3 H (3.5-5.1) mmol/L Carbon Dioxide 31 H (22-30) mmol/L BUN 28 H (7-17) mg/dL POC Glucose (mg/dL) 123 H (70-110) mg/dL Assessment and Plan Assessment: Bibasilar pneumonia, possibly related to underlying aspiration. Acute on chronic hypoxemic respiratory failure. Moderately severe COPD. Tobacco dependence syndrome. Atrial fibrillation with RVR. History of dementia. Plan: Plan dated July 04, 2024. The patient is seen today in room 355. Her nasal O2 has been reduced down to 6 L from 8 yesterday. She is not receiving any IV fluids. She is awake and alert in no distress. She is laying flat in bed. Labs, x-rays, and all medications are reviewed. The patient continues on Rocephin. Additional recommendations and suggestions are forthcoming. She also continues on updrafts, and Solu- Medrol. Prognosis is poor. Plan dated July 05, 2024. The patient is seen today in room 355. Her oxygen is set at 6 L by nasal cannula, high flow. The patient is not receiving any IV fluids. She continues on Rocephin. I have ordered a procalcitonin level. Other labs and medications are reviewed. We will continue to follow the patient, make recommendations along the way. Prognosis is certainly guarded. Plan dated July 06, 2024. The patient is seen again in room 355. She continues on 6 L of oxygen. That can be titrated down. She continues on Rocephin. The patient is a DO NOT RESUSCITATE patient. Labs, x-rays, and medications are reviewed. The patient's procalcitonin level is 0.19. Antibiotics will be discontinued. Additional recommendations and suggestions are forthcoming. The patient steroids should be discontinued in favor of a Medrol Dosepak. Prognosis is guarded. Time with Patient: Less than 30
[2024-07-06 16:17] LABS: Glucose,Whole Blood 126 mg/dL (70-110)
[2024-07-06 19:49] LABS: Glucose,Whole Blood 105 mg/dL (70-110)
[2024-07-07 06:08] LABS: Glucose,Whole Blood 87 mg/dL (70-110)
[2024-07-07] MEDS: PANTOPRAZOLE 40 MG TABLET PO SCH (06:12)
[2024-07-07 06:47] LABS: HCT 36.2 % (34.0-46.0); HGB 11.5 gm/dL (11.4-16.0); MCH 29.2 pg (25.0-35.0); MCHC 31.6 g/dL (31.0-37.0); MCV 92.2 fL (80.0-100.0); Mean Platelet Volume 7.8; Platelet Count 342 k/uL (150-450); RBC 3.93 m/uL (3.80-5.40); RDW 14.2 % (11.5-15.5); WBC 11.8 k/uL (3.8-10.6)
[2024-07-07 07:07] LABS: African American GFR (CKD) 89 (>60 ml/min/1.73 sqM); Anion Gap 2 mmol/L; Blood Urea Nitrogen 25 mg/dL (7-17); Calcium 8.4 mg/dL (8.4-10.2); Carbon Dioxide 33 mmol/L (22-30); Chloride 98 mmol/L (98-107); Glucose 68 mg/dL (74-99); Non-African American GFR(CKD) 78 (>60 ml/min/1.73 sqM); Potassium 4.6 mmol/L (3.5-5.1); Sodium 133 mmol/L (137-145)
[2024-07-07 08:54] VITALS: RESP 17; TEMP 97.9
--- NOTE | 2024-07-07 09:10 | XR ---
EXAMINATION TYPE: XR chest 1V portable DATE OF EXAM: 07/07/2024 7:01 AM COMPARISON: 07/02/2024 CLINICAL INDICATION: Female, 89 years old with history of shortness of breath, TECHNIQUE: XR chest 1V portable view(s) obtained. FINDINGS: The heart size is normal. The pulmonary vasculature is prominent. Scattered increased lung markings are present. This is improving from comparison. Largest residual re ceferino at the right lung base. Correlate for pulmonary edema. Consider infectious etiology such as pne umonia IMPRESSION: 1. Improving lung infiltrates with residual remaining at the right lung base. 2. Mild prominence pulmonary vascular markings [facility], , 07/07/2024 9:07 AM
[2024-07-07] MEDS: FUROSEMIDE 10 MG/ML 2 ML VIAL IV ONE (09:22)
[2024-07-07] MEDS ORDERED: ZINC OXIDE PASTE (Z-GUARD) 1 APPLIC TOPICAL PRN (09:43)
[2024-07-07 11:46] LABS: Glucose,Whole Blood 81 mg/dL (70-110)
--- NOTE | 2024-07-07 11:53 | P.DS ---
Providers Date of admission: 06/30/24 00:27 Expected date of discharge: 07/07/24 Attending physician: Rodney Yu Consults: 06/30/24 11:03 Consult Physician Routine Consulting Provider: Trista Moffett Consult Reason/Comments: Acute respiratory failure Do you want consulting provider notified?: Yes Primary care physician: Nae Arana, DO Hospital Course: Discharge diagnosis: Severe Sepsis due to pneumonia Acute on chronic hypoxic respiratory failure Mild to moderate COPD exacerbation Tobacco addiction Elevated troponin in setting of demand ischemia from A-fib with RVR and above Melena Hypokalemia, resolved Failure to thrive, BMI 14.4 Hospital Course: Patient is 89-year-old female with COPD presenting with shortness of breath and tachycardia. Patient states she has 4 days of coughing at her long-term care facility with stated oxygen saturation in 80s to 90s percent. She states she is now on oxygen was on nonrebreather 15 L O2 before admission and baseline does not wear her supplemental O2. No stated sputum production. While she is coughing she is having some generalized chest pain worse centrally. She also was found to have black stool in ER. Patient reports absence of diaphoresis, nausea, vomiting, constipation, diarrhea, abdominal pain, dizziness, and dysuria. Labs completed in ER significant for WBC 24.9, hemoglobin 10.7, sodium 135, potassium 2.8, BUN 40, glucose 128, lactic acid 2.6 => 1.7, AST 43, alkaline phosphatase 170, troponin 0.087 => 0.292 => 0.691. Fecal occult blood positive. EKG done in the ER independently interpreted showed sinus rhythm with occasional supraventricular premature complexes heart rate of 95, no ST segment elevation or depression seen, no T-wave inversions seen. Chest x-ray done independently interpreted in the ER showed right lung base consolidation, advanced diffuse chronic course interstitial markings 07/01/2024 Patient seen and examined at bedside. No acute events overnight. She is being seen by pulmonology and is not a great candidate for bronchoscopy which was discussed with family. She continues on high flow nasal cannula 10 L satting at 95%. She does continue to endorse cough. She continues on azithromycin and ceftriaxone. Continues on heparin for now. Discontinued continue Cardizem. Significant labs for today WBC 13, hemoglobin 10.6, BUN 35, glucose 114, AST 41 ALT 38, alkaline phosphatase 165, procalcitonin 2.7. CT angiogram chest with no pulmonary embolism with scattered nodular-like opacities throughout the lungs, duplex ultrasound of lower extremities with no DVT. 07/02/2024 Patient seen and examined at bedside. No acute events overnight. Patient continues on high flow nasal cannula 8 L of oxygen. She continues on ceftriaxone 2 g daily. Heparin discontinued. Today's chest x-ray with similar findings as previous x-ray showing increased interstitial lung markings throughout her chest. Labs today significant for WBC 12.2, hemoglobin 10.4, sodium 139, potassium 4.2, BUN 37, creatinine 0.77. 07/03. Patient seen and examined. Continues to require 8 L of oxygen. Patient has poor memory. Denies any chest pain or shortness of breath. 07/04/24: Patient evaluated at bedside today. No acute events overnight. Patient is doing better today and is on 6 L of oxygen via high flow nasal cannula and saturating at 93%. Labs today show WBC 9.1, hemoglobin 11, bicarb 32, BUN 34. 07/05/24: Patient examined today. No new complaints. Patient continues to be on 6L of oxygen via high flow nasal cannula and saturating at 97%. Labs today show WBC 11.1, hemoglobin 11, sodium 135, bicarb 31, BUN 32. 07/06/24: Patient is evaluated at bedside. He continues to be on 6L oxygen via high flow nasal cannula and is saturating at 96%. She complains of burning and irritation around the nostrils because of the nasal cannula. Labs today show hemoglobin 11.3, WBC 11.2, sodium 134, potassium 5.3, bicarb 31, BUN 20. 07/07/24: Patient seen and examined today. She is now 2L oxygen via nasal cannula. Labs today show WBC 11.8, hemoglobin 11.5, Na 133, bicarb 33, BUN 25, proBNP 2230. Chest Xray shows improving lung infiltrates. Patient seen at bedside today and is feeling good and excited about discharge. Patient will be discharged today and is given a script for Seroquel Patient is advised to be compliant with medications. Patient is advised to follow-up with PCP in 1-2 days and pulmnologist in 1 week. Vital signs are reviewed and stable General: Frail looking, appears at stated age Derm: warm, dry, intact Head: atraumatic, normocephalic, symmetric Eyes: EOMI, anicteric sclera Mouth: no lip lesion, mucus membranes moist Cardiovascular: S1 S2 reg, no murmur Lungs: diminished breath sounds at the bases Abdominal: soft, non-tender to palpataion Extremities: No cyanosis, clubbing, or pedal edema. Neuro: Alert, Oriented, Gross neurological examination did not reveal any focal deficits. Psych: well appearing, appropriate affect A total of 40 minutes of time were spent preparing this complex discharge summary. Patient was discharged on 07/07/24 at 1200. Attestation I have seen and examined this patient with my resident , discussed the same with the resident/RAQUEL, and agree with the dictator's assessment and plan as written Dr. Sherif ortiz Patient Condition at Discharge: Serious Plan - Discharge Summary Discharge Rx Participant: Yes New Discharge Prescriptions: New methylPREDNISolone Dose Pack [Medrol Dose Pack] 4 mg PO DIRECTED #1 packet Losartan [Cozaar] 75 mg PO DAILY 14 Days #14 tab QUEtiapine [SEROquel] 25 mg PO HS 14 Days #14 tab Continue Aspirin EC [Ecotrin Low Dose] 81 mg PO DAILY Ferrous Sulfate [Iron (65 MG Elemental)] 325 mg PO DAILY Cholecalciferol (Vitamin D3) [Vitamin D3 (50 Mcg = 2000 Iu)] 50 mcg PO DAILY Sennosides-Docusate Sodium [Senokot-S] 1 tab PO Q12H PRN PRN Reason: Constipation polyethylene glycoL 3350 [Miralax] 17 gm PO DAILY PRN PRN Reason: Constipation Ipratropium-Albuterol Nebulize [Duoneb 0.5 mg-3 mg/3 ml Soln] 3 ml INHALATION RT-Q4H PRN PRN Reason: Shortness Of Breath/Wheezing Folic Acid 1 mg PO DAILY Atorvastatin [Lipitor] 40 mg PO HS Albuterol Nebulized [Ventolin Nebulized] 2.5 mg INHALATION RT-Q6H PRN PRN Reason: Shortness Of Breath Metoprolol Succinate (ER) [Toprol XL] 100 mg PO DAILY Albuterol Sulfate [Albuterol Sulfate Hfa] 2 puff PO RT-Q4H PRN PRN Reason: Shortness Of Breath busPIRone HCl [Buspar] 5 mg PO BID amLODIPine [Norvasc] 5 mg PO DAILY #90 tab Mirtazapine [Remeron] 15 mg PO HS Cyanocobalamin [Vitamin B-12] 500 mcg PO DAILY Acetaminophen [Tylenol] 650 mg PO Q8H PRN PRN Reason: Pain Discontinued Losartan [Cozaar] 100 mg PO DAILY Discharge Medication List Aspirin EC [Ecotrin Low Dose] 81 mg PO DAILY 12/14/22 [History] Albuterol Sulfate [Albuterol Sulfate Hfa] 2 puff PO RT-Q4H PRN 01/01/24 [History] Cholecalciferol (Vitamin D3) [Vitamin D3 (50 Mcg = 2000 Iu)] 50 mcg PO DAILY 01/01/24 [History] Ferrous Sulfate [Iron (65 MG Elemental)] 325 mg PO DAILY 01/01/24 [History] Metoprolol Succinate (ER) [Toprol XL] 100 mg PO DAILY 01/01/24 [History] busPIRone HCl [Buspar] 5 mg PO BID 01/01/24 [History] amLODIPine [Norvasc] 5 mg PO DAILY #90 tab 01/05/24 [Rx] Acetaminophen [Tylenol] 650 mg PO Q8H PRN 06/30/24 [History] Albuterol Nebulized [Ventolin Nebulized] 2.5 mg INHALATION RT-Q6H PRN 06/30/24 [History] Atorvastatin [Lipitor] 40 mg PO HS 06/30/24 [History] Cyanocobalamin [Vitamin B-12] 500 mcg PO DAILY 06/30/24 [History] Folic Acid 1 mg PO DAILY 06/30/24 [History] Ipratropium-Albuterol Nebulize [Duoneb 0.5 mg-3 mg/3 ml Soln] 3 ml INHALATION RT-Q4H PRN 06/30/24 [History] Mirtazapine [Remeron] 15 mg PO HS 06/30/24 [History] Sennosides-Docusate Sodium [Senokot-S] 1 tab PO Q12H PRN 06/30/24 [History] polyethylene glycoL 3350 [Miralax] 17 gm PO DAILY PRN 06/30/24 [History] Losartan [Cozaar] 75 mg PO DAILY 14 Days #14 tab 07/07/24 [Rx] QUEtiapine [SEROquel] 25 mg PO HS 14 Days #14 tab 07/07/24 [Rx] methylPREDNISolone Dose Pack [Medrol Dose Pack] 4 mg PO DIRECTED #1 packet 07/07/24 [Rx] Follow up Appointment(s)/Referral(s): Nae Arana DO [Primary Care Provider] - 1 Week Selvin Andujar DO [Doctor of Osteopathic Medicine] - 1 Week Discharge Disposition: TRANSFER TO SNF/ECF
[2024-07-07] MEDS: methylPREDNISolone 4 MG TAB TAPER PO SCH (13:00)
--- NOTE | 2024-07-07 13:01 | P.PN ---
Subjective Progress Note Date: 07/07/24 Principal diagnosis: Atrial fibrillation with RVR. This is an 89-year-old female, resident of senior care, patient was brought in to the ER with 4 days history of cough, noted to have low oxygen level in the 80s and low 90s at the senior care, she was also noted to have significant tachycardia. Patient does not normally wear oxygen. She had previous history of COPD, but not seen on a regular basis by pulmonary. In addition to this the patient was noted to have increased confusion with increased cough and sputum production while at the senior care. Brought into ER, patient was found to have leukocytosis, abnormal chest x-ray suggestive of right lower lobe pneumonia and she was in atrial fibrillation with RVR which is being addressed by cardiology. Patient herself is a poor historian, she had negative testing for COVID-19 RSV and influenza. D-dimer was noted to be elevated at 4.17, patient is presently on heparin. This was ordered by cardiology for her A-fib/RVR. Echocardiogram is pending. Troponin level was elevated at 0.691 patient is now on antibiotics in the form of Zithromax and Rocephin she is also on diltiazem, she is also on updrafts in the form of DuoNeb. And methylprednisolone 40 mg IV push every 8 hours. Patient was seen today on 07/01/2024, patient is feeling a bit better compared to yesterday, on nasal cannula, does not seem to be in distress. For some reason patient had a CT angiogram of the chest yesterday although my clinical index of suspicion for pulmonary embolism is rather low, the CT of the chest showed consolidative changes lower lobes, right more so than left, as well as right middle lobe. Findings are more or less consistent with pneumonia, possible aspiration with atelectasis. Patient is not a great candidate for bronchoscopy, and the patient was made aware that I would not recommend bronchoscopy at this point I would recommend mostly medical therapy.WBC count is 13.0 hemoglobin 10.6 electrolytes are normal renal profile is normal Seen and examined today on 07/02/2024,. Is doing well, feeling much better, breathing easier less cough less shortness of breath. WBC count is a bit elevated at 12.2 hemoglobin 10.4 electrolytes are normal renal profile is normal, procalcitonin level is 2.70, elevated. Seen today on 07/03/2024, patient is feeling much better, breathing a lot easier, hardly any pulmonary symptoms. Chest x-ray is showing significant improvement in her right lower lobe pneumonia, patient has chronic prominence of interstitial markings, this has been noted on previous x-rays on this patient, but the pneumonia picture seems to be improving WBC count is 10.7 hemoglobin 10.8 basic metabolic profile is normal renal profile is normal patient had no fever on this admission, she is hemodynamically stable however she is still on 8 L high flow nasal cannula. CT angiogram of the chest on this patient showed consolidation changes of bilateral lower lobes right greater than left, but I believe the findings are improving based on chest x-ray today procalcitonin level on this admission was 2.7 consistent with pneumonia, remains on antibiotics/Rocephin. Progress note dated July 04, 2024. This is a 89-year-old female who is seen today in room 355. The patient is a DO NOT RESUSCITATE patient. The patient is really not having any major complaints today. Currently, she is on 6 L nasal cannula, laying flat in bed, comfortable, without any respiratory distress or difficulty. She is not receiving any IV fluids. Current labs include a white count 9.1, hemoglobin 11, hematocrit 34.5, and a normal platelet count. Sodium 137, potassium 4.5, chlorides 101, CO2 32, BUN 34, creatinine 0.72. Glucose is 121. Calcium is 8.9. Albumin is 2.6. Progress note dated July 05, 2024. 89-year-old female seen today in room 355. The patient is a DO NOT RESUSCITATE patient. Currently, she remains on nasal O2 at 6 L. No IV fluids. She appears in no acute distress. Current laboratory data includes a white count 11.1, hemoglobin 11, hematocrit 34.6, and a normal platelet count of 322,000. Sodium 135, potassium 4.6, chlorides 102, CO2 31, anion gap 2, BUN 32, creatinine 0.65. Glucose is 141. Calcium is 8.6. Progress note dated July 06, 2024. 89-year-old female seen today in room 355. The patient is currently on 6 L nasal cannula. She is a DO NOT RESUSCITATE patient. She does continue on Rocephin. She denies any respiratory issues such as shortness of breath, cough, wheezing, chest tightness, or phlegm production. Her only complaint is at the oxygen cannula, or drying out her nasal membranes, causing her to have epistaxis. Current labs include a white count 1.2, hemoglobin 0.3, hematocrit 35.6, and a normal platelet count. Sodium 134, potassium 5.3, chlorides 100, CO2 31, BUN 28, creatinine 0.75. Glucose 123. Calcium 8.8. N-terminal proBNP is 2230. Progress note dated July 07, 2024. 89-year-old female seen today in room 355. The patient is resting comfortably in bed. She is awake and alert. She is on room air. She is not receiving any IV fluids. She is a DO NOT RESUSCITATE patient. The patient is hoping to be discharged soon. Laboratory data includes a white count 11.8, hemoglobin 9.5, hematocrit 36.2, platelet count 342,000. Sodium 133, potassium 4.6, chlorides 98, CO2 33, BUN 25, creatinine 0.70. Anion gap is normal. Glucose is 81. Calcium 8.4. Chest x-ray from today, shows mild pulmonary vascular markings, but overall, her chest x-ray is improved. Objective - Vital Signs Vital signs: Vital Signs Temp 97.9 F 07/07/24 08:20 Pulse 72 07/07/24 08:20 Resp 17 07/07/24 08:20 BP 118/62 07/07/24 08:20 Pulse Ox 90 L 07/07/24 08:20 FiO2 Intake & Output 07/06/24 07/07/24 07/07/24 18:59 06:59 18:59 Intake Total 240 560 10 Output Total 500 Balance 240 60 10 Weight 42 kg Intake: IV 20 10 Invasive Line 1 20 10 Oral 240 540 0 Output: Urine 500 Other: Voiding Method Bedside Commode Bedside Commode Incontinent Incontinent # Voids 2 # Bowel Movements 2 - Exam No acute distress, oriented 3. Currently on room air. HEENT examination is grossly unremarkable. Mucous membranes are moist. No oral lesions. Neck supple. Full range of motion. No adenopathy thyromegaly or neck vein distention. Cardiovascular examination reveals an irregular rhythm and rate. S1-S2 normal. No S3 or S4. No discernible murmur noted. Lungs reveal diminished breath sounds at the bases. No wheezes, rhonchi, or cr ackles. Abdomen soft bowel sounds are heard. No masses or tenderness. Extremities are intact. No cyanosis clubbing or edema. Skin is without rash or lesion. Neurologic examination is brief but nonfocal. - Labs CBC & Chem 7: 07/07/24 05:33 07/07/24 05:33 Labs: Abnormal Lab Results - Last 24 Hours (Table) 07/06/24 07/07/24 07/07/24 Range/Units 16:14 05:33 05:33 WBC 11.8 H (3.8-10.6) k/uL Sodium 133 L (137-145) mmol/L Carbon Dioxide 33 H (22-30) mmol/L BUN 25 H (7-17) mg/dL Glucose 68 L (74-99) mg/dL POC Glucose (mg/dL) 126 H (70-110) mg/dL Assessment and Plan Assessment: Bibasilar pneumonia, possibly related to underlying aspiration. Acute on chronic hypoxemic respiratory failure. Moderately severe COPD. Tobacco dependence syndrome. Atrial fibrillation with RVR. History of dementia. Plan: Plan dated July 04, 2024. The patient is seen today in room 355. Her nasal O2 has been reduced down to 6 L from 8 yesterday. She is not receiving any IV fluids. She is awake and alert in no distress. She is laying flat in bed. Labs, x-rays, and all medications are reviewed. The patient continues on Rocephin. Additional recommendations and suggestions are forthcoming. She also continues on updrafts, and Solu- Medrol. Prognosis is poor. Plan dated July 05, 2024. The patient is seen today in room 355. Her oxygen is set at 6 L by nasal cannula, high flow. The patient is not receiving any IV fluids. She continues on Rocephin. I have ordered a procalcitonin level. Other labs and medications are reviewed. We will continue to follow the patient, make recommendations along the way. Prognosis is certainly guarded. Plan dated July 06, 2024. The patient is seen again in room 355. She continues on 6 L of oxygen. That can be titrated down. She continues on Rocephin. The patient is a DO NOT RESUSCITATE patient. Labs, x-rays, and medications are reviewed. The patient's procalcitonin level is 0.19. Antibiotics will be discontinued. Additional julian mmendations and suggestions are forthcoming. The patient steroids should be discontinued in favor of a Medrol Dosepak. Prognosis is guarded. Plan dated July 07, 2024. The patient is seen in room 355. The patient is currently on room air. She is not receiving any IV fluids. Labs, x-rays, and all medications are reviewed. The patient is hoping to be discharged soon from the hospital. Will leave that up to the primary service. We will continue to follow the patient. The patient steroids were discontinued in favor of Medrol Dosepak. Prognosis is certainly guarded.
[2024-07-07 14:22] VITALS: PULSE 81
[2024-07-07 14:23] VITALS: BP 109/52
== END 2024-07-07 14:16 | DRG 871 ==
LOC: EC 22:51 → 3SCARD 06-30 00:27
PROVIDERS: ADMIT Hospitalist; ATTEND Hospitalist
PROC: 3E0F7SF Introduction of Other Gas into Respiratory Tract, Via Natural or Artificial Opening (ICD-10-PCS; principal; 2024-06-30)
DX: A41.9 Sepsis, unspecified organism (principal); G93.41 Metabolic encephalopathy; J18.9 Pneumonia, unspecified organism; J96.21 Acute and chronic respiratory failure with hypoxia; I21.A1 Myocardial infarction type 2; J44.0 Chronic obstructive pulmonary disease with (acute) lower respiratory infection; K92.1 Melena; D62 Acute posthemorrhagic anemia; Z68.1 Body mass index [BMI] 19.9 or less, adult; E87.20 Acidosis, unspecified; J44.1 Chronic obstructive pulmonary disease with (acute) exacerbation; R65.20 Severe sepsis without septic shock; R62.7 Adult failure to thrive; F17.210 Nicotine dependence, cigarettes, uncomplicated; I48.91 Unspecified atrial fibrillation; E87.6 Hypokalemia; Z66 Do not resuscitate; I10 Essential (primary) hypertension; E78.5 Hyperlipidemia, unspecified; M19.90 Unspecified osteoarthritis, unspecified site; Z11.52 Encounter for screening for COVID-19; I08.3 Combined rheumatic disorders of mitral, aortic and tricuspid valves; F03.90 Unspecified dementia, unspecified severity, without behavioral disturbance, psychotic disturbance, mood disturbance, and anxiety; I25.2 Old myocardial infarction; I49.1 Atrial premature depolarization; I49.3 Ventricular premature depolarization; R04.0 Epistaxis; Y95 Nosocomial condition; Z79.82 Long term (current) use of aspirin; Z79.899 Other long term (current) drug therapy; Z88.2 Allergy status to sulfonamides
CPT/HCPCS: 71045; 71275; 80048; 80053; 80061; 81001; 82271; 83036; 83605; 83735; 83880; 84145; 84484; 85025; 85027; 85379; 85610; 85652; 85730; 86140; 87636; 93005; 93306; 93970; 94640; 94760; 96365; 96366; 96368; 96375; 99291